=== PATIENT | female | born 1965 | race Caucasian/White ===

== ENCOUNTER 2023-02-14 07:53 | Outpatient (OUT) | payer OTHER, SELFPAY ==
[2023-02-14 08:39] LABS: Calcium 9.4 mg/dL (8.5-10.1); Carbon Dioxide 30.8 mmol/L (21.0-32.0); Chloride 102 mmol/L (98-107); Estimated GFR (African America >60 (>=60); Estimated GFR (Non-African Ame >60 (>=60); Potassium 4.2 mmol/L (3.5-5.1); Sodium 140 mmol/L (136-145)
[2023-02-14 09:51] LABS: Calcium Urine Random 11.7 mg/dL (5.1-21.0); Creatinine Urine Random 46.43 mg/dL (20.00-300.00); Sodium Urine Random 47 mmol/L (30-90)
[2023-02-14 09:53] LABS: Calcium 24 Hour Urine 137.5 mg/24hr (100.0-300.0); Sodium 24 Hour Urine 55 mmol/24h (40-220); Total Volume 24 Hour Urine 1175 mL/24hr
[2023-02-15 10:09] LABS: Magnesium, U 5.5 mg/dL (Not Estab.); Magnesium,Urine 24hr 64.6 mg/24 hr (12.0-293.0); Phosphorus, Urine 66.3 mg/dL (Not Estab.); Phosphorus,Urine 24h 779 mg/24 hr (261-1078)
[2023-02-15 11:09] LABS: PTH, Intact 36 pg/mL (15-65); Uric Acid, Urine 16.1 mg/dL (Not Estab.); Uric Acid,Urine 24hr 189.2 mg/24 hr (173.7-902.1)
[2023-02-16 15:10] LABS: Citric Acid, U, 24hr 274 mg/24 hr (320-1240); Citric Acid, Urine 233 mg/L (Undefined); Oxalates, Urine 8 mg/L (Undefined); Oxalates, Urine 24hr 9 mg/24 hr (4-31)
== END 2023-02-14 07:54 | disposition home or self-care (01) ==
LOC: LAB 07:53
PROVIDERS: PCP Family Medicine; Visit Provider Urology
DX: N20.0 Calculus of kidney (principal)
CPT/HCPCS: 36415; 82310; 82340; 82374; 82435; 82507; 82565; 82570; 83735; 83945; 83970; 84105; 84132; 84295; 84300; 84520; 84550; 84560

== ENCOUNTER 2023-03-01 08:54 | Outpatient (OUT) | payer OTHER, SELFPAY ==
--- NOTE | 2023-03-01 08:58 | XR_ITS ---
The [address] [address] Patient Name: JOSE LUIS BARNEY MRN: [id number] date: 1965 Sex: F Assigned Patient Location: RAD Current Patient Location: [facility] Accession/Order Number: [id number] Exam Date: 03/01/2023 09:04 Report Date: 03/01/2023 13:56 At the request of: BETITO QUIROZ Procedure: XR abdomen 1V EXAMINATION: XR abdomen 1V HISTORY: Kidney Stone N20.0 COMPARISON: XR KUB 07/07/2022 FINDINGS: KIDNEY/URETER - RIGHT: No visible renal or ureteral calcifications. KIDNEY/URETER - LEFT: No visible renal or ureteral calcifications. PELVIS: No visible ureteral stones. BOWEL: No abnormal dilation or deviation. BONES: No acute abnormality. OTHER: Negative. No abnormal gaseous collections. XR/XR abdomen 1V IMPRESSION: 1. No visible urinary tract calculi. Previously seen right kidney stone is not present/not visible. Electronically authenticated by: PARISA DUBON Date: 03/01/2023 13:56
== END 2023-03-01 08:55 | disposition home or self-care (01) ==
LOC: RAD 08:54
PROVIDERS: PCP Family Medicine; Visit Provider Urology
DX: N20.0 Calculus of kidney (principal)
CPT/HCPCS: 74018

== ENCOUNTER 2023-06-29 10:54 | Outpatient (OUT) | payer OTHER, SELFPAY ==
--- NOTE | 2023-06-29 10:57 | MM_ITS ---
Patient Name: JOSE LUIS BARNEY MR#: [id number] : 1965 Exam Date: 06/29/2023 Ordering Doctor: DR LEANDER ARGUETA . RADIOLOGY REPORT PROCEDURE: MM TOMOSYNTHESIS SCREENING BI COMPARISON: MG MAMM SCREEN 3D [place] CAD, 06/28/2022. MG MAMM SCREEN 3D [place] CAD, 07/09/2021. MG MAMM SCREEN [place] W CAD, 07/07/2020. MG MAMM [place] SCRN W CAD DIG, 05/14/2013. INDICATIONS: screening Calculator Name NCI Breast Cancer Risk Assessment Tool 5 Year Breast Cancer Risk 1.00% Lifetime Breast Cancer Risk 6.20% Personal Breast Cancer No Personal Ovarian Cancer No Treatments None Family Cancers Brother with throat cancer at age ~60. LOCATION: [facility] BREAST COMPOSITION: Heterogeneously dense,which may obscure small masses. FINDINGS: DIAGNOSTIC CATEGORY 2--BENIGN FINDING: RIGHT BREAST: No significant suspicious finding. This exam includes additional mammographic views for implant evaluation and shows no visible implant abnormality. No significant change has occurred. LEFT BREAST: No significant suspicious finding. This exam includes additional mammographic views for implant evaluation and shows no visible implant abnormality. No significant change has occurred. RECOMMENDATIONS: ROUTINE MAMMOGRAM AND CLINICAL EVALUATION IN 12 MONTHS. PLEASE NOTE: A NORMAL MAMMOGRAM DOES NOT EXCLUDE THE POSSIBILITY OF BREAST CANCER. A CLINICALLY SUSPICIOUS PALPABLE LUMP SHOULD BE BIOPSIED. Dictated by: Chad Johnson M.D. on 06/29/2023 at 12:17 Approved by: Chad Johnson M.D. on 06/29/2023 at 12:21
== END 2023-06-29 10:55 | disposition home or self-care (01) ==
LOC: MAMMO 10:54
PROVIDERS: PCP Family Medicine; Visit Provider Family Medicine
DX: Z12.31 Encounter for screening mammogram for malignant neoplasm of breast (principal); Z80.8 Family history of malignant neoplasm of other organs or systems
CPT/HCPCS: 77063; 77067

== ENCOUNTER 2024-03-05 08:01 | Outpatient (OUT) | payer OTHER, SELFPAY ==
--- NOTE | 2024-03-05 08:09 | XR_ITS ---
The [address] [address] Patient Name: JOSE LUIS BARNEY MRN: [id number] date: 1965 Sex: F Assigned Patient Location: [facility] Current Patient Location: Accession/Order Number: [id number] Exam Date: 03/05/2024 08:15 Report Date: 03/06/2024 04:45 At the request of: BETITO QUIROZ Procedure: XR abdomen 1V EXAMINATION: XR abdomen 1V HISTORY: Kidney Stone COMPARISON: XR abdomen 03/01/2023 FINDINGS: KIDNEY/URETER - RIGHT: No visible renal or ureteral calcifications. KIDNEY/URETER - LEFT: No visible renal or ureteral calcifications. PELVIS: No visible ureteral calcifications. Any visible calcifications favor phleboliths. BOWEL: No abnormal dilation or deviation. BONES: No acute abnormality. OTHER: Negative. No abnormal gaseous collections. XR/XR abdomen 1V IMPRESSION: 1. No appreciable urinary tract calculi. Electronically authenticated by: PARISA DUBON Date: 03/06/2024 04:45
--- OUTSIDE RECORDS SUMMARY | 2024-03-05 08:09 | XMS_ITS | CCD ---
Author Organization [facility] CliniSyms Care Team Providers Care Printing Plate Setter Name Role Phone ANKIT JEAN Primary Care Physician TONY ARGUETA Primary Care Physician Unavail able JEAN ., DR ANKIT Gautam Primary Care Unavailable DIPAK BRADY Attending Unavailable JOSE ANTONIO, DIPAK Admitting Unavailable DIPAK BRADY Consulting Unavailable WALLY RIOS Consulting Unavailable JEAN ., DR ANKIT Gautam Primary Care Unavailable KEZIA ., JOSEPHINE Admitting Unavailable KEZIA ., JOSEPHINE Consulting Unavailable KEZIA ., JOSEPHINE Attending Unavailable MADRIGAL ., DR CISSE Consulting Unavailable MADRIGAL ., DR CISSE Attending Unavailable MADRIGAL ., DR CISSE Admitting Unavailable JEAN ., DR ANKIT Gautam Primary Care Unavailable JEAN ., DR ANKIT Gautam Primary Care Unavailable MADRIGAL ., DR CISSE Consulting Unavailable MADRIGAL ., DR CISSE Attending Unavailable MADRIGAL ., DR CISSE Admitting Unavailable JEAN ., DR ANKIT Gautam Primary Care Unavailable MADRIGAL ., DR CISSE Consulting Unavailable MADRIGAL ., DR CISSE Attending Unavailable MADRIGAL ., DR CISSE Admpascale Unavailable BOLIVAR, DR PATRICIO Mondragon Consulting Unavailable CHARLTON, LAWRENCE Consulting Unavailable GEMBUS, LUIS M Consulting Unavailable JEAN ., DR ANKIT Gautam Primary Care Unavailable JEAN ., DR ANKIT Gautma Consulting Unavailable JEAN ., DR ANKIT Gautam Attending Unavailable JEAN ., DR ANKIT Gautam Admitting Unavailable JEAN ., DR ANKIT Gautam Consulting Unavailable JEAN ., DR ANKIT Gautam Primary Care Unavailable JEAN ., DR ANKIT Gautam Attending Unavailable JEAN ., DR ANKIT Gautam Admitting Unavailable JEAN ., DR ANKIT Gautam Attending Unavailable JEAN ., DR ANKIT Gautam Admitting Unavailable JEAN ., DR ANKIT Gautam Consulting Unavailable JEAN ., DR ANKIT Gautam Primary Care Unavailable MADRIGAL ., DR CISSE Attending Unavailable MADRIGAL ., DR CISSE Admitting Unavailable MADRIGAL ., DR CISSE Consulting Unavailable JEAN ., DR ANKIT Gautam Primary Care Unavailable JAGDISH, DR CHAD Guzman Consulting Unavailable JEAN ., DR ANKIT Gautam Consulting Unavailable MIRANDA ., DR ANKIT Gautam Attending Unavailable MIRANDA ., DR ANKIT Gautam Admitting Unavailable MIRANDA ., DR ANKIT Gautam Primary Care Unavailable JAGDISH, DR CHAD Guzman Consulting Unavailable Tex MADRIGAL Attending Unavailable Tex MADRIGAL Attending Unavailable Betzy Donis Attending Unavailable TONY ARGUETA Referring Unavailable Tex MADRIGAL Attending Karolina Portillo Attending Unavailable Karolina DILLARD Referring Unavailable Tex MADRIGAL Attending Unavailable TONY ARGUETA Attending Unavailable Tony Argueta MD Primary Care Provider [phone] Allergies Allergy Classification Reported Allergen(s) Allergy Type Date of Onset Reaction(s) Facility (8 sources) Amoxicillin; Translations: [amoxicillin] Drug Allergy 4 Unknown (qualifier value), Rash [facility] (1 source) Amoxicillin Drug Allergy 6 [facility] Repository Medications Current Medications Medication Drug Class(es) Dates Sig (Normalized) Sig (Original) potassium bicarbonate 25 meq effervescent oral tablet (3 sources) Start: 03-06-2023 take 1 tablet by mouth in the morning Klor-Con/EF 25 MEQ effervescent tablet Take 25 mEq by mouth in the morning and 25 mEq before bedtime. 0 03/06/2023 Active SUMAtriptan 50 mg oral tablet (6 sources) Serotonin-1b and Serotonin-1d Receptor Agonist Start: 06-13-2022 SUMAtriptan 50 mg Tab Refills(s) 0 Start Date: 06/13/22 Status: Ordered take 5 tablets by mouth every we ek SUMAtriptan (Imitrex) 50 MG tablet Take 50 mg by mouth See administration instructions TAKE 1 TABLET BY MOUTH NEEDED FOR HEADACHE, may repeat in 2 HOURS if needed (max 2 per 24 HOURS, 5 per week) 0 Active Completed/Discontinued Medications Medication Drug Class(es) Dates Sig (Normalized) Sig (Original) K-Effervescent 25 mEq oral tablet, effervescent (1 source) Start: 03-06-2023 End: 02-29-2024 take 1 tablet by mouth twice daily K-Effervescent 25 mEq oral tablet, effervescent 25 mEq = 1 tab(s), Oral, BID, X 30 day(s), # 60 tab(s), Refills(s) 11, Pharmacy: [id number], 165, cm, 03/06/23 15:46:00 EDT, Height/Length Dosing, 70.9, kg, 03/06/23 15:46:00 EDT, Weight Dosing Start Date: 03/06/23 Stop Date: 02/29/24 Status: Ordered magnesium sulfate 225 MG / potassium chloride 188 MG / sodium sulfate 1479 MG Oral Tablet [Sutab] (2 sources) Start: 09-06-2022 take 1 tablet by mouth once Sutab oral tablet See Instructions, 1 EA, Refill(s) 0, Please follow instructions per packaging and physician's handout, [id number], 165, cm, 09/06/22 8:50:00 EST, Height/Length Dosing, 76.6, kg, 09/06/22 8:50:00 EST, Weight Dosing Start Date: 09/06/22 Status: Ordered Sutab 6386-529-281 MG tablet (3 sources) Start: 09-06-2022 End: 08-16-2023 Sutab 0886-651-267 MG tablet USE DIRECTED per physicians handout 0 09/06/2022 08/16/2023 Discontinued (Therapy completed) Start: 09-06-2022 Sutab 1479-225 -188 MG tablet USE DIRECTED per physicians handout 0 09/06/2022 Active Problems Active Problems Problem Classification Problem Date Documented Date Episodic/Chronic Administrative/socia l admission (2 sources) Advance directive discussed with patient; Translations: [Other specified counseling] 08-09-2023 Episodic Calculus of urinary tract (11 sources) Kidney stone; Translations: [Calculus of kidney] Onset: 05-31-20 Episodic Headache; including migraine (2 sources) Migraine without aura, not refractory ; Translations: [Migraine without aura, not intractable, without status migrainosus] Onset: 08-16-1908-16-2023 Chronic Headache; including migraine (3 sources) Headache 06-13-2022 Episodic Headache; including migraine (1 source) Headache; including migraine; Translations: [HEADACHE UNSPECIFIED] Onset: 07-07-20 Other and unspecified benign neoplasm (5 sources) History of polyp of colon; Translations: [Personal history of colonic polyps] Onset: 09-06-19 23 Episodic Other bone disease and musculoskeletal deformities (2 sources) Osteopenia; Translations: [Other specified disorders of bone density and structure, other site] Onset: 08-16-19 24 08-16-2023 Episodic Other diseases of kidney and ureters (1 source) Urinary tract obstruction; Translations: [Hydronephrosis with renal and ureteral calculous obstruction] Onset: 06-13-20 Episodic Other diseases of kidney and ureters (3 sources) Hydronephrosis 06-13-2022 Episodic Other diseases of kidney and ureters (3 sources) Hydroureteronephrosis 06-13-2022 Episodic Other diseases of kidney and ureters (1 source) Hydronephrosis with renal and ureteral calculous obstruction; Translations: [HYDRONPHROS RENL AND URETRL CALCUL OBST] Onset: 06-18-20 Episodic Other nutritional; endocrine; and metabolic disorders (6 sources) Body mass index 25-29 - overweight; Translations: [Overweight] Onset: 08-09-19 24 08-09-2023 Episodic Other screening for suspected conditions (not mental disorders or infectious disease) (8 sources) Encounter for screening mammogram for malignant neoplasm of breast; Translations: [Encounter for screening for malignant neoplasm of cervix] Onset: 06-06-20 Episodic Residual codes; unclassified (1 source) Family history of malignant neoplasm of digestive organs; Translations: [FAM HX MALIG NEOPLASM DIGESTIV ORGN] Onset: 07-06-20 Episodic Residual codes; unclassified (2 sources) Menopause present; Translations: [Asymptomatic menopausal state] Onset: 08-16-19 24 08-16-2023 Episodic Unclassified (1 source) CONTACT W/AND (SUSP) EXPOS COVID-19; Translations: [CONTACT W/AND (SUSP) EXPOS COVID-19] Onset: 07-07-20 Past or Other Problems Problem Classification Problem Date Documented Da te Episodic/Chronic Abdominal pain (3 sources) Unspecified abdominal pain; Translations: [UNSPECIFIED ABDOMINAL PAIN] Onset: 05-27-2022 Episodic Nausea and vomiting (1 source) Nausea with vomiting, unspecified; Translations: [NAUSEA WITH VOMITING UNSPECIFIED] Onset: 05-31-2022 Episodic Results Test Name Value Interpretation Reference Range Facility Lab Reportson 03-07-2023 Lab Reports [id number]:12 7 [facility] Patient Educationon 03-06-20 Patient Education Nephrology Dietary Guidelines to Help Prevent Kidney Stones Kidney stones are deposits of minerals and salts that form inside your kidneys. Your risk of developing kidney stones may be greater depending on your diet, your lifestyle, the medicines you take, and whether you have certain medical conditions. Most people can lower their chances of developing kidney stones by following the instructions below. Your dietitian may give you more specific instructions depending on your overall health and the type of kidney stones you tend to develop. What are tips for following this plan? Reading food labels ? Choose foods with no salt added or low-salt labels. Limit your salt (sodium) intake to less than 1,500 mg a day. ? Choose foods with calcium for each meal and snack. Try to eat about 300 mg of calcium at each meal. Foods that contain 200?500 mg of calcium a serving include: ? 8 oz (237 mL) of milk, zqosbep-hmaertvnfzan-ozuo y milk, and calcium-fortifiedfruit juice. Calcium-fortified means that calcium has been added to these drinks. ? 8 oz (237 mL) of kefir, yogurt, and soy yogurt. ? 4 oz (114 g) of tofu. ? 1 oz (28 g) of cheese. ? 1 cup (150 g) of dried figs. ? 1 cup (91 g) of cooked broccoli. ? One 3 oz (85 g) can of sardines or mackerel. Most people need 1,000?1,500 mg of calcium a day. Talk to your dietitian about how much calcium is recommended for you. Shopping ? Buy plenty of fresh fruits and vegetables. Most people do not need to avoid fruits and vegetables, even if these foods contain nutrients that may contribute to kidney stones. ? When shopping for convenience foods, choose: ? Whole pieces of fruit. ? Pre-made salads with dressing on the side. ? Low-fat fruit and yogurt smoothies. ? Avoid buying frozen meals or prepared deli foods. These can be high in sodium. ? Look for foods with live cultures, such as yogurt and kefir. ? Choose high-fiber grains, such as whole-wheat breads, oat bran, and wheat cereals. Cooking ? Do not add salt to food when cooking. Place a salt shaker on the table and allow each person to add his or her own salt to taste. ? Use vegetable protein, such as beans, textured vegetable protein (TVP), or tofu, instead of meat in pasta, casseroles, and soups. Meal planning ? Eat less salt, if told by your dietitian. To do this: ? Avoid eating processed or pre-made food. ? Avoid eating fast food. ? Eat less animal protein, including cheese, meat, poultry, or fish, if told by your dietitian. To do this: ? Limit the number of times you have meat, poultry, fish, or cheese each week. Eat a diet free of meat at least 2 days a week. ? Eat only one serving each day of meat, poultry, fish, or seafood. ? When you prepare animal protein, cut pieces into small portion sizes. For most meat and fish, one serving is about the size of the palm of your hand. ? Eat at least five servings of fresh fruits and vegetables each day. To do this: ? Keep fruits and vegetables on hand for snacks. ? Eat one piece of fruit or a handful of berries with breakfast. ? Have a salad and fruit at lunch. ? Have two kinds of vegetables at dinner. ? Limit foods that are high in a substance called oxalate. These include: ? Spinach (cooked), rhubarb, beets, sweet potatoes, and [place] chard. ? Peanuts. ? Potato chips, japanese fries, and baked potatoes with skin on. ? Nuts and nut products. ? Chocolate. ? If you regularly take a diuretic medicine, make sure to eat at least 1 or 2 servings of fruits or vegetables that are high in potassium each day. These include: ? Avocado. ? Banana. ? [place], prune, carrot, or tomato juice. ? Baked potato. ? Cabbage. ? Beans and split peas. Lifestyle ? Drink enough fluid to keep your urine pale yellow. This is the most important thing you can do. Spread your fluid intake throughout the day. ? If you drink alcohol: ? Limit how much you use to: ? 0?1 drink a day for women who are not . ? 0?2 drinks a day for men. ? Be aware of how much alcohol is in your drink. In the [place] one drink equals one 12 oz bottle of beer (355 mL), one 5 oz glass of wine (148 mL), or one 1? oz glass of hard liquor (44 mL). ? Lose weight if told by your health care provider. Work with your dietitian to find an eating plan and weight loss strategies that work best for you. General information ? Talk to your health care provider and dietitian about taking daily supplements. You may be told the following depending on your health and the cause of your kidney stones: ? Not to take supplements with vitamin C. ? To take a calcium supplement. ? To take a daily probiotic supplement. ? To take other supplements such as magnesium, fish oil, or vitamin B6. ? Take ecey-iog-xdcpbxc and prescription medicines only as told by your health care provider. These include supplements. What foods should I limit? Limit your in (more content not included)... [facility] Urology Office/Clinic Noteon 03-06-2023 Urology Office/Clinic Note Chief Complaint kidney and ureteral stone f/u HPI Staff 8 month f/u with metabolic work up and KUB. Previous dx of kidney stone and ureteral stone with hydronephrosis. Dysuria: no Incomplete bladder emptying: no Hematuria: no Frequency: no Urgency: no Nocturia: 0-1x Stream: no straining involved or intermittency Leaking: no Post void dripping: no Wearing pads/ Depends: no Urge incontinence: no Stress incontinence: no Incontinence without Sensory Awareness: no Abdominal pain: no Flank pain: no Sexual complaints: no History of Present Illness Tests reviewed: reviewed UA, KUB I have reviewed the previous health record information and history for this patient from Dr. Madrigal. I have reviewed and verified the staff HPI to be accurate for this encounter. There have been no associated fever, chills, flank pain, or blood in the urine. Denies any urinary infections since last encounter. Review of Systems PHQ Score Initial Depression Screen Score: 0 ROS - Provider Constitutional: denies weight loss, denies hot flashes. Eyes: denies eye problems. Gastrointestinal: denies nausea, denies vomiting. Cardiovascular: denies chest pain or angina. Integumentary: no dryness Musculoskeletal: denies musculoskeletal symptoms. ENMT: denies otolaryngeal symptoms. Respiratory: no shortness of breath. Heme/Lymph: denies easy bleeding tendency, denies easy bruising tendency. Psychiatric: no confusion, no anxiety. Genitourinary: See HPI. Physical Exam Vitals & Measurements HR: 71(Peripheral) RR: 16 BP: 126/83 HT: 65 in HT: 165 cm WT: 70.9 kg WT: 155.98 lb BMI: 26.04 General Appearance: alert , no acute distress, well nourished, well developed female. Genitourinary: bladder nonpalpable, no flank pain. Assessment/Plan 1. Kidney stone (N20.0: Calculus of kidney) S/p R ESWL 07/07/22 24hr urine 02/14/23 - low Cr 545.55 (800 - 1800), low volume, low citric acid 275 (320 - 1240) KUB 03/01/23 - negative for stones Recommended pt to increase fluid intake to ten to twelve 16oz bottles a day; preferably water, clear pop, and sugar free lemonade. Pt to begin Effer-K 25 mEq BID. Discussed the medication side effects, and the patient will monitor closely for these, as well as for symptom improvement. If severe side effects occur, the medication should be stopped and the office notified. Scipt sent to in [place]. Follow up with KUB in 1 year or sooner if needed. All questions/concerns were discussed. Pt to call the office if she encounters any issues prior. Pt acknowledges understanding. Follow-up With When Contact Information RICHIE YANEZ, Tex Guzman, URL [facility] [address], [place] [address]- [phone] Additional Instructions: 1 yr w/ KUB Patient Education Dietary Guidelines to Help Prevent Kidney Stones Beryl Newman, personally scribed for Dr. Madrigal on 03/06/2023 17:03:30. . Documentation recorded by the scribe, Beryl Griffin, accurately reflects the services(s) I performed and decisions made by me. Authenticated by Dr. Madrigal on 03/06/2023 17:05:37. Problem List/Past Medical History Ongoing Headache History of colon polyps Hydroureteronephrosis Kidney stone Ureteral stone with hydronephrosis Historical No qualifying data Procedure/Surgical History Breast augmentation, Colonoscopy. Medications K-Effervescent 25 mEq oral tablet, effervescent, 25 mEq= 1 tab(s), Oral, BID, 11 refills SUMAtriptan 50 mg Tab Sutab oral tablet, See Instructions Allergies amoxicillin (Unknown) Social History Tobacco Never (less than 100 in lifetime) Tobacco Use:. Never Smokeless Tobacco Use:., 09/06/2022 Family History Heart disease: Mother. Hypertension: Mother. Stroke: Mother. Immunizations Vaccine Date Status influenza virus vaccine, inactivated 04/26/2022 Recorded SARS-CoV-2 (COVID-19) mRNA BNT-162b2 vax 10/29/2020 Recorded SARS-CoV-2 (COVID-19) mRNA BNT-162b2 vax 10/09/2020 Recorded Lab Results Ambulatory Point of Care Results Bilirubin Urine Dipstick: Negative (03/06/23 15:42:00) Blood Urine Dipstick: Negative (03/06/23 15:42:00) Glucose Urine Dipstick: Negative (03/06/23 15:42:00) Ketones Urine Dipstick: Negative (03/06/23 15:42:00) Leukocytes Urine Dipstick: Negative (03/06/23 15:42:00) Nitrite Urine Dipstick: Negative (03/06/23 15:42:00) Protein Urine Dipstick: Negative (03/06/23 15:42:00) Specific [place] Urine Dipstick: 1.015 (03/06/23 15:42:00) Urine Appearance Urine Dipstick: Clear (03/06/23 15:42:00) Urine Color Urine Dipstick: Yellow (03/06/23 15:42:00) Urobilinogen Urine Dipstick: Normal 0.2-1 EU/dl (03/06/23 15:42:00) pH Urine Dipstick: 5.5 (03/06/23 15:42:00) [facility] Comment on above: Result Comment: Elec tronically Signed By: Tex MADRIGAL MD\.chantel\Date and Time Signed: 03/06/23 17:05 EDT\.br\Electronically Co-Signed By: Beryl Griffin.br\Date and Time Co-Signed: 03/06/23 17:04 EDT RAD - MISCon 03-02-2023 RAD - MISC [id number]:12 7 [facility] RAD - MISC [id number]#1.00CD:12 7 [facility] Lab Reportson 02-15-2023 Lab Reports [id number]:12 7 [facility] Lab Reports [id number]#1.00CD:12 7 [facility] Reminderson 10-17-2022 Reminders - From: Durga Monterroso To: CHRIS - Reminders/Recalls; Sent: 10/17/2022 11:02:42 EDT Show up: 09/08/2027 11:02:00 EST Subject: Ambulatory Reminder Due Date/Time: 10/05/2027 11:02:00 EDT Reminder/Recall Repeat colonoscopy in 5 years(2027) due to personal history of colon polyps. [facility] Result Letter Officeon 10-17 Result Letter Office (Inserted Image. Un able to display) October 17, 2022 [address] [place] [phone] KIARA MOYA 1965 Below is a summary of the results of your recent colonoscopy. Your results have been sent to your primary care provider along with recommendations on when the procedure should be repeated. COLONOSCOPY Normal colonoscopy No polyps identified Based on your results we are recommending you repeat the procedure in 5 years due to personal history of colon polyps. You will be placed in our reminder system and will receive a reminder letter prior to your next due date. [facility] [phone] [facility] Outside Colonoscopyon 2022 Outside Colonoscopy [id number]:1 27 [facility] Auth for Release of Medical Recordson 09-07-2022 Auth for Release of Medical Records [id number]#1.00CD:12 7 [facility] Ambulatory Visit Summaryon 0 09-06-2022 Ambulatory Visit Summary KIARA MOYA :1965 Visit Date:09/06/2022 Ambulatory Visit Instructions Your Diagnosis History of colon polyps Your Care Team Attending Physician - Betzy Donis CNP Primary Care Physician - TONY ARGUETA MD Referring Physician - TONY ARGUETA MD This Is Your Medications List magnesium sulfate/potass Cl/sodium sulf (Sutab oral tablet) Contact prescribing physician if questions or concerns sumatriptan (SUMAtriptan 50 mg Tab) Procedures Performed Breast augmentation, Colonoscopy. Discharge Vitals Temperature (Temporal Artery) 36 ?C Heart Rate (Peripheral) 85 Blood Pressure 117/82 Height 165 cm Height 65 in Weight 76.6 kg Weight 168.52 lb BMI 28.14 What to do next You Need to Schedule the Following Appointments Follow Up with Betzy Donis CNP When: Within 1 to 2 weeks Comments: Following colonoscopy. Where: Medications What How Much When Instructions New magnesium sulfate/ potass Cl/ sodium sulf (Sutab oral tablet) See instructions Please follow instructions per packaging and physician's handout Pickup at [facility] Unchanged sumatriptan (SUMAtriptan 50 mg Tab) Contact prescribing physician if questions or concerns Pharmacy Information [facility]: [address] [place], [place] [phone] Allergies amoxicillin (Unknown) Problems Ongoing - Any problem that you are currently receiving treatment for. Headache History of colon polyps Hydroureteronephrosis Kidney stone Ureteral stone with hydronephrosis Education Materials Colonoscopy, Adult A colonoscopy is an exam to look at the entire large intestine. During the exam, a lubricated, flexible tube that has a camera on the end of it is inserted into the anus and then passed into the rectum, colon, and other parts of the large intestine. You may have a colonoscopy as a part of normal colorectal screening or if you have certain symptoms, such as: ? Lack of red blood cells (anemia). ? Diarrhea that does not go away. ? Abdominal pain. ? Blood in your stool (feces). A colonoscopy can help screen for and diagnose medical problems, including: ? Tumors. ? Polyps. ? Inflammation. ? Areas of bleeding. Tell a health care provider about: ? Any allergies you have. ? All medicines you are taking, including vitamins, herbs, eye drops, creams, and ieoz-odz-ubtxtzw medicines. ? Any problems you or family members have had with anesthetic medicines. ? Any blood disorders you have. ? Any surgeries you have had. ? Any medical conditions you have. ? Any problems you have had passing stool. What are the risks? Generally, this is a safe procedure. However, problems may occur, including: ? Bleeding. ? A tear in the intestine. ? A reaction to medicines given during the exam. ? Infection (rare). What happens before the procedure? Eating and drinking restrictions Follow instructions from your health care provider about eating and drinking, which may include: ? A few days before the procedure ? follow a low-fiber diet. Avoid nuts, seeds, dried fruit, raw fruits, and vegetables. ? 1?3 days before the procedure ? follow a clear liquid diet. Drink only clear liquids, such as clear broth or bouillon, black coffee or tea, clear juice, clear soft drinks or sports drinks, gelatin dessert, and popsicles. Avoid any liquids that contain red or purple dye. ? On the day of the procedure ? do not eat or drink anything starting 2 hours before the procedure, or within the time period that your health care provider recommends. Up to 2 hours before the procedure, you may continue to drink clear liquids, such as water or clear fruit juice. Bowel prep If you were prescribed an oral bowel prep to clean out your colon: ? Take it as told by your health care provider. Starting the day before your procedure, you will need to drink a large amount of medicated liquid. The liquid will cause you to have multiple loose stools until your stool is almost clear or light green. ? If your skin or anus gets irritated from diarrhea, you may use these to relieve the irritation: ? Medicated wipes, such as adult wet wipes with aloe and vitamin E. ? A skin-soothing product like petroleum jelly. ? If you vomit while drinking the bowel prep, take a break for up to 60 minutes and then begin the bowel prep again. If vomiting continues and you cannot take the bowel prep without vomiting, call your health care provider. ? To clean out your colon, you may also be given: ? Laxative medicines. ? Instructions about how to use an enema. General instructions ? Ask your health care provider about: ? Changing or stopping your regular medicines or supplements. This is especially important if you are taking iron supplements, diabetes medicines, or blood thinners. ? Taking medici (more content not included)... Normal [facility] Consent for Procedure/Surger yon 09-06-2022 Consent for Procedure/Surgery [id number]#1.00CD:1 27 Normal [facility] Gastroenterology Office/Clin ic Noteon 09-06-2022 Gastroenterology Office/Clinic Note Chief Complaint Colonoscopy recheck. HPI Staff This is a 57 year old female who presents today to schedule a colonoscopy. Patient was referred by Dr Argueta and her last colonoscopy was 04/03/2019. History of Present Illness Patient is a 57-year-old female who presents for referral from her PCP?Dr. Argueta for colonoscopy. Family history of colon cancer: Denies. Family history of colon polyps: Denies. Personal history of colon cancer: Denies. Personal history of colon polyps: Yes, per patient. Anticoagulation therapy: Denies. Antiplatelet therapy: Denies. During today's visit, patient reports having previous colonoscopy in 2019 and had colon polyps- she reports she was told to repeat in 3 years. No record of previous colonoscopy available to review during today's encounter. Denies change in bowel habits, black/bloody stools, nausea/vomiting, fevers/chills, and denies unintentional weight loss. Denies having any GI complaints. Review of Systems PHQ Score Initial Depression Screen Score: 0 ROS - Provider Constitutional: no fever, no chills. Skin: no Jaundice. ENMT: Denies dysphagia and heartburn. Respiratory: no shortness of breath. Cardiovascular: no chest pain. Gastrointestinal: no nausea, no vomiting, no diarrhea, no GI bleeding. Physical Exam Vitals & Measurements T: 36 ?C(Temporal Artery) HR: 85(Peripheral) BP: 117/82 HT: 65 in HT: 165 cm WT: 76.6 kg WT: 168.52 lb BMI: 28.14 General: Well developed, well nourished, in no acute distress Head: Normocephalic/atraumatic Lungs: Normal respiratory effort and clear to auscultation Cardio: Regular rate and rhythm, normal S1 and S2, no murmur, no rub Abdomen: Soft, non-distended, non-tender. Normoactive bowel sounds present in all 4 abdominal quadrants, bilaterally. Mental Status: Alert and oriented x3. Normal mood and affect Assessment/Plan 1. History of colon polyps (Z86.010: Personal history of colonic polyps) Previous colonoscopy in 2019 and had colon polyps- reportedly was told to repeat in 3 years. No record of previous colonoscopy available to review during today's encounter. Ordered Colonoscopy. Denies anticoagulation therapy. Ordered: Colonoscopy (Hospital Procedure) Orders: magnesium sulfate/potass Cl/sodium sulf, See Instructions, 1 EA, Refill(s) 0, Please follow instructions per packaging and physician's handout, [employer] #72, 165, cm, 09/06/22 8:50:00 EST, Height/Length Dosing, 76.6, kg, 09/06/22 8:50:00 EST, Weight Dosing Follow-up With When Contact Information Betzy Donis CNP Within 1 to 2 weeks Additional Instructions: Following colonoscopy. Patient Education Colonoscopy, Adult Problem List/Past Medical History Ongoing Headache History of colon polyps Hydroureteronephrosis Kidney stone Ureteral stone with hydronephrosis Historical No qualifying data Procedure/Surgical History Breast augmentation, Colonoscopy. Medications SUMAtriptan 50 mg Tab Sutab oral tablet, See Instructions Allergies amoxicillin (Unknown) Social History Tobacco Never (less than 100 in lifetime) Tobacco Use:. Never Smokeless Tobacco Use:., 09/06/2022 Family History Heart disease: Mother. Hypertension: Mother. Stroke: Mother. Immunizations Vaccine Date Status influenza virus vaccine, inactivated 04/26/2022 Recorded SARS-CoV-2 (COVID-19) mRNA BNT-162b2 vax 10/29/2020 Recorded SARS-CoV-2 (COVID-19) mRNA BNT-162b2 vax 10/09/2020 Recorded New information obtained: Outside records reviewed and indicated patient had previous colonoscopy 03/[address] Torres that revealed large adenomatous polyp. Normal [facility] Comment on above: Result Comment: Elec aprylally Signed By: Betzy Donis CNP\.chantel\Date and Time Signed: 09/06/22 10:32 EST Patient Educationon 09-06-19 Patient Education Radiology Colonoscopy, Adult A colonoscopy is an exam to look at the entire large intestine. During the exam, a lubricated, flexible tube that has a camera on the end of it is inserted into the anus and then passed into the rectum, colon, and other parts of the large intestine. You may have a colonoscopy as a part of normal colorectal screening or if you have certain symptoms, such as: ? Lack of red blood cells (anemia). ? Diarrhea that does not go away. ? Abdominal pain. ? Blood in your stool (feces). A colonoscopy can help screen for and diagnose medical problems, including: ? Tumors. ? Polyps. ? Inflammation. ? Areas of bleeding. Tell a health care provider about: ? Any allergies you have. ? All medicines you are taking, including vitamins, herbs, eye drops, creams, and azma-jvv-wuzajnw medicines. ? Any problems you or family members have had with anesthetic medicines. ? Any blood disorders you have. ? Any surgeries you have had. ? Any medical conditions you have. ? Any problems you have had passing stool. What are the risks? Generally, this is a safe procedure. However, problems may occur, including: ? Bleeding. ? A tear in the intestine. ? A reaction to medicines given during the exam. ? Infection (rare). What happens before the procedure? Eating and drinking restrictions Follow instructions from your health care provider about eating and drinking, which may include: ? A few days before the procedure ? follow a low-fiber diet. Avoid nuts, seeds, dried fruit, raw fruits, and vegetables. ? 1?3 days before the procedure ? follow a clear liquid diet. Drink only clear liquids, such as clear broth or bouillon, black coffee or tea, clear juice, clear soft drinks or sports drinks, gelatin dessert, and popsicles. Avoid any liquids that contain red or purple dye. ? On the day of the procedure ? do not eat or drink anything starting 2 hours before the procedure, or within the time period that your health care provider recommends. Up to 2 hours before the procedure, you may continue to drink clear liquids, such as water or clear fruit juice. Bowel prep If you were prescribed an oral bowel prep to clean out your colon: ? Take it as told by your health care provider. Starting the day before your procedure, you will need to drink a large amount of medicated liquid. The liquid will cause you to have multiple loose stools until your stool is almost clear or light green. ? If your skin or anus gets irritated from diarrhea, you may use these to relieve the irritation: ? Medicated wipes, such as adult wet wipes with aloe and vitamin E. ? A skin-soothing product like petroleum jelly. ? If you vomit while drinking the bowel prep, take a break for up to 60 minutes and then begin the bowel prep again. If vomiting continues and you cannot take the bowel prep without vomiting, call your health care provider. ? To clean out your colon, you may also be given: ? Laxative medicines. ? Instructions about how to use an enema. General instructions ? Ask your health care provider about: ? Changing or stopping your regular medicines or supplements. This is especially important if you are taking iron supplements, diabetes medicines, or blood thinners. ? Taking medicines such as aspirin and ibuprofen. These medicines can thin your blood. Do not take these medicines before the procedure if your health care provider tells you not to. ? Plan to have someone take you home from the hospital or clinic. What happens during the procedure? ? An IV may be inserted into one of your veins. ? You will be given medicine to help you relax (sedative). ? To reduce your risk of infection: ? Your health care team will wash or sanitize their hands. ? Your anal area will be washed with soap. ? You will be asked to lie on your side with your knees bent. ? Your health care provider will lubricate a long, thin, flexible tube. The tube will have a camera and a light on the end. ? The tube will be inserted into your anus. ? The tube will be gently eased through your rectum and colon. ? Air will be delivered into your colon to keep it open. You may feel some pressure or cramping. ? The camera will be used to take images during the procedure. ? A small tissue sample may be removed to be examined under a microscope (biopsy). ? If small polyps are found, your health care provider may remove them and have them checked for cancer cells. ? When the exam is done, the tube will be removed. The procedure may vary among health care providers and hospitals. What happens after the procedure? ? Your blood pressure, heart rate, breathing rate, and blood oxygen level will be monitored until the medicines you were given have worn off. ? Do not drive for 24 hours after the exam. ? You may have a small amount of blood in your stool. ? You may pass gas and have mild abdominal cramping or bloating due to the air t (more content not included)... Normal [facility] Physician Referralon 023 Physician Referral [id number]#1.00CD:12 7 Normal [facility] RAD - MISCon 07-15-2022 RAD - MISC [id number]#1.00CD:12 7 Normal [facility] Operative Reporton Operative Report [id number]#1.00CD:12 7 Normal [facility] PREG QUANT HCGon 07-07-2022 HCG QUANT 2 mIU/mL Normal [facility] Comment on above: Performed By: #### P REGQNT #### [facility] [address] [place] [address] Dr. Merritt Agudelo HCG RANGE SEE BELOW Normal [facility] Comment on above: Result Comment: 5-50 0.2-1 WEEK 50-500 1-2 WEEKS 100-5,000 2-3 WEEKS 500-10,000 3-4 WEEKS 1,000-50,000 4-5 WEEKS 10,000-100,000 5-6 WEEKS 15,000-200,000 6-8 WEEKS 10,000-100,000 2-3 MONTHS Performed By: #### P REGQNT #### [facility] [address] [place] [address] Dr. Merritt Agudelo XR KUB 1 VIEWon 07-07-2022 XR KUB 1 VIEW EXAMINATION: XR KUB 1 VIEW HISTORY: Urolithiasis COMPARISON: No relevant comparison available. FINDINGS: KIDNEY/URETER - RIGHT: Stable 8 mm nephrolith KIDNEY/URETER - LEFT: No visible renal or ureteral calcifications. PELVIS: No visible ureteral calcifications. Any visible calcifications favor phleboliths. BOWEL: No abnormal dilation or deviation. BONES: No acute abnormality. OTHER: Negative. No abnormal gaseous collections. IMPRESSION: Stable right nephrolithiasis Electronically authenticated by: PATRICIO LUTZ Date: 2022-07-07 11:10 Normal [facility] ECG 12-Leadon 07-06-2022 ECG 12-Lead [id number]#1.00CD:12 7 Normal [facility] Lab Reportson 07-06-2022 Lab Reports [id number]#1.00CD:12 7 Normal [facility] Cov[facility]on 06-10 SARS-CoV-2 (COVID-19) RNA MICHAEL+probe Ql (Unsp spec) Not detected Normal NOT DETECTED [facility] Comment on above: Result Comment: This test is not yet approved or cleared by the [place] FDA. When there are no FDA-approved or cleared tests available, and other criteria are met, FDA can make tests available under an emergency access mechanism called an Emergency Use Authorization (EUA). The EUA for this test is supported by the Dred[place] of Health and Human Service's (HHS's) declaration that circumstances exist to justify the emergency use of in vitro diagnostics for the detection and/or diagnosis of the virus that causes COVID-19. This EUA will remain in effect (meaning this test can be used) for the duration of the COVID-19 declaration justifying emergency of IVDs, unless it is terminated or revoked by FDA (after which the test may no longer be used). When diagnostic testing is negative, the possibility of a false negative should be considered in the context of a patient's recent exposures and the presence of clinical signs and symptoms consistent with SARS-CoV-2. Performed By: #### C VDTB #### [facility] [address] [place] [address] Dr. Merritt Agudelo Lab Reportson 06-30-2022 Lab Reports [id number]#1.00CD:12 7 Normal [facility] CBC AUTO DIFFon 06-29-2022 BASO # 0.0 103/ul Normal 0.0-0.[address] [facility] Comment on above: Performed By: #### C BC #### [facility] [address] [address] [address] Merritt Agudelo Basophils/100 WBC (Bld) 0.5 % Normal 0.2-2.[address] [facility] Comment on above: Performed By: #### C BC #### [facility] [address] [address] [address] Merritt Agudelo EO # 0.1 103/ul Normal 0.0-0.[address] [facility] Comment on above: Performed By: #### C BC #### [facility] [address] [place] [address] Dr. Merritt Agudelo Eosinophils/100 WBC (Bld) 2.2 % Normal 0.9-7.[address] [facility] Comment on above: Performed By: #### C BC #### [facility] [address] [place] [address] Dr. Merritt Agudelo Erythrocyte distribution width (RBC) [Ratio] 12.5 % Normal 11.0-15.[address] [facility] Comment on above: Performed By: #### C BC #### [facility] [address] [place] [address] Dr. Merritt Agudelo Hematocrit (Bld) [Volume fraction] 37.2 % Normal 36.0-48.[address] [facility] Comment on above: Performed By: #### C BC #### [facility] [address] [address] [address] Merritt Agudelo Hemoglobin (Bld) [Mass/Vol] 12.1 g/dL Normal 12.0-16.[address] [facility] Comment on above: Performed By: #### C BC #### [facility] [address] [place] [address] Dr. Merritt Agudelo IG # 0.02 10e3/ul Normal 0.00-0.[address] [facility] Comment on above: Performed By: #### C BC #### [facility] [address] [place] [address] Dr. Merritt Agudelo IG % 0.3 % Normal 0.0-0.[address] [facility] Comment on above: Performed By: #### C BC #### [facility] [address] [place] [address] Dr. Merritt Agudelo LYMPH # 1.8 103/ul Normal 1.2-3.8 [facility] Comment on above: Performed By: #### C BC #### [facility] [address] [place] [address] Dr. Merritt Agudelo Lymphocytes/100 WBC (Bld) 28.5 % Normal 20.5-60.0 [facility] Comment on above: Performed By: #### C BC #### [facility] [address] [place] [address] Dr. Merritt Agudelo MANUAL DIFF REQ NO Normal [facility] Comment on above: Performed By: #### C BC #### [facility] [address] [place] [address] Dr. Merritt Agudelo MCH (RBC) [Entitic mass] 29.5 pg Normal 26.7-34.[address] [facility] Comment on above: Performed By: #### C BC #### [facility] [address] [place] [address] Dr. Merritt Agudelo MCHC (RBC) [Mass/Vol] 32.5 g/dL Normal 29.9-35.2 [facility] Comment on above: Performed By: #### C BC #### [facility] [address] [place] [address] Dr. Merritt Agudelo MCV (RBC) [Entitic vol] 90.7 fL Normal 81.0-99.0 [facility] Comment on above: Performed By: #### C BC #### [facility] [address] [place] [address] Dr. Merritt Agudelo MONO # 0.5 103/ul Normal 0.3-0.8 [facility] Comment on above: Performed By: #### C BC #### [facility] [address] [place] [address] Dr. Merritt Agudelo Monocytes/100 WBC (Bld) 8.5 % Normal 1.7-12.[address] [facility] Comment on above: Performed By: #### C BC #### [facility] [address] [place] [address] Dr. Merritt Agudelo NEUT # 3.8 103/ul Normal 1.4-6.[address] [facility] Comment on above: Performed By: #### C BC #### [facility] [address] [place] [address] Dr. Merritt Agudelo Neutrophils/100 WBC (Bld) 60.0 % Normal 43.0-75.0 [facility] Comment on above: Performed By: #### C BC #### [facility] [address] [place] [address] Dr. Merritt Agudelo Platelet mean volume (Bld) [Entitic vol] 9.4 fL Critically low 9.5-13.[address] [facility] Comment on above: Performed By: #### C BC #### [facility] [address] [place] [address] Dr. Merritt Agudelo PLT 224 103/ul Normal 150-450 [facility] Comment on above: Performed By: #### C BC #### [facility] [address] [place] [address] Dr. Merritt Agudelo RBC 4.10 106/ul Critically low 4.20-5.40 [facility] Comment on above: Performed By: #### C BC #### [facility] [address] [place] [address] Dr. Merritt Agudelo WBC 6.4 103/ul Normal 4.0-11.0 [facility] Comment on above: Performed By: #### C BC #### [facility] [address] [place] [address] Dr. Merritt Agudelo PROF CHEM 8 (BAS METB)on Anion gap [Moles/Vol] 8.6 mmol/L Normal [facility] Comment on above: Performed By: #### C BC #### [facility] [address] [place] [address] Dr. Merritt Agudelo Calcium [Mass/Vol] 9.0 mg/dL Normal 8.5-10.1 [facility] Comment on above: Performed By: #### C BC #### [facility] [address] [place] [address] Dr. Merritt Agudelo Chloride [Moles/Vol] 102 mmol/L Normal 98-107 [facility] Comment on above: Performed By: #### C BC #### [facility] [address] [place] [address] Dr. Merritt Agudelo CO2 [Moles/Vol] 31.4 mmol/L Normal 21.0-32.0 [facility] Comment on above: Performed By: #### C BC #### [facility] [address] [place] [address] Dr. Merritt Agudelo Creatinine [Mass/Vol] 0.72 mg/dL Normal 0.55-1.[address] [facility] Comment on above: Performed By: #### C BC #### [facility] [address] [place] [address] Dr. Merritt Agudelo EGFR-AF IRISH >60 Normal >=60 [facility] Comment on above: Performed By: #### C BC #### [facility] [address] [place] [address] Dr. Merritt Agudelo EGFR-NON AF IRISH >60 Normal >=60 [facility] Comment on above: Performed By: #### C BC #### [facility] [address] [place] [address] Dr. Merritt Agudelo Glucose [Mass/Vol] 86 mg/dL Normal 74-106 [facility] Comment on above: Performed By: #### C BC #### [facility] [address] [place] [address] Dr. Merritt Agudelo Potassium [Moles/Vol] 4.0 mmol/L Normal 3.5-5.1 [facility] Comment on above: Performed By: #### C BC #### [facility] [address] [place] [address] Dr. Merritt Agudelo Sodium [Moles/Vol] 138 mmol/L Normal 136-145 [facility] Comment on above: Performed By: #### C BC #### [facility] [address] [place] [address] Dr. Merritt Agudelo Urea nitrogen [Mass/Vol] 16.0 mg/dL Normal 7.0-18.[address] [facility] Comment on above: Performed By: #### C BC #### [facility] [address] [place] [address] Dr. Merritt Agudelo Urea nitrogen/Creatinine [Mass ratio] 22.2 mg/mg Normal [facility] Comment on above: Performed By: #### C BC #### [facility] [address] [place] [address] Dr. Merritt Agudelo PROTIMEon 06-29-2022 INR Coag (PPP) [Relative time] 0.94 {INR} Normal [facility] Comment on above: Performed By: #### C BC #### [facility] [address] [place] [address] Dr. Merritt Agudeol INR GUIDELINES SEE BELOW Normal [facility] Comment on above: Result Comment: SIMÓN RED INR: 2.0 - 3.0 CONDITIONS NOT LISTED BELOW 2.5 - 3.5 FOR PROSTHETIC HEART VALVE REPLACEMENT 2.5 - 3.5 RECURRENT THROMBOSIS Performed By: #### C BC #### [facility] [address] [place] [address] Dr. Merritt Agudelo PT Coag (PPP) [Time] 10.2 s Normal 9.0-11.[address] [facility] Comment on above: Performed By: #### C BC #### [facility] [address] [place] [address] Dr. Merritt Agudelo PTTon 06-29-2022 aPTT Coag (Bld) [Time] 26.4 s Normal 22.3-36.[address] [facility] Comment on above: Performed By: #### C BC #### [facility] [address] [place] [address] Dr. Merritt Agudelo Consent for Procedure/Surger yon 06-28-2022 Consent for Procedure/Surgery [id number]#1.00CD:12 7 Normal [facility] MG MAMM SCREEN 3D ODILON CADon 06-28-2022 MG MAMM SCREEN 3D ODILON CAD Patient: KIARA MOYA Exam Date: 06/28/2022 : 1965 Gender:F Ordering : DR ANKIT JEAN . Admission #: [id number] Family : Order #: [id number] CLICK HERE TO VIEW EXAM RADIOLOGY REPORT PROCEDURE: MAMMOGRAM SCREENING 3D BILATERAL CAD COMPARISON: MG MAMM SCREEN ODILON W CAD, 07/07/2020. MG MAMM SCREEN ODILON W CAD, 07/02/2019. DIGITIZED_MAMMO, 03/17/2009. MG MAMM SCREEN 3D ODILON CAD, 07/09/2021. INDICATIONS: Screening mammography Calculator Name NCI Breast Cancer Risk Assessment Tool 5 Year Breast Cancer Risk 1.00% Lifetime Breast Cancer Risk 6.30% Personal Breast Cancer No Personal Ovarian Cancer No Treatments None Family Cancers Brother with throat cancer at age 60. LOCATION: [facility] BREAST COMPOSITION: Heterogeneously dense,which may obscure small masses. FINDINGS: DIAGNOSTIC CATEGORY 2--BENIGN FINDING: RIGHT BREAST: No significant suspicious finding. This exam includes additional mammographic views for implant evaluation and shows no visible implant abnormality. No significant change has occurred. LEFT BREAST: No significant suspicious finding. This exam includes additional mammographic views for implant evaluation and shows no visible implant abnormality. No significant change has occurred. RECOMMENDATIONS: ROUTINE MAMMOGRAM AND CLINICAL EVALUATION IN 12 MONTHS. PLEASE NOTE: A NORMAL MAMMOGRAM DOES NOT EXCLUDE THE POSSIBILITY OF BREAST CANCER. A CLINICALLY SUSPICIOUS PALPABLE LUMP SHOULD BE BIOPSIED. Dictated by: Chad Johnson M.D. on 06/29/2022 at 09:57 Approved by: Chad Johnson M.D. on 06/29/2022 at 10:[address] [facility] ED Note-Physicianon 06-19-20 ED Note-Physician [id number]#1.00CD:12 7 Normal [facility] Lab Reportson 06-19-2022 Lab Reports [id number]#1.00CD:1 27 Normal [facility] RAD - CT Reporton 06-19-2022 RAD - CT Report [id number]#1.00CD:12 7 [facility] RAD - MISCon 06-15-2022 RAD - MISC [id number]#1.00CD:12 7 [facility] Formson 06-14-2022 Forms [id number]#1.00CD:12 7 [facility] Physician Referralon 022 Physician Referral [id number]#1.00CD:12 7 [facility] Ambulatory Visit Summaryon 1 08-14-2021 Ambulatory Visit Summary KIARA MOYA :1965 Visit Date:06/13/2022 Ambulatory Visit Instructions Your Diagnosis Kidney stone Ureteral stone with hydronephrosis Tests Performed Urnls Dip Stick Auto w/o Microscopy POC 99266 XR Abdomen 1 View -- Results Pending -- Please visit your patient portal for your results or contact your primary care physician. Your Care Team Attending Physician - Tex MADRIGAL MD Primary Care Physician - ANKIT JEAN MD This Is Your Medications List Contact prescribing physician if questions or concerns sumatriptan (SUMAtriptan 50 mg Tab) Procedures Performed Breast augmentation, Colonoscopy. Discharge Vitals Heart Rate (Peripheral) 75 Respiratory Rate 16 Blood Pressure 129/83 Height 165 cm Height 65 in Weight 70 kg Weight 154 lb BMI 25.71 What to do next You Need to Schedule the Following Appointments Follow Up with RICHIE YANEZ, GRABIEL Carreno When: Where: [facility] [address] [place] [address]- Medications What When Instructions Unchanged sumatriptan (SUMAtriptan 50 mg Tab) Contact prescribing physician if questions or concerns Test Results Urnls Dip Stick Auto w/o Microscopy POC 01138 (06/13/2022) Bilirubin Urine Dipstick - Negative Blood Urine Dipstick - Negative Glucose Urine Dipstick - Negative Ketones Urine Dipstick - Negative Leukocytes Urine Dipstick - Negative Nitrite Urine Dipstick - Negative Protein Urine Dipstick - Negative Specific [place] Urine Dipstick - 1.025 Urine Appearance Urine Dipstick - Clear Urine Color Urine Dipstick - Yellow Urobilinogen Urine Dipstick - Normal 0.2-1 EU/dl pH Urine Dipstick - 5.5 Allergies amoxicillin (Unknown) Problems Ongoing - Any problem that you are currently receiving treatment for. Headache Hydroureteronephrosis Kidney stone Ureteral stone with hydronephrosis Education Materials Dietary Guidelines to Help Prevent Kidney Stones Kidney stones are deposits of minerals and salts that form inside your kidneys. Your risk of developing kidney stones may be greater depending on your diet, your lifestyle, the medicines you take, and whether you have certain medical conditions. Most people can reduce their chances of developing kidney stones by following the instructions below. Depending on your overall health and the type of kidney stones you tend to develop, your dietitian may give you more specific instructions. What are tips for following this plan? Reading food labels ? Choose foods with no salt added or low-salt labels. Limit your sodium intake to less than 1500 mg per day. ? Choose foods with calcium for each meal and snack. Try to eat about 300 mg of calcium at each meal. Foods that contain 200?500 mg of calcium per serving include: ? 8 oz (237 ml) of milk, fortified nondairy milk, and fortified fruit juice. ? 8 oz (237 ml) of kefir, yogurt, and soy yogurt. ? 4 oz (118 ml) of tofu. ? 1 oz of cheese. ? 1 cup (300 g) of dried figs. ? 1 cup (91 g) of cooked broccoli. ? 1?3 oz can of sardines or mackerel. ? Most people need 1000 to 1500 mg of calcium each day. Talk to your dietitian about how much calcium is recommended for you. Shopping ? Buy plenty of fresh fruits and vegetables. Most people do not need to avoid fruits and vegetables, even if they contain nutrients that may contribute to kidney stones. ? When shopping for convenience foods, choose: ? Whole pieces of fruit. ? Premade salads with dressing on the side. ? Low-fat fruit and yogurt smoothies. ? Avoid buying frozen meals or prepared deli foods. ? Look for foods with live cultures, such as yogurt and kefir. Cooking ? Do not add salt to food when cooking. Place a salt shaker on the table and allow each person to add his or her own salt to taste. ? Use vegetable protein, such as beans, textured vegetable protein (TVP), or tofu instead of meat in pasta, casseroles, and soups. Meal planning ? Eat less salt, if told by your dietitian. To do this: ? Avoid eating processed or premade food. ? Avoid eating fast food. ? Eat less animal protein, including cheese, meat, poultry, or fish, if told by your dietitian. To do this: ? Limit the number of times you have meat, poultry, fish, or cheese each week. Eat a diet free of meat at least 2 days a week. ? Eat only one serving each day of meat, poultry, fish, or seafood. ? When you prepare animal protein, cut pieces into small portion sizes. For most meat and fish, one serving is about the size of one deck of cards. ? Eat at least 5 servings of fresh fruits and vegetables each day. To do this: ? Keep fruits and vegetables on hand for snacks. ? Eat 1 piece of fruit or a handful of berries with breakfast. ? Have a salad and fruit at lunch. ? Have two kinds of vegetables at dinner. ? Limit foods that are high in a (more content not included)... Normal [facility] Patient Educationon 06-13-20 Patient Education Urology Dietary Guidelines to Help Prevent Kidney Stones Kidney stones are deposits of minerals and salts that form inside your kidneys. Your risk of developing kidney stones may be greater depending on your diet, your lifestyle, the medicines you take, and whether you have certain medical conditions. Most people can reduce their chances of developing kidney stones by following the instructions below. Depending on your overall health and the type of kidney stones you tend to develop, your dietitian may give you more specific instructions. What are tips for following this plan? Reading food labels ? Choose foods with no salt added or low-salt labels. Limit your sodium intake to less than 1500 mg per day. ? Choose foods with calcium for each meal and snack. Try to eat about 300 mg of calcium at each meal. Foods that contain 200?500 mg of calcium per serving include: ? 8 oz (237 ml) of milk, fortified nondairy milk, and fortified fruit juice. ? 8 oz (237 ml) of kefir, yogurt, and soy yogurt. ? 4 oz (118 ml) of tofu. ? 1 oz of cheese. ? 1 cup (300 g) of dried figs. ? 1 cup (91 g) of cooked broccoli. ? 1?3 oz can of sardines or mackerel. ? Most people need 1000 to 1500 mg of calcium each day. Talk to your dietitian about how much calcium is recommended for you. Shopping ? Buy plenty of fresh fruits and vegetables. Most people do not need to avoid fruits and vegetables, even if they contain nutrients that may contribute to kidney stones. ? When shopping for convenience foods, choose: ? Whole pieces of fruit. ? Premade salads with dressing on the side. ? Low-fat fruit and yogurt smoothies. ? Avoid buying frozen meals or prepared deli foods. ? Look for foods with live cultures, such as yogurt and kefir. Cooking ? Do not add salt to food when cooking. Place a salt shaker on the table and allow each person to add his or her own salt to taste. ? Use vegetable protein, such as beans, textured vegetable protein (TVP), or tofu instead of meat in pasta, casseroles, and soups. Meal planning ? Eat less salt, if told by your dietitian. To do this: ? Avoid eating processed or premade food. ? Avoid eating fast food. ? Eat less animal protein, including cheese, meat, poultry, or fish, if told by your dietitian. To do this: ? Limit the number of times you have meat, poultry, fish, or cheese each week. Eat a diet free of meat at least 2 days a week. ? Eat only one serving each day of meat, poultry, fish, or seafood. ? When you prepare animal protein, cut pieces into small portion sizes. For most meat and fish, one serving is about the size of one deck of cards. ? Eat at least 5 servings of fresh fruits and vegetables each day. To do this: ? Keep fruits and vegetables on hand for snacks. ? Eat 1 piece of fruit or a handful of berries with breakfast. ? Have a salad and fruit at lunch. ? Have two kinds of vegetables at dinner. ? Limit foods that are high in a substance called oxalate. These include: ? Spinach. ? Rhubarb. ? Beets. ? Potato chips and japanese fries. ? Nuts. ? If you regularly take a diuretic medicine, make sure to eat at least 1?2 fruits or vegetables high in potassium each day. These include: ? Avocado. ? Banana. ? [place], prune, carrot, or tomato juice. ? Baked potato. ? Cabbage. ? Beans and split peas. General instructions ? Drink enough fluid to keep your urine clear or pale yellow. This is the most important thing you can do. ? Talk to your health care provider and dietitian about taking daily supplements. Depending on your health and the cause of your kidney stones, you may be advised: ? Not to take supplements with vitamin C. ? To take a calcium supplement. ? To take a daily probiotic supplement. ? To take other supplements such as magnesium, fish oil, or vitamin B6. ? Take all medicines and supplements as told by your health care provider. ? Limit alcohol intake to no more than 1 drink a day for non women and 2 drinks a day for men. One drink equals 12 oz of beer, 5 oz of wine, or 1? oz of hard liquor. ? Lose weight if told by your health care provider. Work with your dietitian to find strategies and an eating plan that works best for you. What foods are not recommended? Limit your intake of the following foods, or as told by your dietitian. Talk to your dietitian about specific foods you should avoid based on the type of kidney stones and your overall health. Grains Breads. Bagels. Rolls. Baked goods. Salted crackers. Cereal. Pasta. Vegetables Spinach. Rhubarb. Beets. Canned vegetables. Pickles. Olives. Meats and other protein foods Nuts. Nut butters. Large portions of meat, poultry, or fish. Salted or cured meats. Deli meats. Hot dogs. Sausages. Dairy Cheese. Beverages Regular soft drinks. Regular vegetable juice. Seasonings and other foods Seasoning blends with salt. Nu medina (more content not included)... Normal [facility] Urology Office/Clinic Noteon 06-13-2022 Urology Office/Clinic Note Chief Complaint kidney stones HPI Staff Referral for right sided kidney stones. She was seen at [facility] ED on 05/27/22 for right sided abdominal and flank pain with nausea and vomiting. CT done shows several calculi in the lower pole of the right kidney, the largest 8mm. Moderate hydronephrosis with a 6mm calculus seen in the distal ureter close to the UVJ. Pt has passed one of of the stones and states that her symptoms are completely gone. Theses are the first kidney stones she has ever had. Dysuria: no Incomplete bladder emptying: no Hematuria: no Frequency: no Urgency: no Nocturia: 0-1 Stream: good steady no straining Leaking: no Post void dripping: no Wearing pads/ Depends: no Urge incontinence: no Stress incontinence: no Incontinence without Sensory Awareness: no Abdominal pain: no Flank pain: no Sexual complaints: no History of Present Illness Tests reviewed: reviewed UA I have reviewed the previous health record information and history for this patient from . I have reviewed and verified the staff HPI to be accurate for this encounter. There have been no associated fever, chills, flank pain, or blood in the urine. Denies any urinary infections since last encounter. Review of Systems PHQ Score Initial Depression Screen Score: 0 ROS - Provider Constitutional: denies weight loss, denies hot flashes. Eyes: denies eye problems. Gastrointestinal: denies nausea, denies vomiting. Cardiovascular: denies chest pain or angina. Integumentary: no dryness Musculoskeletal: denies musculoskeletal symptoms. ENMT: denies otolaryngeal symptoms. Respiratory: no shortness of breath. Heme/Lymph: denies easy bleeding tendency, denies easy bruising tendency. Psychiatric: no confusion, no anxiety. Genitourinary: denies vaginal discharge, denies incontinence, denies dysuria, denies hematuria, denies urinary frequency, denies amenorrhea, denies menorrhagia, denies abnormal bleeding, denies pelvic pain, denies genital sores, and denies decreased libido. Physical Exam Vitals & Measurements HR: 75(Peripheral) RR: 16 BP: 129/83 HT: 65 in HT: 165 cm WT: 70 kg WT: 154 lb BMI: 25.71 General Appearance: alert , no acute distress, well nourished, well developed female. Head: normocephalic . Eyes: normal orbit and globe. ENMT: normal examination of external ears. Chest: Lungs CTA, respirations non labored . Cardiovascular: regular rate and rhythm. Abdomen: soft, non distended, no tenderness, no mass or organomegaly, no hernia. Genitourinary: bladder nonpalpable, no flank tenderness. Lymph Nodes: unremarkable palpation of the cervical area. Skin: warm, dry, no bruising. Psychiatric: cooperative, affect appropriate for age, normal judgement, euthymic mood. Assessment/Plan 1. Kidney stone (N20.0: Calculus of kidney) New patient referred for right sided kidney stones. Pt visited [facility] ED on 05/27/22 for right sided abdominal and flank pain with nausea and vomiting. CT AP wo con done 05/27/22 shows several calculi in the lower pole of the right kidney, the largest 8mm. Bladder is mostly decompressed. UA today negative for blood and infection. Stone analysis done 06/01/22 shows Ca Ox 70% mono and 30% di. Pt passed one of the stones and states that her symptoms are completely gone. Pt's first stone event, denies family hx of stones. PE today: no pain or tenderness upon palpation. Discussed x-ray and met workup (for stone prevention). Discussed ESWL for remaining stones if visible on x-ray. All questions/concerns were discussed. Pt. to call the office if sheencounters any issues prior. Pt. acknowledges understanding and agrees with plan. Will schedule ESWL. The procedure risks, benefits, details and treatment alternatives have been discussed with the patient. These include blood in the urine, infection, bleeding around the kidney, kidney bruising, inability to break up the stone, need for blood transfusion, blockage from stone fragments, and need for additional procedures, among others. Full informed consent has been obtained. Will order General anesthesia. 2. Ureteral stone with hydronephrosis (N13.2: Hydronephrosis with renal and ureteral calculous obstruction) CT AP wo con done 05/27/22 shows moderate right hydroureteronephrosis with a 6mm calculus seen in the distal ureter close to the UVJ. See #1 she passed this stone last week. Follow-up With When Contact Information RICHIE YANEZ, Tex Guzman, URL [facility] [address], [place] [address]- Additional Instructions: schedule KUB, ESWL Patient Education Dietary Guidelines to Help Prevent Kidney Stones I, Naty Olmedo, personally scribed for Dr. Madrigal on 06/13/2022 12:28:53. . Documentation recorded by the scribe, Naty Olmedo, accurately reflects the services(s) I performed and decisions made by me. Authenticated by Dr. Madrigal on 06/13/2022 12:30:35. Problem List/Past Medic (more content not included)... Normal [facility] Comment on above: Result Comment: Elec tronically Signed By: Tex MADRIGAL MD R\.br\Date and Time Signed: 06/13/22 12:30 EST\.br\Electronically Co-Signed By: Naty Olmedo\.br\Date and Time Co-Signed: 06/13/22 12:29 EST XR KUB 1 VIEWon 06-13-2022 XR KUB 1 VIEW EXAMINATION: XR KUB 1 VIEW HISTORY: Kidney stone COMPARISON: CT abdomen pelvis 05/27/2022 FINDINGS: KIDNEY/URETER - RIGHT: 8 mm stone projecting over inferior pole of right kidney. KIDNEY/URETER - LEFT: No visible renal or ureteral calcifications. PELVIS: Clearing of previously seen stone within distal right ureter. BOWEL: No abnormal dilation or deviation. BONES: No acute abnormality. OTHER: Negative. No abnormal gaseous collections. IMPRESSION: 1. Right nephrolithiasis. 2. Clearing of previously seen distal right ureterolith. Electronically authenticated by: CHAD JOHNSON Date: 2022-06-13 13:[address] [facility] PAP ACOG PANEL 2: 30 to 65on 06-10-2022 . . Normal [facility] Comment on above: Result Comment: Perf ormed at: WB Performed By: #### C BC #### [facility] [address] [address] [address] Merritt Agudelo Age Gdln ACOG Testing 30-[address] [facility] Comment on above: Performed By: #### C BC #### [facility] [address] [place], [place] [address] Dr. Merritt Agudelo DIAGNOSIS: Comment Normal [facility] Comment on above: Result Comment: NEGA TIVE FOR INTRAEPITHELIAL LESION OR MALIGNANCY. CELLULAR CHANGES ASSOCIATED WITH ATROPHY ARE PRESENT. Performed at: WB Performed By: #### C BC #### [facility] [address] [address] [address] Merritt Agudelo HPV Aptima Negative Normal Negative [facility] Comment on above: Result Comment: This nucleic acid amplification test detects fourteen high-risk HPV types (16,18,31,33,35,39,45,51,52,56,58,59,66,68) without differentiation. Performed at: =G Performed By: #### C BC #### [facility] [address] [address] [address] Merritt Agudelo HPV Genotype Reflex Comment Normal [facility] Comment on above: Result Comment: Crit eria not met, HPV Genotype not performed. Performed at: WB Performed By: #### C BC #### [facility] [address] [address] [address] Merritt Agudelo Methodology: Comment Normal [facility] Comment on above: Result Comment: This liquid based ThinPrep(R) pap test was screened with the use of an image guided system. Performed at: WB Performed By: #### C BC #### [facility] [address] [address] [address] Merritt Agudelo Note: Comment Normal [facility] Comment on above: Result Comment: The Pap smear is a screening test designed to aid in the detection of premalignant and malignant conditions of the uterine cervix. It is not a diagnostic procedure and should not be used as the sole means of detecting cervical cancer. Both false-positive and false-negative reports do occur. . Performed at: WB Performed By: #### C BC #### [facility] [address] [address] [address] Merritt Agudelo Performed by: Comment Normal [facility] Comment on above: Result Comment: Stanley Cortes, Instrumentation Specialist (ASCP) Performed at: WB Performed By: #### C BC #### [facility] [address] [address] [address] Merritt Agudelo Specimen adequacy: Comment Normal [facility] Comment on above: Result Comment: Sati sfactory for evaluation. Endocervical component may not be distinguished in cases of atrophy. Performed at: WB Performed By: #### C BC #### [facility] [address] [address] [address] Merritt Agudelo CALCAURORA, URINARYon 2 2,[address] [facility] Comment on above: Performed By: #### C ALCULI #### [facility] [address] [place] [address] Dr. Merritt Agudelo Ammonium Acid Urate Normal [facility] Comment on above: Performed By: #### C ALCULI #### [facility] [address] [address] [address] Merritt Agudelo Bilirubin Ql (U) [facility] Comment on above: Performed By: #### C ALCULI #### [facility] [address] [place] [address] Dr. Merritt Agudelo Ca Oxalate Dihydrate 30 % [facility] Comment on above: Performed By: #### C ALCULI #### [facility] [address] [place] [address] Dr. Merritt Agudelo CaHPO4 (Brushite) [facility] Comment on above: Performed By: #### C ALCULI #### [facility] [address] [place] [address] Dr. Merritt Agudelo Calcium Bilirubinate [facility] Comment on above: Performed By: #### C ALCULI #### [facility] [address] [place] [address] Dr. Merritt Agudelo Calcium Carbonate [facility] Comment on above: Performed By: #### C ALCULI #### [facility] [address] [place] [address] Dr. Merritt Agudelo Calcium Oxalate Monohydrate 70 % [facility] Comment on above: Performed By: #### C ALCULI #### [facility] [address] [place] [address] Dr. Merritt Agudelo Calcium Palmitate [facility] Comment on above: Performed By: #### C ALCULI #### [facility] [address] [place] [address] Dr. Merritt Agudelo Calcium Phosphate Normal [facility] Comment on above: Performed By: #### C ALCULI #### [facility] [address] [address] [address] Merritt Agudelo Calcium Stearate Normal [facility] Comment on above: Performed By: #### C ALCULI #### [facility] [address] [address] [address] Merritt Agudelo Carbonate Apatite Normal [facility] Comment on above: Performed By: #### C ALCULI #### [facility] [address] [address] [address] Merritt Agudelo Cellular Material [facility] Comment on above: Performed By: #### C ALCULI #### [facility] [address] [address] [address] Merritt Agudelo Cholesterol [facility] Comment on above: Performed By: #### C ALCULI #### [facility] [address] [address] [address] Merritt Agudelo Color (U) Brown Normal [facility] Comment on above: Performed By: #### C ALCULI #### [facility] [address] [address] [address] Merritt Agudelo Comment [facility] Comment on above: Performed By: #### C ALCULI #### [facility] [address] [place] [address] Dr. Merritt Agudelo Comment: Comment Normal [facility] Comment on above: Result Comment: Phys shruthi questions regarding Calculi Analysis contact [facility] at: [phone]. Performed By: #### C ALCULI #### [facility] [address] [address] [address] Merritt Agudelo Composition Comment [facility] Comment on above: Result Comment: Perc entage (Represents the % composition) Performed By: #### C ALCULI #### [facility] [address] [address] [address] Merritt Agudelo Cystine [facility] Comment on above: Performed By: #### C ALCULI #### [facility] [address] [address] [address] Merritt Agudelo Disclaimer: Comment Normal [facility] Comment on above: Result Comment: This test was developed and its performance characteristics determined by [facility]. It has not been cleared or approved by the Food and Drug Administration. Performed By: #### C ALCULI #### [facility] [address] [address] [address] Merritt Agudelo Dried Blood Normal [facility] Comment on above: Performed By: #### C ALCULI #### [facility] [address] [address] [address] Merritt Agudelo Drug or Metabolite Normal [facility] Comment on above: Performed By: #### C ALCULI #### [facility] [address] [place] [address] Dr. Merritt Agudelo Hydroxyapatite Normal [facility] Comment on above: Performed By: #### C ALCULI #### [facility] [address] [place] [address] Dr. Merritt Agudelo Mg NH4 PO4 (Struvite) [facility] Comment on above: Performed By: #### C ALCULI #### [facility] [address] [place] [address] Dr. Merritt Agudelo MgHPO4 (New[place]ite) Normal [facility] Comment on above: Performed By: #### C ALCULI #### [facility] [address] [place] [address] Dr. Merritt Agudelo Other component(s) Normal [facility] Comment on above: Performed By: #### C ALCULI #### [facility] [address] [address] [address] Merritt Agudelo PDF . Normal [facility] Comment on above: Performed By: #### C ALCULI #### [facility] [address] [place] [address] Dr. Merritt Agudelo Photo Comment Normal [facility] Comment on above: Result Comment: Phot ograph will follow under a separate cover Performed By: #### C ALCULI #### [facility] [address] [place] [address] Dr. Merritt Agudelo Please note: Comment Normal [facility] Comment on above: Result Comment: Calc aurora report will follow via computer, mail or rapier insertion loom fixer delivery. Performed By: #### C ALCULI #### [facility] [address] [address] [address] Merritt Agudelo Size 7x[address] [facility] Comment on above: Result Comment: Sing le piece received. Performed By: #### C ALCULI #### [facility] [address] [address] [address] Merritt Agudelo Sodium Acid Urate [facility] Comment on above: Performed By: #### C ALCULI #### [facility] [address] [address] [address] Merritt Agudelo Source Comment [facility] Comment on above: Result Comment: Not provided Performed By: #### C ALCULI #### [facility] [address] [address] [address] Merritt Agudelo Triamterene [facility] Comment on above: Performed By: #### C ALCULI #### [facility] [address] [address] [address] Merritt Agudelo Uric Acid [facility] Comment on above: Performed By: #### C ALCULI #### [facility] [address] [address] [address] Merritt Agudelo Uric Acid Dihydrate Normal [facility] Comment on above: Performed By: #### C ALCULI #### [facility] [address] [address] [address] Merritt Agudelo Weight 92 mg [facility] Comment on above: Performed By: #### C ALCULI #### [facility] [address] [address] [address] Merritt Agudelo Xanthine [facility] Comment on above: Performed By: #### C ALCULI #### [facility] [address] [address] [address] Merritt Agudelo CBC AUTO DIFFon 05-27-2022 BASO # 0.0 103/ul Normal 0.0-0.[address] [facility] Comment on above: Performed By: #### C BC #### [facility] [address] [address] [address] Merritt Agudelo Basophils/100 WBC (Bld) 0.4 % Normal 0.2-2.[address] [facility] Comment on above: Performed By: #### C BC #### [facility] [address] [address] [address] Merritt Agudelo EO # 0.2 103/ul Normal 0.0-0.[address] [facility] Comment on above: Performed By: #### C BC #### [facility] [address] [address] [address] Merritt Agudelo Eosinophils/100 WBC (Bld) 1.5 % Normal 0.9-7.[address] [facility] Comment on above: Performed By: #### C BC #### [facility] [address] [place] [address] Dr. Merritt Agudelo Erythrocyte distribution width (RBC) [Ratio] 12.4 % Normal 11.0-15.[address] [facility] Comment on above: Performed By: #### C BC #### [facility] [address] [place] [address] Dr. Merritt Agudelo Hematocrit (Bld) [Volume fraction] 38.9 % Normal 36.0-48.[address] [facility] Comment on above: Performed By: #### C BC #### [facility] [address] [address] [address] Merritt Agudelo Hemoglobin (Bld) [Mass/Vol] 12.9 g/dL Normal 12.0-16.[address] [facility] Comment on above: Performed By: #### C BC #### [facility] [address] [address] [address] Merritt Agudelo IG # 0.04 10e3/ul Critically high 0.00-0.03 [facility] Comment on above: Performed By: #### C BC #### [facility] [address] [address] [address] Merritt Agudelo IG % 0.4 % Normal 0.0-0.[address] [facility] Comment on above: Performed By: #### C BC #### [facility] [address] [place] [address] Dr. Merritt Agudelo LYMPH # 3.0 103/ul Normal 1.2-3.[address] [facility] Comment on above: Performed By: #### C BC #### [facility] [address] [place] [address] Dr. Merritt Agudelo Lymphocytes/100 WBC (Bld) 27.1 % Normal 20.5-60.[address] [facility] Comment on above: Performed By: #### C BC #### [facility] [address] [place] [address] Dr. Merritt Agudelo MANUAL DIFF REQ NO Normal [facility] Comment on above: Performed By: #### C BC #### [facility] [address] [place] [address] Dr. Merritt Agudelo MCH (RBC) [Entitic mass] 29.5 pg Normal 26.7-34.[address] [facility] Comment on above: Performed By: #### C BC #### [facility] [address] [place] [address] Dr. Merritt Agudelo MCHC (RBC) [Mass/Vol] 33.2 g/dL Normal 29.9-35.[address] [facility] Comment on above: Performed By: #### C BC #### [facility] [address] [place] [address] Dr. Merritt Agudelo MCV (RBC) [Entitic vol] 89.0 fL Normal 81.0-99.[address] [facility] Comment on above: Performed By: #### C BC #### [facility] [address] [place] [address] Dr. Merritt Agudelo MONO # 0.8 103/ul Normal 0.3-0.[address] [facility] Comment on above: Performed By: #### C BC #### [facility] [address] [place] [address] Dr. Merritt Agudelo Monocytes/100 WBC (Bld) 7.2 % Normal 1.7-12.[address] [facility] Comment on above: Performed By: #### C BC #### [facility] [address] [place] [address] Dr. Merritt Agudelo NEUT # 7.1 103/ul Critically high 1.4-6.5 [facility] Comment on above: Performed By: #### C BC #### [facility] [address] [address] [address] Merritt Agudelo Neutrophils/100 WBC (Bld) 63.4 % Normal 43.0-75.[address] [facility] Comment on above: Performed By: #### C BC #### [facility] [address] [place] [address] Dr. Merritt Agudelo Platelet mean volume (Bld) [Entitic vol] 9.3 fL Critically low 9.5-13.[address] [facility] Comment on above: Performed By: #### C BC #### [facility] [address] [place] [address] Dr. Merritt Agudelo PLT 270 103/ul Normal 150-450 [facility] Comment on above: Performed By: #### C BC #### [facility] [address] [place] [address] Dr. Merritt Agudelo RBC 4.37 106/ul Normal 4.20-5.40 [facility] Comment on above: Performed By: #### C BC #### [facility] [address] [place] [address] Dr. Merritt Agudelo WBC 11.2 103/ul Critically high 4.0-11.0 [facility] Comment on above: Performed By: #### C BC #### [facility] [address] [place] [address] ABD/PELVIS WO CONon 05-27 CT ABD/PELVIS WO CON EXAMINATION: CT ABD/PELVIS WO CON, 05/27/2022 12:38 AM EST HISTORY: CALCULUS OF KIDNEY , right abdomen and flank pain COMPARISON: None. TECHNIQUE: CT scan of the abdomen and pelvis was performed without IV contrast. Multiplanar reformats were generated. CT dose reduction technique was used, including Automated Exposure Control. FINDINGS: Exam is limited by lack of contrast. FINDINGS: Lower thorax: Partially seen bilateral breast implants. Heart size upper normal. Mild scarring or subsegmental atelectasis in the lung bases. Liver: Small hypodensities in the right hepatic lobe, not fully characterized but statistically likely benign. Biliary: The gallbladder is unremarkable. No abnormal biliary dilatation seen. Spleen: Unremarkable. Pancreas: Unremarkable. Adrenals: Unremarkable. Kidneys and bladder: No left renal/ureteral calculus or hydronephrosis. Several calculi in the lower pole of the right kidney, the largest 8 mm. There is moderate right hydroureteronephrosis with a 6 mm calculus seen in the distal ureter close to the UVJ. Bladder is mostly decompressed. GI Tract: No evidence of obstruction. Appendix is not identified with certainty, however there is no inflammatory process seen in the RLQ. Lymph Nodes: No lymphadenopathy. Mesentery/peritoneum: No free fluid or free air. Small fat-containing umbilical and supraumbilical hernia. Retroperitoneum: No mass or fluid collection. Vasculature: No visible abdominal aortic or iliac artery aneurysm. Pelvis: No mass visible. Uterus appears present and grossly unremarkable, however not well assessed by CT. Bones/Soft Tissues: Mild degenerative changes of the spine and SI joints. No clear evidence of an acute osseous abnormality or destructive lesion. No significant soft tissue abnormality visualized. IMPRESSION: Moderate right hydroureteronephrosis with a 6 mm calculus seen in the distal ureter close to the UVJ. Several calculi in the lower pole of the right kidney, the largest 8 mm. Other chronic and likely incidental findings, as described above. Electronically authenticated by: WALLY RIOS Date: 2022-05-27 02:16 Normal [facility] URINE PROFILEon 2 Bilirubin Ql (U) Negative Normal NEGATIVE [facility] Comment on above: Performed By: #### U MICRO, ERUR #### [facility] [address] [place], [place] [address] Dr. Merritt Agudelo Clarity (U) CLEAR Normal CLEAR [facility] Comment on above: Performed By: #### U MICRO, ERUR #### [facility] [address] [place], [place] [address] Dr. Merritt Agudelo Color (U) YELLOW Normal YELLOW [facility] Comment on above: Performed By: #### U MICRO, ERUR #### [facility] [address] [address] [address] Merritt FAY A micrscopic examina tion will be performed if indicated. Normal [facility] Comment on above: Performed By: #### U MICRO, ERUR #### [facility] [address] [address] [address] Merritt Agudelo Glucose Ql (U) Negative Normal NEGATIVE [facility] Comment on above: Performed By: #### U MICRO, ERUR #### [facility] [address] [address] [address] Merrtit Agudelo Hemoglobin Ql (U) LARGE Abnormal NEGATIVE [facility] Comment on above: Performed By: #### U MICRO, ERUR #### [facility] [address] [address] [address] Merritt Agudelo Ketones Ql (U) Negative Normal NEGATIVE [facility] Comment on above: Performed By: #### U MICRO, ERUR #### [facility] [address] [address] [address] Merritt Agudelo LEUKOCYTES Negative Normal NEGATIVE [facility] Comment on above: Performed By: #### U MICRO, ERUR #### [facility] [address] [address] [address] Merritt Agudelo Nitrite Ql (U) Negative Normal NEGATIVE [facility] Comment on above: Performed By: #### U MICRO, ERUR #### [facility] [address] [address] [address] Merritt Agudelo pH (U) 5.0 [pH] Normal 5-[address] [facility] Comment on above: Performed By: #### U MICRO, ERUR #### [facility] [address] [address] [address] Merritt Agudelo SPEC GRAVITY >=1.030 Abnormal 1.005-<=1.[address] [facility] Comment on above: Performed By: #### U MICRO, ERUR #### [facility] [address] [place] [address] Dr. Merritt Agudelo UA PROTEIN Negative Normal NEGATIVE/ TRACE [facility] Comment on above: Performed By: #### U MICRO, ERUR #### [facility] [address] [address] [address] Merritt Agudelo UR MICRO IND INDICATED Normal [facility] Comment on above: Performed By: #### U MICRO, ERUR #### [facility] [address] [address] [address] Merritt Agudelo Urobilinogen Qn (U) 0.2 {Rachid'U}/dL Normal 0.2 - 1. [address] [facility] Comment on above: Performed By: #### U MICRO, ERUR #### [facility] [address] [place] [address] Dr. Merritt Agudelo PROF CHEM 8 (BAS METB)on Anion gap [Moles/Vol] 10.8 mmol/L Normal [facility] Comment on above: Performed By: #### B MP #### [facility] [address] [place] [address] Dr. Merritt Agudelo Calcium [Mass/Vol] 9.3 mg/dL Normal 8.5-10.1 [facility] Comment on above: Performed By: #### B MP #### [facility] [address] [place] [address] Dr. Merritt Agudelo Chloride [Moles/Vol] 104 mmol/L Normal 98-[address] [facility] Comment on above: Performed By: #### B MP #### [facility] [address] [place] [address] Dr. Merritt Agudelo CO2 [Moles/Vol] 28.6 mmol/L Normal 21.0-32.0 [facility] Comment on above: Performed By: #### B MP #### [facility] [address] [place] [address] Dr. Merritt Agudelo Creatinine [Mass/Vol] 1.28 mg/dL Critically high 0.55-1.[address] [facility] Comment on above: Performed By: #### B MP #### [facility] [address] [place] [address] Dr. Merritt Agudelo EGFR-AF IRISH 52 mL/min/1.73m2 Critically low >=[address] [facility] Comment on above: Performed By: #### B MP #### [facility] [address] [address] [address] Merritt Agudelo EGFR-NON AF IRISH 43 mL/min/1.73m2 Critically low >=[address] [facility] Comment on above: Performed By: #### B MP #### [facility] [address] [address] [address] Merritt Agudelo Glucose [Mass/Vol] 127 mg/dL Critically high 74-106 [facility] Comment on above: Performed By: #### B MP #### [facility] [address] [address] [address] Merritt Agudelo Potassium [Moles/Vol] 3.4 mmol/L Critically low 3.5-5.[address] [facility] Comment on above: Performed By: #### B MP #### [facility] [address] [address] [address] Merritt Agudelo Sodium [Moles/Vol] 140 mmol/L Normal 136-145 [facility] Comment on above: Performed By: #### B MP #### [facility] [address] [address] [address] Merritt Agudelo Urea nitrogen [Mass/Vol] 19.0 mg/dL Critically high 7.0-18.[address] [facility] Comment on above: Performed By: #### B MP #### [facility] [address] [address] [address] Merritt Agudelo Urea nitrogen/Creatinine [Mass ratio] 14.8 mg/mg Normal [facility] Comment on above: Performed By: #### B MP #### [facility] [address] [address] [address] Merritt Agudelo URINE MICROSCOPIC ONLYon BACTERIA TRACE Abnormal NONE SEEN [facility] Comment on above: Performed By: #### U MICRO, ERUR #### [facility] [address] [address] [address] Merritt Agudelo Bacteria identified Cx Nom (U) NOT INDICATED Normal [facility] Comment on above: Performed By: #### U MICRO, ERUR #### [facility] [address] [place] [address] Dr. Merritt Agudelo CAST NONE SEEN Normal NONE SEEN [facility] Comment on above: Performed By: #### U MICRO, ERUR #### [facility] [address] [place] [address] Dr. Merritt Agudelo Crystals LM Nom (Urine sed) NONE SEEN Normal NONE SEEN [facility] Comment on above: Performed By: #### U MICRO, ERUR #### [facility] [address] [place] [address] Dr. Merritt Agudelo Epithelial cells LM Ql (Urine sed) RARE Normal NONE SEEN /RARE [facility] Comment on above: Performed By: #### U MICRO, ERUR #### [facility] [address] [place] [address] Dr. Merritt Agudelo MUCOUS NONE SEEN Normal NONE SEEN [facility] Comment on above: Performed By: #### U MICRO, ERUR #### [facility] [address] [place] [address] Dr. Merritt Agudelo RBC 20-50 Abnormal 0-[address] [facility] Comment on above: Performed By: #### U MICRO, ERUR #### [facility] [address] [place] [address] Dr. Merritt Agudelo WBC NONE SEEN Normal NONE SEEN [facility] Comment on above: Performed By: #### U MICRO, ERUR #### [facility] [address] [place] [address] Dr. Merritt Agudelo CBC AUTO DIFFon 05-26-2022 BASO # 0.0 103/ul Normal 0.0-0.[address] [facility] Comment on above: Performed By: #### C BC #### [facility] [address] [place] [address] Dr. Merritt Agudelo Basophils/100 WBC (Bld) 0.4 % Normal 0.2-2.0 [facility] Comment on above: Performed By: #### C BC #### [facility] [address] [place] [address] Dr. Merritt Agudelo EO # 0.1 103/ul Normal 0.0-0.[address] [facility] Comment on above: Performed By: #### C BC #### [facility] [address] [place] [address] Dr. Merritt Agudelo Eosinophils/100 WBC (Bld) 1.9 % Normal 0.9-7.[address] [facility] Comment on above: Performed By: #### C BC #### [facility] [address] [place] [address] Dr. Merritt Agudelo Erythrocyte distribution width (RBC) [Ratio] 12.5 % Normal 11.0-15.[address] [facility] Comment on above: Performed By: #### C BC #### [facility] [address] [place] [address] Dr. Merritt Agudelo Hematocrit (Bld) [Volume fraction] 37.7 % Normal 36.0-48.[address] [facility] Comment on above: Performed By: #### C BC #### [facility] [address] [place] [address] Dr. Merritt Agudelo Hemoglobin (Bld) [Mass/Vol] 12.5 g/dL Normal 12.0-16.[address] [facility] Comment on above: Performed By: #### C BC #### [facility] [address] [place] [address] Dr. Merritt Agudelo IG # 0.01 10e3/ul Normal 0.00-0.[address] [facility] Comment on above: Performed By: #### C BC #### [facility] [address] [place] [address] Dr. Merritt Agudelo IG % 0.2 % Normal 0.0-0.5 [facility] Comment on above: Performed By: #### C BC #### [facility] [address] [place] [address] Dr. Merritt Agudelo LYMPH # 1.3 103/ul Normal 1.2-3.8 [facility] Comment on above: Performed By: #### C BC #### [facility] [address] [place] [address] Dr. Merritt Agudelo Lymphocytes/100 WBC (Bld) 24.2 % Normal 20.5-60.[address] [facility] Comment on above: Performed By: #### C BC #### [facility] [address] [place] [address] Dr. Merritt Agudelo MANUAL DIFF REQ NO Normal [facility] Comment on above: Performed By: #### C BC #### [facility] [address] [place] [address] Dr. Merritt Agudelo MCH (RBC) [Entitic mass] 29.3 pg Normal 26.7-34.[address] [facility] Comment on above: Performed By: #### C BC #### [facility] [address] [place] [address] Dr. Merritt Agudelo MCHC (RBC) [Mass/Vol] 33.2 g/dL Normal 29.9-35.[address] [facility] Comment on above: Performed By: #### C BC #### [facility] [address] [place] [address] Dr. Merritt Agudelo MCV (RBC) [Entitic vol] 88.3 fL Normal 81.0-99.[address] [facility] Comment on above: Performed By: #### C BC #### [facility] [address] [place] [address] Dr. Merritt Agudelo MONO # 0.4 103/ul Normal 0.3-0.[address] [facility] Comment on above: Performed By: #### C BC #### [facility] [address] [place] [address] Dr. Merritt Agudelo Monocytes/100 WBC (Bld) 7.9 % Normal 1.7-12.[address] [facility] Comment on above: Performed By: #### C BC #### [facility] [address] [place] [address] Dr. Merritt Agudelo NEUT # 3.4 103/ul Normal 1.4-6.5 [facility] Comment on above: Performed By: #### C BC #### [facility] [address] [place] [address] Dr. Merritt Agudelo Neutrophils/100 WBC (Bld) 65.4 % Normal 43.0-75.0 [facility] Comment on above: Performed By: #### C BC #### [facility] [address] [address] [address] Merritt Agudelo Platelet mean volume (Bld) [Entitic vol] 9.3 fL Critically low 9.5-13.[address] [facility] Comment on above: Performed By: #### C BC #### [facility] [address] [place] [address] Dr. Merritt Agudelo PLT 209 103/ul Normal 150-450 [facility] Comment on above: Performed By: #### C BC #### [facility] [address] [address] [address] Merritt Agudelo RBC 4.27 106/ul Normal 4.20-5.[address] [facility] Comment on above: Performed By: #### C BC #### [facility] [address] [place] [address] Dr. Merritt Agudelo WBC 5.2 103/ul Normal 4.0-11.[address] [facility] Comment on above: Performed By: #### C BC #### [facility] [address] [place] [address] Dr. Merritt Agudelo LIPID PROFILEon 05-26-2022 CHOL-HDL RATIO NORM SEE BELOW Normal [facility] Comment on above: Result Comment: 3.3 - 4.4 LOW RISK 4.4 - 7.1 AVERAGE RISK 7.1 - 11.0 MODERATE RISK >11.0 HIGH RISK Performed By: #### C MP, LIPID #### [facility] [address] [place] [address] Dr. Merritt Agudelo Cholesterol [Mass/Vol] 166 mg/dL Normal <=200 [facility] Comment on above: Performed By: #### C MP, LIPID #### [facility] [address] [place] [address] Dr. Merritt Agudelo Cholesterol in HDL [Mass/Vol] 71 mg/dL Critically high 40-[address] [facility] Comment on above: Performed By: #### C MP, LIPID #### [facility] [address] [place] [address] Dr. Merritt Agudelo Cholesterol in LDL [Mass/Vol] 84.2 mg/dL Normal [facility] Comment on above: Performed By: #### C MP, LIPID #### [facility] [address] [address] [address] Merritt Agudelo Cholesterol.total/Ch olesterol in HDL [Mass ratio] 2.3 {ratio} Normal [facility] Comment on above: Performed By: #### C MP, LIPID #### [facility] [address] [address] [address] Merritt Agudelo HDL NORMAL > or = 60 mg/dl - LO W CARDIOVASCULAR RISK <40 mg/dl - HIGH CARDIOVASCULAR RISK Normal [facility] Comment on above: Performed By: #### C MP, LIPID #### [facility] [address] [place] [address] Dr. Merritt Agudelo LDL CALC NORMAL SEE BELOW Normal [facility] Comment on above: Result Comment: <100 mg/dl OPTIMAL 100 - 129 mg/dl NEAR OR ABOVE OPTIMAL 130 - 159 mg/dl BORDERLINE HIGH 160 - 189 mg/dl HIGH >190 mg/dl VERY HIGH Performed By: #### C MP, LIPID #### [facility] [address] [address] [address] Merritt Agudelo Triglyceride [Mass/Vol] 54 mg/dL Normal <=[address] [facility] Comment on above: Performed By: #### C MP, LIPID #### [facility] [address] [place] [address] Dr. Merritt Agudelo VLDL CALC 10.8 mg/dL Normal [facility] Comment on above: Performed By: #### C MP, LIPID #### [facility] [address] [place] [address] Dr. Merritt Agudelo PROF 14(COMP METB)on 022 Albumin [Mass/Vol] 4.0 g/dL Normal 3.4-5.0 [facility] Comment on above: Performed By: #### C MP, LIPID #### [facility] [address] [place] [address] Dr. Merritt Agudelo Albumin/Globulin [Mass ratio] 1.1 {ratio} Normal [facility] Comment on above: Performed By: #### C MP, LIPID #### [facility] [address] [address] [address] Merritt Agudelo ALP [Catalytic activity/Vol] 68 U/L Normal 46-[address] [facility] Comment on above: Performed By: #### C MP, LIPID #### [facility] [address] [address] [address] Merritt Agudelo ALT [Catalytic activity/Vol] 22 U/L Normal 14-[address] [facility] Comment on above: Performed By: #### C MP, LIPID #### [facility] [address] [address] [address] Merritt Agudelo Anion gap [Moles/Vol] 9.9 mmol/L Normal [facility] Comment on above: Performed By: #### C MP, LIPID #### [facility] [address] [address] [address] Merritt Agudelo AST [Catalytic activity/Vol] 21 U/L Normal 15-[address] [facility] Comment on above: Performed By: #### C MP, LIPID #### [facility] [address] [address] [address] Merritt Agudelo Bilirubin [Mass/Vol] 0.3 mg/dL Normal 0.2-1.[address] [facility] Comment on above: Performed By: #### C MP, LIPID #### [facility] [address] [address] [address] Merritt Agudelo Calcium [Mass/Vol] 9.2 mg/dL Normal 8.5-10.1 [facility] Comment on above: Performed By: #### C MP, LIPID #### [facility] [facility] [address] [address] [address] Merritt Agudelo Chloride [Moles/Vol] 105 mmol/L Normal 98-[address] [facility] Comment on above: Performed By: #### C MP, LIPID #### [facility] [address] [address] [address] Merritt Agudelo CO2 [Moles/Vol] 27.2 mmol/L Normal 21.0-32.0 [facility] Comment on above: Performed By: #### C MP, LIPID #### [facility] [address] [address] [address] Merritt Agudelo Creatinine [Mass/Vol] 0.68 mg/dL Normal 0.55-1.02 [facility] Comment on above: Performed By: #### C MP, LIPID #### [facility] [address] [address] [address] Merritt Agudelo EGFR-AF IRISH >60 Normal >=60 [facility] Comment on above: Performed By: #### C MP, LIPID #### [facility] [address] [address] [address] Merritt Agudelo EGFR-NON AF IRISH >60 Normal >=[address] [facility] Comment on above: Performed By: #### C MP, LIPID #### [facility] [address] [place] [address] Dr. Merritt Agudelo Globulin (S) [Mass/Vol] 3.6 g/dL Normal [facility] Comment on above: Performed By: #### C MP, LIPID #### [facility] [address] [place] [address] Dr. Merritt Agudelo Glucose [Mass/Vol] 96 mg/dL Normal 74-106 [facility] Comment on above: Performed By: #### C MP, LIPID #### [facility] [address] [place] [address] Dr. Merritt Agudelo Potassium [Moles/Vol] 4.1 mmol/L Normal 3.5-5.1 [facility] Comment on above: Performed By: #### C MP, LIPID #### [facility] [address] [place] [address] Dr. Merritt Agudelo Protein [Mass/Vol] 7.6 g/dL Normal 6.4-8.2 [facility] Comment on above: Performed By: #### C MP, LIPID #### [facility] [address] [place] [address] Dr. Merritt Agudelo Sodium [Moles/Vol] 138 mmol/L Normal 136-145 [facility] Comment on above: Performed By: #### C MP, LIPID #### [facility] [address] [place], [place] [id number] Dr. Merritt Agudelo Urea nitrogen [Mass/Vol] 16.0 mg/dL Normal 7.0-18.[address] [facility] Comment on above: Performed By: #### C MP, LIPID #### [facility] [address] [address] [address] Merritt Agudelo Urea nitrogen/Creatinine [Mass ratio] 23.5 mg/mg Normal [facility] Comment on above: Performed By: #### C MP, LIPID #### [facility] [address] [address] [address] Merritt Agudelo CYTOLOGYon 03-14-2017 CYTOLOGY Specimen #: [id number] Physician: ANKIT BURNETT SUBMITTEDA: CERVICAL, SCREENING, FLUID FINAL DIAGNOSISA. CERVICAL, SCREENING, FLUIDSatisfactory for interpretation.Negative for intraepithelial lesion or malignancy.Atrophic specimen.This specimen has been analyzed by the ThinPrep Imaging System, anautKuratured imaging and review system, which assists the laboratory inevaluating cells on ThinPrep Pap tests. Following automated imaging,selected adan from every slide are reviewed by a swahili teacher.TYLOR Mcdonald(ASCP) (Electronic Signature) CLINICAL DATA PAP Source: Cervical-PFCERSMenstrual History:Post-Menopausal: 2013Clinical History:ROUTINEAdditional Testing:Reflex HPV testing for ASCUSSTAINSA: CERVICAL, SCREENING, FLUID THIN PREP Jamal Hagen M.D., Laboratory DirectorPatient ID #: [id number] of Report: 03/17/2017Date of Procedure: 03/14/2017Date of Receipt: 03/15/2017Submitted by: ANKIT JEANLocation: Diagnostic interpretation performed at [facility], [address] [place] [address].The Pap Smear is a screening test for cervical cancer. False negativeresults occur with all screening tests, emphasizing the need forrescreening at recommended intervals, and clinical correlation. Normal [facility] Comment on above: Performed By: #### C ####See report for performing lab information. Vital Signs Date Time Vital Sign Value Performing Clinician Facility 08-16-2023 08:09-0500 Body height 165.1 cm Tony Argueta MD Work Phone: [facility] 08-16-2023 08:09-0500 Body mass index (BMI) [Ratio] 29.29 kg/m2 Tony Argueta MD Work Phone: [facility] 08-16-2023 08:09-0500 Body weight 79.83 kg Tony Argueta MD Work Phone: [facility] 08-16-2023 08:09-0500 Diastolic blood pressure 78 mm[Hg] Tony Argueta MD Work Phone: [facility] 08-16-2023 08:09-0500 Heart rate 72 /min Tony Argueta MD Work Phone: [facility] 08-16-2023 08:09-0500 SaO2% (BldA) [Mass fraction] 95 % Tony Argueta MD Work Phone: [facility] 08-16-2023 08:09-0500 Systolic blood pressure 126 mm[Hg] Tony Argueta MD Work Phone: [facility] 03-06-2023 15:36-0400 Blood Pressure Location Tex MADRIGAL [facility] 03-06-2023 15:36-0400 Diastolic blood pressure 83 mm[Hg] Tex MADRIGAL [facility] 03-06-2023 15:36-0400 Heart rate 71 /min Tex MADRIG[facility] 03-06-2023 15:36-0400 Respiratory rate 16 /min Tex MADRIGAL [facility] 03-06-2023 15:36-0400 Systolic blood pressure 126 mm[Hg] Tex MADRIGAL [facility] 09-06-2022 08:47-0500 Blood Pressure Location Betzy Donis [facility] 09-06-2022 08:47-0500 Body temperature 96.8 [degF] Betzy Oreillymetz [facility] 09-06-2022 08:47-0500 Diastolic blood pressure 82 mm[Hg] Betzy Donis [facility] 09-06-2022 08:47-0500 Heart rate 85 /min Betzy Donis [facility] 09-06-2022 08:47-0500 Systolic blood pressure 117 mm[Hg] Betzy Oreillymetz [facility] 06-13-2022 11:38-0500 Blood Pressure Location Tex MADRIGAL [facility] 06-13-2022 11:38-0500 Diastolic blood pressure 83 mm[Hg] Tex MADRIGAL [facility] 06-13-2022 11:38-0500 Heart rate 75 /min Tex MADRIGAL [facility] 06-13-2022 11:38-0500 Respiratory rate 16 /min Tex MADRIGAL [facility] 06-13-2022 11:38-0500 Systolic blood pressure 129 mm[Hg] Tex MADRIGAL [facility] Encounters Encounter Date Encounter Type Care Provider Facility Start: 03-18-2024 ambulatory Tex MADRIGAL Facili ty:[facility] Start: 08-16-2023 Bamboo flowsheet Tony blackburn MD Work Phone: [facility] Start: 08-16-2023 Bamboo flowsheet Tony blackburn MD Work Phone: [facility] Start: 08-16-2023 End: 08-16-2023 ambulatory TONY ARGUETA Not Available Start: 08-16-2023 End: 08-16-2023 Patient encounter status Tony Argueta MD Work Phone: [facility] Start: 08-16-2023 End: 08-16-2023 Periodic preventive med est patient 40-64yrs Tony Argueta MD Work Phone: [facility] Comment on above: Encounter for wellne ss examination in adult; Advance directive discussed with patient; Overweight (BMI 25.0-29.9) Start: 08-15-2023 Chart abstracting Tony perez MD Work Phone: [facility] Start: 03-06-2023 End: 03-07-2023 ambulatory Tex MADRIGAL Facility:[facility] Start: 03-06-2023 End: 03-06-2023 Patient encounter procedure Tex MADRIGAL [facility] Start: 10-04-2022 End: 10-05-2022 ambulatory Karolina DILLARD Facility:CD:[id number] Start: 09-06-2022 End: 09-07-2022 ambulatory Betzy Donis Facility:[facility] Start: 09-06-2022 End: 09-06-2022 Patient encounter procedure Betzy Donis [facility] Start: 08-15-2022 ambulatory Tex MADRIGAL Facility :[facility] Start: 07-07-2022 Encounter for preprocedural laboratory examination DR TEX MADRIGAL . [facility] Start: 07-07-2022 Encounter for preprocedural cardiovascular examination DR TEX MADRIGAL . [facility] Start: 07-07-2022 End: 07-08-[address] ANKIT JEAN . Facility:[facility] Start: 07-04-2022 End: 07-05-[address] ANKIT JEAN . Facility:[facility] Start: 07-04-2022 End: 07-05-2022 Encounter for preprocedural laboratory examination DR ANKIT JEAN . Facility:[facility] Start: 06-29-2022 End: 06-30-[address] TEX MADRIGAL . Facility:[facility] Start: 06-28-2022 End: 06-29-[address] ANKIT JEAN . Facility:[facility] Start: 06-13-2022 End: 06-14-[address] TEX MADRIGAL . Facility:[facility] Start: 06-13-2022 End: 06-14-2022 ambulatory Tex MADRIGAL Facility:[facility] Start: 06-13-2022 End: 06-13-2022 Patient encounter procedure Tex MADRIGAL [facility] Start: 06-07-2022 ambulatory Tex MADRIGAL Facility :[facility] Start: 06-06-2022 End: 06-06-[address] ANKIT JEAN . Facility:[facility] Start: 06-06-2022 End: 06-06-[address] ANKIT JEAN . Facility:[facility] Start: 05-30-2022 Encounter for genera l adult medical examination without abnormal findings DR ANKIT JEAN . [facility] Start: 05-27-2022 End: 05-27-[address] ANKIT JEAN . Facility:[facility] Start: 05-26-2022 End: 05-27-[address] ANKIT JEAN . Facility: Start: 05-26-2022 End: 05-27-2022 Encounter for general adult medical examination without abnormal findings DR ANKIT JEAN . Facility: Procedures Date Procedure Procedure Detail Performing Clinician Start: 06-29-2023 Mammography Tony perez MD Work Phone: Start: 04-03-2019 Colonoscopy Tony perez MD Work Phone: Augmentation mammoplasty Bethany [facility] Colonoscopy Tex MADRIGAL Plan of Treatment Date Care Activity Detail Author Start: 04-03-2029 Screening for malign ant neoplasm of colon [facility] Start: 06-29-2024 Screening for malign ant neoplasm of breast Mammogram [facility] Start: 08-16-2023 End: 08-16-2023 Patient encounter procedure 08/16/2023 8:00 AM EST Office Visit [facility] [address] [place] [address] Tony Argueta MD [address] [place] [address] (Fax) [facility] Start: 03-10-2023 Influenza vaccination Influenza Vacc ine (#1) [facility] Start: 1996 Screening for malign ant neoplasm of cervix [facility] Start: 1987 Screening for malign ant neoplasm of cervix Pap Smear [facility] Start: 1966 Screening for malign ant neoplasm of colon [facility] Immunizations Immunization Date Immunization Notes Care Provider Fa cility 04-26-2022 influenza virus vaccine, unspecified formulation Betzy Donis [facility] 04-26-2022 influenza, seasonal, injectable Tony Agrueta MD Work Phone: [facility] 10-29-2020 SARS-CoV-2 (COVID-19 ) mRNA BNT-162b2 vax Betzy Donis [facility] 10-09-2020 SARS-CoV-2 (COVID-19 ) mRNA BNT-162b2 [place] Donis [facility] Payers Date Payer Category Payer Unknown STEFFANIENATALIO BALDWIN Keri VALIENTEMADELINEMegan [employer] [id number] 2023-Present [phone] [address] [place] [address] [id number] 2022 Unknown [id number] 1966 Unknown [id number] [id number] 3 1966 Unknown [id number] [id number] 3 1966 Unknown [id number] 2.16.840.1.971800.3.579.2.59 3 1966 Unknown [id number] 2.16.840.1.404011.3.579.2.59 3 1966 Unknown [id number] 2.16.840.1.966106.3.579.2.59 3 1966 Unknown [id number] 2.16.840.1.827318.3.579.2.59 3 1966 Unknown [id number] 2.16.840.1.492997.3.579.2.59 3 1966 Unknown [id number] 2.16.840.1.344505.3.579.2.59 3 1966 Unknown [id number] 2.16.840.1.162098.3.579.2.59 3 1966 Unknown [id number] 2.16.840.1.919208.3.579.2.59 3 1966 Unknown [id number] 2.16.840.1.960269.3.579.2.72 7 1966 Unknown [id number] 2.16.840.1.671876.3.579.2.72 7 1966 Unknown [id number] 2.16.840.1.190321.3.579.2.72 7 1966 Unknown [id number] 2.16.840.1.953335.3.579.2.72 7 1966 Unknown [id number] 2.16.840.1.562313.3.579.2.72 7 1966 Unknown [id number] 2.16.840.1.520590.3.579.2.72 7 1966 Unknown [id number] 2.16.840.1.694311.3.579.2.12 59 1959 Unknown [id number] Social History Date Type Detail Facility Start: 06-13-2022 End: 08-15-2023 Tobacco smoking status Never smoked tobacco (finding) [facility] Start: 08-15-2023 End: 08-16-[address] Female [facility] Tobacco smoking status Never [facility] Start: 08-15-2023 Tobacco use and exposure Smokeless tobacco non-user [facility] Start: 08-15-2023 End: 08-16-2023 Alcohol intake Current drinker of alcohol (finding) [facility] Start: 1965 Sex Assigned At Not on file [facility] Start: 08-15-2023 End: 08-16-2023 History of Social function [facility] Functional Status Date Assessment Result Facility 03-06-2023 Functional Status N/A [facility] 09-06-2022 Functional Status N/A [facility] 06-13-2022 Functional Status N/A [facility] History of Present illness Narrative 08-16-2023 Tony Argueta MD - 08/16/2023 8:00 AM EST Note Date & Type Note Facility 08-16-2023 History of Presen t illness Narrative Patient ID: Kiara Moya is a 58 y.o. female who presents for: See Scanned Wellness packet Advance Directive/Living Will: No Health Care Power of Swimming Pool Cleaner: No Review of Systems Constitutional: Negative for appetite change, chills, fever and unexpected weight change. Breasts: Negative for breast mass and breast discharge. Respiratory: Negative for cough, shortness of breath and wheezing. Cardiovascular: Negative for chest pain, palpitations and leg swelling. Gastrointestinal: Negative for abdominal pain, constipation and diarrhea. Genitourinary: Negative for frequency, urgency, vaginal bleeding, vaginal discharge and vaginal pain. Neurological: Negative for light-headedness and headaches. Psychiatric/Behavioral: Negative for behavioral problems and sleep disturbance. The patient is not nervous/anxious. Objective The patient is pleasant and in no acute distress. The head is normocephalic and atraumatic. Both eyes appear grossly normal without obvious lid pathology or icterus. Both ears hearing is grossly intact. The neck is supple and trachea is midline. No masses are appreciated. The anterior cervical lymphatics demonstrates shoddy bilateral nontender lymphadenopathy. There is no supraclavicular lymphadenopathy. The heart is regular rate and rhythm without S3, S4. No murmur. The patient has normal respiratory pattern. The breath sounds are symmetrical without evidence of wheezing, rhonchi, or rales. The chest is normal shape. The skin is warm and dry. The lower extremities have trace edema. Neurologic screening exam is nonfocal. The patient is alert. There is no overt gross evidence of cognitive impairment The patient has good eye contact and speech is clear. Telephone on 05/09/2023 Component Date Value Ref Range Status CHOLESTEROL, TOTAL 08/09/2023 186 <200 mg/dL Final HDL CHOLESTEROL 08/09/2023 64 > OR = 50 mg/dL Final TRIGLYCERIDES 08/09/2023 105 <150 mg/dL Final LDL-CHOLESTEROL 08/09/2023 102 (H) mg/dL (calc) Final Comment: Reference range: <100 Desirable range <100 mg/dL for primary prevention; <70 mg/dL for patients with CHD or diabetic patients with > or = 2 CHD risk factors. LDL-C is now calculated using the Ryan-Kemi calculation, which is a validated novel method providing better accuracy than the Friedewald equation in the estimation of LDL-C. Ryan ROSS et al. JOSEPH. 2013;310(19): 1719-5313 (http://education.[employer]ss.co m/faq/LBH961) CHOL/HDLC RATIO 08/09/2023 2.9 <5.0 (calc) Final NON HDL CHOLESTEROL 08/09/2023 122 <130 mg/dL (calc) Final Comment: For patients with diabetes plus 1 major ASCVD risk factor, treating to a non-HDL-C goal of <100 mg/dL (LDL-C of <70 mg/dL) is considered a therapeutic option. Glucose 08/09/2023 98 65 - 99 mg/dL Final Comment: Fasting reference interval BUN 08/09/2023 17 7 - 25 mg/dL Final Creatinine 08/09/2023 0.72 0.50 - 1.03 mg/dL Final EGFR 08/09/2023 97 > OR = 60 mL/min/1.73m2 Final BUN/CREATININE RATIO 08/09/2023 SEE NOTE: 6 - 22 (calc) Final Comment: Not Reported: BUN and Creatinine are within reference range. Sodium 08/09/2023 140 135 - 146 mmol/L Final Potassium, Bld 08/09/2023 4.2 3.5 - 5.3 mmol/L Final Chloride 08/09/2023 105 98 - 110 mmol/L Final Carbon Dioxide 08/09/2023 27 20 - 32 mmol/L Final Calcium 08/09/2023 9.3 8.6 - 10.4 mg/dL Final PROTEIN, TOTAL 08/09/2023 7.1 6.1 - 8.1 g/dL Final ALBUMIN 08/09/2023 4.6 3.6 - 5.1 g/dL Final GLOBULIN 08/09/2023 2.5 1.9 - 3.7 g/dL (calc) Final ALBUMIN/GLOBULIN RATIO 08/09/2023 1.8 1.0 - 2.5 (calc) Final BILIRUBIN, TOTAL 08/09/2023 0.4 0.2 - 1.2 mg/dL Final ALKALINE PHOSPHATASE 08/09/2023 63 37 - 153 U/L Final AST 08/09/2023 17 10 - 35 U/L Final ALT 08/09/2023 18 6 - 29 U/L Final Visit Vitals BP 126/78 Pulse 72 Ht 5' 5 Wt 176 lb SpO2 95% BMI 29.29 kg/m OB Status Postmenopausal Smoking Status Never BSA 1.91 m Allergies Allergen Reactions Amoxicillin Rash Current Outpatient Medications Medication Instructions Klor-Con/EF 25 MEQ effervescent tablet 25 mEq, Oral, 2 times daily SUMAtriptan (IMITREX) 50 mg, Oral, See admin instructions, TAKE 1 TABLET BY MOUTH NEEDED FOR HEADACHE, may repeat in 2 HOURS if needed (max 2 per 24 HOURS, 5 per week) Assessment/Plan Diagnoses and all orders for this visit: Encounter for wellness examination in adult I have reviewed the patients PMShx, medications, and reconciled the problem list. Health maintenance was discussed. I also reviewed and discussed as appropriate; immunizations, colon cancer screening, breast and cervical cancer screening, recommended and current lab evaluation. All items were brought up to date unless declined by the patient. She will contact her gynecologic provider to schedule for Pap smear and mammogram. Advance directive discussed with patient Patient voluntarily agreed to discuss advance care planning at today's wellness visit. We discussed that an advance directive is a legal document that only goes into effect if the patient is incapacitated and unable to speak for themselves. This would help us to decide what care the patient would want. We discussed emergency treatments to keep the patient alive such as CPR, ventilator use, artificial nutrition (tube feedings and IV nutrition) and comfort care, which is often done through hospice. We discussed the importance of providing a patient with the best possible quality of life. Various scenarios were discussed as examples of how patients would choose options. We discussed how patients could make their wishes known through a living will and durable power of toddler lead teacher for healthcare. We discussed telling varela people about their advance directives such as close family members and a copy will be kept in the EHR. I discussed that they should also make me an emergency contact in their cell phone, and/or notify their POA that I have a copy of the advanced directives. Overweight (BMI 25.0-29.9) documented in this encounter [facility] Discharge instructions 03-06-2023 Note Date & Type Note Facility 03-06-2023 Hospital Discharg e instructions Patient Education 03/06/2023 17:03:08 Dietary Guidelines to Help Prevent Kidney Stones Dietary Guidelines to Help Prevent Kidney Stones Kidney stones are deposits of minerals and salts that form inside your kidneys. Your risk of developing kidney stones may be greater depending on your diet, your lifestyle, the medicines you take, and whether you have certain medical conditions. Most people can lower their chances of developing kidney stones by following the instructions below. Your dietitian may give you more specific instructions depending on your overall health and the type of kidney stones you tend to develop. What are tips for following this plan? Reading food labels Choose foods with no salt added or low-salt labels. Limit your salt (sodium) intake to less than 1,500 mg a day. Choose foods with calcium for each meal and snack. Try to eat about 300 mg of calcium at each meal. Foods that contain 200 500 mg of calcium a serving include: ?8 oz (237 mL) of milk, jwgguil-fpoocfgciems-zdwhz milk, and calcium-fortifiedfruit juice. Calcium-fortified means that calcium has been added to these drinks. ?8 oz (237 mL) of kefir, yogurt, and soy yogurt. ?4 oz (114 g) of tofu. ?1 oz (28 g) of cheese. ?1 cup (150 g) of dried figs. ?1 cup (91 g) of cooked broccoli. ?One 3 oz (85 g) can of sardines or mackerel. Most people need 1,000 1,500 mg of calcium a day. Talk to your dietitian about how much calcium is recommended for you. Shopping Buy plenty of fresh fruits and vegetables. Most people do not need to avoid fruits and vegetables, even if these foods contain nutrients that may contribute to kidney stones. When shopping for convenience foods, choose: ?Whole pieces of fruit. ?Pre-made salads with dressing on the side. ?Low-fat fruit and yogurt smoothies. Avoid buying frozen meals or prepared deli foods. These can be high in sodium. Look for foods with live cultures, such as yogurt and kefir. Choose high-fiber grains, such as whole-wheat breads, oat bran, and wheat cereals. Cooking Do not add salt to food when cooking. Place a salt shaker on the table and allow each person to add his or her own salt to taste. Use vegetable protein, such as beans, textured vegetable protein (TVP), or tofu, instead of meat in pasta, casseroles, and soups. Meal planning Eat less salt, if told by your dietitian. To do this: ?Avoid eating processed or pre-made food. ?Avoid eating fast food. Eat less animal protein, including cheese, meat, poultry, or fish, if told by your dietitian. To do this: ?Limit the number of times you have meat, poultry, fish, or cheese each week. Eat a diet free of meat at least 2 days a week. ?Eat only one serving each day of meat, poultry, fish, or seafood. ?When you prepare animal protein, cut pieces into small portion sizes. For most meat and fish, one serving is about the size of the palm of your hand. Eat at least five servings of fresh fruits and vegetables each day. To do this: ?Keep fruits and vegetables on hand for snacks. ?Eat one piece of fruit or a handful of berries with breakfast. ?Have a salad and fruit at lunch. ?Have two kinds of vegetables at dinner. Limit foods that are high in a substance called oxalate. These include: ?Spinach (cooked), rhubarb, beets, sweet potatoes, and Grenadian chard. ?Peanuts. ?Potato chips, japanese fries, and baked potatoes with skin on. ?Nuts and nut products. ?Chocolate. If you regularly take a diuretic medicine, make sure to eat at least 1 or 2 servings of fruits or vegetables that are high in potassium each day. These include: ?Avocado. ?Banana. ?[place], prune, carrot, or tomato juice. ?Baked potato. ?Cabbage. ?Beans and split peas. Lifestyle Drink enough fluid to keep your urine pale yellow. This is the most important thing you can do. Spread your fluid intake throughout the day. If you drink alcohol: ?Limit how much you use to: ?0 1 drink a day for women who are not . ?0 2 drinks a day for men. ?Be aware of how much alcohol is in your drink. In the [place] one drink equals one 12 oz bottle of beer (355 mL), one 5 oz glass of wine (148 mL), or one 1 oz glass of hard liquor (44 mL). Lose weight if told by your health care provider. Work with your dietitian to find an eating plan and weight loss strategies that work best for you. General information Talk to your health care provider and dietitian about taking daily supplements. You may be told the following depending on your health and the cause of your kidney stones: ?Not to take supplements with vitamin C. ?To take a calcium supplement. ?To take a daily probiotic supplement. ?To take other supplements such as magnesium, fish oil, or vitamin B6. Take dkbc-sdz-lauowkm and prescription medicines only as told by your health care provider. These include supplements. What foods should I limit? Limit your intake of the following foods, or eat them as told by your dietitian. Vegetables Spinach. Rhubarb. Beets. Canned vegetables. Pickles. Olives. Baked potatoes with skin. Grains Wheat bran. Baked goods. Salted crackers. Cereals high in sugar. Meats and other proteins Nuts. Nut butters. Large portions of meat, poultry, or fish. Salted, precooked, or cured meats, such as sausages, meat loaves, and hot dogs. Dairy Cheese. Beverages Regular soft drinks. Regular vegetable juice. Seasonings and condiments Seasoning blends with salt. Salad dressings. Soy sauce. Ketchup. Barbecue sauce. Other foods Canned soups. Canned pasta sauce. Casseroles. Pizza. Lasagna. Frozen meals. Potato chips. Danish fries. The items listed above may not be a complete list of foods and beverages you should limit. Contact a dietitian for more information. What foods should I avoid? Talk to your dietitian about specific foods you should avoid based on the type of kidney stones you have and your overall health. Fruits Grapefruit. The item listed above may not be a complete list of foods and beverages you should avoid. Contact a dietitian for more information. Summary Kidney stones are deposits of minerals and salts that form inside your kidneys. You can lower your risk of kidney stones by making changes to your diet. The most important thing you can do is drink enough fluid. Drink enough fluid to keep your urine pale yellow. Talk to your dietitian about how much calcium you should have each day, and eat less salt and animal protein as told by your dietitian. This information is not intended to replace advice given to you by your health care provider. Make sure you discuss any questions you have with your health care provider. Document Revised: 03/07/2022 Document Reviewed: 03/07/2022 [employer] Patient Education 2022 [employer]. Follow Up Care 10/20/2022 10:19:07 With:RICHIE YANEZ, Tex Guzman, URL Address: [facility] [address] [place] [address]- [phone] When: Unknown Comments:2 yr w/ MUSA [facility] Discharge instructions 09-06-2022 Note Date & Type Note Facility 09-06-2022 Hospital Discharg e instructions Patient Education 09/06/2022 08:57:28 Colonoscopy, Adult Colonoscopy, Adult A colonoscopy is an exam to look at the entire large intestine. During the exam, a lubricated, flexible tube that has a camera on the end of it is inserted into the anus and then passed into the rectum, colon, and other parts of the large intestine. You may have a colonoscopy as a part of normal colorectal screening or if you have certain symptoms, such as: Lack of red blood cells (anemia). Diarrhea that does not go away. Abdominal pain. Blood in your stool (feces). A colonoscopy can help screen for and diagnose medical problems, including: Tumors. Polyps. Inflammation. Areas of bleeding. Tell a health care provider about: Any allergies you have. All medicines you are taking, including vitamins, herbs, eye drops, creams, and iust-trk-umdhzge medicines. Any problems you or family members have had with anesthetic medicines. Any blood disorders you have. Any surgeries you have had. Any medical conditions you have. Any problems you have had passing stool. What are the risks? Generally, this is a safe procedure. However, problems may occur, including: Bleeding. A tear in the intestine. A reaction to medicines given during the exam. Infection (rare). What happens before the procedure? Eating and drinking restrictions Follow instructions from your health care provider about eating and drinking, which may include: A few days before the procedure follow a low-fiber diet. Avoid nuts, seeds, dried fruit, raw fruits, and vegetables. 1 3 days before the procedure follow a clear liquid diet. Drink only clear liquids, such as clear broth or bouillon, black coffee or tea, clear juice, clear soft drinks or sports drinks, gelatin dessert, and popsicles. Avoid any liquids that contain red or purple dye. On the day of the procedure do not eat or drink anything starting 2 hours before the procedure, or within the time period that your health care provider recommends. Up to 2 hours before the procedure, you may continue to drink clear liquids, such as water or clear fruit juice. Bowel prep If you were prescribed an oral bowel prep to clean out your colon: Take it as told by your health care provider. Starting the day before your procedure, you will need to drink a large amount of medicated liquid. The liquid will cause you to have multiple loose stools until your stool is almost clear or light green. If your skin or anus gets irritated from diarrhea, you may use these to relieve the irritation: ?Medicated wipes, such as adult wet wipes with aloe and vitamin E. ?A skin-soothing product like petroleum jelly. If you vomit while drinking the bowel prep, take a break for up to 60 minutes and then begin the bowel prep again. If vomiting continues and you cannot take the bowel prep without vomiting, call your health care provider. To clean out your colon, you may also be given: ?Laxative medicines. ?Instructions about how to use an enema. General instructions Ask your health care provider about: ?Changing or stopping your regular medicines or supplements. This is especially important if you are taking iron supplements, diabetes medicines, or blood thinners. ?Taking medicines such as aspirin and ibuprofen. These medicines can thin your blood. Do not take these medicines before the procedure if your health care provider tells you not to. Plan to have someone take you home from the hospital or clinic. What happens during the procedure? An IV may be inserted into one of your veins. You will be given medicine to help you relax (sedative). To reduce your risk of infection: ?Your health care team will wash or sanitize their hands. ?Your anal area will be washed with soap. You will be asked to lie on your side with your knees bent. Your health care provider will lubricate a long, thin, flexible tube. The tube will have a camera and a light on the end. The tube will be inserted into your anus. The tube will be gently eased through your rectum and colon. Air will be delivered into your colon to keep it open. You may feel some pressure or cramping. The camera will be used to take images during the procedure. A small tissue sample may be removed to be examined under a microscope (biopsy). If small polyps are found, your health care provider may remove them and have them checked for cancer cells. When the exam is done, the tube will be removed. The procedure may vary among health care providers and hospitals. What happens after the procedure? Your blood pressure, heart rate, breathing rate, and blood oxygen level will be monitored until the medicines you were given have worn off. Do not drive for 24 hours after the exam. You may have a small amount of blood in your stool. You may pass gas and have mild abdominal cramping or bloating due to the air that was used to inflate your colon during the exam. It is up to you to get the results of your procedure. Ask your health care provider, or the department performing the procedure, when your results will be ready. Summary A colonoscopy is an exam to look at the entire large intestine. During a colonoscopy, a lubricated, flexible tube with a camera on the end of it is inserted into the anus and then passed into the colon and other parts of the large intestine. Follow instructions from your health care provider about eating and drinking before the procedure. If you were prescribed an oral bowel prep to clean out your colon, take it as told by your health care provider. After your procedure, your blood pressure, heart rate, breathing rate, and blood oxygen level will be monitored until the medicines you were given have worn off. This information is not intended to replace advice given to you by your health care provider. Make sure you discuss any questions you have with your health care provider. Document Released: 06/23/2001 Document Revised: 04/18/2018 Document Reviewed: 09/06/2016 [employer] Patient Education 2020 [employer]. Follow Up Care 08/15/2022 14:12:55 With:Betzy Donis CNP Address: When:1 to 2 weeks Comments:Following colonoscopy. [facility] Discharge instructions 06-13-2022 Note Date & Type Note Facility 06-13-2022 Hospital Discharg e instructions Patient Education 06/13/2022 08:23:04 Dietary Guidelines to Help Prevent Kidney Stones Dietary Guidelines to Help Prevent Kidney Stones Kidney stones are deposits of minerals and salts that form inside your kidneys. Your risk of developing kidney stones may be greater depending on your diet, your lifestyle, the medicines you take, and whether you have certain medical conditions. Most people can reduce their chances of developing kidney stones by following the instructions below. Depending on your overall health and the type of kidney stones you tend to develop, your dietitian may give you more specific instructions. What are tips for following this plan? Reading food labels Choose foods with no salt added or low-salt labels. Limit your sodium intake to less than 1500 mg per day. Choose foods with calcium for each meal and snack. Try to eat about 300 mg of calcium at each meal. Foods that contain 200 500 mg of calcium per serving include: ?8 oz (237 ml) of milk, fortified nondairy milk, and fortified fruit juice. ?8 oz (237 ml) of kefir, yogurt, and soy yogurt. ?4 oz (118 ml) of tofu. ?1 oz of cheese. ?1 cup (300 g) of dried figs. ?1 cup (91 g) of cooked broccoli. ?1 3 oz can of sardines or mackerel. Most people need 1000 to 1500 mg of calcium each day. Talk to your dietitian about how much calcium is recommended for you. Shopping Buy plenty of fresh fruits and vegetables. Most people do not need to avoid fruits and vegetables, even if they contain nutrients that may contribute to kidney stones. When shopping for convenience foods, choose: ?Whole pieces of fruit. ?Premade salads with dressing on the side. ?Low-fat fruit and yogurt smoothies. Avoid buying frozen meals or prepared deli foods. Look for foods with live cultures, such as yogurt and kefir. Cooking Do not add salt to food when cooking. Place a salt shaker on the table and allow each person to add his or her own salt to taste. Use vegetable protein, such as beans, textured vegetable protein (TVP), or tofu instead of meat in pasta, casseroles, and soups. Meal planning Eat less salt, if told by your dietitian. To do this: ?Avoid eating processed or premade food. ?Avoid eating fast food. Eat less animal protein, including cheese, meat, poultry, or fish, if told by your dietitian. To do this: ?Limit the number of times you have meat, poultry, fish, or cheese each week. Eat a diet free of meat at least 2 days a week. ?Eat only one serving each day of meat, poultry, fish, or seafood. ?When you prepare animal protein, cut pieces into small portion sizes. For most meat and fish, one serving is about the size of one deck of cards. Eat at least 5 servings of fresh fruits and vegetables each day. To do this: ?Keep fruits and vegetables on hand for snacks. ?Eat 1 piece of fruit or a handful of berries with breakfast. ?Have a salad and fruit at lunch. ?Have two kinds of vegetables at dinner. Limit foods that are high in a substance called oxalate. These include: ?Spinach. ?Rhubarb. ?Beets. ?Potato chips and japanese fries. ?Nuts. If you regularly take a diuretic medicine, make sure to eat at least 1 2 fruits or vegetables high in potassium each day. These include: ?Avocado. ?Banana. ?[place], prune, carrot, or tomato juice. ?Baked potato. ?Cabbage. ?Beans and split peas. General instructions Drink enough fluid to keep your urine clear or pale yellow. This is the most important thing you can do. Talk to your health care provider and dietitian about taking daily supplements. Depending on your health and the cause of your kidney stones, you may be advised: ?Not to take supplements with vitamin C. ?To take a calcium supplement. ?To take a daily probiotic supplement. ?To take other supplements such as magnesium, fish oil, or vitamin B6. Take all medicines and supplements as told by your health care provider. Limit alcohol intake to no more than 1 drink a day for non women and 2 drinks a day for men. One drink equals 12 oz of beer, 5 oz of wine, or 1 oz of hard liquor. Lose weight if told by your health care provider. Work with your dietitian to find strategies and an eating plan that works best for you. What foods are not recommended? Limit your intake of the following foods, or as told by your dietitian. Talk to your dietitian about specific foods you should avoid based on the type of kidney stones and your overall health. Grains Breads. Bagels. Rolls. Baked goods. Salted crackers. Cereal. Pasta. Vegetables Spinach. Rhubarb. Beets. Canned vegetables. Pickles. Olives. Meats and other protein foods Nuts. Nut butters. Large portions of meat, poultry, or fish. Salted or cured meats. Deli meats. Hot dogs. Sausages. Dairy Cheese. Beverages Regular soft drinks. Regular vegetable juice. Seasonings and other foods Seasoning blends with salt. Salad dressings. Canned soups. Soy sauce. Ketchup. Barbecue sauce. Canned pasta sauce. Casseroles. Pizza. Lasagna. Frozen meals. Potato chips. Danish fries. Summary You can reduce your risk of kidney stones by making changes to your diet. The most important thing you can do is drink enough fluid. You should drink enough fluid to keep your urine clear or pale yellow. Ask your health care provider or dietitian how much protein from animal sources you should eat each day, and also how much salt and calcium you should have each day. This information is not intended to replace advice given to you by your health care provider. Make sure you discuss any questions you have with your health care provider. Document Released: 10/21/2011 Document Revised: 10/16/2019 Document Reviewed: 06/06/2017 [employer] Patient Education 2020 [employer]. Follow Up Care 06/06/2022 15:28:19 With:Tex MADRIGAL MD, URL Address: [facility] [address] , [place] [address]- When: Unknown [facility] Evaluation + Plan note Note Date & Type Note Facility Evaluation + Plan note No data available for this section [facility] Evaluation + Plan note Radiology Note Date & Type Note Facility Evaluation + Plan note Future Appointments Appointment Date:03/18/2024 08:45:00 AM Scheduled Provider:Tex MADRIGAL MD Location:[facility] Appointment Type:URO Office Visit Future Scheduled TestsXR Abdomen 1 View 10/20/22 [facility] Evaluation note Note Date & Type Note Facility Evaluation note Diagnosis Encounter for wellness examination in adult Advance directive discussed with patient Overweight (BMI 25.0-29.9) Overweight documented in this encounter [facility] Progress note Note Date & Type Note Facility Progress note No data available for this section [facility] Summary Purpose Family History No Family History Records FoundNo Family History Records FoundNo Family History Records FoundNo Family History Records Found Advance Directives Documents on File Type Date Recorded Patient Research Phlebotomist Expl anation Advance Directives and Living Will 09/12/2022 2022-08-23 Power Of Swimming Pool Cleaner Additional Source Comments INFORMATION SOURCE (unrecogn ized section and content) DATE CREATED AUTHOR 01/03/2018 [facility] DATE CREATED AUTHOR AUTHOR'S ORGANIZ ATION 09/09/2022 [facility] DATE CREATED AUTHOR AUTHOR'S ORGANIZ ATION 03/07/2023 [facility] DATE CREATED AUTHOR AUTHOR'S ORGANIZ ATION 08/17/2023 [facility] EPIC Patient Care team informatio n (unrecognized section and content) 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 Start Date End Date Tony Argueta MD [address] [place] [address] PCP - General Family Medicine 11/15/22 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 This clinical summary was aggregated from multiple sources. Caution should be exercised in using it in the provision of clinical care. This summary normalizes information from multiple sources, and as a consequence, information in this document may materially change the coding, format and clinical context of patient data. In addition, data may be omitted in some cases. CLINICAL DECISIONS SHOULD BE BASED ON THE PRIMARY CLINICAL RECORDS. [facility] [employer] [facility]. provides no warranty or guarantee of the accuracy or completeness of information in this document.
== END 2024-03-05 08:02 | disposition home or self-care (01) ==
LOC: RAD 08:05
PROVIDERS: PCP Family Medicine; Visit Provider Urology
DX: N20.0 Calculus of kidney (principal)
CPT/HCPCS: 74018

== ENCOUNTER 2024-07-05 06:59 | Outpatient (OUT) | payer OTHER, SELFPAY ==
--- NOTE | 2024-07-05 07:02 | MM_ITS ---
Patient Name: JOSE LUIS BARNEY MR#: [id number] : 1965 Exam Date: 07/05/2024 Ordering Doctor: DR LEANDER ARGUETA . RADIOLOGY REPORT PROCEDURE: MM TOMOSYNTHESIS SCREENING BI COMPARISON: MM TOMOSYNTHESIS SCREENING BI, 06/29/2023. MG MAMM SCREEN 3D ODILON CAD, 06/28/2022. MG MAMM SCREEN 3D [place]ILON CAD, 07/09/2021. MG MAMM SCREEN ODILON W CAD, 07/07/2020. INDICATIONS: Screening Calculator Name NCI Breast Cancer Risk Assessment Tool 5 Year Breast Cancer Risk 1.00% Lifetime Breast Cancer Risk 6.00% Personal Breast Cancer No Personal Ovarian Cancer No Treatments None Family Cancers Brother with throat cancer at age ~60. LOCATION: [facility] BREAST COMPOSITION: The breasts are heterogeneously dense,which may obscure small masses. FINDINGS: DIAGNOSTIC CATEGORY 2--BENIGN FINDING: RIGHT BREAST: No significant suspicious finding. This exam includes additional mammographic views for implant evaluation and shows no visible implant abnormality. No significant change has occurred. LEFT BREAST: No significant suspicious finding. This exam includes additional mammographic views for implant evaluation and shows no visible implant abnormality. No significant change has occurred. RECOMMENDATIONS: ROUTINE MAMMOGRAM AND CLINICAL EVALUATION IN 12 MONTHS. PLEASE NOTE: A NORMAL MAMMOGRAM DOES NOT EXCLUDE THE POSSIBILITY OF BREAST CANCER. A CLINICALLY SUSPICIOUS PALPABLE LUMP SHOULD BE BIOPSIED. Dictated by: Chad Johnson M.D. on 07/05/2024 at 15:37 Approved by: Chad Johnson M.D. on 07/05/2024 at 15:40
--- OUTSIDE RECORDS SUMMARY | 2024-07-05 07:02 | XMS_ITS | CCD ---
Author Organization [facility] Care Team Providers Care Pearl Glue Operator Name Role Phone ANKIT JEAN Primary Care Physician [phone] TONY ARGUETA Primary Care Physician Unavail able JEAN ., DR ANKIT Gautam Primary Care Unavailable DIPAK BRADY Attending Unavailable JOSE ANTONIO, DIPAK Admitting Unavailable JOSE ANTONIO, DIPAK Consulting Unavailable WALLY RIOS Consulting Unavailable JEAN ., DR ANKIT Gautam Primary Care Unavailable KEZIA ., JOSEPHINE Admitting Unavailable KEZIA ., JOSEPHINE Consulting Unavailable KEZIA ., JOSEPHINE Attending Unavailable QUIROZ ., DR CISSE Consulting Unavailable QUIROZ ., DR CISSE Attending Unavailable QUIROZ ., DR CISSE Admitting Unavailable JEAN ., DR ANKIT Gautam Primary Care Unavailable JEAN ., DR ANKIT Gautam Primary Care Unavailable QUIROZ ., DR CISSE Consulting Unavailable QUIROZ ., DR CISSE Attending Unavailable QUIROZ ., DR CISSE Admitting Unavailable JEAN ., DR ANKIT Gautam Primary Care Unavailable QUIROZ ., DR CISSE Consulting Unavailable QUIROZ ., DR CISSE Attending Unavailable QUIROZ ., DR CISSE Admitting Unavailable LAGRANGE, DR PATRICIO Mondragon Consulting Unavailable CHARLTON, LAWRENCE Consulting Unavailable GEMBUS, LUIS M Consulting Unavailable JEAN ., DR ANKIT Gautam Primary Care Unavailable JEAN ., DR ANKIT Gautam Consulting Unavailable JEAN ., DR ANKIT Gautam Attending Unavailable JEAN ., DR ANKIT Gautam Admitting Unavailable JEAN ., DR NAKIT Gautam Consulting Unavailable JEAN ., DR ANKIT Gautam Primary Care Unavailable JEAN ., DR ANKIT Gautam Attending Unavailable JEAN ., DR ANKIT Gautam Admitting Unavailable JEAN ., DR ANKIT Gautam Attending Unavailable JEAN ., DR ANKIT Gautam Admitting Unavailable JEAN ., DR ANKIT Gautam Consulting Unavailable JEAN ., DR ANKIT Gautam Primary Care Unavailable QUIROZ ., DR CISSE Attending Unavailable QUIROZ ., DR CISSE Admitting Unavailable QUIROZ ., DR CISSE Consulting Unavailable JEAN ., DR ANKIT Gautam Primary Care Unavailable JAGDISH, DR CHAD Guzman Consulting Unavailable JEAN ., DR ANKIT Gautam Consulting Unavailable JEAN ., DR ANKIT Gautam Attending Unavailable MIRANDA ., DR ANKIT Gautam Admitting Unavailable MIRANDA ., DR ANKIT Gautam Primary Care Unavailable DR CHAD JOHNSON Consulting Unavailable TONY ARGUETA Attending Unavailable Tony Argueta MD Primary Care Provider Leslie Lucio Attending Unavailable Allergies Allergy Classification Reported Allergen(s) Allergy Type Date of Onset Reaction(s) Facility (9 sources) Amoxicillin; Translations: [amoxicillin] Drug Allergy 4 Unknown (qualifier value), Rash [facility] (1 source) Amoxicillin Drug Allergy 6 [facility] Medications Current Medications Medication Drug Class(es) Dates Sig (Normalized) Sig (Original) potassium bicarbonate 25 meq effervescent oral tablet (3 sources) Start: 03-06-2023 take 1 tablet by mouth in the morning Klor-Con/EF 25 MEQ effervescent tablet Take 25 mEq by mouth in the morning and 25 mEq before bedtime. 0 03/06/2023 Active SUMAtriptan 50 mg oral tablet (7 sources) Serotonin-1b and Serotonin-1d Receptor Agonist Start: [...] day(s), # 60 tab(s), Refills(s) 11, Pharmacy: [facility], 165, cm, 03/06/23 15:46:00 EDT, Height/Length Dosing, 70.9, kg, 03/06/23 15:46:00 EDT, Weight Dosing Start Date: 03/06/23 Stop Date: 02/29/24 Status: Ordered magnesium sulfate 225 MG / potassium chloride 188 MG / sodium sulfate 1479 MG Oral Tablet [Sutab] (3 sources) Start: 09-06-2022 take 1 tablet by mouth once Sutab oral tablet See Instructions, 1 EA, Refill(s) 0, Please follow instructions per packaging and physician's handout, [facility], 165, cm, 09/06/22 8:50:00 EST, Height/Length Dosing, 76.6, kg, 09/06/22 8:50:00 EST, Weight Dosing Start Date: 09/06/22 Status: Ordered Sutab 6097-449-174 MG tablet (3 sources) Start: 09-06-2022 End: 08-16-2023 Sutab 6913-928-263 MG tablet USE DIRECTED per physicians handout 0 09/06/2022 08/16/2023 Discontinued (Therapy completed) Start: 09-06-2022 Sutab 1479-225 -188 MG tablet USE DIRECTED per physicians handout 0 09/06/2022 Active Problems Active Problems Problem Classification Problem Date Documented Date Episodic/Chronic Administrative/socia l admission (2 sources) Advance directive discussed with patient; Translations: [Other specified counseling] 08-09-2023 Episodic Calculus of urinary tract (13 sources) Kidney stone; Translations: [Calculus of kidney] Onset: 05-31-20 Episodic Genitourinary symptoms and ill-defined conditions (1 source) Abnormal urinary product; Translations: [Hypocitraturia] Onset: 03-12-20 Episodic Headache; including migraine (2 sources) Migraine without aura, not refractory ; Translations: [Migraine without aura, not intractable, without status migrainosus] Onset: 08-16-1908-16-2023 Chronic Headache; including migraine (4 sources) Headache 06-13-2022 Episodic Headache; including migraine (1 source) Headache; including migraine; Translations: [HEADACHE UNSPECIFIED] Onset: 07-07-20 Other and unspecified benign neoplasm (6 sources) History of polyp of colon; Translations: [Personal history of colonic polyps] Onset: 09-06-19 Episodic Other bone disease and musculoskeletal deformities (2 sources) Osteopenia; Translations: [Other specified disorders of bone density and structure, other site] Onset: 08-16-19 24 08-16-2023 Episodic Other diseases of kidney and ureters (1 source) Urinary tract obstruction; Translations: [Hydronephrosis with renal and ureteral calculous obstruction] Onset: 06-13-20 Episodic Other diseases of kidney and ureters (4 sources) Hydronephrosis 06-13-2022 Episodic Other diseases of kidney and ureters (4 sources) Hydroureteronephrosis 06-13-2022 Episodic Other diseases of [...] Test Name Value Interpretation Reference Range Facility Ambulatory Visit Summaryon 0 03-12-2024 Ambulatory Visit Summary Ambulatory Visit Summary KIARA MOYA:1965 Visit Date:03/12/2024 Ambulatory Visit Instructions Your Diagnosis Kidney stone Hypocitraturia Tests Performed XR Abdomen 1 View -- Results Pending -- Please visit your patient portal for your results or contact your primary care physician. Your Care Team Attending Physician - AMARILIS Lucio APRN, Leslie Garcia Primary Care Physician - ELLIE YANEZ, TONY Negron This Is Your Medications List Contact prescribing physician if questions or concerns magnesium sulfate/potass Cl/sodium sulf (Sutab oral tablet) sumatriptan (SUMAtriptan 50 mg Tab) Procedures Performed Breast augmentation, Colonoscopy. Discharge Vitals Heart Rate (Peripheral) 76 Blood Pressure 136/84 Height 165 cm Height 65 in Weight 70.6 kg Weight 155.32 lb BMI 25.93 What to do next You Need to Schedule the Following Appointments Follow Up with AMARILIS Lucio APRN, Leslie Garcia, HEAVENLY, URL When: Comments: 1 year with KUB Where: Medications What How Much When Instructions Unchanged magnesium sulfate/ potass Cl/ sodium sulf (Sutab oral tablet) See instructions Please follow instructions per packaging and physician's handout Contact prescribing physician if questions or concerns Unchanged sumatriptan (SUMAtriptan 50 mg Tab) Contact prescribing physician if questions or concerns Allergies amoxicillin (Unknown) Problems Ongoing - Any problem that you are currently receiving treatment for. Headache History of colon polyps Hydroureteronephrosis Kidney stone Ureteral stone with hydronephrosis Patient Survey You may receive a survey via text or e-mail asking about your office visit. Please share your experience with us by completing your survey. We appreciate your feedback and thank you for choosing us for your care. Education Materials Kidney Stones Kidney stones are rock-like masses that form inside of the kidneys. Kidneys are organs that make pee (urine). A kidney stone may move into other parts of the urinary tract, including: ? The tubes that connect the kidneys to the bladder (ureters). ? The bladder. ? The tube that carries urine out of the body (urethra). Kidney stones can cause very bad pain and can block the flow of pee. The stone usually leaves your body through your pee. A doctor may need to take out the stone. What are the causes? Kidney stones may be caused by: ? Too much calcium in the body. This may be caused by too much parathyroid hormone in the blood. ? Uric acid crystals in the bladder. The body makes uric acid when you eat certain foods. ? Narrowing of one or both of the ureters. ? A kidney blockage that you were born with. ? Past surgery on the kidney or the ureters. What increases the risk? You are more likely to develop this condition if: ? You have had a kidney stone in the past. ? Other people in your family have had kidney stones. ? You do not drink enough water. ? You eat a diet that is high in protein, salt (sodium), or sugar. ? You are very overweight (obese). What are the signs or symptoms? Symptoms of a kidney stone may include: ? Pain in the side of the belly, right below the ribs. Pain usually spreads to the groin. ? Needing to pee often or right away. ? Pain when peeing. ? Blood in your pee. ? Feeling like you may vomit (nauseous). ? Vomiting. ? Fever and chills. How is this treated? Treatment depends on the size, location, and makeup of the kidney stones. The stones will often pass out of the body when you pee. You may need to: ? Drink more fluid to help pass the stone. ? In some cases, you may be given fluids through an IV tube at the hospital. ? Take medicine for pain. ? Change your diet to help keep kidney stones from coming back. Sometimes, you may need: ? A procedure to break up kidney stones using a beam of light (laser) or shock waves. ? Surgery to remove the kidney stones. Follow these instructions at home: Medicines ? Take eqio-cxs-ekungbe and prescription medicines only as told by your doctor. ? Ask your doctor if the medicine prescribed to you requires you to avoid driving or using machinery. Eating and drinking ? Drink enough fluid to keep your pee pale yellow. ? You may be told to drink at least 8?10 glasses of water each day. This will help you pass the stone. ? If told by your doctor, change your diet. You may be told to: ? Limit how much salt you eat. ? Eat more fruits and vegetables. ? Limit how much meat, poultry, fish, and eggs you eat. ? Follow instructions from your doctor about what you may eat and drink. General instructions ? Collect pee samples as told by your doctor. You may need to collect a pee sample: ? 24 hours after a stone comes out. ? 8?12 weeks after a stone comes out, and every 6?12 months after that. ? Str (more content not included)... Normal [facility] Reminderson 03-12-2024 Reminders Reminders From: Jessa Fairchild To: EU - Administrative; Sent: 03/12/2024 08:30:51 EDT Show up: 09/07/2024 08:30:00 EST Subject: 1 year f/u Due Date/Time: 03/10/2025 08:30:00 EDT Reminder/Recall Please call and schedule patient with AO for a 1 yr f/u with KUB, due back beginning of March 2025. Would like first appointment of the day [facility] Urology Office/Clinic Noteon 03-12-2024 Urology Office/Clinic Note Urology Office/Clinic Note Chief Complaint 1 yr f/u w/ KUB HPI Staff PRW pt here for 1 yr w/ KUB. Dx: kidney stone. *Started on Effer-K 25 mEq BID at prior OV. Dysuria: no Incomplete bladder emptying: no Hematuria: no Frequency: 2-3x daily Urgency: no Nocturia: no Stream: normal Leaking: no Post void dripping: no Wearing pads/ Depends: no Urge incontinence: no Stress incontinence: no Incontinence without Sensory Awareness: no Abdominal pain: no Flank pain: no Sexual complaints: History of Present Illness I have reviewed and verified the staff HPI to be accurate for this encounter. Portions of this record may have been created with voice recognition artificial intelligence software, specifically [employer], [employer] and or [employer]. Substitutions may have occurred due to the inherent limitations of voice recognition and artificial intelligence software. Review of Systems PHQ Score Initial Depression Screen Score: 0 SCORE Physical Exam Vitals & Measurements HR: 76(Peripheral) BP: 136/84 HT: 65 in HT: 165 cm WT: 70.6 kg WT: 155.32 lb BMI: 25.93 General: Well developed, well nourished, in no acute distress. Genitourinary: Flank Pain: none Assessment/Plan PRW pt BBS 10 1. Kidney stone (N20.0: Calculus of kidney) S/p R ESWL 07/07/22 [1] patient's first stone episode. KUB 03/01/23 - negative for stones [2] KUB 03/05/24 - negative UA today with trace intact blood, no signs of infection. Patient denies any flank pain, stone episode, urinary infection since prior office visit. Discussed generalized stone prevention - pt encouraged to increase fluid intake so that he/she producing 2.5L of urine daily. Add 1/4 cup of lemon juice to water throughout the day or can also drink sugar free lemonade or clear soda. Avoid dark maite. Restrict sodium intake. Restrict animal protein. Patient states she is currently only drinking about 2-3 bottles of water daily, sometimes a clear soda. I reiterated the need for increased fluid intake and stone prevention. -Increase oral hydration -Follow-up 1 year with KUB, sooner if needed Ordered: Urnls Dip Stick Auto w/o Microscopy POC 81583 XR Abdomen 1 View 2. 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 Patient states she is tolerating this well without side effects. Does note that she often forgets a dose. I reiterated the purpose of Effer-K medication and stone prevention. Advised patient to continue medication as prescribed. She is to call office for refills. -Continue Effer-K Follow-up With When Contact Information AMARILIS Lucio APRN, Leslie X, FAM, URL Additional Instructions: 1 year with KUB Patient Education Kidney Stones, Yxgr-ek-[id number] Dietary Guidelines to Help Prevent Kidney Stones Problem List/Past Medical History Ongoing Headache History of colon polyps Hydroureteronephrosis Kidney stone Ureteral stone with hydronephrosis Historical No qualifying data Procedure/Surgical History Breast augmentation, Colonoscopy. Medications SUMAtriptan 50 mg Tab Sutab oral tablet, See Instructions Allergies amoxicillin (Unknown) Social History Tobacco Never (less than 100 in lifetime) Tobacco Use:. Never Smokeless Tobacco Use:., 03/12/2024 Family History Heart disease: Mother. Hypertension: Mother. Stroke: Mother. Immunizations Vaccine Date Status influenza virus vaccine, inactivated 04/26/2022 Recorded SARS-CoV-2 (COVID-19) mRNA BNT-162b2 vax 10/29/2020 Recorded SARS-CoV-2 (COVID-19) mRNA BNT-162b2 vax 10/09/2020 Recorded Lab Results Ambulatory Point of Care Results Bilirubin Urine Dipstick: Negative (03/12/24 08:08:00) Blood Urine Dipstick: Trace-intact (03/12/24 08:08:00) Glucose Urine Dipstick: Negative (03/12/24 08:08:00) Ketones Urine Dipstick: Negative (03/12/24 08:08:00) Leukocytes Urine Dipstick: Negative (03/12/24 08:08:00) Nitrite Urine Dipstick: Negative (03/12/24 08:08:00) Protein Urine Dipstick: Negative (03/12/24 08:08:00) Specific [place] Urine Dipstick: >=1.030 (03/12/24 08:08:00) Urine Appearance Urine Dipstick: Clear (03/12/24 08:08:00) Urine Color Urine Dipstick: Yellow (03/12/24 08:08:00) Urobilinogen Urine Dipstick: Normal 0.2-1 EU/dl (03/12/24 08:08:00) pH Urine Dipstick: 5 (03/12/24 08:08:00) [1] URO- s/p eswl, begin new med; [place] QUIROZ MD 03/06/2023 17:03 EDT [2] URO- s/p eswl, begin new med; Tex QUIROZ MD 03/06/2023 17:03 EDT [3] URO- s/p eswl, begin new med; [place] QUIROZ MD 03/06/2023 17:03 EDT Normal [facility] Comment on above: Result Comment: Elec tronically Signed By: AMARILIS Lucio APRN, [place] X\.br\Date and Time Signed: 03/12/24 08:30 EDT PREG QUANT HCGon 07-07-2022 HCG QUANT 2 mIU/mL Normal [facility] [place] [facility] Comment on above: Performed By: #### P REGQNT #### [facility] [address], [place] [address] Dr. Merritt Agudelo HCG RANGE SEE BELOW Normal [facility] Comment on above: Result Comment: 5-50 0.2-1 WEEK 50-500 1-2 WEEKS 100-5,000 2-3 WEEKS 500-10,000 3-4 WEEKS 1,000-50,000 4-5 WEEKS 10,000-100,000 5-6 WEEKS 15,000-200,000 6-8 WEEKS 10,000-100,000 2-3 MONTHS Performed By: #### P REGQNT #### [facility] [address], [place] [address] Dr. Merritt Agudelo XR KUB 1 VIEWon [...] PATRICIO LUTZ Date: 2022-07-07 11:10 Normal [facility] Covid-19 PCR (CVDTB)on 06-10 SARS-CoV-2 (COVID-19) RNA MICHAEL+probe Ql (Unsp spec) Not detected Normal NOT DETECTED [facility] Comment on above: Result Comment: This test is not yet approved or cleared by the [place] FDA. When there are no FDA-approved or cleared tests available, and other criteria are met, FDA can make tests available under an emergency access mechanism called an Emergency Use Authorization (EUA). The EUA for this test is supported by the Duct Cleaner of Health and Human Service's (HHS's) declaration [...] SARS-CoV-2. Performed By: #### C VDTB #### [facility] [address] [place] [address] Dr. Merritt Agudelo CBC AUTO DIFFon 06-29-2022 BASO # 0.0 103/ul Normal 0.0-0.1 [facility] [place] [facility] Comment on above: Performed By: #### C BC #### [facility] [address] [place] [address] Dr. Merritt Agudelo Basophils/100 WBC (Bld) 0.5 % Normal 0.2-2.0 [facility] [place] [facility] Comment on above: Performed By: #### C BC #### [facility] [address] [place] [address] Dr. Merritt Agudelo EO # 0.1 103/ul Normal 0.0-0.7 [facility] [place] [facility] Comment on above: Performed By: #### C BC #### [facility] [address] [place] [address] Dr. Merritt Agudelo Eosinophils/100 WBC (Bld) 2.2 % Normal 0.9-7.0 [facility] [place] [facility] Comment on above: Performed By: #### C BC #### [facility] [address] [place] [address] Dr. Merritt Agudelo Erythrocyte distribution width (RBC) [Ratio] 12.5 % Normal 11.0-15.0 [facility] Comment on above: Performed By: #### C BC #### [facility] [address] [place] [address] Dr. Merritt Agudelo Hematocrit (Bld) [Volume fraction] 37.2 % Normal 36.0-48.0 [facility] [place] [facility] Comment on above: Performed By: #### C BC #### [facility] [address] [place] [address] Dr. Merritt Agudelo Hemoglobin (Bld) [Mass/Vol] 12.1 g/dL Normal 12.0-16.0 [facility] [place] [facility] Comment on above: Performed By: #### C BC #### [facility] [address] [place] [address] Dr. Merritt Agudelo IG # 0.02 10e3/ul Normal 0.00-0.03 [facility] [place] [facility] Comment on above: Performed By: #### C BC #### [facility] [address] [place] [address] Dr. Merritt Agudelo IG % 0.3 % Normal 0.0-0.5 [facility] [place] [facility] Comment on above: Performed By: #### C BC #### [facility] [address] [place] [address] Dr. Merritt Agudelo LYMPH # 1.8 103/ul Normal 1.2-3.8 [facility] [place] [facility] Comment on above: Performed By: #### C BC #### [facility] [address] [place] [address] Dr. Merritt Agudelo Lymphocytes/100 WBC (Bld) 28.5 % Normal 20.5-60.0 [facility] [place] [facility] Comment on above: Performed By: #### C BC #### [facility] [address] [place] [address] Dr. Merritt Agudelo MANUAL DIFF REQ NO Normal [facility] Comment on above: Performed By: #### C BC #### [facility] [address] [place] [address] Dr. Merritt Agudelo MCH (RBC) [Entitic mass] 29.5 pg Normal 26.7-34.0 [facility] [place] [facility] Comment on above: Performed By: #### C BC #### [facility] [address] [place] [address] Dr. Merritt Agudelo MCHC (RBC) [Mass/Vol] 32.5 g/dL Normal 29.9-35.2 [facility] Comment on above: Performed By: #### C BC #### [facility] [address] [place] [address] Dr. Merritt Agudelo MCV (RBC) [Entitic vol] 90.7 fL Normal 81.0-99.0 [facility] [place] [facility] Comment on above: Performed By: #### C BC #### [facility] [address] [place] [address] [address] Merritt Agudelo MONO # 0.5 103/ul Normal 0.3-0.8 [facility] [place] [facility] Comment on above: Performed By: #### C BC #### [facility] [address] [place] [address] [address] Merritt Agudelo Monocytes/100 WBC (Bld) 8.5 % Normal 1.7-12.0 [facility] Comment on above: Performed By: #### C BC #### [facility] [address] [place] [address] Dr. Merritt Agudelo NEUT # 3.8 103/ul Normal 1.4-6.5 [facility] Comment on above: Performed By: #### C BC #### [facility] [address] [place] [address] Dr. Merritt Agudelo Neutrophils/100 WBC (Bld) 60.0 % Normal 43.0-75.0 [facility] [place] [facility] Comment on above: Performed By: #### C BC #### [facility] [address] [place] [address] Dr. Merritt Agudelo Platelet mean volume (Bld) [Entitic vol] 9.4 fL Critically low 9.5-13.5 [facility] [place] [facility] Comment on above: Performed By: #### C BC #### [facility] [address] [place] [address] Dr. Merritt Agudelo PLT 224 103/ul Normal 150-450 [facility] Comment on above: Performed By: #### C BC #### [facility] [address] [place] [address] Dr. Merritt Agudelo RBC 4.10 106/ul Critically low 4.20-5.40 [facility] Comment on above: Performed By: #### C BC #### [facility] [address] [place] [address] Dr. Merritt Agudelo WBC 6.4 103/ul Normal 4.0-11.0 [facility] Comment on above: Performed By: #### C BC #### [facility] [address] [place] [address] Dr. Merritt Agudelo PROF CHEM 8 (BAS METB)on Anion gap [Moles/Vol] 8.6 mmol/L Normal [facility] [place] [facility] Comment on above: Performed By: #### C BC #### [facility] [address] [place] [address] Dr. Merritt Agudelo Calcium [Mass/Vol] 9.0 mg/dL Normal 8.5-10.1 [facility] Comment on above: Performed By: #### C BC #### [facility] [address] [place] [address] Dr. Merritt Agudelo Chloride [Moles/Vol] 102 mmol/L Normal 98-107 [facility] Comment on above: Performed By: #### C BC #### [facility] [address] [place] [address] Dr. Merritt Agudelo CO2 [Moles/Vol] 31.4 mmol/L Normal 21.0-32.0 [facility] Comment on above: Performed By: #### C BC #### [facility] [address] [place] [address] Dr. Merritt Agudelo Creatinine [Mass/Vol] 0.72 mg/dL Normal 0.55-1.02 [facility] Comment on above: Performed By: #### C BC #### [facility] [address] [place] [address] Dr. Merritt Agudelo EGFR-AF SAUDI ARABIAN >60 Normal >=60 [facility] Comment on above: Performed By: #### C BC #### [facility] [address] [place] [address] [address] Merritt Agudelo EGFR-NON AF SAUDI ARABIAN >60 Normal >=60 [facility] Comment on above: Performed By: #### C BC #### [facility] [address] [place] [address] Dr. Merritt Agudelo Glucose [Mass/Vol] 86 mg/dL Normal 74-106 [facility] Comment on above: Performed By: #### C BC #### [facility] [address] [place] [address] Dr. Merritt Agudelo Potassium [Moles/Vol] 4.0 mmol/L Normal 3.5-5.1 [facility] [place] [facility] Comment on above: Performed By: #### C BC #### [facility] [address] [place] [address] Dr. Merritt Agudelo Sodium [Moles/Vol] 138 mmol/L Normal 136-145 [facility] [facility] Comment on above: Performed By: #### C BC #### [facility] [address] [place] [address] Dr. Merritt Agudelo Urea nitrogen [Mass/Vol] 16.0 mg/dL Normal 7.0-18.0 [facility] [place] [facility] Comment on above: Performed By: #### C BC #### [facility] [address] [place] [address] Dr. Merritt Agudelo Urea nitrogen/Creatinine [Mass ratio] 22.2 mg/mg Normal [facility] [place] [facility] Comment on above: Performed By: #### C BC #### [facility] [address] [place] [address] Dr. Merritt Agudelo PROTIMEon 06-29-2022 INR Coag (PPP) [Relative time] 0.94 {INR} Normal [facility] [place] [facility] Comment on above: Performed By: #### C BC #### [facility] [address] [place] [address] Dr. Merritt Agudelo INR GUIDELINES SEE BELOW Normal [facility] Comment on above: Result Comment: SIMÓN RED INR: 2.0 - 3.0 CONDITIONS NOT LISTED BELOW 2.5 - 3.5 FOR PROSTHETIC HEART VALVE REPLACEMENT 2.5 - 3.5 RECURRENT THROMBOSIS Performed By: #### C BC #### [facility] [address] [place] [address] Dr. Merritt Agudelo PT Coag (PPP) [Time] 10.2 s Normal 9.0-11.6 [facility] Comment on above: Performed By: #### C BC #### [facility] [address] [place] [address] Dr. Merritt Agudelo PTTon 06-29-2022 aPTT Coag (Bld) [Time] 26.4 s Normal 22.3-36.2 [facility] [place] [facility] Comment on above: Performed By: #### C BC #### [facility] [address] [address] [address] Merritt Agudelo MG MAMM SCREEN 3D ODILON CADon 06-28-2022 MG MAMM SCREEN 3D ODILON CAD Patient: KIARA MOYA Exam Date: 06/28/2022 : 1965 Gender:F Ordering : DR ANKIT JEAN . Admission #: [id number] Family : Order #: [id number] CLICK HERE TO VIEW EXAM RADIOLOGY REPORT [...] throat cancer at age 61. LOCATION: [facility] BREAST COMPOSITION: Heterogeneously dense,which may obscure small [...] Johnson M.D. on 06/29/2022 at 10:00 Normal [facility] XR KUB 1 VIEWon 06-13-2022 XR KUB [...] by: CHAD JOHNSON Date: 2022-06-13 13:37 Normal [facility] [place] [facility] PAP ACOG PANEL 2: 30 to 65on 06-10-2022 . . Normal [facility] [place] [facility] Comment on above: Result Comment: Perf ormed at: WB Performed By: #### C BC #### [facility] [address] [address] [address] Merritt Agudelo Age Gdln ACOG Testing 30-65 Normal [facility] [place] [facility] Comment on above: Performed By: #### C BC #### [facility] [address] [address] [address] Merritt Agudelo DIAGNOSIS: Comment Normal [facility] [place] [facility] Comment on above: Result Comment: NEGA TIVE FOR INTRAEPITHELIAL LESION OR MALIGNANCY. CELLULAR CHANGES ASSOCIATED WITH ATROPHY ARE PRESENT. Performed at: WB Performed By: #### C BC #### [facility] [address] [address] [address] Merritt Agudelo HPV Aptima Negative Normal Negative [facility] [place] [facility] Comment on above: Result Comment: This nucleic acid amplification test detects fourteen high-risk HPV types (16,18,31,33,35,39,45,51,52,56,58,59,66,68) without differentiation. Performed at: =G Performed By: #### C BC #### [facility] [address] [address] [address] Merritt Agudelo HPV Genotype Reflex Comment Normal [facility] Comment on above: Result Comment: Crit eria not met, HPV Genotype not performed. Performed at: WB Performed By: #### C BC #### [facility] [address] [address] [address] Merritt Agudelo Methodology: Comment Normal [facility] [place] [facility] Comment on above: Result Comment: This liquid based ThinPrep(R) pap test was screened with the use of an image guided system. Performed at: WB Performed By: #### C BC #### [facility] [address] [address] [address] Merritt Agudelo Note: Comment Normal [facility] [place] [facility] Comment on above: Result Comment: The Pap smear is a screening test designed to aid in the detection of premalignant and malignant conditions of the uterine cervix. It is not a diagnostic procedure and should not be used as the sole means of detecting cervical cancer. Both false-positive and false-negative reports do occur. . Performed at: WB Performed By: #### C BC #### [facility] [address] [place] [address] Dr. Merritt Agudelo Performed by: Comment Normal [facility] Comment on above: Result Comment: Stanley Cortes, Automobile Detailer (ASCP) Performed at: WB Performed By: #### C BC #### [facility] [address] [place] [address] Dr. Merritt Agudelo Specimen adequacy: Comment Normal [facility] Comment on above: Result Comment: Sati sfactory for evaluation. Endocervical component may not be distinguished in cases of atrophy. Performed at: WB Performed By: #### C BC #### [facility] [address] [place] [address] Dr. Merritt Agudelo CALCULI, URINARYon 2 2,8 Dihydroxyadenine Normal [facility] [place] [facility] Comment on above: Performed By: #### C ALCULI #### [facility] [address] [place] [address] Dr. Merritt Agudelo Ammonium Acid Urate Normal [facility] Comment on above: Performed By: #### C ALCULI #### [facility] [address] [place] [address] Dr. Merritt Agudelo Bilirubin Ql (U) Normal [facility] Comment on above: Performed By: #### C ALCULI #### [facility] [address] [place] [address] Dr. Merritt Agudelo Ca Oxalate Dihydrate 30 % [facility] Comment on above: Performed By: #### C ALCULI #### [facility] [address] [place] [address] Dr. Merritt Agudelo CaHPO4 (Brushite) Normal [facility] Comment on above: Performed By: #### C ALCULI #### [facility] [address] [address] [address] Merritt Agudelo Calcium Bilirubinate [facility] Comment on above: Performed By: #### C ALCULI #### [facility] [address] [address] [address] Merritt Agudelo Calcium Carbonate [facility] Comment on above: Performed By: #### C ALCULI #### [facility] [address] [address] [address] Merritt Agudelo Calcium Oxalate Monohydrate 70 % [facility] Comment on above: Performed By: #### C ALCULI #### [facility] [address] [address] [address] Merritt Agudelo Calcium Palmitate [facility] Comment on above: Performed By: #### C ALCULI #### [facility] [address] [address] [address] Merritt Agudelo Calcium Phosphate [facility] Comment on above: Performed By: #### C ALCULI #### [facility] [address] [address] [address] Merritt Agudelo Calcium Stearate [facility] Comment on above: Performed By: #### C ALCULI #### [facility] [address] [address] [address] Merritt Agudelo Carbonate Apatite [facility] Comment on above: Performed By: #### C ALCULI #### [facility] [address] [address] [address] Merritt Agudelo Cellular Material [facility] Comment on above: Performed By: #### C ALCULI #### [facility] [address] [address] [address] Merritt Agudelo Cholesterol [facility] Comment on above: Performed By: #### C ALCULI #### [facility] [address] [address] [address] Merritt Agudelo Color (U) Brown [facility] Comment on above: Performed By: #### C ALCULI #### [facility] [address] [place] [address] Dr. Merritt Agudelo Comment Normal [facility] [place] [facility] Comment on above: Performed By: #### C ALCULI #### [facility] [address] [place] [address] Dr. Merritt Agudelo Comment: Comment Normal [facility] [place] [facility] Comment on above: Result Comment: Amber hawkins questions regarding Calculi Analysis [facility] at: [phone]. Performed By: #### C ALCULI #### [facility] [address] [place] [address] Dr. Merritt Agudelo Composition Comment Normal [facility] [place] [facility] Comment on above: Result Comment: Perc entage (Represents the % composition) Performed By: #### C ALCULI #### [facility] [address] [place] [address] Dr. Merritt Agudelo Cystine Normal [facility] [place] [facility] Comment on above: Performed By: #### C ALCULI #### [facility] [address] [place] [address] Dr. Merritt Agudelo Disclaimer: Comment Normal [facility] [place] [facility] Comment on above: Result Comment: This test was developed and its performance characteristics determined by [facility]. It has not been cleared or approved by the Food and Drug Administration. Performed By: #### C ALCULI #### [facility] [address] [place] [address] Dr. Merritt Agudelo Dried Blood Normal [facility] [place] [facility] Comment on above: Performed By: #### C ALCULI #### [facility] [address] [place] [address] Dr. Merritt Agudelo Drug or Metabolite Normal [facility] Comment on above: Performed By: #### C ALCULI #### [facility] [address] [place] [address] Dr. Merritt Agudelo Hydroxyapatite Normal [facility] Comment on above: Performed By: #### C ALCULI #### [facility] [address] [place] [address] Dr. Merritt Agudelo Mg NH4 PO4 (Struvite) Normal [facility] [place] [facility] Comment on above: Performed By: #### C ALCULI #### [facility] [address] [address] [address] Merritt Agudelo MgHPO4 ([facility] Normal [facility] Comment on above: Performed By: #### C ALCULI #### [facility] [address] [address] [address] Merritt Agudelo Other component(s) Normal [facility] Comment on above: Performed By: #### C ALCULI #### [facility] [address] [address] [address] Merritt Agudelo PDF . Normal [facility] [place] [facility] Comment on above: Performed By: #### C ALCULI #### [facility] [address] [address] [address] Merritt Agudelo Photo Comment [facility] Comment on above: Result Comment: Phot ograph will follow under a separate cover Performed By: #### C ALCULI #### [facility] [address] [place] [address] Dr. Merritt Agudelo Please note: Comment [facility] Comment on above: Result Comment: Calc aurora report will follow via computer, mail or rn acute delivery. Performed By: #### C ALCULI #### [facility] [address] [address] [address] Merritt Agudelo Size 7x4 [facility] Comment on above: Result Comment: Sing le piece received. Performed By: #### C ALCULI #### [facility] [address] [address] [address] Merritt Agudelo Sodium Acid Urate Normal [facility] Comment on above: Performed By: #### C ALCULI #### [facility] [address] [address] [address] Merritt Agudelo Source Comment [facility] Comment on above: Result Comment: Not provided Performed By: #### C ALCULI #### [facility] [address] [address] [address] Merritt Agudelo Triamterene [facility] Comment on above: Performed By: #### C ALCULI #### [facility] [address] [place] [address] Dr. Merritt Agudelo Uric Acid Normal [facility] [place] [facility] Comment on above: Performed By: #### C ALCULI #### [facility] [address] [place] [address] Dr. Merritt Agudelo Uric Acid Dihydrate Normal [facility] Comment on above: Performed By: #### C ALCULI #### [facility] [address] [place] [address] Dr. Merritt Agudelo Weight 92 mg Normal [facility] [place] [facility] Comment on above: Performed By: #### C ALCULI #### [facility] [address] [place] [address] Dr. Merritt Agudelo Xanthine [facility] Comment on above: Performed By: #### C ALCULI #### [facility] [address] [place] [address] Dr. Merritt Agudelo CBC AUTO DIFFon 05-27-2022 BASO # 0.0 103/ul Normal 0.0-0.1 [facility] [place] [facility] Comment on above: Performed By: #### C BC #### [facility] [address] [place] [address] Dr. Merritt Agudelo Basophils/100 WBC (Bld) 0.4 % Normal 0.2-2.0 [facility] [place] [facility] Comment on above: Performed By: #### C BC #### [facility] [address] [place] [address] Dr. Merritt Agudelo EO # 0.2 103/ul Normal 0.0-0.7 [facility] [place] [facility] Comment on above: Performed By: #### C BC #### [facility] [address] [place] [address] Dr. Merritt Agudelo Eosinophils/100 WBC (Bld) 1.5 % Normal 0.9-7.0 [facility] [place] [facility] Comment on above: Performed By: #### C BC #### [facility] [address] [place] [address] Dr. Merritt Agudelo Erythrocyte distribution width (RBC) [Ratio] 12.4 % Normal 11.0-15.0 [facility] [place] [facility] Comment on above: Performed By: #### C BC #### [facility] [address] [place], [place] [id number] Dr. Merritt Agudelo Hematocrit (Bld) [Volume fraction] 38.9 % Normal 36.0-48.0 [facility] [place] [facility] Comment on above: Performed By: #### C BC #### [facility] [address] [place] [address] Dr. Merritt Agudelo Hemoglobin (Bld) [Mass/Vol] 12.9 g/dL Normal 12.0-16.0 [facility] [place] [facility] Comment on above: Performed By: #### C BC #### [facility] [address] [place] [address] Dr. Merritt Agudelo IG # 0.04 10e3/ul Critically high 0.00-0.03 [facility] Comment on above: Performed By: #### C BC #### [facility] [address] [place] [address] Dr. Merritt Agudelo IG % 0.4 % Normal 0.0-0.5 [facility] [place] [facility] Comment on above: Performed By: #### C BC #### [facility] [address] [place] [address] Dr. Merritt Agudelo LYMPH # 3.0 103/ul Normal 1.2-3.8 [facility] [place] [facility] Comment on above: Performed By: #### C BC #### [facility] [address] [place] [address] Dr. Merritt Agudelo Lymphocytes/100 WBC (Bld) 27.1 % Normal 20.5-60.0 [facility] [place] [facility] Comment on above: Performed By: #### C BC #### [facility] [address] [place] [address] Dr. Merritt Agudelo MANUAL DIFF REQ NO Normal [facility] Comment on above: Performed By: #### C BC #### [facility] [address] [place] [address] Dr. Merritt Agudelo MCH (RBC) [Entitic mass] 29.5 pg Normal 26.7-34.0 [facility] [place] [facility] Comment on above: Performed By: #### C BC #### [facility] [address] [place] [address] Dr. Merritt Agudelo MCHC (RBC) [Mass/Vol] 33.2 g/dL Normal 29.9-35.2 [facility] [place] [facility] Comment on above: Performed By: #### C BC #### [facility] [address] [address] [address] Merritt Agudelo MCV (RBC) [Entitic vol] 89.0 fL Normal 81.0-99.0 [facility] [place] [facility] Comment on above: Performed By: #### C BC #### [facility] [address] [address] [address] Merritt Agudelo MONO # 0.8 103/ul Normal 0.3-0.8 [facility] [place] [facility] Comment on above: Performed By: #### C BC #### [facility] [address] [place] [address] Dr. Merritt Agudelo Monocytes/100 WBC (Bld) 7.2 % Normal 1.7-12.0 [facility] [place] [facility] Comment on above: Performed By: #### C BC #### [facility] [address] [address] [address] Merritt Agudelo NEUT # 7.1 103/ul Critically high 1.4-6.5 [facility] Comment on above: Performed By: #### C BC #### [facility] [address] [place] [address] Dr. Merritt Agudelo Neutrophils/100 WBC (Bld) 63.4 % Normal 43.0-75.0 [facility] [place] [facility] Comment on above: Performed By: #### C BC #### [facility] [address] [address] [address] Merritt Agudelo Platelet mean volume (Bld) [Entitic vol] 9.3 fL Critically low 9.5-13.5 [facility] [place] [facility] Comment on above: Performed By: #### C BC #### [facility] [address] [place] [address] Dr. Merritt Agudelo PLT 270 103/ul Normal 150-450 [facility] Comment on above: Performed By: #### C BC #### [facility] [address] [place] [address] Dr. Merritt Agudelo RBC 4.37 106/ul Normal 4.20-5.40 [facility] [place] [facility] Comment on above: Performed By: #### C BC #### [facility] [address] [place], [place] [address] Dr. Merritt Agudelo WBC 11.2 103/ul Critically high 4.0-11.0 [facility] Comment on above: Performed By: #### C BC #### [facility] [address] [place], [place] [address] ABD/PELVIS WO CONon [...] WALLY RIOS Date: 2022-05-27 02:16 Normal [facility] ER URINE PROFILEon 2 Bilirubin Ql (U) Negative Normal NEGATIVE [facility] Comment on above: Performed By: #### U MICRO, ERUR #### [facility] [address] [address] [address] Merritt Agudelo Clarity (U) CLEAR Normal CLEAR [facility] Comment on above: Performed By: #### U MICRO, ERUR #### [facility] [address] [place] [address] Dr. Merritt Agudelo Color (U) YELLOW Normal YELLOW [facility] [place] [facility] Comment on above: Performed By: #### U MICRO, ERUR #### [facility] [address] [place] [address] Dr. Merritt Agudelo ERUAHD A micrscopic examina tion will be performed if indicated. Normal [facility] Comment on above: Performed By: #### U MICRO, ERUR #### [facility] [address] [address] [address] Merritt Agudelo Glucose Ql (U) Negative Normal NEGATIVE [facility] Comment on above: Performed By: #### U MICRO, ERUR #### [facility] [address] [address] [address] Merritt Agudelo Hemoglobin Ql (U) LARGE Abnormal NEGATIVE [facility] Comment on above: Performed By: #### U MICRO, ERUR #### [facility] [address] [address] [address] Merritt Agudelo Ketones Ql (U) Negative Normal NEGATIVE [facility] Comment on above: Performed By: #### U MICRO, ERUR #### [facility] [address] [place] [address] Dr. Merritt Agudelo LEUKOCYTES Negative Normal NEGATIVE [facility] [place] [facility] Comment on above: Performed By: #### U MICRO, ERUR #### [facility] [address] [place] [address] Dr. Merritt Agudelo Nitrite Ql (U) Negative Normal NEGATIVE [facility] Comment on above: Performed By: #### U MICRO, ERUR #### [facility] [address] [place] [address] Dr. Merritt Agudelo pH (U) 5.0 [pH] Normal 5-9 [facility] [place] [facility] Comment on above: Performed By: #### U MICRO, ERUR #### [facility] [address] [place] [address] Dr. Merritt Agudelo SPEC GRAVITY >=1.030 Abnormal 1.005-<=1.02 5 [facility] [place] [facility] Comment on above: Performed By: #### U MICRO, ERUR #### [facility] [address] [place] [address] Dr. Merritt Agudelo UA PROTEIN Negative Normal NEGATIVE/ TRACE [facility] [place] [facility] Comment on above: Performed By: #### U MICRO, ERUR #### [facility] [address] [place] [address] Dr. Merritt Agudelo UR MICRO IND INDICATED Normal [facility] [place] [facility] Comment on above: Performed By: #### U MICRO, ERUR #### [facility] [address] [place] [address] Dr. Merritt Agudelo Urobilinogen Qn (U) 0.2 {Rachid'U}/dL Normal 0.2 - 1. 0 [facility] [place] [facility] Comment on above: Performed By: #### U MICRO, ERUR #### [facility] [address] [place] [address] Dr. Merritt Agudelo PROF CHEM 8 (BAS METB)on Anion gap [Moles/Vol] 10.8 mmol/L Normal [facility] [place] [facility] Comment on above: Performed By: #### B MP #### [facility] [address] [place] [address] Dr. Merritt Agudelo Calcium [Mass/Vol] 9.3 mg/dL Normal 8.5-10.1 [facility] Comment on above: Performed By: #### B MP #### [facility] [address] [place] [address] Dr. Merritt Agudelo Chloride [Moles/Vol] 104 mmol/L Normal 98-107 [facility] [place] [facility] Comment on above: Performed By: #### B MP #### [facility] [address] [address] [address] Merritt Agudelo CO2 [Moles/Vol] 28.6 mmol/L Normal 21.0-32.0 [facility] Comment on above: Performed By: #### B MP #### [facility] [address] [address] [address] Merritt Agudelo Creatinine [Mass/Vol] 1.28 mg/dL Critically high 0.55-1.02 [facility] [place] [facility] Comment on above: Performed By: #### B MP #### [facility] [address] [place] [address] Dr. Merritt Agudelo EGFR-AF SAUDI ARABIAN 52 mL/min/1.73m2 Critically low >=60 [facility] [place] [facility] Comment on above: Performed By: #### B MP #### [facility] [address] [place] [address] Dr. Merritt Agudelo EGFR-NON AF SAUDI ARABIAN 43 mL/min/1.73m2 Critically low >=60 [facility] [place] [facility] Comment on above: Performed By: #### B MP #### [facility] [address] [place] [address] Dr. Merritt Agudelo Glucose [Mass/Vol] 127 mg/dL Critically high 74-106 [facility] Comment on above: Performed By: #### B MP #### [facility] [address] [address] [address] Merritt Agudelo Potassium [Moles/Vol] 3.4 mmol/L Critically low 3.5-5.1 [facility] [place] [facility] Comment on above: Performed By: #### B MP #### [facility] [address] [address] [address] Merritt Agudelo Sodium [Moles/Vol] 140 mmol/L Normal 136-145 [facility] Comment on above: Performed By: #### B MP #### [facility] [address] [place] [address] Dr. Merritt Agudelo Urea nitrogen [Mass/Vol] 19.0 mg/dL Critically high 7.0-18.0 [facility] Comment on above: Performed By: #### B MP #### [facility] [address] [address] [address] Merritt Agudelo Urea nitrogen/Creatinine [Mass ratio] 14.8 mg/mg Normal [facility] Comment on above: Performed By: #### B MP #### [facility] [address] [address] [address] Merritt Agudelo URINE MICROSCOPIC ONLYon BACTERIA TRACE Abnormal NONE SEEN [facility] Comment on above: Performed By: #### U MICRO, ERUR #### [facility] [address] [place] [address] Dr. Merritt Agudelo Bacteria identified Cx Nom (U) NOT INDICATED Normal [facility] [place] [facility] Comment on above: Performed By: #### U MICRO, ERUR #### [facility] [address] [place] [address] Dr. Merritt Agudelo CAST NONE SEEN Normal NONE SEEN [facility] [place] [facility] Comment on above: Performed By: #### U MICRO, ERUR #### [facility] Laboratory [address] [address] [address] Merritt Agudelo Crystals LM Nom (Urine sed) NONE SEEN Normal NONE SEEN [facility] Comment on above: Performed By: #### U MICRO, ERUR #### [facility] [address] [place] [address] Dr. Merritt Agudelo Epithelial cells LM Ql (Urine sed) RARE Normal NONE SEEN /RARE [facility] Comment on above: Performed By: #### U MICRO, ERUR #### [facility] [address] [place] [address] Dr. Merritt Agudelo MUCOUS NONE SEEN Normal NONE SEEN [facility] Comment on above: Performed By: #### U MICRO, ERUR #### [facility] [address] [place] [address] Dr. Merritt Agudelo RBC 20-50 Abnormal 0-2 [facility] Comment on above: Performed By: #### U MICRO, ERUR #### [facility] [address] [place] [address] Dr. Merritt Agudelo WBC NONE SEEN Normal NONE SEEN [facility] Comment on above: Performed By: #### U MICRO, ERUR #### [facility] [address] [place] [address] Dr. Merritt Agudelo CBC AUTO DIFFon 05-26-2022 BASO # 0.0 103/ul Normal 0.0-0.1 [facility] Comment on above: Performed By: #### C BC #### [facility] [address] [place] [address] Dr. Merritt Agudelo Basophils/100 WBC (Bld) 0.4 % Normal 0.2-2.0 [facility] Comment on above: Performed By: #### C BC #### [facility] [address] [place] [address] Dr. Merritt Agudelo EO # 0.1 103/ul Normal 0.0-0.7 [facility] Comment on above: Performed By: #### C BC #### [facility] [address] [place] [address] Dr. Merritt Agudelo Eosinophils/100 WBC (Bld) 1.9 % Normal 0.9-7.0 [facility] Comment on above: Performed By: #### C BC #### [facility] [address] [place] [address] Dr. Merritt Agudelo Erythrocyte distribution width (RBC) [Ratio] 12.5 % Normal 11.0-15.0 [facility] Comment on above: Performed By: #### C BC #### [facility] [address] [place] [address] Dr. Merritt Agudelo Hematocrit (Bld) [Volume fraction] 37.7 % Normal 36.0-48.0 [facility] Comment on above: Performed By: #### C BC #### [facility] [address] [place] [address] Dr. Merritt Agudelo Hemoglobin (Bld) [Mass/Vol] 12.5 g/dL Normal 12.0-16.0 [facility] Comment on above: Performed By: #### C BC #### [facility] [address] [place] [address] Dr. Merritt Agudelo IG # 0.01 10e3/ul Normal 0.00-0.03 [facility] Comment on above: Performed By: #### C BC #### [facility] [address] [place] [address] Dr. Merritt Agudelo IG % 0.2 % Normal 0.0-0.5 [facility] Comment on above: Performed By: #### C BC #### [facility] [address] [place] [address] Dr. Merritt Agudelo LYMPH # 1.3 103/ul Normal 1.2-3.8 [facility] Comment on above: Performed By: #### C BC #### [facility] [address] [place] [address] Dr. Merritt Agudelo Lymphocytes/100 WBC (Bld) 24.2 % Normal 20.5-60.0 [facility] Comment on above: Performed By: #### C BC #### [facility] [address] [place] [address] Dr. Merritt Agudelo MANUAL DIFF REQ NO Normal [facility] Comment on above: Performed By: #### C BC #### [facility] [address] [place] [address] Dr. Merritt Agudelo MCH (RBC) [Entitic mass] 29.3 pg Normal 26.7-34.0 [facility] Comment on above: Performed By: #### C BC #### [facility] [address] [place] [address] Dr. Merritt Agudelo MCHC (RBC) [Mass/Vol] 33.2 g/dL Normal 29.9-35.2 [facility] Comment on above: Performed By: #### C BC #### [facility] [address] [place] [address] Dr. Merritt Agudelo MCV (RBC) [Entitic vol] 88.3 fL Normal 81.0-99.0 [facility] Comment on above: Performed By: #### C BC #### [facility] [address] [place] [address] Dr. Merritt Agudelo MONO # 0.4 103/ul Normal 0.3-0.8 [facility] Comment on above: Performed By: #### C BC #### [facility] [address] [place] [address] Dr. Merritt Agudelo Monocytes/100 WBC (Bld) 7.9 % Normal 1.7-12.0 [facility] Comment on above: Performed By: #### C BC #### [facility] [address] [place] [address] Dr. Merritt Agudelo NEUT # 3.4 103/ul Normal 1.4-6.5 [facility] Comment on above: Performed By: #### C BC #### [facility] [address] [place] [address] Dr. Merritt Agudelo Neutrophils/100 WBC (Bld) 65.4 % Normal 43.0-75.0 [facility] Comment on above: Performed By: #### C BC #### [facility] [address] [place] [address] Dr. Merritt Agudelo Platelet mean volume (Bld) [Entitic vol] 9.3 fL Critically low 9.5-13.5 [facility] Comment on above: Performed By: #### C BC #### [facility] [address] [place] [address] Dr. Merritt Agudelo PLT 209 103/ul Normal 150-450 [facility] Comment on above: Performed By: #### C BC #### [facility] [address] [place] [address] Dr. Merritt Agudelo RBC 4.27 106/ul Normal 4.20-5.40 [facility] Comment on above: Performed By: #### C BC #### [facility] [address] [place] [address] Dr. Merritt Agudelo WBC 5.2 103/ul Normal 4.0-11.0 [facility] Comment on above: Performed By: #### C BC #### [facility] [address] [place] [address] Dr. Merritt Agudelo LIPID PROFILEon 05-26-2022 CHOL-HDL RATIO NORM SEE BELOW Normal [facility] Comment on above: Result Comment: 3.3 - 4.4 LOW RISK 4.4 - 7.1 AVERAGE RISK 7.1 - 11.0 MODERATE RISK >11.0 HIGH RISK Performed By: #### C MP, LIPID #### [facility] [address] [address] [address] Merritt Agudelo Cholesterol [Mass/Vol] 166 mg/dL Normal <=200 [facility] Comment on above: Performed By: #### C MP, LIPID #### [facility] [address] [address] [address] Merritt Agudelo Cholesterol in HDL [Mass/Vol] 71 mg/dL Critically high 40-60 [facility] Comment on above: Performed By: #### C MP, LIPID #### [facility] [address] [address] [address] Merritt Agudelo Cholesterol in LDL [Mass/Vol] 84.2 mg/dL Normal [facility] Comment on above: Performed By: #### C MP, LIPID #### [facility] [address] [address] [address] Merritt Agudelo Cholesterol.total/Ch olesterol in HDL [Mass ratio] 2.3 {ratio} Normal [facility] Comment on above: Performed By: #### C MP, LIPID #### [facility] [address] [address] [address] Merritt Agudelo HDL NORMAL > or = 60 mg/dl - LO W CARDIOVASCULAR RISK <40 mg/dl - HIGH CARDIOVASCULAR RISK Normal [facility] Comment on above: Performed By: #### C MP, LIPID #### [facility] [address] [address] [address] Merritt Agudelo LDL CALC NORMAL SEE BELOW Normal [facility] Comment on above: Result Comment: <100 mg/dl OPTIMAL 100 - 129 mg/dl NEAR OR ABOVE OPTIMAL 130 - 159 mg/dl BORDERLINE HIGH 160 - 189 mg/dl HIGH >190 mg/dl VERY HIGH Performed By: #### C MP, LIPID #### [facility] [address] [address] [address] Merritt Agudelo Triglyceride [Mass/Vol] 54 mg/dL Normal <=150 [facility] Comment on above: Performed By: #### C MP, LIPID #### [facility] [address] [address] [address] Merritt Agudelo VLDL CALC 10.8 mg/dL Normal [facility] Comment on above: Performed By: #### C MP, LIPID #### [facility] [address] [address] [address] Merritt Agudelo PROF 14(COMP METB)on 022 Albumin [Mass/Vol] 4.0 g/dL Normal 3.4-5.0 [facility] Comment on above: Performed By: #### C MP, LIPID #### [facility] [address] [place] [address] Dr. Merritt Agudelo Albumin/Globulin [Mass ratio] 1.1 {ratio} Normal [facility] Comment on above: Performed By: #### C MP, LIPID #### [facility] [address] [place] [address] Dr. Merritt Agudelo ALP [Catalytic activity/Vol] 68 U/L Normal 46-116 [facility] Comment on above: Performed By: #### C MP, LIPID #### [facility] [address] [place] [address] Dr. Merritt Agudelo ALT [Catalytic activity/Vol] 22 U/L Normal 14-59 [facility] Comment on above: Performed By: #### C MP, LIPID #### [facility] [address] [address] [address] Merritt Agudelo Anion gap [Moles/Vol] 9.9 mmol/L Normal [facility] Comment on above: Performed By: #### C MP, LIPID #### [facility] [address] [address] [address] Merritt Agudelo AST [Catalytic activity/Vol] 21 U/L Normal 15-37 [facility] Comment on above: Performed By: #### C MP, LIPID #### [facility] [address] [place] [address] Dr. Merritt Agudelo Bilirubin [Mass/Vol] 0.3 mg/dL Normal 0.2-1.0 [facility] Comment on above: Performed By: #### C MP, LIPID #### [facility] [address] [address] [address] Merritt Agudelo Calcium [Mass/Vol] 9.2 mg/dL Normal 8.5-10.1 [facility] Comment on above: Performed By: #### C MP, LIPID #### [facility] [address] [address] [address] Merritt Agudelo Chloride [Moles/Vol] 105 mmol/L Normal 98-107 [facility] Comment on above: Performed By: #### C MP, LIPID #### [facility] [address] [place] [address] Dr. Merritt Agudelo CO2 [Moles/Vol] 27.2 mmol/L Normal 21.0-32.0 [facility] Comment on above: Performed By: #### C MP, LIPID #### [facility] [address] [place] [address] Dr. Merritt Agudelo Creatinine [Mass/Vol] 0.68 mg/dL Normal 0.55-1.02 [facility] Comment on above: Performed By: #### C MP, LIPID #### [facility] [address] [place] [address] Dr. Merritt Agudelo EGFR-AF SAUDI ARABIAN >60 Normal >=60 [facility] Comment on above: Performed By: #### C MP, LIPID #### [facility] [address] [place] [address] Dr. Merritt Agudelo EGFR-NON AF SAUDI ARABIAN >60 Normal >=60 [facility] Comment on above: Performed By: #### C MP, LIPID #### [facility] [address] [place] [address] Dr. Merritt Agudelo Globulin (S) [Mass/Vol] 3.6 g/dL Normal [facility] Comment on above: Performed By: #### C MP, LIPID #### [facility] [address] [place] [address] Dr. Merritt Agudelo Glucose [Mass/Vol] 96 mg/dL Normal 74-106 [facility] Comment on above: Performed By: #### C MP, LIPID #### [facility] [address] [address] [address] Merritt Agudelo Potassium [Moles/Vol] 4.1 mmol/L Normal 3.5-5.1 [facility] Comment on above: Performed By: #### C MP, LIPID #### [facility] [address] [address] [address] Merritt Agudelo Protein [Mass/Vol] 7.6 g/dL Normal 6.4-8.2 [facility] Comment on above: Performed By: #### C MP, LIPID #### [facility] [address] [address] [address] Merritt Agudelo Sodium [Moles/Vol] 138 mmol/L Normal 136-145 [facility] Comment on above: Performed By: #### C MP, LIPID #### [facility] [address] [address] [address] Merritt Agudelo Urea nitrogen [Mass/Vol] 16.0 mg/dL Normal 7.0-18.0 [facility] Comment on above: Performed By: #### C MP, LIPID #### [facility] [address] [address] [address] Merritt Agudelo Urea nitrogen/Creatinine [Mass ratio] 23.5 mg/mg Normal [facility] Comment on above: Performed By: #### C MP, LIPID #### [facility] [address] [place] [address] Dr. Merritt Agudelo CYTOLOGYon 03-14-2017 CYTOLOGY Specimen #: [id number] Physician: ANKIT RICHARDSPECCOURTNEY SUBMITTEDA: CERVICAL, SCREENING, FLUID FINAL DIAGNOSISA. CERVICAL, SCREENING, FLUIDSatisfactory for interpretation.Negative for intraepithelial lesion or malignancy.Atrophic specimen.This specimen has been analyzed by the [employer] System, [employer] imaging and review system, which assists the laboratory inevaluating cells on ThinPrep Pap tests. Following automated imaging,selected adan from every slide are reviewed by a emergency operator.TYLOR Mcdonald(ASCP) (Electronic Signature) CLINICAL DATA PAP Source: Cervical-PFCERSMenstrual History:Post-Menopausal: 2013Clinical History:ROUTINEAdditional Testing:Reflex HPV testing for ASCUSSTAINSA: CERVICAL, SCREENING, FLUID THIN PREP GYNJennifer Palomo Hagen, Laboratory DirectorPatient ID #: [id number] [id number] Report: 03/17/2017Date of Procedure: 03/14/2017Date of Receipt: 03/15/2017Submitted by: ANKIT JEANLocation: Diagnostic interpretation performed at [facility], [address] [place] [address].The Pap Smear is a screening test for cervical cancer. False negativeresults occur with all screening tests, emphasizing the need forrescreening at recommended intervals, and clinical correlation. Normal [facility] Comment on above: Performed By: #### C ####See report for performing lab information. Vital Signs Date Time Vital Sign Value Performing Clinician Facility 03-12-2024 08:03-0400 Blood Pressure Location [facility] 03-12-2024 08:03-0400 Diastolic blood pressure 84 mm[Hg] [facility] 03-12-2024 08:03-0400 Heart rate 76 /min [facility] 03-12-2024 08:03-0400 Systolic blood pressure 136 mm[Hg] [facility] 08-16-2023 08:09-0500 Body height 165.1 cm Tony Argueta MD Work Phone: [facility] 08-16-2023 08:09-0500 Body mass index (BMI) [Ratio] 29.29 kg/m2 Tony Argueta MD Work Phone: [facility] 08-16-2023 08:09-0500 Body weight 79.83 kg Tony Argueta MD Work Phone: [facility] 08-16-2023 08:09-0500 Diastolic blood pressure 78 mm[Hg] Tony Argueta MD Work Phone: [facility] 08-16-2023 08:09-0500 Heart rate 72 /min Tony Argueta MD Work Phone: [facility] 08-16-2023 08:09-0500 SaO2% (BldA) [Mass fraction] 95 % Tony Argueta MD Work Phone: [facility] 08-16-2023 08:09-0500 Systolic blood pressure 126 mm[Hg] Tony Argueta MD Work Phone: [facility] 03-06-2023 15:36-0400 Blood Pressure Location Tex QUIR[facility] 03-06-2023 15:36-0400 Diastolic blood pressure 83 mm[Hg] Tex QUIROZ [facility] 03-06-2023 15:36-0400 Heart rate 71 /min Tex QUIRO[facility] 03-06-2023 15:36-0400 Respiratory rate 16 /min Tex QUIROZ [facility] 03-06-2023 15:36-0400 Systolic blood pressure 126 mm[Hg] Tex QUIRO[facility] 09-06-2022 08:47-0500 Blood Pressure Location Betzy Donis [facility] 09-06-2022 08:47-0500 Body temperature 96.8 [degF] Betzy Donis [facility] 09-06-2022 08:47-0500 Diastolic blood pressure 82 mm[Hg] Betzy Donis [facility] 09-06-2022 08:47-0500 Heart rate 85 /min Betzy Donis [facility] 09-06-2022 08:47-0500 Systolic blood pressure 117 mm[Hg] Betzy Donis [facility] 06-13-2022 11:38-0500 Blood Pressure Location Tex QUIRO[facility] 06-13-2022 11:38-0500 Diastolic blood pressure 83 mm[Hg] Tex QUIROZ [facility] 06-13-2022 11:38-0500 Heart rate 75 /min Tex QUIROZ [facility] 06-13-2022 11:38-0500 Respiratory rate 16 /min Tex QUIROZ [facility] 06-13-2022 11:38-0500 Systolic blood pressure 129 mm[Hg] Tex QUIRO[facility] Encounters Encounter Date Encounter Type Care Provider Facility Start: 03-12-2024 End: 03-12-[address] [facility] Facility:[facility] Start: 03-12-2024 End: 03-12-2024 Patient encounter procedure Leslie Lucio [facility] Start: 08-16-2023 Bamboo flowsheet Tony blackburn MD [...] [facility] Comment on above: Encounter for [facility] ss examination in adult; Advance directive discussed with patient; Overweight (BMI 25.0-29.9) Start: 08-15-2023 Chart abstracting Tony perez MD Work Phone: [facility] Start: 03-06-2023 End: 03-06-2023 Patient encounter procedure Tex QUIROZ [facility] Start: 09-06-2022 End: 09-06-2022 Patient encounter procedure Betzy Donis [facility] Start: 07-07-2022 Encounter for preprocedural laboratory examination DR TEX QUIROZ . [facility] Start: 07-07-2022 Encounter for preprocedural cardiovascular examination DR TEX QUIROZ . [facility] Start: 07-07-2022 End: 07-07-[address] ANKIT JEAN . Facility: Start: 07-04-2022 End: 07-05-[address] ANKIT JEAN . Facility:[facility] Start: 07-04-2022 End: 07-05-2022 Encounter for preprocedural laboratory examination DR ANKIT JEAN . Facility:[facility] Start: 06-29-2022 End: 06-30-[address] TEX QUIROZ . Facility:[facility] Start: 06-28-2022 End: 06-29-[address] ANKIT JEAN . Facility:[facility] Start: 06-13-2022 End: 06-14-[address] TEX QUIROZ . Facility:[facility] Start: 06-13-2022 End: 06-13-2022 Patient encounter procedure Tex QUIROZ [facility] Start: 06-06-2022 End: 06-06-[address] ANKIT JEAN . Facility:[facility] Start: 06-06-2022 End: 06-06-[address] ANKIT JEAN . Facility:[facility] Start: 05-30-2022 Encounter for genera l adult medical examination without abnormal findings DR ANKIT JEAN . [facility] Start: 05-27-2022 End: 05-27-[address] ANKIT JEAN . Facility:[facility] Start: 05-26-2022 End: 05-27-[address] ANKIT JEAN . Facility:[facility] Start: 05-26-2022 End: 05-27-2022 Encounter for general adult medical examination without abnormal findings DR ANKIT JEAN . Facility:[facility] Procedures Date Procedure Procedure Detail Performing Clinician Start: 06-29-2023 Mammography Tony perez MD Work Phone: Start: 04-03-2019 Colonoscopy Tony perez MD Work Phone: Augmentation mammoplasty Bethany [facility]IR[facility] Colonoscopy [place] QUIROZ Plan of Treatment Date Care Activity Detail Author Start: 04-03-2029 Screening for malign ant neoplasm of colon [facility] Start: 06-29-2024 Screening for malign ant neoplasm of breast Mammogram [facility] Start: 08-16-2023 End: 08-16-2023 Patient encounter procedure 08/16/2023 8:00 AM EST Office Visit [facility] [address] [place] [address] Tony Argueta MD [address] [place] [address] (Fax) [facility] Start: 03-10-2023 Influenza vaccination Influenza Vacc ine (#1) [facility] Start: 1996 Screening for malign ant neoplasm of cervix [facility] Start: 1987 Screening for malign ant neoplasm of cervix Pap Smear [facility] Start: 1966 Screening for malign ant neoplasm of colon [facility] Immunizations Immunization Date Immunization Notes Care Provider Fa cili 04-26-2022 influenza virus vaccine, unspecified formulation Betzy Donis [facility] 04-26-2022 influenza, seasonal, injectable Tony Argueta MD Work Phone: [facility] 10-29-2020 SARS-CoV-2 (COVID-19 ) mRNA BNT-162b2 vax Huddl[facility]etz [facility] 10-09-2020 SARS-CoV-2 (COVID-19 ) mRNA BNT-162b2 vax Betzy Jewels [facility] Payers Date Payer Category Payer Unknown [id number] 2023 Unknown RAMÍREZ ELMORE ANGELIKA [employer] [id number] 2023-Present [phone] [address] [place] [address] [id number] 1966 Unknown [id number] 3 1966 Unknown [id number] 3 1966 Unknown [id number] 3 1966 Unknown [id number] 3 1966 Unknown [id number] 3 1966 Unknown [id number] 3 1966 Unknown [id number] 3 1966 Unknown [id number] [id number] 3 1966 Unknown [id number] 3 1966 Unknown [id number] [id number] 3 1966 Unknown [id number] 59 1966 Unknown [id number] 7 1959 Unknown [id number] Social History Date Type Detail Facility Start: 06-13-2022 End: 03-12-2024 Tobacco smoking status Never smoked tobacco (finding) [facility] Start: 08-15-2023 End: 08-16-2023 Sex Assigned At Female [facility] Tobacco smoking status Never [facility] Start: 08-15-2023 Tobacco use and exposure Smokeless tobacco non-user [facility] Start: 08-15-2023 End: 08-16-2023 Alcohol intake Current drinker of alcohol (finding) [facility] Start: 1965 Sex Assigned At Not on file N [facility] Start: 08-15-2023 End: 08-16-2023 History of Social function [facility] Functional Status Date Assessment Result Facility 03-12-2024 Functional Status N/A [facility] 03-06-2023 Functional Status N/A [facility] 09-06-2022 Functional Status N/A [facility] 06-13-2022 Functional Status N/A [facility] Hospital Discharge instructions 03-12-2024 Note Date & Type Note Facility 03-12-2024 Hospital Discharg e instructions Patient Education 03/12/2024 08:30:37 Kidney Stones, [id number] Kidney Stones Kidney stones are rock-like masses that form inside of the kidneys. Kidneys are organs that make pee (urine). A kidney stone may move into other parts of the urinary tract, including: The tubes that connect the kidneys to the bladder (ureters). The bladder. The tube that carries urine out of the body (urethra). Kidney stones can cause very bad pain and can block the flow of pee. The stone usually leaves your body through your pee. A doctor may need to take out the stone. What are the causes? Kidney stones may be caused by: Too much calcium in the body. This may be caused by too much parathyroid hormone in the blood. Uric acid crystals in the bladder. The body makes uric acid when you eat certain foods. Narrowing of one or both of the ureters. A kidney blockage that you were born with. Past surgery on the kidney or the ureters. What increases the risk? You are more likely to develop this condition if: You have had a kidney stone in the past. Other people in your family have had kidney stones. You do not drink enough water. You eat a diet that is high in protein, salt (sodium), or sugar. You are very overweight (obese). What are the signs or symptoms? Symptoms of a kidney stone may include: Pain in the side of the belly, right below the ribs. Pain usually spreads to the groin. Needing to pee often or right away. Pain when peeing. Blood in your pee. Feeling like you may vomit (nauseous). Vomiting. Fever and chills. How is this treated? Treatment depends on the size, location, and makeup of the kidney stones. The stones will often pass out of the body when you pee. You may need to: Drink more fluid to help pass the stone. ?In some cases, you may be given fluids through an IV tube at the hospital. Take medicine for pain. Change your diet to help keep kidney stones from coming back. Sometimes, you may need: A procedure to break up kidney stones using a beam of light (laser) or shock waves. Surgery to remove the kidney stones. Follow these instructions at home: Medicines Take zvjp-aaz-ckoriwt and prescription medicines only as told by your doctor. Ask your doctor if the medicine prescribed to you requires you to avoid driving or using machinery. Eating and drinking Drink enough fluid to keep your pee pale yellow. ?You may be told to drink at least 8 10 glasses of water each day. This will help you pass the stone. If told by your doctor, change your diet. You may be told to: ?Limit how much salt you eat. ?Eat more fruits and vegetables. ?Limit how much meat, poultry, fish, and eggs you eat. Follow instructions from your doctor about what you may eat and drink. General instructions Collect pee samples as told by your doctor. You may need to collect a pee sample: ?24 hours after a stone comes out. ?8 12 weeks after a stone comes out, and every 6 12 months after that. Strain your pee every time you pee. Use the strainer that your doctor recommends. Do not throw out the stone. Keep it so that it can be tested by your doctor. Keep all follow-up visits. You may need X-rays and ultrasounds to make sure the stone has come out. How is this prevented? To prevent another kidney stone: Drink enough fluid to keep your pee pale yellow. This is the best way to prevent kidney stones. Eat healthy foods. Avoid certain foods as told by your doctor. You may be told to eat less protein. Stay at a healthy weight. Where to find more information National Kidney Foundation (NKF): kidney.org U[employer] (UCF): urologyhealth.org Contact a doctor if: You have pain that gets worse or does not get better with medicine. Get help right away if: You have a fever or chills. You get very bad pain. You get new pain in your belly. You faint. You cannot pee. This information is not intended to replace advice given to you by your health care provider. Make sure you discuss any questions you have with your health care provider. Document Revised: 02/17/2023 Document Reviewed: 02/17/2023 [employer] Patient Education 2023 [employer]. 03/12/2024 08:30:36 Dietary Guidelines to Help Prevent Kidney Stones Dietary Guidelines to Help Prevent Kidney Stones Kidney stones are deposits of minerals and salts that form inside your kidneys. Your risk of developing kidney stones may be greater depending on your diet, your lifestyle, the medicines you take, and whether you have certain medical conditions. Most people can lower their risks of developing kidney stones by following these dietary guidelines. Your dietitian may give you more specific [...] include: ?8 oz (237 mL) of milk, zwhkosy-hkgukimyerae-cyynv milk, and calcium-fortifiedfruit juice. Calcium-fortified means that [...] table and allow each person to add their own salt to taste. Use vegetable protein, [...] fish, or seafood. ?When you prepare animal proteins, cut pieces into small portion sizes. For [...] ?Have two kinds of vegetables at dinner. You may be told to limit foods that are high in a substance called oxalate. These include: ?Spinach (cooked), rhubarb, beets, sweet potatoes, and Citizen [place] chard. ?Peanuts. ?Potato chips, rwandan fries, and baked potatoes with skin on. ?Nuts and nut products. ?Chocolate. If you regularly take a diuretic medicine, make sure to eat at least 1 or 2 servings of fruits or vegetables that are high in potassium each day. These include: ?Avocado. ?Banana. ?Vernon, prune, carrot, or tomato juice. ?Baked potato. ?Cabbage. ?Beans and split peas. Lifestyle Drink enough fluid to keep your urine pale yellow. This is the most important thing you can do. Spread your fluid intake throughout the day. If you drink alcohol: ?Limit how much you have to: ?0 1 drink a day for women who are not . ?0 2 drinks a day for men. ?Know how much alcohol is in your drink. [...] of your kidney stones, you may be told: ?Do not take high-dose supplements of vitamin C (1,000 mg a day or more). ?To take a calcium supplement. ?To take a daily probiotic supplement. ?To take other supplements such as magnesium, fish oil, or vitamin B6. Take swwj-hox-llagqxe and prescription medicines only as told by [...] sausages, meat loaves, and hot dogs. Dairy Cheeses. Beverages Regular soft drinks. Regular vegetable juice. Seasonings and condiments Seasoning blends with salt. Salad dressings. Soy sauce. Ketchup. Barbecue sauce. Other foods Canned soups. Canned pasta sauce. Casseroles. Pizza. Lasagna. Frozen meals. Potato chips. Indian fries. The items listed above may not [...] with your health care provider. Document Revised: 10/06/2022 Document Reviewed: 10/06/2022 [employer] Patient Education 2023 [employer]. Follow Up Care 03/06/2023 17:08:55 With:AMARILIS Lucio APRN, HEAVENLY Sinha, URL Address: When: Unknown Comments:1 year with [facility] Clinical Note 03-12-2024 Note Date & Type Note Facility 03-12-2024 Note Patient Education Nephrology Dietary Guidelines to Help Prevent Kidney Stones Kidney stones are deposits of minerals and salts that form inside your kidneys. Your risk of developing kidney stones may be greater depending on your diet, your lifestyle, the medicines you take, and whether you have certain medical conditions. Most people can lower their risks of developing kidney stones by following these dietary guidelines. Your dietitian may give you more specific [...] ? 8 oz (237 mL) of milk, kscgcos-dzmshzgmlmyr-bobht milk, and calcium-fortifiedfruit juice. Calcium-fortified means that [...] table and allow each person to add their own salt to taste. ? Use vegetable [...] or seafood. ? When you prepare animal proteins, cut pieces into small portion sizes. For [...] two kinds of vegetables at dinner. ? You may be told to limit foods that are high in a substance called oxalate. These include: ? Spinach (cooked), rhubarb, beets, sweet potatoes, and Citizen [place] chard. ? Peanuts. ? Potato chips, rwandan fries, and baked potatoes with skin on. ? Nuts and nut products. ? Chocolate. ? If you regularly take a diuretic medicine, make sure to eat at least 1 or 2 servings of fruits or vegetables that are high in potassium each day. These include: ? Avocado. ? Banana. ? Vernon, prune, carrot, or tomato juice. ? Baked potato. ? Cabbage. ? Beans and split peas. Lifestyle ? Drink enough fluid to keep your urine pale yellow. This is the most important thing you can do. Spread your fluid intake throughout the day. ? If you drink alcohol: ? Limit how much you have to: ? 0?1 drink a day for women who are not . ? 0?2 drinks a day for men. ? Know how much alcohol is in your drink. [...] of your kidney stones, you may be told: ? Do not take high-dose supplements of vitamin C (1,000 mg a day or more). ? To take a calcium supplement. ? To take a daily probiotic supplement. ? To take other supplements such as magnesium, fish oil, or vitamin B6. ? Take sbyz-gml-rnqnmgv and prescription medicines only as told by your health care provider. These include suppleme (more content not included)... [facility] History of Present illness Narrative 08-16-2023 Tony Argueta MD - 08/16/2023 8:00 AM EST Note Date & Type Note Facility 08-16-2023 History of Presen t illness Narrative Patient ID: Kiara Moya is a 58 y.o. female who presents for: See Scanned Wellness packet Advance Directive/Living Will: No Health Care Power of Arch Support Technician: No Review of Systems Constitutional: Negative for [...] factors. LDL-C is now calculated using the Ryan-Mcmullen calculation, which is a validated novel method providing better accuracy than the Friedewald equation in the estimation of LDL-C. Ryan SS et al. JOSEPH. 2013;310(19): 9616-9494 (http://education.ClinicientDiagnostics.co m/faq/YII058) CHOL/HDLC RATIO 08/09/2023 2.9 <5.0 (calc) Final [...] a living will and durable power of sports attorney for healthcare. We discussed telling varela people about their advance directives such as close family members and a copy will be kept in the EHR. I discussed that they should also make me an emergency contact in their cell phone, and/or notify their POA that I have a copy of the advanced directives. Overweight (BMI 25.0-29.9) documented in this encounter [facility] Discharge instructions 03-06-2023 Note Date & [...] include: ?8 oz (237 mL) of milk, mqpfvsy-iopfpgziwieq-pfvqi milk, and calcium-fortifiedfruit juice. Calcium-fortified means that [...] ?Spinach (cooked), rhubarb, beets, sweet potatoes, and [place] chard. ?Peanuts. ?Potato chips, rwandan fries, and baked potatoes with skin on. ?Nuts and nut products. ?Chocolate. If you regularly take a diuretic medicine, make sure to eat at least 1 or 2 servings of fruits or vegetables that are high in potassium each day. These include: ?Avocado. ?Banana. ?Vernon, prune, carrot, or tomato juice. ?Baked potato. [...] magnesium, fish oil, or vitamin B6. Take mgmq-qpk-ferpwmm and prescription medicines only as told by [...] Casseroles. Pizza. Lasagna. Frozen meals. Potato chips. Indian fries. The items listed above may not [...] provider. Document Revised: 03/07/2022 Document Reviewed: 03/07/2022 [employer] Patient Education 2022 [employer]. Follow Up Care 10/20/2022 10:19:07 With:RICHIE YANEZ, Tex Guzman, URL Address: [facility] [address] , [place] [phone] When: Unknown Comments:1 yr w/ [facility] Discharge instructions 09-06-2022 Note Date & [...] including vitamins, herbs, eye drops, creams, and ooav-fml-xebaniz medicines. Any problems you or family members [...] 06/23/2001 Document Revised: 04/18/2018 Document Reviewed: 09/06/2016 [employer] Patient Education 2019 [employer] Follow Up Care 08/15/2022 14:12:55 With:Betzy Donis CNP Address: When:1 to 2 weeks Comments:Following colonoscopy. [facility] Discharge instructions 06-13-2022 [...] include: ?Spinach. ?Rhubarb. ?Beets. ?Potato chips and rwandan fries. ?Nuts. If you regularly take a diuretic medicine, make sure to eat at least 1 2 fruits or vegetables high in potassium each day. These include: ?Avocado. ?Banana. ?Vernon, prune, carrot, or tomato juice. ?Baked potato. [...] Casseroles. Pizza. Lasagna. Frozen meals. Potato chips. Indian fries. Summary You can reduce your risk [...] 10/21/2011 Document Revised: 10/16/2019 Document Reviewed: 06/06/2017 [employer] Patient Education 2020 [employer]. Follow Up Care 06/06/2022 15:28:19 With:Tex QUIROZ MD, URL Address: [facility] [address] , [place] [address]- When: Unknown [facility] Evaluation + Plan note Note Date & Type Note Facility Evaluation + Plan note No data available for this section [facility] Evaluation + Plan note Radiology Note Date & Type Note Facility Evaluation + Plan note Future Appointments Appointment Date:03/18/2024 08:45:00 AM Scheduled Provider:Tex QUIROZ MD Location:[facility] Appointment Type:URO Office Visit Future Scheduled TestsXR Abdomen 1 View 10/20/22 [facility] Evaluation note Note Date & Type Note Facility Evaluation note Diagnosis Encounter for wellness examination in adult Advance directive discussed with patient Overweight (BMI 25.0-29.9) Overweight documented in this encounter [facility] note Note Date & Type Note Facility [place] note No data available for this section [facility] Summary Purpose Family History No Family History Records FoundNo Family History Records FoundNo Family History Records Found No data available for this section No Family History Records Found Advance Directives No Advanced Directives Records FoundDocuments on File Type Date Recorded Patient Oncologist Expl anation Advance Directives and Living Will 09/12/2022 2022-08-23 Power Of Arch Support Technician Additional Source Comments INFORMATION SOURCE (unrecogn ized section and content) DATE CREATED AUTHOR 01/03/2018 [facility] DATE CREATED AUTHOR AUTHOR'S ORGANIZ ATION 09/09/2022 [facility]ital DATE CREATED AUTHOR AUTHOR'S ORGANIZ ATION 08/17/2023 [facility] EPIC DATE CREATED AUTHOR AUTHOR'S ORGANIZ ATION 03/14/2024 [facility] Patient Care team informatio n (unrecognized section and content) Pearl Glue Operator Relationship Specialty Start Date End Date Tony Argueta MD [address] [place] [address] (Fax) PCP - General Family Medicine 11/15/22 Pearl Glue Operator Relationship Specialty Start Date End Date Tony Argueta MD [address] [place] [address] (Fax) PCP - General Family Medicine 11/15/22 Pearl Glue Operator Relationship Specialty Start Date End Date Tony Argueta MD [address] [place] [address] (Fax) PCP - General Family Medicine 11/15/22 Reason [...] BE BASED ON THE PRIMARY CLINICAL RECORDS. [facility]. provides no warranty or guarantee of the accuracy or completeness of information in this document.
== END 2024-07-05 07:00 | disposition home or self-care (01) ==
LOC: MAMMO 06:59
PROVIDERS: PCP Family Medicine; Visit Provider Family Medicine
DX: Z12.31 Encounter for screening mammogram for malignant neoplasm of breast (principal); Z80.8 Family history of malignant neoplasm of other organs or systems
CPT/HCPCS: 77063; 77067

== ENCOUNTER 2025-03-20 08:37 | Outpatient (OUT) | payer BC, SELFPAY ==
--- OUTSIDE RECORDS SUMMARY | 2025-03-20 08:46 | XMS_ITS | Clinical Summary ---
Author Organization [facility] Address [address] [facility] [place] [address] Care Team Providers Care Cloth Presser Name Role Phone Tony Argueta MD Primary Care Provider [phone] Ashleigh Lawson MD Unavailable [phone] Tony Argueta MD Unavailable [phone] Allergies Active Allergy Reactions Criticality Noted Date Comments Amoxicillin Rash Low 08/09/2023 Medications Klor-Con/EF 25 MEQ effervescent tablet Take 25 mEq by mouth in the morning and 25 mEq before bedtime. 03/06/20 23 Active SUMAtriptan (Imitrex) 50 MG tablet Take 50 mg by mouth See administration instructions TAKE 1 TABLET BY MOUTH NEEDED FOR HEADACHE, may repeat in 2 HOURS if needed (max 2 per 24 HOURS, 5 per week) Active Active Problems Problem Noted Date Diagnosed Date History of colon polyps 08/16/2023 Migraine without aura and wi thout status migrainosus, not intractable 08/16/2023 Menopause 08/16/2023 Osteopenia of lumbar spine 08/16/2023 Overweight (BMI 25.0-29.9) 08/09/2023 Encounters Date Type Department Care Team Description 02/18/2025 2:00 PM EDT Office Visit [facility] [address] [place] [address] [address] [place] [address] Tony Argueta MD Encounter for wellness examination in adult; Advance directive in chart; Screening for diabetes mellitus (DM); Encounter for lipid screening for cardiovascular disease; Screening for osteoporosis; Menopause; Eye exam abnormal; Weight gain finding; Non morbid obesity due to excess calories 02/18/2025 Bamboo flowsheet [facility] [place] [facility] [place] [address] [place] [address] Tony Argueta MD 02/18/2025 Travel 02/11/2025 Travel 02/10/2025 Telephone [facility] [place] [place] [address] Roxy Travis, PRISCILLA Care Coordination from Last 3 Months Immunizations Immunization Administration Dates Next Due Influenza, seasonal, injectable 04/26/2022 Family History Medical History Relation Name Comments Hypertension Mother Alexa Tea Stroke Mother Alexa Tea Relation Name Status Comments Brother 6 brothers Daughter 1 daughter Father Mother Alexa Tea Sister 3 sisters Son 2 sons Social History Tobacco Use Types Packs/Day Years Used Date Smoking Tobacco: Never Smokeless Tobacco: Never Tobacco Cessation:Counseling Given: Yes Alcohol Use Standard Drinks/Week Comments Yes 4 (1 standard drink = 0.6 oz pur e alcohol) B1300 Health Literacy Answer Date Recor ded How often do you need to hav e someone help you when you read instructions, pamphlets, or other written material from your doctor or pharmacy? Never 11/27/2024 Humiliation, Afraid, Rape, and Kick questionnair e Answer Date Recorded Within the last year, have y ou been afraid of your partner or ex-partner? No 11/27/2024 Within the last year, have y ou been humiliated or emotionally abused in other ways by your partner or ex-partner? No Within the last year, have y ou been kicked, hit, slapped, or otherwise physically hurt by your partner or ex-partner? No 11/27/2024 Within the last year, have y ou been raped or forced to have any kind of sexual activity by your partner or ex-partner? No 11/27/2024 Social Connection and Isolat ion Panel [NHANES] Answer Date Recorded In a typical week, how many times do you talk on the phone with family, friends, or neighbors? More than three times a week 11/27/2024 How often do you get togethe r with friends or relatives? Twice a week 11/27/2024 How often do you attend [facility] or buddhist services? Patient declined 11/27/2024 Active Member of Clubs or Organizations Not on f ile 11/27/2024 How often do you attend meet ings of the clubs or organizations you belong to? 1 to 4 times per year 11/27/2024 Are you , , di vorced, , never , or living with a partner? 11/27/2024 AUDIT-C Answer Date Recorded Q1: How often do you have a drink containing alc ohol? 2-4 times a month 11/27/2024 Q2: How many drinks containi ng alcohol do you have on a typical day when you are drinking? 3 or 4 11/27/2024 Q3: How often do you have si x or more drinks on one occasion? Never 11/27/2024 Overall Financial Resource Strain (CARDIA) Answe r Date Recorded How hard is it for you to pa y for the very basics like food, housing, medical care, and heating? Not hard at all 11/27/2024 PHQ-2 Answer Date Recorded Patient Health Questionnaire-2 Score 0 02/18/2025 [facility] [place] Occupat ional Health - Occupational Stress Questionnaire Answer Date Recorded Do you feel stress - tense, restless, nervous, or anxious, or unable to sleep at night because your mind is troubled all the time - these days? Not at all 11/27/2024 Exercise Vital Sign Answer Date Recorde d On average, how many days pe r week do you engage in moderate to strenuous exercise (like a brisk walk)? 2 days 11/27/2024 On average, how many minutes do you engage in exercise at this level? 30 min 11/27/2024 Hunger Vital Sign Answer Date Recorded Within the past 12 months, y ou worried that your food would run out before you got the money to buy more. Never true 11/28/19 25 Within the past 12 months, t he food you bought just didn't last and you didn't have money to get more. Never true 11/27/2024 PRAPARE - Transportation Answer Date Re corded In the past 12 months, has l ack of transportation kept you from medical appointments or from getting medications? No 11/08 In the past 12 months, has l ack of transportation kept you from meetings, work, or from getting things needed for daily living? No 11/27/2024 Housing Stability Vital Sign Answer Luis Felipe e Recorded In the last 12 months, was t here a time when you were not able to pay the mortgage or rent on time? No 11/27/2024 Number of Times Moved in the Last Year Not on fi le 11/27/2024 At any time in the past 12 m [facility], were you homeless or living in a care home (including now)? No 11/27/2024 Comments No Sex and Gender Information Value Date Recorded Sex Assigned at Not on file Legal Sex Female 6:37 PM EDT Gender Identity Not on file Sexual Orientation Not on file Last Filed Vital Signs Vital Sign Reading Time Taken Comments Blood Pressure 122/74 02/18/2025 2:02 PM EDT Pulse 95 02/18/2025 2:02 PM EDT Temperature - - Respiratory Rate - - Oxygen Saturation 99% 02/18/2025 2:02 PM EDT Inhaled Oxygen Concentration - - Weight 82.1 kg (181 lb) 02/18/2025 2:02 PM EDT Height 165.1 cm (5' 5 ) 02/18/2025 2:02 PM EDT Body Mass Index 30.12 02/18/2025 2:02 PM EDT Plan of Treatment Health Maintenance Due Date Last Done Comments CT Colonography 1966 FIT-DNA 1966 FIT 1966 FOBT 1966 Sigmoidoscopy 1966 Pap Smear 1987 Influenza Vaccine (#1) 2025 04/26/2022 Postp oned from 03/10/2025 (Patient Refused) Mammogram 07/05/2025 07/05/2024, 06/10, 06/28/2022, Additional history exists Cervical Cancer Screening 06/06/2027 HPV/Cotest 06/06/2027 06/06/2022 Colonoscopy 10/04/2032 10/04/2022, 04/03/2019 Colorectal Cancer Screening 10/04/2032 Procedures Procedure Name Priority Date/Time Associated Diagnosis Comments MM TOMOSYNTHESIS SCREENING BI 07/05/2024 3:40 PM EST COLONOSCOPY Routine 04/03/2019 12:00 PM EDT from Last 3 Months or Most Recently Relevant to Health Maintenance Results * MM TOMOSYNTHESIS SCREENING BI (07/05/2024 3:40 PM EST) Anatomical Region Laterality Modality Other 07/05/2024 3:40 PM EST Narrative 07/05/2024 3:41 [place] [address] Mammography Report Signed Patient: KIARA MOYA MR#: [id number] : 1965 Acct:[id number] Age/Sex: 59 / F ADM Date: 07/05/24 Loc: MAMMO Attending Dr: TONY ARGUETA Ordering Physician: TONY ARGUETA Results: Date of Service: 07/05/24 Follow Up: Procedure(s): MM tomosynthesis screening BI Accession Number(s): [id number] cc: TONY ARGUETA Patient Name: KIARA MOYA MR#: [id number] : 1965 Exam Date: 07/05/2024 Ordering Doctor: DR TONY ARGUETA . RADIOLOGY REPORT PROCEDURE: MM TOMOSYNTHESIS SCREENING BI COMPARISON: MM TOMOSYNTHESIS SCREENING BI, 06/29/2023. MG MAMM SCREEN 3D ODILON CAD, 06/28/2022. MG MAMM SCREEN 3D ODILON CAD, 07/09/2021. MG MAMM SCREEN ODILON W CAD, 07/07/2020. INDICATIONS: Screening Calculator Name NCI Breast Cancer Risk Assessment Tool 5 Year Breast Cancer Risk 1.00% Lifetime Breast Cancer Risk 6.00% Personal Breast Cancer No Personal Ovarian Cancer No Treatments None Family Cancers Brother with throat cancer at age 60. LOCATION: The [facility] BREAST COMPOSITION: The breasts are heterogeneously dense,which may obscure small masses. FINDINGS: DIAGNOSTIC [...] BIOPSIED. Dictated by: Chad Johnson M.D. on 07/05/2024 at 15:37 Approved by: Chad Johnson M.D. on 07/05/2024 at 15:40 Dictated By: Chad Johnson M.D. Signed By: 07/05/24 1541 DD/ 1540 TD/TT: Power Plant Operators Supervisor: Procedure Note Radiology, Radiologist, MD - 07/05/2024 [place] [address] Mammography Report Signed Patient: KIARA MOYA AMR#: [id number] : 1965Acct:[id number] Age/Sex: 59 / FADM Date: 07/05/24 Loc: MAMMO Attending Dr: TONY ARGUETA Ordering Physician: TONY ARGUETAResults: Date of Service: 07/05/24Follow Up: Procedure(s): MM tomosynthesis screening BI Accession Number(s): [id number] cc: TONY ARGUETA Patient Name: KIARA MOYA MR#: [id number] : 1965 Exam Date: 07/05/2024 Ordering Doctor: DR TONY ARGUETA . RADIOLOGY REPORT PROCEDURE: MM TOMOSYNTHESIS SCREENING BI COMPARISON: MM TOMOSYNTHESIS SCREENING BI, 06/29/2023. MG MAMM [id number] ODILON CAD, 06/28/2022. MG MAMM SCREEN 3D ODILON CAD, 07/09/2021. MG MAMMSCREEN ODILON W CAD, 07/07/2020. INDICATIONS: Screening Calculator Name NCI Breast Cancer Risk Assessment Tool 5 Year Breast Cancer Risk 1.00% Lifetime Breast Cancer Risk 6.00% Personal Breast Cancer No Personal Ovarian Cancer No Treatments None Family Cancers Brother with throat cancer at age 60. LOCATION: The [facility] BREAST COMPOSITION: The breasts are heterogeneously dense,which may obscure small masses. FINDINGS: DIAGNOSTIC [...] NORMAL MAMMOGRAM DOES NOT EXCLUDE THE POSSIBILITY OFBREAST CANCER. A CLINICALLY SUSPICIOUS PALPABLE LUMP SHOULD BE BIOPSIED. Dictated by: Chad Johnson M.D. on 07/05/2024 at 15:37 Approved by: Chad Johnson M.D. on 07/05/2024 at 15:40 Dictated By: Chad Johnson M.D. Signed By:07/05/24 1541 DD/ 1540 TD/TT: Power Plant Operators Supervisor: us Tony Argueta MD [facility] Final Resu lt * Colonoscopy (04/03/2019 12:00 PM EDT) Anatomical Region Laterality Modality Endoscopy 04/03/2019 12:0 0 PM EDT Narrative 04/03/2019 12:00 PM EDT PERFORMED AT [facility] LOCATION:[id number] repeat in 3 years Procedure Note CONVERSION, GENERIC - 11/23/2022 PERFORMED AT [facility] LOCATION:[id number] repeat in 3 years us Tony Argueta MD ENDOSCOPY PROCEDURE ORDERABL ES Final Result from Last 3 Months or Most Recently Relevant to Health Maintenance Insurance [facility] Advance Directives Documents on File Type Date Recorded Patient Supervisor [employer] Expl anation Advance Directives and Living Will 09/12/2022 2022-08-23 Power Of Manager Asset Management Care Teams Cloth Presser Relationship Specialty Start Date End Date Tony Argueta MD [address] [place] [address] [address] PCP - General Family Medicine 11/15/22 Tony Argueta MD [address] [place] [address] [address] PCP - [place] [employer] 01/07/25 Ashleigh Lawson MD [address] [place] [address] [address] Referring Physician Optometry 02/10/25
--- OUTSIDE RECORDS SUMMARY | 2025-03-20 08:46 | XMS_ITS | Encounter Summary ---
Author Organization [facility] Address [address] [facility] [place] [address] Care Team Providers Care Script Writer Name Role Phone Tony Argueta MD Primary Care Provider Ashleigh Lawson MD Unavailable [phone] Tony Argueta MD Unavailable [phone] Encounter Details Date Type Department Care Team (Late st Contact Info) Description 03/06/2024 Clinisync Result Encounter [facility] External Department Unsolicited Provider, Generic External Data Social History Tobacco Use Types Packs/Day Years Used Date Smoking Tobacco: Never Smokeless Tobacco: Never Alcohol Use Standard Drinks/Week Comments Yes 1 (1 standard drink = 0.6 oz pur e alcohol) PHQ-2 Answer Date Recorded Patient Health Questionnaire-2 Score 0 08/16/2023 Comments No Sex and Gender Information Value Date Recorded Sex Assigned at Not on file Legal Sex Female 6:37 PM EDT Gender Identity Not on file Sexual Orientation Not on file documented as of this encounter Plan of Treatment Not on file documented as of this encounter Procedures Procedure Name Priority Date/Time Associated Diagnosis Comments XR ABDOMEN 1V 03/06/2024 4:45 AM EDT documented in this encounter Results * XR ABDOMEN 1V (03/06/2024 4:45 AM EDT) Anatomical Region Laterality Modality Other 03/06/2024 4:45 AM EDT Narrative 03/06/2024 4:48 AM EDT The [place] [id number] XRay Report Signed Patient: KIARA MOYA MR#: [id number] : 1965 Acct:[id number] Age/Sex: 58 / F ADM Date: 03/05/24 Loc: RAD Attending Dr: Betito Quiroz M.D. Ordering Physician: Betito Quiroz M.D. Date of Service: 03/05/24 Procedure(s): XR abdomen 1V Accession Number(s): [id number] cc: TONY ARGUETA ; Betito Quiroz M.D. The [place] [address] Patient Name: KIARA MOYA MRN: [id number] date: 1965 Sex: F Assigned Patient Location: [facility] Current Patient Location: Accession/Order Number: [id number] Exam Date: 03/05/2024 08:15 Report Date: 03/06/2024 04:45 At the request of: BETITO QUIROZ Procedure: XR abdomen 1V EXAMINATION: XR abdomen 1V HISTORY: Kidney Stone COMPARISON: XR abdomen 03/01/2023 FINDINGS: KIDNEY/URETER - RIGHT: No visible renal or ureteral calcifications. KIDNEY/URETER - LEFT: No visible renal or ureteral calcifications. PELVIS: No visible ureteral calcifications. Any visible calcifications favor phleboliths. BOWEL: No abnormal dilation or deviation. BONES: No acute abnormality. OTHER: Negative. No abnormal gaseous collections. XR/XR abdomen 1V IMPRESSION: 1. No appreciable urinary tract calculi. Electronically authenticated by: CHAD JOHNSON Date: 03/06/2024 04:45 Dictated By: hCad Johnson M.D. Signed By: 03/06/248 DD/ 4 TD/TT: Area Development Manager: Procedure Note Radiology, Radiologist, - 03/06/[address] [address] XRay Report Signed Patient: KIARA MOYA AMR#: [id number] : 1965Acct:[id number] Age/Sex: 58 / FADM Date: 03/05/24 Loc: RAD Attending Dr: Betito Quiroz M.D. Ordering Physician: Betito Quiroz M.D. Date of Service: 03/05/24 Procedure(s): XR abdomen 1V Accession Number(s): [id number] cc: TONY ARGUETA ; Betito Quiroz M.D. [place] [address] Patient Name: KIARA MOYA MRN: [facility]:[id number] date: 1965 Sex: F Assigned Patient Location: RAD Current Patient Location: Accession/Order Number: [id number] Exam Date: 03/05/2024 08:15 Report Date: 03/06/2024 04:45 At the request of: BETITO QUIROZ Procedure: XR abdomen 1V EXAMINATION: XR abdomen 1V HISTORY: Kidney Stone COMPARISON: XR abdomen 03/01/2023 FINDINGS: KIDNEY/URETER - RIGHT: No visible renal or ureteral calcifications. KIDNEY/URETER - LEFT: No visible renal or ureteral calcifications. PELVIS: No visible ureteral calcifications. Any visible calcificationsfavor phleboliths. BOWEL: No abnormal dilation or deviation. BONES: No acute abnormality. OTHER: Negative. No abnormal gaseous collections. XR/XR abdomen 1V IMPRESSION: 1. No appreciable urinary tract calculi. Electronically authenticated by: CHAD JOHNSON Date: 03/06/2024 04:45 Dictated By: Chad Johnson M.D. Signed By:03/06/248 DD/ 4 TD/TT: Area Development Manager: Generic External Data Provider [facility] Final Result documented in this encounter Visit Diagnoses Not on filedocumented in this encounter Care Teams Script Writer Relationship Specialty Start Date End Date Tony Argueta MD [address] [address] (Fax) PCP - General Family Medicine 11/15/22 Tony Argueta MD [address] [place] [address] [address] PCP - [employer] 01/07/25 Ashleigh Lawson MD [address] [place] [address] Referring Physician Optometry 02/10/25 documented as of this encounter
--- OUTSIDE RECORDS SUMMARY | 2025-03-20 08:46 | XMS_ITS | Encounter Summary ---
Author Organization [facility] Address [address] [facility] [place] [address] Care Team Providers Care Log Operations Coordinator Name Role Phone Tony Argueta MD Primary Care Provider Ashleigh Laswon MD Unavailable [phone] Tony Argueta MD Unavailable [phone] Encounter Details Date Type Department Care Team (Late st Contact Info) Description 06/29/2023 Clinisync Result Encounter [facility] External Department Unsolicited Tony Argueta MD [address] [facility] [address] [place] [address] Social History Tobacco Use Types Packs/Day Years Used Date Smoking Tobacco: Never Assessed Comments Unknown Sex and Gender Information Value Date Recorded Sex Assigned at Not on file Legal Sex Female 6:37 PM EDT Gender Identity Not on file Sexual Orientation Not on file documented as of this encounter Plan of Treatment Not on file documented as of this encounter Procedures Procedure Name Priority Date/Time Associated Diagnosis Comments MM TOMOSYNTHESIS SCREENING BI 06/29/2023 12:21 PM EST documented in this encounter Results * MM TOMOSYNTHESIS SCREENING BI (06/29/2023 12:21 PM EST) Anatomical Region Laterality Modality Other 06/29/2023 12:2 1 PM EST Narrative 06/29/2023 12:22 PM EST The [address] [place] [address] Mammography Report Signed Patient: KIARA MOYA MR#: [id number] : 1965 Acct:[id number] Age/Sex: 58 / F ADM Date: 06/29/23 Loc: MAMMO Attending Dr: TONY ARGUETA Ordering Physician: TONY ARGUETA Results: Date of Service: 06/29/23 Follow Up: Procedure(s): MM tomosynthesis screening BI Accession Number(s): [id number] cc: TONY ARGUETA Patient Name: KIARA MOYA MR#: [id number] : 1965 Exam Date: 06/29/2023 Ordering Doctor: DR TONY ARGUETA . RADIOLOGY REPORT PROCEDURE: MM TOMOSYNTHESIS SCREENING BI COMPARISON: MG MAMM SCREEN 3D ODILON CAD, 06/28/2022. MG MAMM SCREEN 3D ODILON CAD, 07/09/2021. MG MAMM SCREEN ODILON W CAD, 07/07/2020. MG MAMM ODILON SCRN W CAD DIG, 05/14/2013. INDICATIONS: screening Calculator Name NCI Breast Cancer Risk Assessment Tool 5 Year Breast Cancer Risk 1.00% Lifetime Breast Cancer Risk 6.20% Personal Breast Cancer No Personal Ovarian Cancer No Treatments None Family Cancers Brother with throat cancer at age 60. LOCATION: The [facility] BREAST COMPOSITION: Heterogeneously dense,which may obscure [...] BIOPSIED. Dictated by: Chad Johnson M.D. on 06/29/2023 at 12:17 Approved by: Chad Johnson M.D. on 06/29/2023 at 12:21 Dictated By: Chad Johnson M.D. Signed By: 06/29/23 1222 DD/ 1221 TD/TT: Php Wordpress Developer: Procedure Note Radiology, Radiologist, MD - 06/29/2023 [place] [address] Mammography Report Signed Patient: KIARA MOYA AMR#: [id number] : 1965Acct:[id number] Age/Sex: 58 / FADM Date: 06/29/23 Loc: MAMMO Attending Dr: TONY ARGUETA Ordering Physician: TONY ARGUETAResults: Date of Service: 06/29/23Follow Up: Procedure(s): MM tomosynthesis screening BI Accession Number(s): [id number] cc: TONY ARGUETA Patient Name: KIARA MOYA MR#: [id number] : 1965 Exam Date: 06/29/2023 Ordering Doctor: DR TONY ARGUETA . RADIOLOGY REPORT PROCEDURE: MM TOMOSYNTHESIS SCREENING BI COMPARISON: MG MAMM SCREEN 3D ODILON CAD, 06/28/2022. MG MAMM SCREEN 3DBIL CAD, 07/09/2021. MG MAMM SCREEN ODILON W CAD, 07/07/2020. MG MAMM ODILON SCRNW CAD DIG, 05/14/2013. INDICATIONS: screening Calculator Name NCI Breast Cancer Risk Assessment Tool 5 Year Breast Cancer Risk 1.00% Lifetime Breast Cancer Risk 6.20% Personal Breast Cancer No Personal Ovarian Cancer No Treatments None Family Cancers Brother with throat cancer at age 60. LOCATION: The [facility] BREAST COMPOSITION: Heterogeneously dense,which may obscure smallmasses. FINDINGS: DIAGNOSTIC CATEGORY 2--BENIGN FINDING: RIGHT BREAST: [...] BIOPSIED. Dictated by: Chad Johnson M.D. on 06/29/2023 at 12:17 Approved by: Chad Johnson M.D. on 06/29/2023 at 12:21 Dictated By: Chad Johnson M.D. Signed By:06/29/23 1222 DD/ 1221 TD/TT: Php Wordpress Developer: Tony Argueta MD [facility] Final Resu lt documented in this encounter Visit Diagnoses Not on filedocumented in this encounter Care Teams Log Operations Coordinator Relationship Specialty Start Date End Date Tony Argueta MD [address] [place] [address] [address] PCP - General Family Medicine 11/15/22 Tony Argueta MD [address] [place] [address] [address] PCP - [place] [employer] 01/07/25 Ashleigh Lawson MD [address] [place] [address] [address] Referring Physician Optometry 02/10/25 documented as of this encounter
--- OUTSIDE RECORDS SUMMARY | 2025-03-20 08:46 | XMS_ITS | Clinical Summary ---
Author Organization [facility] Address [address] [place], [place] [address] Care Team Providers Care Resident Inspector Name Role Phone Claire Gant MD Primary Care Provider Social History Tobacco Use Types Packs/Day Years Used Date Smoking Tobacco: Never Assessed Comments Unknown Sex and Gender Information Value Date Recorded Sex Assigned at Not on file Legal Sex Female 10:37 AM EDT Gender Identity Not on file Sexual Orientation Not on file Plan of Treatment Upcoming Encounters Date Type Department Care Team (Latest Contact Info) Description 05/27/2025 9:30 AM EST Office Visit [facility] Ophthalmology [address] [place] [address] Sasha Wills MD [address] [place] [address] Diagnostics[facility] [address] [place] [address] Cat aeval (referral scanned) Health Maintenance Due Date Last Done Comments Anxiety Screening 1984 Depression Screening 1984 HIV Screening 1984 Hepatitis C Screening 1984 DTaP,Tdap,Td Vaccine (1 - Tdap) 1985 Hepatitis B Vaccine (1 of 3 - 19+ 3-dose series) 04/20 Cervical Cancer Screening [address] Colonography 2011 Cologuard (FIT-DNA) 2011 Colonoscopy 2011 Colorectal Cancer Screening 2011 Diabetes Screening 2011 Fecal Occult Blood 2011 Lipid Screening 2011 Sigmoidoscopy 2011 Pneumococcal Vaccine: 50+ (1 of 1 - PCV) 2016 Shingrix Vaccine (1 of 2) 2016 Influenza Vaccine (#1) 2025 Insurance [employer] Care Teams Resident Inspector Relationship Specialty Start Date End Date Claire Gant MD [address] [place] [address] PCP - General Family Medicine 03/25/15
--- OUTSIDE RECORDS SUMMARY | 2025-03-20 08:46 | XMS_ITS | Encounter Summary ---
Author Organization [facility] Address [address] [facility] [place] [address] Care Team Providers Care Polishing Wheel Setter Name Role Phone Tony Argueta MD Primary Care Provider Ashleigh Lawson MD Unavailable [phone] Tony Argueta MD Unavailable [phone] Encounter Details Date Type Department Care Team (Late st Contact Info) Description 07/05/2024 Clinisync Result Encounter [facility] Department Unsolicited Tony Argueta MD [address] [facility] [address] [place] [address] Social History Tobacco Use Types Packs/Day Years [...] TOMOSYNTHESIS SCREENING BI 07/05/2024 3:40 PM EST documented in this encounter Results * MM TOMOSYNTHESIS SCREENING BI (07/05/2024 3:40 PM EST) Anatomical Region Laterality Modality Other 07/05/2024 3:40 PM EST Narrative 07/05/2024 3:41 [place] [address] Mammography Report Signed Patient: KIARA MOYA MR#: [id number] : 1965 Acct:[id number] Age/Sex: 59 / F ADM Date: 07/05/24 Loc: MAMMO Attending Dr: TONY ARGUETA Ordering Physician: TONY ARGUETA Results: Date of Service: 07/05/24 Follow Up: Procedure(s): MM tomosynthesis screening BI Accession Number(s): [id number] cc: TONY ARGUETA Patient Name: KIARA MOYA MR#: [id number] : 1965 Exam Date: 07/05/2024 Ordering Doctor: [...] throat cancer at age 61. LOCATION: [facility] BREAST COMPOSITION: The breasts are heterogeneously [...] Signed By: 07/05/24 1541 DD/ 1540 TD/TT: Audiovisual Production Specialist: Procedure Note Radiology, Radiologist, MD - 07/05/2024 [place] [address] Mammography Report Signed Patient: KIARA MOYA [facility]#: [id number] : 1965Acct:[id number] Age/Sex: 59 / FADM Date: 07/05/24 Loc: MAMMO Attending Dr: TONY ARGUETA Ordering Physician: TOYN ARGUETAResults: Date of Service: 07/05/24Follow Up: Procedure(s): MM tomosynthesis screening BI Accession Number(s): [id number] cc: TONY ARGUETA Patient Name: KIARA MOYA MR#: [id number] : 1965 Exam Date: 07/05/2024 Ordering Doctor: DR TONY ARGUETA . RADIOLOGY REPORT PROCEDURE: MM TOMOSYNTHESIS SCREENING BI COMPARISON: MM TOMOSYNTHESIS SCREENING BI, 06/29/2023. MG MAMM [id number] [place] CAD, 06/28/2022. MG MAMM SCREEN 3D [facility] CAD, 07/09/2021. MG MAMMSCREEN [place] W CAD, 07/07/2020. INDICATIONS: Screening Calculator Name NCI Breast Cancer Risk Assessment Tool 5 Year Breast Cancer Risk 1.00% Lifetime Breast Cancer Risk 6.00% Personal Breast Cancer No Personal Ovarian Cancer No Treatments None Family Cancers Brother with throat cancer at age 60. LOCATION: [facility] BREAST COMPOSITION: The breasts are heterogeneously [...] M.D. Signed By:07/05/24 1541 DD/ 1540 TD/TT: Audiovisual Production Specialist: Tony Argueta MD [facility] Final Resu lt documented in this encounter Visit Diagnoses Not on filedocumented in this encounter Care Teams Polishing Wheel Setter Relationship Specialty Start Date End Date Tony Argueta MD [address] [address] PCP - General Family Medicine 11/15/22 Tony Argueta MD [address] [address] PCP - [facility] 01/07/25 Ashleigh Lawson MD [address] [address] Referring Physician Optometry 02/10/25 documented as of this encounter
--- NOTE | 2025-03-20 08:47 | XR_ITS ---
The [address] [address] Patient Name: JOSE LUIS BARNEY MRN: [id number] date: 1965 Sex: F Assigned Patient Location: [facility] Current Patient Location: [facility] Accession/Order Number: [id number] Exam Date: 03/20/2025 08:50 Report Date: 03/20/2025 10:34 At the request of: PREET COLEMAN NP Procedure: XR abdomen 1V SINGLE VIEW ABDOMEN COMPARISON: 04/05/[address] 05/27/2022 CLINICAL DATA: Follow-up in patient with history of kidney stones. Supine views of the abdomen and pelvis were obtained. There is some air within the stomach. There is a small amount of air and stool within the colon. There is also small bowel air, without disproportionate distention. No soft tissue masses are identified. There are calcifications at the upper quadrant bilaterally, greater on the left measuring up to approximately 6 mm in size. It is uncertain if these are upper pole renal stones. There is no suspect ureteral or bladder calculi. There is mild degenerative change at the spine. XR/XR abdomen 1V IMPRESSION: POSSIBLE BILATERAL NEPHROLITHIASIS. Impression dictated by: Riri Marie M.D. 03/20/2025 10:34 AM Dictation Location: [place] [address] Electronically authenticated by: [id number] Y Date: 03/20/2025 10:34
--- OUTSIDE RECORDS SUMMARY | 2025-03-20 08:50 | XMS_ITS | CCD ---
Author Organization [facility] Care Team Providers Care Credit And Collection Manager Name Role Phone ANKIT JEAN Primary Care [...] CISSE Attending Unavailable QUIROZ ., DR CISSE Admpascale Unavailable BOLIVAR, DR [...] Unavailable QUIROZ ., DR CISSE Consulting Unavailable JAEN ., DR ANKIT Gautam Primary Care Unavailable JAGDISH, DR CHAD Guzman Consulting Unavailable JEAN ., DR ANKIT Gautam Consulting Unavailable MIRANDA ., DR ANKIT Gautam Attending Unavailable MIRANDA ., DR ANKIT Gautam Admitting Unavailable MIRANDA ., DR ANKIT Gautam Primary Care Unavailable DR CHAD JOHNSON Consulting Unavailable Tony Argueta MD Primary Care Provider [phone] JOSE AC Attending Unavailable Leslie Lucio Attending Unavailable Tony Argueta MD Primary Care Provider [phone] Ashleigh Lawson MD Unavailable Tony Argueta MD Unavailable [phone] TONY ARGUETA Attending Unavailable TONY ARGUETA Attending Unavailable Allergies Allergy Classification Reported Allergen(s) Allergy Type Date of Onset Reaction(s) Facility (15 sources) Amoxicillin; Translations: [amoxicillin] Drug Allergy 4 Unknown (qualifier value), Rash [facility] (1 source) Amoxicillin Drug Allergy 6 [facility] Repository Medications Current Medications Medication Drug Class(es) Dates Sig (Normalized) Sig (Original) potassium bicarbonate 25 meq effervescent oral tablet (9 sources) Start: 03-06-2023 take 1 tablet by mouth in the morning Klor-Con/EF 25 MEQ effervescent tablet Take 25 mEq by mouth in the morning and 25 mEq before bedtime. 03/06/2023 Active SUMAtriptan 50 mg oral tablet (13 sources) Serotonin-1b and Serotonin-1d Receptor Agonist Start: [...] per 24 HOURS, 5 per week) Active Completed/Discontinued Medications Medication Drug Class(es) Dates Sig (Normalized) Sig (Original) dextromethorphan hydrobromide 30 mg / pyrilamine maleate 30 mg oral tablet (5 sources) Uncompetitive A-rfwqae-Q-aspartat e Receptor Antagonist, Sigma-1 Agonist Start: 11-24-2024 End: 02-18-2025 Kennedy DMT 30-30 MG tablet Take 1 tablet by mouth 11/24/2024 02/18/2025 Discontinued (Med list cleanup) homatropine methylbromide 0.3 mg/ml / HYDROcodone bitartrate 1 mg/ml oral solution (2 sources) Opioid Agonist, Cholinergic Muscarinic Agonist Start: 11-27-2024 End: 12-04-2024 HYDROcodone Bit-Homatrop MBr (Hydromet) 5-1.5 MG/5ML solution Indications: Cough Take 5 mL by mouth at bedtime for 7 days 35 mL 11/27/2024 12/04/2024 K-Effervescent 25 mEq oral tablet, effervescent (1 source) Start: 03-06-2023 End: 02-29-2024 take 1 tablet by mouth twice daily K-Effervescent 25 mEq oral tablet, effervescent 25 mEq = 1 tab(s), Oral, BID, X 30 day(s), # 60 tab(s), Refills(s) 11, Pharmacy: [facility], 165, cm, 03/06/23 15:46:00 EDT, Height/Length Dosing, 70.9, kg, 03/06/23 15:46:00 EDT, Weight Dosing Start Date: 03/06/23 Stop Date: 02/29/24 Status: Ordered levoFLOXacin 750 mg oral tablet (2 sources) Quinolone Antimicrobial Start: 11-27-2024 End: 12-07-2024 take 1 tablet by mouth once daily levoFLOXacin (Levaquin) 750 MG tablet Indications: Pneumonia of right lower lobe due to infectious organism Take 1 tablet (750 mg) by mouth Daily for 10 days 7 tablet 11/27/2024 12/07/2024 magnesium sulfate 225 MG / potassium chloride 188 MG / sodium sulfate 1479 MG Oral Tablet [Sutab] (3 sources) Start: 09-06-2022 take 1 tablet by mouth once Sutab oral tablet See Instructions, 1 EA, Refill(s) 0, Please follow instructions per packaging and physician's handout, [facility], 165, cm, 09/06/22 8:50:00 EST, Height/Length Dosing, 76.6, kg, 09/06/22 8:50:00 EST, Weight Dosing Start Date: 09/06/22 Status: Ordered Sutab 7348-725-452 MG tablet (3 sources) Start: 09-06-2022 End: 08-16-2023 Sutab 7500-729-326 MG tablet USE DIRECTED per physicians handout 0 09/06/2022 08/16/2023 Discontinued (Therapy completed) Start: 09-06-2022 Sutab 1479-225 -188 MG tablet USE DIRECTED per physicians handout 0 09/06/2022 Active Problems Active Problems Problem Classification Problem Date Documented Date Episodic/Chronic Administrative/soci al admission (2 sources) Advance directive discussed with patient; Translations: [Other specified counseling] 08-09-2023 Episodic Calculus of urinary tract (13 sources) Kidney stone; Translations: [Calculus of kidney] Onset: 2 Episodic Genitourinary symptoms and ill-defined conditions (1 source) Abnormal urinary product; Translations: [Hypocitraturia] Onset: 4 Episodic Headache; including migraine (8 sources) Migraine without aura, not refractory ; Translations: [Migraine without aura, not intractable, without status migrainosus] Onset: 4 08-16-2023 Chronic Headache; including migraine (4 sources) Headache 06-13-2022 Episodic Headache; including migraine (1 source) Headache; including migraine; Translations: [HEADACHE UNSPECIFIED] Onset: 2 Other diseases of kidney and ureters (1 source) Urinary tract obstruction; Translations: [Hydronephrosis with renal and ureteral calculous obstruction] Onset: 2 Episodic Other diseases of kidney and ureters (4 sources) Hydronephrosis 06-13-2022 Episodic Other diseases of kidney and ureters (4 sources) Hydroureteronephrosis 06-13-2022 Episodic Other diseases of kidney and ureters (1 source) Hydronephrosis with renal and ureteral calculous obstruction; Translations: [HYDRONPHROS RENL AND URETRL CALCUL OBST] Onset: 2 Episodic Other eye disorders (2 sources) Fundoscopy abnormal; Translations: [Unspecified disorder of eye and adnexa] 02-18-2025 Episodic Other lower respiratory disease (2 sources) Cough; Translations: [Acute cough] 11-27-2024 Episodic Other nutritional; endocrine; and metabolic disorders (2 sources) Obesity caused by energy imbalance; Translations: [Other obesity due to excess calories] 02-18-2025 Chronic Other nutritional; endocrine; and metabolic disorders (2 sources) Weight increased; Translations: [Abnormal weight gain] 02-18-2025 Episodic Other screening for suspected conditions (not mental disorders or infectious disease) (14 sources) Encounter for screening mammogram for malignant neoplasm of breast; Translations: [Encounter for screening for malignant neoplasm of cervix] Onset: 2 Episodic Pneumonia (except that caused by tuberculosis or sexually transmitted disease) (2 sources) Right lower zone pneumonia; Translations: [Pneumonia, unspecified organism] 11-27-2024 Episodic Residual codes; unclassified (1 source) Family history of malignant neoplasm of digestive organs; Translations: [FAM HX MALIG NEOPLASM DIGESTIV ORGN] Onset: 2 Episodic Residual codes; unclassified (10 sources) Menopause present; Translations: [Asymptomatic menopausal state] Onset: 4 08-16-2023 Episodic Residual codes; unclassified (2 sources) Active advance directive (copy within chart) ; Translations: [Other specified health status] 02-13-2025 Episodic Unclassified (1 source) CONTACT W/AND (SUSP) EXPOS COVID-19; Translations: [CONTACT W/AND (SUSP) EXPOS COVID-19] Onset: 2 Past or Other Problems Problem Classification Problem Date Documented Da te Episodic/Chronic Abdominal pain (3 sources) Unspecified abdominal pain; Translations: [UNSPECIFIED ABDOMINAL PAIN] Onset: 05-27-2022 Episodic Nausea and vomiting (1 source) Nausea with vomiting, unspecified; Translations: [NAUSEA WITH VOMITING UNSPECIFIED] Onset: 05-31-2022 Episodic Other and unspecified benign neoplasm (12 sources) History of polyp of colon; Translations: [Personal history of colonic polyps] Onset: 09-06-2022 Episodic Other bone disease and musculoskeletal deformities (8 sources) Osteopenia; Translations: [Other specified disorders of bone density and structure, other site] Onset: 08-16-2023 08-16-2023 Episodic Other nutritional; endocrine; and metabolic disorders (12 sources) Body mass index 25-29 - overweight; Translations: [Overweight] Onset: 08-09-2023 4 Episodic Results Test Name Value Interpretation Reference Range Facility Reminderson 10-01-2024 Reminders Reminders From: Jessa Fairchild To: [facility] - Administrative; Sent: 03/12/2024 08:30:51 EDT Show up: 09/07/2024 08:30:00 EST Subject: 1 year f/u Due Date/Time: 03/10/2025 08:30:00 EDT Reminder/Recall Please call and schedule patient with AO for a 1 yr f/u with KUB, due back beginning of March 2025. Would like first appointment of the day Pt scheduled for Monday w/ ESTHER in [place] for 1 yr f/u w/ KUB. Pt wishes to get KUB done at [facility] From: Stacey Eden ([facility] - Administrative) To: [facility] - Clinical; Sent: 10/01/2024 12:56:37 EDT ! Show up: 10/01/2024 12:56:00 EDT Normal [facility] Ambulatory Visit Summaryon 0 03-12-2024 Ambulatory Visit Summary Ambulatory Visit Summary KIARA MOYA :1965 Visit Date:03/12/2024 Ambulatory Visit Instructions Your Diagnosis [...] Follow Up with AMARILIS Lucio APRN, Leslie X, FAM, URL When: Comments: 1 year with KUB [...] these instructions at home: Medicines ? Take waut-ulz-woxvmmp and prescription medicines only as told by [...] ? Str (more content not included)... Normal [facility] Urology Office/Clinic Noteon 03-12-2024 Urology Office/Clinic Note [...] with voice recognition artificial intelligence software, specifically [employer], [employer] and or [employer]. Substitutions may have occurred due to the [...] Urnls Dip Stick Auto w/o Microscopy POC 24540 XR Abdomen 1 View 2. Hypocitraturia (R82.991: [...] -Continue Effer-K Follow-up With When Contact Information Naveed RATLIFF, GILES-C, Leslie X, FAM, URL Additional Instructions: 1 year with KUB Patient Education Kidney Stones, Lftq-bb-[id number] Dietary Guidelines to Help Prevent Kidney Stones [...] Protein Urine Dipstick: Negative (03/12/24 08:08:00) Specific [place] Urine Dipstick: >=1.030 (03/12/24 08:08:00) Urine Appearance [...] Tex QUIROZ MD 03/06/2023 17:03 EDT Normal [facility] Comment on above: Result Comment: Elec tronically Signed By: AMARILIS Lucio APRN, Leslie Garcia\.br\Date and Time Signed: 03/12/24 08:30 EDT PREG QUANT HCGon 07-07-2022 HCG QUANT 2 mIU/mL Normal [facility] Comment on above: Performed By: #### P REGQNT #### [facility] [address] [place] [address] Dr. Merritt Agudelo HCG RANGE SEE BELOW Normal [facility] Comment on above: Result Comment: 5-50 0.2-1 WEEK 50-500 1-2 WEEKS 100-5,000 2-3 WEEKS 500-10,000 3-4 WEEKS 1,000-50,000 4-5 WEEKS 10,000-100,000 5-6 WEEKS 15,000-200,000 6-8 WEEKS 10,000-100,000 2-3 MONTHS Performed By: #### P REGQNT #### [facility] [address] [place] [address] Dr. Merritt Agudelo XR KUB 1 VIEWon [...] PATRICIO LUTZ Date: 2022-07-07 11:10 Normal [facility] Covid-19 PCR (CVDTB)on 06-10 SARS-CoV-2 (COVID-19) RNA MICHAEL+probe Ql (Unsp spec) Not detected Normal NOT DETECTED [facility] Comment on above: Result Comment: This test is not yet approved or cleared by the [place] FDA. When there are no FDA-approved or cleared tests available, and other criteria are met, FDA can make tests available under an emergency access mechanism called an Emergency Use Authorization (EUA). The EUA for this test is supported by the Happy of Health and Human Service's (HHS's) declaration [...] SARS-CoV-2. Performed By: #### C VDTB #### [facility] [address] [place] [address] Dr. Merritt Agudelo CBC AUTO DIFFon 06-29-2022 BASO # 0.0 103/ul Normal 0.0-0.1 [facility] Comment on above: Performed By: #### C BC #### [facility] [address] [place] [address] Dr. Merritt Agudelo Basophils/100 WBC (Bld) 0.5 % Normal 0.2-2.0 [facility] Comment on above: Performed By: #### C BC #### [facility] [address] [place] [address] Dr. Merritt Agudelo EO # 0.1 103/ul Normal 0.0-0.7 [facility] Comment on above: Performed By: #### C BC #### [facility] [address] [place] [address] Dr. Merritt Agudelo Eosinophils/100 WBC (Bld) 2.2 % Normal 0.9-7.0 [facility] Comment on above: Performed By: #### C BC #### [facility] [address] [place] [address] Dr. Merritt Agudelo Erythrocyte distribution width (RBC) [Ratio] 12.5 % Normal 11.0-15.0 [facility] Comment on above: Performed By: #### C BC #### [facility] [address] [place] [address] Dr. Merritt Agudelo Hematocrit (Bld) [Volume fraction] 37.2 % Normal 36.0-48.0 [facility] Comment on above: Performed By: #### C BC #### [facility] [address] [place] [address] Dr. Merritt Agudelo Hemoglobin (Bld) [Mass/Vol] 12.1 g/dL Normal 12.0-16.0 [facility] Comment on above: Performed By: #### C BC #### [facility] [address] [place] [address] Dr. Merritt Agudelo IG # 0.02 10e3/ul Normal 0.00-0.03 [facility] Comment on above: Performed By: #### C BC #### [facility] [address] [place] [address] Dr. Merritt Agudelo IG % 0.3 % Normal 0.0-0.5 [facility] Comment on above: Performed By: #### C BC #### [facility] [address] [place] [address] Dr. Merritt Agudelo LYMPH # 1.8 103/ul Normal 1.2-3.8 [facility] Comment on above: Performed By: #### C BC #### [facility] [address] [place] [address] Dr. Merritt Agudelo Lymphocytes/100 WBC (Bld) 28.5 % Normal 20.5-60.0 [facility] Comment on above: Performed By: #### C BC #### [facility] [address] [place] [address] Dr. Merritt Agudelo MANUAL DIFF REQ NO Normal [facility] Comment on above: Performed By: #### C BC #### [facility] [address] [place] [address] Dr. Merritt Agudelo MCH (RBC) [Entitic mass] 29.5 pg Normal 26.7-34.0 [facility] Comment on above: Performed By: #### C BC #### [facility] [address] [place] [address] Dr. Merritt Agudelo MCHC (RBC) [Mass/Vol] 32.5 g/dL Normal 29.9-35.2 [facility] Comment on above: Performed By: #### C BC #### [facility] [address] [place] [address] Dr. Merritt Agudelo MCV (RBC) [Entitic vol] 90.7 fL Normal 81.0-99.0 [facility] Comment on above: Performed By: #### C BC #### [facility] [address] [place] [address] Dr. Merritt Agudelo MONO # 0.5 103/ul Normal 0.3-0.8 [facility] Comment on above: Performed By: #### C BC #### [facility] [address] [place] [address] Dr. Merritt Agudelo Monocytes/100 WBC (Bld) 8.5 % Normal 1.7-12.0 [facility] Comment on above: Performed By: #### C BC #### [facility] [address] [place] [address] Dr. Merritt Agudelo NEUT # 3.8 103/ul Normal 1.4-6.5 [facility] Comment on above: Performed By: #### C BC #### [facility] [address] [place] [address] Dr. Merritt Agudelo Neutrophils/100 WBC (Bld) 60.0 % Normal 43.0-75.0 [facility] Comment on above: Performed By: #### C BC #### [facility] [address] [place] [address] Dr. Merritt Agudelo Platelet mean volume (Bld) [Entitic vol] 9.4 fL Critically low 9.5-13.5 [facility] Comment on above: Performed By: #### C BC #### [facility] [address] [place] [address] Dr. Merritt Agudelo PLT 224 103/ul Normal 150-450 [facility] Comment on above: Performed By: #### C BC #### [facility] [address] [address] [address] Merritt Agudelo RBC 4.10 106/ul Critically low 4.20-5.40 [facility] Comment on above: Performed By: #### C BC #### [facility] [address] [address] [address] Merritt Agudelo WBC 6.4 103/ul Normal 4.0-11.0 [facility] Comment on above: Performed By: #### C BC #### [facility] [address] [address] [address] Merritt Agudelo PROF CHEM 8 (BAS METB)on Anion gap [Moles/Vol] 8.6 mmol/L Normal [facility] Comment on above: Performed By: #### C BC #### [facility] [address] [place] [address] Dr. Merritt Agudelo Calcium [Mass/Vol] 9.0 mg/dL Normal 8.5-10.1 [facility] Comment on above: Performed By: #### C BC #### [facility] [address] [address] [address] Merritt Agudelo Chloride [Moles/Vol] 102 mmol/L Normal 98-107 [facility] Comment on above: Performed By: #### C BC #### [facility] [address] [address] [address] Merritt Agudelo CO2 [Moles/Vol] 31.4 mmol/L Normal 21.0-32.0 [facility] Comment on above: Performed By: #### C BC #### [facility] [address] [place] [address] Dr. Merritt Agudelo Creatinine [Mass/Vol] 0.72 mg/dL Normal 0.55-1.02 [facility] Comment on above: Performed By: #### C BC #### [facility] [address] [place] [address] Dr. Merritt Agudelo EGFR-AF WELSH >60 Normal >=60 [facility] Comment on above: Performed By: #### C BC #### [facility] [address] [address] [address] Merritt Agudelo EGFR-NON AF WELSH >60 Normal >=60 [facility] Comment on above: Performed By: #### C BC #### [facility] [address] [address] [address] Merritt Agudelo Glucose [Mass/Vol] 86 mg/dL Normal 74-106 [facility] Comment on above: Performed By: #### C BC #### [facility] [address] [address] [address] Merritt Agudelo Potassium [Moles/Vol] 4.0 mmol/L Normal 3.5-5.1 [facility] Comment on above: Performed By: #### C BC #### [facility] [address] [address] [address] Merritt Agudelo Sodium [Moles/Vol] 138 mmol/L Normal 136-145 [facility] Comment on above: Performed By: #### C BC #### [facility] [address] [address] [address] Merritt Agudelo Urea nitrogen [Mass/Vol] 16.0 mg/dL Normal 7.0-18.0 [facility] Comment on above: Performed By: #### C BC #### [facility] [address] [address] [address] Merritt Agudelo Urea nitrogen/Creatinine [Mass ratio] 22.2 mg/mg Normal [facility] Comment on above: Performed By: #### C BC #### [facility] [address] [address] [address] Merritt Agudelo PROTIMEon 06-29-2022 INR Coag (PPP) [Relative time] 0.94 {INR} Normal [facility] Comment on above: Performed By: #### C BC #### [facility] [address] [address] [address] Merritt Agudelo INR GUIDELINES SEE BELOW Normal [facility] Comment on above: Result Comment: SIMÓN RED INR: 2.0 - 3.0 CONDITIONS NOT LISTED BELOW 2.5 - 3.5 FOR PROSTHETIC HEART VALVE REPLACEMENT 2.5 - 3.5 RECURRENT THROMBOSIS Performed By: #### C BC #### [facility] [address] [address] [address] Merritt Agudelo PT Coag (PPP) [Time] 10.2 s Normal 9.0-11.6 [facility] Comment on above: Performed By: #### C BC #### [facility] [address] [place] [address] Dr. Merritt Agudelo PTTon 06-29-2022 aPTT Coag (Bld) [Time] 26.4 s Normal 22.3-36.2 [facility] Comment on above: Performed By: #### C BC #### [facility] [address] [place] [address] Dr. Merritt Agudelo MG MAMM SCREEN 3D ODILON CADon 06-28-2022 MG MAMM SCREEN 3D ODILON CAD Patient: KIARA MOYA Exam Date: 06/28/2022 : 1965 Gender:F Ordering : DR ANKIT JEAN . Admission #: [id number] Family : Order #: [id number] CLICK HERE TO VIEW EXAM RADIOLOGY REPORT [...] at age 61. LOCATION: [facility] BREAST COMPOSITION: Heterogeneously dense,which may obscure small [...] Johnson M.D. on 06/29/2022 at 10:00 Normal [facility] XR KUB 1 VIEWon 06-13-2022 XR KUB [...] by: CHAD JOHNSON Date: 2022-06-13 13:37 Normal [facility] PAP ACOG PANEL 2: 30 to 65on 06-10-2022 . . Normal [facility] Comment on above: Result Comment: Perf ormed at: WB Performed By: #### C BC #### [facility] [address] [address] [address] Merritt Agudelo Age Gdln ACOG Testing 30-65 Normal [facility] Comment on above: Performed By: #### C BC #### [facility] [address] [address] [address] Merritt Agudelo DIAGNOSIS: Comment Normal [facility] Comment on above: Result Comment: NEGA TIVE FOR INTRAEPITHELIAL LESION OR MALIGNANCY. CELLULAR CHANGES ASSOCIATED WITH ATROPHY ARE PRESENT. Performed at: WB Performed By: #### C BC #### [facility] [address] [address] [address] Merritt Agudelo HPV Aptima Negative Normal Negative [facility] Comment on above: Result Comment: This nucleic acid amplification test detects fourteen high-risk HPV types (16,18,31,33,35,39,45,51,52,56,58,59,66,68) without differentiation. Performed at: =G Performed By: #### C BC #### [facility] [address] [address] [address] Merritt Agudelo HPV Genotype Reflex Comment Normal [facility] Comment on above: Result Comment: Crit eria not met, HPV Genotype not performed. Performed at: WB Performed By: #### C BC #### [facility] [address] [place] [address] Dr. Merritt Agudelo Methodology: Comment Normal [facility] Comment on above: Result Comment: This liquid based ThinPrep(R) pap test was screened with the use of an image guided system. Performed at: WB Performed By: #### C BC #### [facility] [address] [place] [address] Dr. Merritt Agudelo Note: Comment Normal [facility] Comment on above: Result Comment: The Pap smear is a screening test designed to aid in the detection of premalignant and malignant conditions of the uterine cervix. It is not a diagnostic procedure and should not be used as the sole means of detecting cervical cancer. Both false-positive and false-negative reports do occur. . Performed at: WB Performed By: #### C BC #### [facility] [address] [place] [address] Dr. Merritt Agudelo Performed by: Comment Normal [facility] Comment on above: Result Comment: Stanley Cortes, Contact Center Rep (ASCP) Performed at: WB Performed By: #### C BC #### [facility] [place] [facility] [address] [place] [address] Dr. Merritt Agudelo Specimen adequacy: Comment Normal [facility] Comment on above: Result Comment: Sati sfactory for evaluation. Endocervical component may not be distinguished in cases of atrophy. Performed at: WB Performed By: #### C BC #### [facility] [place] [facility] [address] [place] [address] Dr. Merritt Agudelo CALCAURORA, URINARYon 2 2,8 Dihydroxyadenine Normal [facility] Comment on above: Performed By: #### C ALCULI #### [facility] [place] [facility] [address] [place] [address] Dr. Merritt Agudelo Ammonium Acid Urate Normal [facility] Comment on above: Performed By: #### C ALCULI #### [facility] [place] [facility] [address] [address] [address] Merritt Agudelo Bilirubin Ql (U) [facility] Comment on above: Performed By: #### C ALCULI #### [facility] [place] [facility] [address] [address] [address] Merritt Agudelo Ca Oxalate Dihydrate 30 % [facility] Comment on above: Performed By: #### C ALCULI #### [facility] [place] [facility] [address] [address] [address] Merritt Agudelo CaHPO4 (Brushite) [facility] Comment on above: Performed By: #### C ALCULI #### [facility] [place] [facility] [address] [address] [address] Merritt Agudelo Calcium Bilirubinate [facility] Comment on above: Performed By: #### C ALCULI #### [facility] [place] [facility] [address] [address] [address] Merritt Agudelo Calcium Carbonate [facility] Comment on above: Performed By: #### C ALCULI #### [facility] [place] [facility] [address] [address] [address] Merritt Agudelo Calcium Oxalate Monohydrate 70 % [facility] Comment on above: Performed By: #### C ALCULI #### [facility] [place] [facility] [address] [address] [address] Merritt Agudelo Calcium Palmitate Riga [facility] Comment on above: Performed By: #### C ALCULI #### [facility] [place] [facility] [address] [address] [address] Merritt Agudelo Calcium Phosphate [facility] Comment on above: Performed By: #### C ALCULI #### [facility] [place] [facility] [address] [address] [address] Merritt Agudelo Calcium Stearate [facility] Comment on above: Performed By: #### C ALCULI #### [facility] [place] [facility] [address] [address] [address] Merritt Agudelo Carbonate Apatite [facility] Comment on above: Performed By: #### C ALCULI #### [facility] [place] [facility] [address] [address] [address] Merritt Agudelo Cellular Material [facility] Comment on above: Performed By: #### C ALCULI #### [facility] [place] [facility] [address] [address] [address] Merritt Agudelo Cholesterol [facility] Comment on above: Performed By: #### C ALCULI #### [facility] [place] [facility] [address] [address] [address] Merritt Agudelo Color (U) Brown Normal [facility] Comment on above: Performed By: #### C ALCULI #### [facility] [place] [facility] [address] [address] [address] Merritt Agudelo Comment [facility] Comment on above: Performed By: #### C ALCULI #### [facility] [place] [facility] [address] [place] [address] Dr. Merritt Agudelo Comment: Comment Normal [facility] Comment on above: Result Comment: Amber hawkins questions regarding Calculi Analysis contact [facility] at: [phone]. Performed By: #### C ALCULI #### [facility] [place] [facility] [address] [place] [address] Dr. Merritt Agudelo Composition Comment [facility] Comment on above: Result Comment: Perc entage (Represents the % composition) Performed By: #### C ALCULI #### [facility] [place] [facility] [address] [place] [address] Dr. Merritt Agudelo Cystine [facility] Comment on above: Performed By: #### C ALCULI #### [facility] [place] [facility] [address] [address] [address] Merritt Agudelo Disclaimer: Comment [facility] Comment on above: Result Comment: This test was developed and its performance characteristics determined by [facility]. It has not been cleared or approved by the Food and Drug Administration. Performed By: #### C ALCULI #### [facility] [place] [facility] [address] [place] [address] Dr. Merritt Agudelo Dried Blood [facility] Comment on above: Performed By: #### C ALCULI #### [facility] [place] [facility] [address] [address] [address] Merritt Agudelo Drug or Metabolite Normal [facility] Comment on above: Performed By: #### C ALCULI #### [facility] [place] [facility] [address] [address] [address] Merritt Agudelo Hydroxyapatite Normal [facility] Comment on above: Performed By: #### C ALCULI #### [facility] [place] [facility] [address] [address] [address] Merritt Agudelo Mg NH4 PO4 (Struvite) [facility] Comment on above: Performed By: #### C ALCULI #### [facility] [place] [facility] [address] [address] [address] Merritt Agudelo MgHPO4 (Newberyite) Normal [facility] Comment on above: Performed By: #### C ALCULI #### [facility] [place] [facility] [address] [address] [address] Merritt Agudelo Other component(s) Normal [facility] Comment on above: Performed By: #### C ALCULI #### [facility] [place] [facility] [address] [address] [address] Merritt Agudelo PDF . [facility] Comment on above: Performed By: #### C ALCULI #### [facility] [place] [facility] [address] [address] [address] Merritt Agudelo Photo Comment Normal [facility] Comment on above: Result Comment: Phot ograph will follow under a separate cover Performed By: #### C ALCULI #### [facility] [address] [address] [address] Merritt Agudelo Please note: Comment Normal [facility] Comment on above: Result Comment: Calc aurora report will follow via computer, mail or cable placer delivery. Performed By: #### C ALCULI #### [facility] [place] [facility] [address] [address] [address] Merritt Agudelo Size 7x4 Normal [facility] Comment on above: Result Comment: Sing le piece received. Performed By: #### C ALCULI #### [facility] [place] [facility] [address] [address] [address] Merritt Agudelo Sodium Acid Urate Normal [facility] Comment on above: Performed By: #### C ALCULI #### [facility] [place] [facility] [address] [address] [address] Merritt Agudelo Source Comment [facility] Comment on above: Result Comment: Not provided Performed By: #### C ALCULI #### [facility] [address] [address] [address] Merritt Agudelo [employer]amte[employer] [facility] Comment on above: Performed By: #### C ALCULI #### [facility] [address] [place] [address] Dr. Merritt Agudelo Uric Acid [facility] Comment on above: Performed By: #### C ALCULI #### [facility] [address] [place] [address] Dr. Merritt Agudelo Uric Acid Dihydrate Normal [facility] Comment on above: Performed By: #### C ALCULI #### [facility] [address] [place] [address] Dr. Merritt Agudelo Weight 92 mg [facility] Comment on above: Performed By: #### C ALCULI #### [facility] [place] [facility] [address] [place] [address] Dr. Merritt Agudelo Xanthine [facility] Comment on above: Performed By: #### C ALCULI #### [facility] [place] [facility] [address] [place] [address] Dr. Merritt Agudelo CBC AUTO DIFFon 05-27-2022 BASO # 0.0 103/ul Normal 0.0-0.1 [facility] Comment on above: Performed By: #### C BC #### [facility] [address] [place] [address] Dr. Merritt Agudelo Basophils/100 WBC (Bld) 0.4 % Normal 0.2-2.0 [facility] Comment on above: Performed By: #### C BC #### [facility] [address] [place] [address] Dr. Merritt Agudelo EO # 0.2 103/ul Normal 0.0-0.7 [facility] Comment on above: Performed By: #### C BC #### [facility] [address] [place] [address] Dr. Merritt Agudelo Eosinophils/100 WBC (Bld) 1.5 % Normal 0.9-7.0 [facility] Comment on above: Performed By: #### C BC #### [facility] [address] [place] [address] Dr. Merritt Agudelo Erythrocyte distribution width (RBC) [Ratio] 12.4 % Normal 11.0-15.0 [facility] Comment on above: Performed By: #### C BC #### [facility] [address] [place] [address] Dr. Merritt Agudelo Hematocrit (Bld) [Volume fraction] 38.9 % Normal 36.0-48.0 [facility] Comment on above: Performed By: #### C BC #### [facility] [address] [place] [address] Dr. Merritt Agudelo Hemoglobin (Bld) [Mass/Vol] 12.9 g/dL Normal 12.0-16.0 [facility] Comment on above: Performed By: #### C BC #### [facility] [address] [place] [address] Dr. Merritt Agudelo IG # 0.04 10e3/ul Critically high 0.00-0.03 [facility] Comment on above: Performed By: #### C BC #### [facility] [address] [place] [address] Dr. Merritt Agudelo IG % 0.4 % Normal 0.0-0.5 [facility] Comment on above: Performed By: #### C BC #### [facility] [address] [place] [address] Dr. Merritt Agudelo LYMPH # 3.0 103/ul Normal 1.2-3.8 [facility] Comment on above: Performed By: #### C BC #### [facility] [address] [place] [address] Dr. Merritt Agudelo Lymphocytes/100 WBC (Bld) 27.1 % Normal 20.5-60.0 [facility] Comment on above: Performed By: #### C BC #### [facility] [address] [place] [address] Dr. Merritt Agudelo MANUAL DIFF REQ NO Normal [facility] Comment on above: Performed By: #### C BC #### [facility] [address] [place] [address] Dr. Merritt Agudelo MCH (RBC) [Entitic mass] 29.5 pg Normal 26.7-34.0 [facility] Comment on above: Performed By: #### C BC #### [facility] [address] [place] [address] Dr. Merritt Agudelo MCHC (RBC) [Mass/Vol] 33.2 g/dL Normal 29.9-35.2 [facility] Comment on above: Performed By: #### C BC #### [facility] [address] [place] [address] Dr. Merritt Agudelo MCV (RBC) [Entitic vol] 89.0 fL Normal 81.0-99.0 [facility] Comment on above: Performed By: #### C BC #### [facility] [address] [place] [address] Dr. Merritt Agudelo MONO # 0.8 103/ul Normal 0.3-0.8 [facility] Comment on above: Performed By: #### C BC #### [facility] [address] [place] [address] Dr. Merritt Agudelo Monocytes/100 WBC (Bld) 7.2 % Normal 1.7-12.0 [facility] Comment on above: Performed By: #### C BC #### [facility] [address] [place] [address] Dr. Merritt Agudelo NEUT # 7.1 103/ul Critically high 1.4-6.5 [facility] Comment on above: Performed By: #### C BC #### [facility] [address] [place] [address] Dr. Merritt Agudelo Neutrophils/100 WBC (Bld) 63.4 % Normal 43.0-75.0 [facility] Comment on above: Performed By: #### C BC #### [facility] [place] [facility] [address] [place], [place] [address] Dr. Merritt Agudelo Platelet mean volume (Bld) [Entitic vol] 9.3 fL Critically low 9.5-13.5 [facility] Comment on above: Performed By: #### C BC #### [facility] [id number] Merritt Agudelo PLT 270 103/ul Normal 150-450 [facility] Comment on above: Performed By: #### C BC #### [facility] [address] [address] [address] Merritt Agudelo RBC 4.37 106/ul Normal 4.20-5.40 [facility] Comment on above: Performed By: #### C BC #### [facility] [address] [address] [address] Merritt Agudelo WBC 11.2 103/ul Critically high 4.0-11.0 [facility] Comment on above: Performed By: #### C BC #### [facility] [place] [facility] [address] [address] [address] ABD/PELVIS WO CONon [...] WALLY RIOS Date: 2022-05-27 02:16 Normal [facility] URINE PROFILEon 2 Bilirubin Ql (U) Negative Normal NEGATIVE [facility] Comment on above: Performed By: #### U MICRO, ERUR #### [facility] [address] [place] [address] Dr. Merritt Agudelo Clarity (U) CLEAR Normal CLEAR [facility] Comment on above: Performed By: #### U MICRO, ERUR #### [facility] [address] [address] [address] Merritt Agudelo Color (U) YELLOW Normal YELLOW [facility] Comment on above: Performed By: #### U MICRO, ERUR #### [facility] [address] [address] [address] Merritt Agudelo ERUAHD A micrscopic examina tion will be performed if indicated. Normal [facility] Comment on above: Performed By: #### U MICRO, ERUR #### [facility] [address] [place] [address] Dr. Merritt Agudelo Glucose Ql (U) Negative Normal NEGATIVE [facility] Comment on above: Performed By: #### U MICRO, ERUR #### [facility] [address] [address] [address] Merritt Agudelo Hemoglobin Ql (U) LARGE Abnormal NEGATIVE [facility] Comment on above: Performed By: #### U MICRO, ERUR #### [facility] [address] [address] [address] Merritt Agudelo Ketones Ql (U) Negative Normal NEGATIVE [facility] Comment on above: Performed By: #### U MICRO, ERUR #### [facility] [address] [address] [address] Merritt Agudelo LEUKOCYTES Negative Normal NEGATIVE [facility] Comment on above: Performed By: #### U MICRO, ERUR #### [facility] [address] [place] [address] Dr. Merritt Agudelo Nitrite Ql (U) Negative Normal NEGATIVE [facility] Comment on above: Performed By: #### U MICRO, ERUR #### [facility] [address] [place] [address] Dr. Merritt Agudelo pH (U) 5.0 [pH] Normal 5-9 [facility] Comment on above: Performed By: #### U MICRO, ERUR #### [facility] [address] [place] [address] Dr. Merritt Agudelo SPEC GRAVITY >=1.030 Abnormal 1.005-<=1.02 5 [facility] Comment on above: Performed By: #### U MICRO, ERUR #### [facility] [address] [place] [address] Dr. Merritt Agudelo UA PROTEIN Negative Normal NEGATIVE/ TRACE [facility] Comment on above: Performed By: #### U MICRO, ERUR #### [facility] [address] [place] [address] Dr. Merritt Agudeol UR MICRO IND INDICATED Normal [facility] Comment on above: Performed By: #### U MICRO, ERUR #### [facility] [address] [place] [address] Dr. Merritt Agudelo Urobilinogen Qn (U) 0.2 {Rachid'U}/dL Normal 0.2 - 1. 0 [facility] Comment on above: Performed By: #### U MICRO, ERUR #### [facility] [address] [address] [address] Merritt Agudelo PROF CHEM 8 (BAS METB)on Anion gap [Moles/Vol] 10.8 mmol/L Normal [facility] Comment on above: Performed By: #### B MP #### [facility] [address] [address] [address] Merritt Agudelo Calcium [Mass/Vol] 9.3 mg/dL Normal 8.5-10.1 [facility] Comment on above: Performed By: #### B MP #### [facility] [place] [facility] [address] [address] [address] Merritt Agudelo Chloride [Moles/Vol] 104 mmol/L Normal 98-107 [facility] Comment on above: Performed By: #### B MP #### [facility] [place] [facility] [address] [address] [address] Merritt Agudelo CO2 [Moles/Vol] 28.6 mmol/L Normal 21.0-32.0 [facility] Comment on above: Performed By: #### B MP #### [facility] [place] [facility] [address] [address] [address] Merritt Agudelo Creatinine [Mass/Vol] 1.28 mg/dL Critically high 0.55-1.02 [facility] Comment on above: Performed By: #### B MP #### [facility] [place] [facility] [address] [address] [address] Merritt Agudelo EGFR-AF WELSH 52 mL/min/1.73m2 Critically low >=60 [facility] Comment on above: Performed By: #### B MP #### [facility] [place] [facility] [address] [address] [address] Merritt Agudelo EGFR-NON AF WELSH 43 mL/min/1.73m2 Critically low >=60 [facility] Comment on above: Performed By: #### B MP #### [facility] [place] [facility] [address] [address] [address] Merritt Agudelo Glucose [Mass/Vol] 127 mg/dL Critically high 74-106 [facility] [place] [facility] Comment on above: Performed By: #### B MP #### [facility] [place] [facility] [address] [address] [address] Merritt Agudelo Potassium [Moles/Vol] 3.4 mmol/L Critically low 3.5-5.1 [facility] Comment on above: Performed By: #### B MP #### [facility] [place] [facility] [address] [address] [address] Merritt Agudelo Sodium [Moles/Vol] 140 mmol/L Normal 136-145 [facility] Comment on above: Performed By: #### B MP #### [facility] [place] [facility] [address] [address] [address] Merritt Agudelo Urea nitrogen [Mass/Vol] 19.0 mg/dL Critically high 7.0-18.0 [facility] Comment on above: Performed By: #### B MP #### [facility] [address] [address] [address] Merritt Agudelo Urea nitrogen/Creatinine [Mass ratio] 14.8 mg/mg Normal [facility] Comment on above: Performed By: #### B MP #### [facility] [address] [address] [address] Merritt Agudelo URINE MICROSCOPIC ONLYon BACTERIA TRACE Abnormal NONE SEEN [facility] Comment on above: Performed By: #### U MICRO, ERUR #### [facility] [place] [facility] [address] [place] [address] Dr. Merritt Agudelo Bacteria identified Cx Nom (U) NOT INDICATED Normal [facility] Comment on above: Performed By: #### U MICRO, ERUR #### [facility] [place] [facility] [address] [address] [address] Merritt Agudelo CAST NONE SEEN Normal NONE SEEN [facility] Comment on above: Performed By: #### U MICRO, ERUR #### [facility] [address] [place] [address] Dr. Merritt Agudelo Crystals LM Nom (Urine sed) NONE SEEN Normal NONE SEEN [facility] Comment on above: Performed By: #### U MICRO, ERUR #### [facility] [address] [place] [address] Dr. Merritt Agudelo Epithelial cells LM Ql (Urine sed) RARE Normal NONE SEEN /RARE [facility] Comment on above: Performed By: #### U MICRO, ERUR #### [facility] [address] [place] [address] Dr. Merritt Agudelo MUCOUS NONE SEEN Normal NONE SEEN [facility] Comment on above: Performed By: #### U MICRO, ERUR #### [facility] [address] [place] [address] Dr. Merritt Agudelo RBC 20-50 Abnormal 0-2 [facility] Comment on above: Performed By: #### U MICRO, ERUR #### [facility] [address] [place] [address] Dr. Merritt Agudelo WBC NONE SEEN Normal NONE SEEN [facility] Comment on above: Performed By: #### U MICRO, ERUR #### [facility] [address] [place] [address] Dr. Merritt Agudelo CBC AUTO DIFFon 05-26-2022 BASO # 0.0 103/ul Normal 0.0-0.1 [facility] Comment on above: Performed By: #### C BC #### [facility] [address] [place] [address] Dr. Merritt Agudelo Basophils/100 WBC (Bld) 0.4 % Normal 0.2-2.0 [facility] Comment on above: Performed By: #### C BC #### [facility] [address] [place] [address] Dr. Merritt Agudelo EO # 0.1 103/ul Normal 0.0-0.7 [facility] Comment on above: Performed By: #### C BC #### [facility] [address] [place] [address] Dr. Merritt Agudelo Eosinophils/100 WBC (Bld) 1.9 % Normal 0.9-7.0 [facility] Comment on above: Performed By: #### C BC #### [facility] [address] [place] [address] Dr. Merritt Agudelo Erythrocyte distribution width (RBC) [Ratio] 12.5 % Normal 11.0-15.0 [facility] Comment on above: Performed By: #### C BC #### [facility] [address] [place] [address] Dr. Merritt Agudelo Hematocrit (Bld) [Volume fraction] 37.7 % Normal 36.0-48.0 [facility] Comment on above: Performed By: #### C BC #### [facility] [address] [place] [address] Dr. Merritt Agudelo Hemoglobin (Bld) [Mass/Vol] 12.5 g/dL Normal 12.0-16.0 [facility] Comment on above: Performed By: #### C BC #### [facility] [address] [place] [address] Dr. Merritt Agudelo IG # 0.01 10e3/ul Normal 0.00-0.03 [facility] Comment on above: Performed By: #### C BC #### [facility] [address] [place] [address] Dr. Merritt Agudelo IG % 0.2 % Normal 0.0-0.5 [facility] Comment on above: Performed By: #### C BC #### [facility] [address] [place] [address] Dr. Merritt Agudelo LYMPH # 1.3 103/ul Normal 1.2-3.8 [facility] Comment on above: Performed By: #### C BC #### [facility] [address] [place] [address] Dr. Merritt Agudelo Lymphocytes/100 WBC (Bld) 24.2 % Normal 20.5-60.0 [facility] Comment on above: Performed By: #### C BC #### [facility] [address] [place] [address] Dr. Merritt Agudelo MANUAL DIFF REQ NO Normal [facility] Comment on above: Performed By: #### C BC #### [facility] [address] [place] [address] Dr. Merritt Agudelo MCH (RBC) [Entitic mass] 29.3 pg Normal 26.7-34.0 [facility] Comment on above: Performed By: #### C BC #### [facility] [address] [address] [address] Merritt Agudelo MCHC (RBC) [Mass/Vol] 33.2 g/dL Normal 29.9-35.2 [facility] Comment on above: Performed By: #### C BC #### [facility] [address] [address] [address] Merritt Agudelo MCV (RBC) [Entitic vol] 88.3 fL Normal 81.0-99.0 [facility] Comment on above: Performed By: #### C BC #### [facility] [address] [place] [address] Dr. Merritt Agudelo MONO # 0.4 103/ul Normal 0.3-0.8 [facility] Comment on above: Performed By: #### C BC #### [facility] [address] [place] [address] Dr. Merritt Agudelo Monocytes/100 WBC (Bld) 7.9 % Normal 1.7-12.0 [facility] Comment on above: Performed By: #### C BC #### [facility] [address] [address] [address] Merritt Agudelo NEUT # 3.4 103/ul Normal 1.4-6.5 [facility] Comment on above: Performed By: #### C BC #### [facility] [address] [place] [address] Dr. Merritt Agudelo Neutrophils/100 WBC (Bld) 65.4 % Normal 43.0-75.0 [facility] Comment on above: Performed By: #### C BC #### [facility] [address] [place] [address] Dr. Merritt Agudelo Platelet mean volume (Bld) [Entitic vol] 9.3 fL Critically low 9.5-13.5 [facility] Comment on above: Performed By: #### C BC #### [facility] [address] [place] [address] Dr. Merritt Agudelo PLT 209 103/ul Normal 150-450 [facility] Comment on above: Performed By: #### C BC #### [facility] [address] [place] [address] Dr. Merritt Agudelo RBC 4.27 106/ul Normal 4.20-5.40 [facility] Comment on above: Performed By: #### C BC #### [facility] [address] [address] [address] Merritt Agudelo WBC 5.2 103/ul Normal 4.0-11.0 [facility] Comment on above: Performed By: #### C BC #### [facility] [address] [place] [address] Dr. Merritt Agudelo LIPID PROFILEon 05-26-2022 CHOL-HDL RATIO NORM SEE BELOW Normal [facility] Comment on above: Result Comment: 3.3 - 4.4 LOW RISK 4.4 - 7.1 AVERAGE RISK 7.1 - 11.0 MODERATE RISK >11.0 HIGH RISK Performed By: #### C MP, LIPID #### [facility] [address] [place] [address] Dr. Merritt Agudelo Cholesterol [Mass/Vol] 166 mg/dL Normal <=200 [facility] Comment on above: Performed By: #### C MP, LIPID #### [facility] [address] [place] [address] Dr. Merritt Agudelo Cholesterol in HDL [Mass/Vol] 71 mg/dL Critically high 40-60 [facility] Comment on above: Performed By: #### C MP, LIPID #### [facility] [address] [place] [address] Dr. Merritt Agudelo Cholesterol in LDL [Mass/Vol] 84.2 mg/dL Normal [facility] Comment on above: Performed By: #### C MP, LIPID #### [facility] [address] [place] [address] Dr. Merritt Agudelo Cholesterol.total/Ch olesterol in HDL [Mass ratio] 2.3 {ratio} Normal [facility] Comment on above: Performed By: #### C MP, LIPID #### [facility] [address] [place] [address] Dr. Merritt Agudelo HDL NORMAL > or = 60 mg/dl - LO W CARDIOVASCULAR RISK <40 mg/dl - HIGH CARDIOVASCULAR RISK Normal [facility] Comment on above: Performed By: #### C MP, LIPID #### [facility] [address] [address] [address] Merritt Agudelo LDL CALC NORMAL SEE BELOW Normal [facility] Comment on above: Result Comment: <100 mg/dl OPTIMAL 100 - 129 mg/dl NEAR OR ABOVE OPTIMAL 130 - 159 mg/dl BORDERLINE HIGH 160 - 189 mg/dl HIGH >190 mg/dl VERY HIGH Performed By: #### C MP, LIPID #### [facility] [address] [address] [address] Merritt Agudelo Triglyceride [Mass/Vol] 54 mg/dL Normal <=150 [facility] Comment on above: Performed By: #### C MP, LIPID #### [facility] [address] [address] [address] Merritt Agudelo VLDL CALC 10.8 mg/dL Normal [facility] Comment on above: Performed By: #### C MP, LIPID #### [facility] [address] [place] [address] Dr. Merritt Agudelo PROF 14(COMP METB)on 05-26- 022 Albumin [Mass/Vol] 4.0 g/dL Normal 3.4-5.0 [facility] Comment on above: Performed By: #### C MP, LIPID #### [facility] [address] [place] [address] Dr. Merritt Agudelo Albumin/Globulin [Mass ratio] 1.1 {ratio} Normal [facility] Comment on above: Performed By: #### C MP, LIPID #### [facility] [address] [address] [address] Merritt Agudelo ALP [Catalytic activity/Vol] 68 U/L Normal 46-116 [facility] Comment on above: Performed By: #### C MP, LIPID #### [facility] [address] [address] [address] Merritt Agudelo ALT [Catalytic activity/Vol] 22 U/L Normal 14-59 [facility] Comment on above: Performed By: #### C MP, LIPID #### [facility] [address] [address] [address] Merritt Agudelo Anion gap [Moles/Vol] 9.9 mmol/L Normal [facility] Comment on above: Performed By: #### C MP, LIPID #### [facility] [address] [address] [address] Merritt Agudelo AST [Catalytic activity/Vol] 21 U/L Normal 15-37 [facility] Comment on above: Performed By: #### C MP, LIPID #### [facility] [address] [address] [address] Merritt Agudelo Bilirubin [Mass/Vol] 0.3 mg/dL Normal 0.2-1.0 [facility] Comment on above: Performed By: #### C MP, LIPID #### [facility] [address] [place] [address] Dr. Merritt Agudelo Calcium [Mass/Vol] 9.2 mg/dL Normal 8.5-10.1 [facility] Comment on above: Performed By: #### C MP, LIPID #### [facility] [address] [address] [address] Merritt Agudelo Chloride [Moles/Vol] 105 mmol/L Normal 98-107 [facility] Comment on above: Performed By: #### C MP, LIPID #### [facility] [address] [address] [address] Merritt Agudelo CO2 [Moles/Vol] 27.2 mmol/L Normal 21.0-32.0 [facility] Comment on above: Performed By: #### C MP, LIPID #### [facility] [address] [address] [address] Merritt Agudelo Creatinine [Mass/Vol] 0.68 mg/dL Normal 0.55-1.02 [facility] Comment on above: Performed By: #### C MP, LIPID #### [facility] [address] [address] [address] Merritt Agudelo EGFR-AF WELSH >60 Normal >=60 [facility] Comment on above: Performed By: #### C MP, LIPID #### [facility] [address] [address] [address] Merritt Agudelo EGFR-NON AF WELSH >60 Normal >=60 [facility] Comment on above: Performed By: #### C MP, LIPID #### [facility] [address] [address] [address] Merritt Agudelo Globulin (S) [Mass/Vol] 3.6 g/dL Normal [facility] Comment on above: Performed By: #### C MP, LIPID #### [facility] [address] [address] [address] Merritt Agudelo Glucose [Mass/Vol] 96 mg/dL Normal 74-106 [facility] Comment on above: Performed By: #### C MP, LIPID #### [facility] [address] [address] [address] Merritt Agudelo Potassium [Moles/Vol] 4.1 mmol/L Normal 3.5-5.1 [facility] Comment on above: Performed By: #### C MP, LIPID #### [facility] [address] [address] [address] Merritt Agudelo Protein [Mass/Vol] 7.6 g/dL Normal 6.4-8.2 [facility] Comment on above: Performed By: #### C MP, LIPID #### [facility] [address] [address] [address] Merritt Agudelo Sodium [Moles/Vol] 138 mmol/L Normal 136-145 [facility] Comment on above: Performed By: #### C MP, LIPID #### [facility] [address] [address] [address] Merritt Agudelo Urea nitrogen [Mass/Vol] 16.0 mg/dL Normal 7.0-18.0 [facility] Comment on above: Performed By: #### C MP, LIPID #### [facility] [address] [address] [address] Merritt Agudelo Urea nitrogen/Creatinine [Mass ratio] 23.5 mg/mg Normal [facility] Comment on above: Performed By: #### C MP, LIPID #### [facility] [address] [address] [address] Merritt Agudelo CYTOLOGYon 03-14-2017 CYTOLOGY Specimen #: [id number] Physician: ANKIT RICHARDSPECCOURTNEY SUBMITTEDA: CERVICAL, SCREENING, FLUID FINAL DIAGNOSISA. CERVICAL, SCREENING, FLUIDSatisfactory for interpretation.Negative for intraepithelial lesion or malignancy.Atrophic specimen.This specimen has been analyzed by the ThinPrep Imaging System, anautMatchfund imaging and review system, which assists the laboratory inevaluating cells on ThinPrep Pap tests. Following automated imaging,selected adan from every slide are reviewed by a newspaper editor.TYLOR Mcdonald(ASCP) (Electronic Signature) CLINICAL DATA PAP Source: Cervical-PFCERSMenstrual History:Post-Menopausal: 2014Clinical History:ROUTINEAdditional Testing:Reflex HPV testing for ASCUSSTAINSA: CERVICAL, SCREENING, FLUID THIN PREP Jamal Hagen M.D., Laboratory DirectorPatient ID #: [id number] [id number] Report: 03/17/2017Date of Procedure: 03/14/2017Date of Receipt: 03/15/2017Submitted by: ANKIT JEANLocation: Diagnostic interpretation performed at [facility], [address] [place] [address].The Pap Smear is a screening test for cervical cancer. False negativeresults occur with all screening tests, emphasizing the need forrescreening at recommended intervals, and clinical correlation. Normal [facility] Comment on above: Performed By: #### C ####See report for performing lab information. Vital Signs Date Time Vital Sign Value Performing Clinician Facility 02-18-2025 14:02-0400 Body height 165.1 cm Tony Argueta MD Work Phone: [facility] 02-18-2025 14:02-0400 Body mass index (BMI) [Ratio] 30.12 kg/m2 Tony Argueta MD Work Phone: [facility] 02-18-2025 14:02-0400 Body weight 82.1 kg Tony Argueta MD Work Phone: [facility] 02-18-2025 14:02-0400 Diastolic blood pressure 74 mm[Hg] Tony Argueta MD Work Phone: [facility] 02-18-2025 14:02-0400 Heart rate 95 /min Tony Argueta MD Work Phone: [facility] 02-18-2025 14:02-0400 SaO2% (BldA) [Mass fraction] 99 % Tony Argueta MD Work Phone: [facility] 02-18-2025 14:02-0400 Systolic blood pressure 122 mm[Hg] Tony Argueta MD Work Phone: [facility] 11-27-2024 13:49-0400 Body height 165.1 cm Tony Argueta MD Work Phone: [facility] 11-27-2024 13:49-0400 Body mass index (BMI) [Ratio] 29.29 kg/m2 Tony Argueta MD Work Phone: [facility] 11-27-2024 13:49-0400 Body weight 79.83 kg Tony Argueta MD Work Phone: [facility] 03-12-2024 08:03-0400 Blood Pressure Location Leslie Lucio [facility] 03-12-2024 08:03-0400 Diastolic blood pressure 84 mm[Hg] Leslie Lucio [facility] 03-12-2024 08:03-0400 Heart rate 76 /min Leslie Lucio [facility] 03-12-2024 08:03-0400 Systolic blood pressure 136 mm[Hg] Leslie Orzech [facility] 08-16-2023 08:09-0500 Body height 165.1 cm Tony Argueta MD Work Phone: [facility] 08-16-2023 08:09-0500 Body mass index (BMI) [Ratio] 29.29 kg/m2 Tony Argueta MD Work Phone: [facility] 08-16-2023 08:09-0500 Body weight 79.83 kg Tony Argueta MD Work Phone: [facility] 08-16-2023 08:09-0500 Diastolic blood pressure 78 mm[Hg] Tony Argueta MD Work Phone: [facility] 08-16-2023 08:09-0500 Heart rate 72 /min Tony Argueta MD Work Phone: [facility] 08-16-2023 08:09-0500 SaO2% (BldA) [Mass fraction] 95 % Tony Argueta MD Work Phone: [facility] 08-16-2023 08:09-0500 Systolic blood pressure 126 mm[Hg] Tony Argueta MD Work Phone: [facility] 03-06-2023 15:36-0400 Blood Pressure Location Tex QUIROZ [facility] 03-06-2023 15:36-0400 Diastolic blood pressure 83 mm[Hg] Tex QUIROZ [facility] 03-06-2023 15:36-0400 Heart rate 71 /min Tex QUIROZ [facility] 03-06-2023 15:36-0400 Respiratory rate 16 /min Tex QUIROZ [facility] 03-06-2023 15:36-0400 Systolic blood pressure 126 mm[Hg] Tex QUIROZ [facility] 09-06-2022 08:47-0500 Blood Pressure Location Betzy Donis [facility] 09-06-2022 08:47-0500 Body temperature 96.8 [degF] Betzyjovanna OreillyJewels [facility] 09-06-2022 08:47-0500 Diastolic blood pressure 82 mm[Hg] Betzy Oreillymetz [facility] 09-06-2022 08:47-0500 Heart rate 85 /min Betzy Oreillymetz [facility] 09-06-2022 08:47-0500 Systolic blood pressure 117 mm[Hg] Betzy Oreillymetz [facility] 06-13-2022 11:38-0500 Blood Pressure Location Tex QUIROZ [facility] 06-13-2022 11:38-0500 Diastolic blood pressure 83 mm[Hg] Tex QUIROZ [facility] 06-13-2022 11:38-0500 Heart rate 75 /min Tex QUIROZ [facility] 06-13-2022 11:38-0500 Respiratory rate 16 /min Tex QUIROZ [facility] 06-13-2022 11:38-0500 Systolic blood pressure 129 mm[Hg] Tex QUIROZ [facility] Encounters Encounter Date Encounter Type Care Provider Facility Start: 03-24-2025 ambulatory JOSEOLINDA AC Ousmane ty:LOIDA Gonzalez Start: 02-18-2025 End: 02-18-2025 Bamboo flowsheet Tony Argueta MD Work Phone: [place] [phone] [facility] Start: 02-18-2025 End: 02-18-2025 Bamboo flowsheet Tony Argueta MD Work Phone: [place] [phone] [facility] Start: 02-18-2025 End: 02-18-2025 Patient encounter status Tony Argueta MD Work Phone: [facility] Start: 02-18-2025 End: 02-18-2025 Periodic preventive med est patient 40-64yrs Tony Argueta MD Work Phone: [place] [phone] [facility] Comment on above: Encounter for wellne ss examination in adult; Advance directive in chart; Screening for diabetes mellitus (DM); Encounter for lipid screening for cardiovascular disease; Screening for osteoporosis; Menopause; Eye exam abnormal; Weight gain finding; Non morbid obesity due to excess calories Start: 02-18-2025 End: 02-18-2025 ambulatory TONY ARGUETA Not Available Start: 11-27-2024 End: 11-27-2024 Bamboo flowsheet Tony Argueta MD Work Phone: [facility] Start: 11-27-2024 End: 11-27-2024 Bamboo flowsheet Tony Argueta MD Work Phone: [facility] Start: 11-27-2024 End: 11-27-2024 ambulatory TONY ARGUETA Not Available Start: 11-27-2024 End: 11-27-2024 Office outpatient visit 15 minutes Tony Argueta MD Work Phone: [facility] Comment on above: Pneumonia of right l ower lobe due to infectious organism (Primary Dx); Acute cough Start: 03-12-2024 End: 03-12-2024 ambulatory Leslie Lucio Facility:[facility] Start: 03-12-2024 End: 03-12-2024 Patient encounter procedure Leslie Lucio [facility] Start: 08-16-2023 Bamboo flowsheet Tony blackburn MD Work Phone: [facility] Start: 08-16-2023 Bamboo flowsheet Tony blackburn MD Work Phone: [facility] Start: 08-16-2023 End: 08-16-2023 Patient encounter status [...] encounter procedure Tex QUIROZ [facility] Start: 09-06-2022 End: 09-06-2022 Patient encounter procedure Betzy Donis [facility] Start: 07-07-2022 Encounter for preprocedural laboratory examination DR TEX QUIROZ . [facility] Start: 07-07-2022 Encounter for preprocedural cardiovascular examination DR TEX QUIROZ . [facility] Start: 07-07-2022 End: 07-07-[address] ANKIT JEAN . Facility:[facility] Start: [...] encounter procedure Tex QUIROZ [facility] Start: 06-06-2022 End: 06-06-[address] ANKIT JEAN . Facility:[facility] Start: 06-06-2022 End: 06-06-[address] ANKIT JEAN . Facility:[facility] Start: 05-30-2022 Encounter for genera l adult medical examination without abnormal findings DR ANKIT JEAN . [facility] Start: 05-27-2022 End: 05-27-[address] ANKIT JEAN . Facility:[facility] Start: 05-26-2022 End: 05-27-[address] ANKIT JEAN . Facility:[facility] Start: 05-26-2022 End: 05-27-2022 Encounter for general adult medical examination without abnormal findings DR ANKIT JEAN . Facility:[facility] Procedures Date Procedure Procedure Detail Performing Clinician Start: 07-05-2024 Mammography Tony perez MD Work Phone: Start: 06-29-2023 Mammography Tony perez MD Work Phone: Start: 10-04-2022 Colonoscopy Tony perez MD Work Phone: Start: 04-03-2019 Colonoscopy Tony perez MD Work Phone: Augmentation mammoplasty Bethany QUIROZ Colonoscopy Tex QUIROZ Plan of Treatment Date Care Activity Detail Author Start: 10-04-2032 Screening for malign ant neoplasm of colon [facility] Start: 04-03-2029 Screening for malign ant neoplasm of colon [facility] Start: 06-06-2027 Screening for malign ant neoplasm of cervix [facility] Start: 07-05-2025 Screening for malign ant neoplasm of breast Mammogram [facility] Start: 05-09-2025 Influenza vaccination Influenza Vacc ine (#1) [facility] Comment on above: Postponed from 03/10 (Patient Refused) Start: 03-10-2025 Influenza vaccination N [facility] Start: 02-18-2025 End: 02-18-2026 Comprehensive metabolic 2000 panel - Serum or Plasma Comprehensive metabolic panel Lab Routine Encounter for wellness examination in adult Screening for diabetes mellitus (DM) Expected: 02/18/2025 (Approximate), Expires: 02/18/2026 [facility] Work Phone: Comment on above: Expected: 02/18/2025 (Approximate), Expires: 02/18/2026 Start: 02-18-2025 End: 02-18-2026 Lipid 1996 panel - Serum or Plasma Lipid panel Lab Routine Encounter for wellness examination in adult Encounter for lipid screening for cardiovascular disease Expected: 02/18/2025 (Approximate), Expires: 02/18/2026 [facility] Comment on above: Expected: 02/18/2025 (Approximate), Expires: 02/18/2026 Start: 02-18-2025 End: 02-18-2026 Measurement of glucose 2 hours after glucose challenge for glucose tolerance test Glucose tolerance, 2 hours Lab Routine Screening for diabetes mellitus (DM) Eye exam abnormal Weight gain finding Expected: 02/18/2025 (Approximate), Expires: 02/18/2026 [facility] Comment on above: Expected: 02/18/2025 (Approximate), Expires: 02/18/2026 Start: 02-18-2025 End: 02-18-2025 Patient encounter procedure 02/18/2025 2:00 PM EDT Office Visit [facility] [place] [address] [place] [id number] Tony Argueta MD [address] [place] [address] (Fax) Encounter for wellness examination in adult; Advance directive in chart; Screening for diabetes mellitus (DM); Encounter for lipid screening for cardiovascular disease; Screening for osteoporosis; Menopause; Overweight (BMI 25.0-29.9) [facility] Comment on above: Encounter for wellne ss examination in adult; Advance directive in chart; Screening for diabetes mellitus (DM); Encounter for lipid screening for cardiovascular disease; Screening for osteoporosis; Menopause; Overweight (BMI 25.0-29.9) Start: 06-29-2024 Screening for malign ant neoplasm of breast Mammogram [facility] Start: 08-16-2023 End: 08-16-2023 Patient encounter procedure 08/16/2023 8:00 AM EST Office Visit [facility] [address] [place] [address] Tony Argueta MD [address] [place] [address] (Fax) [facility] Start: 03-10-2023 Influenza vaccination Influenza Vacc ine (#1) [facility] Start: 1996 Screening for malign ant neoplasm of cervix [facility] Start: 1987 Screening for malign ant neoplasm of cervix Pap Smear [facility] Start: 1965 Screening for malign ant neoplasm of colon [facility] Immunizations Immunization Date Immunization Notes Care Provider [facility] 04-26-2022 influenza virus vaccine, unspecified formulation Betzy Donis [facility] 04-26-2022 influenza, seasonal, injectable Tony Argueta MD Work Phone: [facility] 10-29-2020 SARS-CoV-2 (COVID-19 ) mRNA BNT-162a5 vax Betzy Donis [facility] 10-09-2020 SARS-CoV-2 (COVID-19 ) mRNA BNT-162b2 vax Betzy Jewels [facility] Payers Date Payer Category Payer Blue Cross Blue Shield BCBS [id number] 2024 Unknown [id number] 2023 Unknown STEFFANIENATALIO Saavedra STEFFANIENATALIO AUBURN [employer] [id number] 2023-Present [phone] [address] [place] [address] [id number] 1966 Unknown [id number] 2.16.840.1.631839.3.579. 2.593 1966 Unknown [id number] 2.16.840.1.176871.3.579. 2.593 1966 Unknown [id number] 2.16.840.1.566991.3.579. 2.593 1966 Unknown [id number] 2.16.840.1.296592.3.579. 2.593 1966 Unknown [id number] 2.16.840.1.214697.3.579. 2.593 1966 Unknown [id number] 2.16.840.1.564536.3.579. 2.593 1966 Unknown [id number] 2.16.840.1.401795.3.579. 2.593 1966 Unknown [id number] 2.16.840.1.079855.3.579. 2.593 1966 Unknown [id number] 2.16.840.1.376564.3.579. 2.593 1966 Unknown [id number] 2.16.840.1.691104.3.579. 2.593 1966 Unknown [id number] 2.16.840.1.099014.3.579. 2.727 1966 Unknown [id number] 2.16.840.1.990062.3.579. 2.727 1966 Unknown [id number] 2.16.840.1.270740.3.579. 2.1259 1966 Unknown [id number] 2.16.840.1.991671.3.579. 2.1259 1959 Unknown [id number] Unknown [id number] Social History Date Type Detail Facility Start: 06-13-2022 End: 08-15-2023 Tobacco smoking status Never smoked tobacco (finding) [facility] Start: 08-15-2023 End: 11-27-2024 Sex Assigned At Female [facility] Start: 08-15-2023 Tobacco use and exposure Smokeless tobacco non-user [facility] Start: 08-15-2023 End: 03-14-2025 Alcohol intake Current drinker of alcohol (finding) [facility] Start: 1965 Sex Assigned At Not on file [facility] Start: 08-15-2023 End: 11-27-2024 History of Social function [facility] How often do you nee d to have someone help you when you read instructions, pamphlets, or other written material from your doctor or pharmacy [SILS] Never [facility] Within the last year , have you been afraid of your partner or ex-partner? No [facility] Are you now , , , , never or living with a partner? [facility] How often to you hav e a drink containing alcohol? 2-4 times a month [facility] How many standard drinks containing alcohol do you have on a typical day? 3 or 4 [facility] Do you feel stress - tense, restless, nervous, or anxious, or unable to sleep at night because your mind is troubled all the time - these days [OSQ] Not at all [facility] (I/We) worried whe er (my/our) food would run out before (I/we) got money to buy more. Never true [facility] Functional Status Date Assessment Result Facility 02-18-2025 Patient Health Quest ionnaire 2 item (PHQ-2) [Reported] [facility] 11-27-2024 Patient Health Quest ionnaire 2 item (PHQ-2) [Reported] [facility] 11-27-2024 Total score [AUDIT-C] 3 11/28/19 11:39 AM EDT Mychart, Generic [facility] 11-27-2024 How often to you hav e a drink containing alcohol? 2-4 times a month 11/27/2024 11:39 AM EDT Mychart, Generic 2-4 times a month [facility] 11-27-[address] inks containing alcohol do you have on a typical day? 3 or 4 11/27/2024 11:39 AM EDT Mychart, Generic 3 or 4 [facility] 11-27-2024 How often do you hav e 6 or more drinks on 1 occasion? Never 11/27/2024 11:39 AM EDT Mychart, Generic Never [facility] 03-12-2024 Functional Status N/A [facility] 03-06-2023 Functional Status N/A [facility] 09-06-2022 Functional Status N/A [facility] 06-13-2022 Functional Status N/A [facility] Clinical Notes 06-13-2022 to 02-18-2025 Tony Argueta MD - 02/18/2025 2:00 PM Brett Argueta MD - 11/27/2024 1:45 PM Brett Argueta MD - 08/16/2023 8:00 AM ESTRadiology Note Date & Type Note Facility 02-18-2025 History of Present illness Narrative Images from the original note were not included. Patient ID: Kiara Moya is a 59 y.o. female who presents for: Adult Wellness: See Scanned Wellness packet Advance Directive/Living Will: Yes Health Care Power of Forest Aide: Yes We got an eye exam from Dr Lawson and she wanted to have EH test her for DM. See scanned exam. Review of Systems Constitutional: Negative for appetite change, chills, fever and unexpected weight change. Eyes: Positive for visual disturbance. Negative for photophobia, pain, discharge, redness and itching. Breasts: Negative for breast mass and breast discharge. Respiratory: Negative for cough, shortness of breath and wheezing. Cardiovascular: Negative for chest pain, palpitations and leg swelling. Gastrointestinal: Negative for abdominal pain, constipation and diarrhea. Genitourinary: Negative for frequency and urgency. Neurological: Negative for light-headedness and headaches. Psychiatric/Behavioral: [...] breath sounds are symmetrical without evidence of rhonchi or rales. No wheezing. The skin is warm and dry. The lower extremities have trace edema. Neurologic screening exam is nonfocal. The patient is alert. There is no overt gross evidence of cognitive impairment The patient has good eye contact and speech is clear. Appropriate affect. 02/18/2025 2:02 PM 11/27/2024 1:49 PM 08/16/2023 8:09 AM 08/15/2022 12:00 PM Vitals BMI 30.12 kg/m2 29.29 kg/m2 29.29 kg/m2 26.79 kg/m2 BSA (m2) 1.94 m2 1.91 m2 1.91 m2 1.83 m2 Systolic 122 126 118 Diastolic 74 78 70 Heart Rate 95 72 SpO2 99 % 95 % Height (in) 5' 5 5' 5 5' 5 5' 5 Weight (lb) 181 176 176 161 Visit Report Report Report Report Allergies Allergen Reactions Amoxicillin Rash Current Outpatient Medications on File Prior to Visit Medication Sig Dispense Refill SUMAtriptan (Imitrex) 50 MG tablet Take 50 mg by mouth See administration instructions TAKE 1 TABLET BY MOUTH NEEDED FOR HEADACHE, may repeat in 2 HOURS if needed (max 2 per 24 HOURS, 5 per week) Klor-Con/EF 25 MEQ effervescent tablet Take 25 mEq by mouth in the morning and 25 mEq before bedtime. (Patient not taking: Reported on 02/18/2025) [DISCONTINUED] Kennedy DMT 30-30 MG tablet Take 1 tablet by mouth No current facility-administered medications on file prior to visit. 1. Encounter for wellness examination in adult I have reviewed the patients PMShx, medications, and reconciled the problem list. Health maintenance and risk was reviewed and discussed. I also reviewed and discussed as appropriate; immunizations, colon cancer screening, breast and cervical cancer screening, recommended and any current lab evaluation. All items were brought up to date unless declined by the patient. - Comprehensive metabolic panel; Future - Lipid panel; Future - Comprehensive metabolic panel - Lipid panel 2. Advance directive in chart No changes to advanced directives 3. Screening for diabetes mellitus (DM) - Comprehensive metabolic panel; Future - Glucose tolerance, 2 hours; Future - Comprehensive metabolic panel - Glucose tolerance, 2 hours 4. Encounter for lipid screening for cardiovascular disease - Lipid panel; Future - Lipid panel 5. Screening for osteoporosis While she is technically due for an osteoporosis screening, she is going to wait and get this linked up with her mammography to enhance future compliance. I do not see this delay as significant in long-term outcome. 6. Menopause 7. Eye exam abnormal We discussed if she truly wanted to know the diagnosis of diabetes or not then we should do the glucose tolerance test. - Glucose tolerance, 2 hours; Future - Glucose tolerance, 2 hours 8. Weight gain finding - Glucose tolerance, 2 hours; Future - Glucose tolerance, 2 hours 9. Non morbid obesity due to excess calories Encouraged lifestyle changes Please Note: Portions of this chart may have been created using voice recognition software. Occasionally a wrong-word or sound-like substitutions may have occurred due to inherent limitations of the voice recognition software. Please read the chart carefully and recognize, using context, where the substitutions may have occurred. documented in this encounter [facility] 11-27-2024 History of Present illness Narrative Images from the original note were not included. Patient ID: Kiara Moya is a 59 y.o. female who presents for: Upper Respiratory Infection Patient complains of symptoms of a URI, follow up on a URI. Symptoms include congestion, non productive cough, shortness of breath, and wheezing. Onset of symptoms was several days ago, and has been unchanged since that time. Treatment to date: capmist DM. Review of Systems Denies fever chills Denies nausea vomiting diarrhea Objective In general the patient is pleasant and in no acute distress. Bilateral ears, canals are within normal limits. Right TM is transparent and somewhat retracted. Left TM is transparent and somewhat retracted. No fluid layer. Bilateral nares demonstrate inflamed mucosa. Oropharynx has moist mucosa there is no specific evidence of thrush. There is mild erythema of the pharynx. Shoddy bilateral anterior cervical adenopathy. No signs of respiratory distress. Patient is speaking full sentences. There are asymmetrical breath sounds with a slight decrease in the right lower lung field. There is also a slight decrease in the percussion note, but enough the patient could tell. Some rales in the right lower lung field. No rhonchi are appreciated. No wheezes. Skin is warm and dry 08/15/2022 12:00 PM 08/16/2023 8:09 AM Vitals BMI 26.79 kg/m2 29.29 kg/m2 BSA (m2) 1.83 m2 1.91 m2 Systolic 118 126 Diastolic 70 78 Heart Rate 72 SpO2 95 % Height (in) 5' 5 5' 5 Weight (lb) 161 176 Visit Report Report Allergies Allergen Reactions Amoxicillin Rash Current Outpatient Medications on File Prior to Visit Medication Sig Dispense Refill Klor-Con/EF 25 MEQ effervescent tablet Take 25 mEq by mouth in the morning and 25 mEq before bedtime. SUMAtriptan (Imitrex) 50 MG tablet Take 50 mg by mouth See administration instructions TAKE 1 TABLET BY MOUTH NEEDED FOR HEADACHE, may repeat in 2 HOURS if needed (max 2 per 24 HOURS, 5 per week) No current facility-administered medications on file prior to visit. 1. Pneumonia of right lower lobe due to infectious organism (Primary) Acute problem. In prescribing a new medication consideration of the following encompasses moderate decision making: the current prescriptions and supplements, the current allergies and medication intolerances, the current medical conditions, and potential drug interactions. Risks, benefits, and reason for starting their medication were discussed. The patient was given a chance to ask questions today and all questions were answered. The patient is to contact us if any other questions arise or if any problems occur with the adjustment in their medication. - levoFLOXacin (Levaquin) 750 MG tablet; Take 1 tablet (750 mg) by mouth Daily for 10 days Dispense: 7 tablet; Refill: 0 2. Acute cough Acute problem and the patient is getting absolutely no sleep. She is starting to have musculoskeletal rib pain from all the coughing. She is extremely tired. We discussed several options. I specifically note the patient has one or more high risk medications that is a chronic problem that specifically increases complexity of decision making and complicates all prescribing including prescription renewal consistent with a moderate or complex degree of decision making. A high-risk medicine is one that may cause serious health problems if not taken the correct way, or taken with another drug or food item that it may interact with. If the high-risk medication includes a controlled or reportable substance, The OARRS and NARX scores were reviewed and seem to be consistent with their prescribing pattern. The Current Opioid Misuse Measure (COMM) is reviewed and there is no evidence of aberrant behavior or abuse. Treatment regimens are increasingly complex and potentially harmful, and people with high risk medications need regular review and prescribing optimization. PDMP reviewed, Tony Argueta MD on 11/27/2024 2:08 PM Appears as expected. - HYDROcodone Bit-Homatrop MBr (Hydromet) 5-1.5 MG/5ML solution; Take 5 mL by mouth at bedtime for 7 days Dispense: 35 mL; Refill: 0 documented in this encounter [facility] 03-12-2024 Hospital Discharge instructions Patient Education 03/12/2024 08:30:37 Kidney Stones, Njrg-dv-Dobe Kidney Stones Kidney stones are rock-like masses [...] Follow these instructions at home: Medicines Take mihu-jji-favbylx and prescription medicines only as told by [...] provider. Document Revised: 02/17/2023 Document Reviewed: 02/17/2023 [employer] Patient Education 2023 [employer] 03/12/2024 08:30:36 Dietary Guidelines to Help Prevent [...] include: ?8 oz (237 mL) of milk, jmyelee-parunejiwguf-uixxx milk, and calcium-fortifiedfruit juice. Calcium-fortified means that [...] ?Spinach (cooked), rhubarb, beets, sweet potatoes, and Greek chard. ?Peanuts. ?Potato chips, greek fries, and baked potatoes with skin on. ?Nuts and nut products. ?Chocolate. If you regularly take a diuretic medicine, make sure to eat at least 1 or 2 servings of fruits or vegetables that are high in potassium each day. These include: ?Avocado. ?Banana. ?[place], prune, carrot, or tomato juice. ?Baked potato. [...] magnesium, fish oil, or vitamin B6. Take ymgr-nhi-jaalbds and prescription medicines only as told by [...] Casseroles. Pizza. Lasagna. Frozen meals. Potato chips. Djiboutian fries. The items listed above may not [...] provider. Document Revised: 10/06/2022 Document Reviewed: 10/06/2022 [employer] Patient Education 2023 [employer]. Follow Up Care 03/06/2023 17:08:55 With:AMARILIS Lucio APRN, [place] [facility], FAM, URL Address: When: Unknown Comments:1 year with [facility] 03-12-2024 Note Patient Education Nephrology Dietary Guidelines [...] ? 8 oz (237 mL) of milk, sbfvrmg-wiqsynnrjtha-vgqkn milk, and calcium-fortifiedfruit juice. Calcium-fortified means that [...] Spinach (cooked), rhubarb, beets, sweet potatoes, and Greek chard. ? Peanuts. ? Potato chips, greek fries, and baked potatoes with skin on. ? Nuts and nut products. ? Chocolate. ? If you regularly take a diuretic medicine, make sure to eat at least 1 or 2 servings of fruits or vegetables that are high in potassium each day. These include: ? Avocado. ? Banana. ? [place], prune, carrot, or tomato juice. ? Baked [...] fish oil, or vitamin B6. ? Take rqkb-ral-qtelxkv and prescription medicines only as told by your health care provider. These include suppleme (more content not included)... [facility] 08-16-2023 History of Present illness Narrative Patient ID: Kiara Moya is a 58 y.o. female who presents for: See Scanned Wellness packet Advance Directive/Living Will: No Health Care Power of Forest Aide: No Review of Systems Constitutional: Negative for [...] LDL-C. Ryan ROSS et al. JOSEPH. 2013;310(19): 1619-2800 (http://education.[employer].com/faq/WOG756) CHOL/HDLC RATIO 08/09/2023 2.9 <5.0 (calc) Final [...] mL/min/1.73m2 Final BUN/CREATININE RATIO 08/09/2023 SEE NOTE: (calc) Final Comment: Not Reported: BUN and [...] a living will and durable power of real estate attorney for healthcare. We discussed telling varela people about their advance directives such as close family members and a copy will be kept in the EHR. I discussed that they should also make me an emergency contact in their cell phone, and/or notify their POA that I have a copy of the advanced directives. Overweight (BMI 25.0-29.9) documented in this encounter [facility] 03-06-2023 Hospital Discharge instructions Patient Education 03/06/2023 17:03:08 Dietary Guidelines [...] include: ?8 oz (237 mL) of milk, njqvoee-wwkayqqnizqy-pqfyy milk, and calcium-fortifiedfruit juice. Calcium-fortified means that [...] ?Spinach (cooked), rhubarb, beets, sweet potatoes, and Greek chard. ?Peanuts. ?Potato chips, greek fries, and baked potatoes with skin on. ?Nuts and nut products. ?Chocolate. If you regularly take a diuretic medicine, make sure to eat at least 1 or 2 servings of fruits or vegetables that are high in potassium each day. These include: ?Avocado. ?Banana. ?[place], prune, carrot, or tomato juice. ?Baked potato. [...] magnesium, fish oil, or vitamin B6. Take vbuk-qgp-xmqlwwp and prescription medicines only as told by [...] Casseroles. Pizza. Lasagna. Frozen meals. Potato chips. Djiboutian fries. The items listed above may not [...] provider. Document Revised: 03/07/2022 Document Reviewed: 03/07/2022 [employer] Patient Education 2022 [employer]. Follow Up Care 10/20/2022 10:19:07 With:RICHIE YANEZ, Tex Guzman, URL Address: [facility] [address] , [place] [address] [phone] When: Unknown Comments:1 yr w/ [facility] 09-06-2022 Hospital Discharge instructions Patient Education 09/06/2022 08:57:28 Colonoscopy, Adult [...] including vitamins, herbs, eye drops, creams, and xhif-bvt-padsemo medicines. Any problems you or family members [...] 06/23/2001 Document Revised: 04/18/2018 Document Reviewed: 09/06/2016 [employer] Patient Education 2020 [employer]. Follow Up Care 08/15/2022 14:12:55 With:Betzy Donis CNP Address: When:1 to 2 weeks Comments:Following colonoscopy. [facility] 06-13-2022 Hospital Discharge instructions Patient Education 06/13/2022 08:23:04 Dietary Guidelines [...] include: ?Spinach. ?Rhubarb. ?Beets. ?Potato chips and greek fries. ?Nuts. If you regularly take a diuretic medicine, make sure to eat at least 1 2 fruits or vegetables high in potassium each day. These include: ?Avocado. ?Banana. ?[place], prune, carrot, or tomato juice. ?Baked potato. [...] Casseroles. Pizza. Lasagna. Frozen meals. Potato chips. Djiboutian fries. Summary You can reduce your risk [...] 10/21/2011 Document Revised: 10/16/2019 Document Reviewed: 06/06/2017 [employer] Patient Education 2020 [employer]. Follow Up Care 06/06/2022 15:28:19 With:RICHIE YANEZ, Tex Guzman, URL Address: [facility] [address], [place] [address]- When: Unknown [facility] Evaluation + Plan note No data available for this section [facility] Evaluation + Plan note Future Appointments Appointment Date:03/18/2024 08:45:00 AM Scheduled Provider:Tex QUIROZ MD Location:[facility] Appointment Type:URO Office Visit Future Scheduled TestsXR Abdomen 1 View 10/20/22 [facility] Evaluation note Diagnosis Encounter for wellness examination in adult Advance directive discussed with patient Overweight (BMI 25.0-29.9) Overweight [facility] Diagnosis Pneumonia of right lower lobe due to infectious organism- Primary Acute cough [facility] Diagnosis Encounter for wellness examination in adult Advance directive in chart Screening for diabetes mellitus (DM) Screening for diabetes mellitus Encounter for lipid screening for cardiovascular disease Screening for osteoporosis Special screening for osteoporosis Menopause Symptomatic menopausal or female climacteric states Eye exam abnormal Other nonspecific (abnormal) findings on radiological and other examinations of body structure Weight gain finding Other symptoms concerning nutrition, metabolism, and development Non morbid obesity due to excess calories [facility] No data available for this section [facility] Summary Purpose Family History No Family History Records FoundNo Family History Records Found No data available for this section No Family History Records FoundNo Family History Records Found Advance Directives Documents on File Type Date Recorded 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 Collection Manager Relationship Specialty Start Date End Date Tony Argueta MD [address] [place] [address] (Fax) PCP - General Family Medicine 11/15/22 Credit And Collection Manager Relationship Specialty Start Date End Date Tony Argueta MD [address] [place] [address] (Fax) PCP - General Family Medicine 11/15/22 Credit And Collection Manager Relationship Specialty Start Date End Date Tony Argueta MD [address] [place] [address] (Fax) PCP - General Family Medicine 11/15/22 Credit And Collection Manager Relationship Specialty Start Date End Date Tony Argueta MD [address] [place] [address] (Fax) PCP - General Family Medicine 11/15/22 Credit And Collection Manager Relationship Specialty Start Date End Date Tony Argueta MD [address] [place] [address] (Fax) PCP - General Family Medicine 11/15/22 Credit And Collection Manager Relationship Specialty Start Date End Date Tony Argueta MD [address] [place] [address] PCP - General Family Medicine 11/15/22 Tony Argueta MD [address] [address] [place] [address] PCP - [place] [employer] 01/07/25 Ashleigh Lawson MD [address] [place] [phone] Referring Physician Optometry 02/10/25 Credit And Collection Manager Relationship Specialty Start Date End Date Tony Argueta MD [address] [facility] [address] [place] [address] PCP - General Family Medicine 11/15/22 Tony Argueta MD [address] [address] PCP - [facility] [employer] 01/07/25 Ashleigh Lawson MD [address] [place] [phone] Referring Physician Optometry 02/10/25 Reason for Visit (unrecogniz ed section and content) Reason Comments Annual Exam Reason Comments URI FOR RECORDS PERTAINING TO PATIENTS WHO ARE [...] BE BASED ON THE PRIMARY CLINICAL RECORDS. Anonymous You [facility]. provides no warranty or guarantee of the accuracy or completeness of information in this document.
== END 2025-03-20 08:38 | disposition home or self-care (01) ==
LOC: RAD 08:41
PROVIDERS: PCP Family Medicine; Visit Provider Nurse Practitioner Family
DX: N20.0 Calculus of kidney (principal)
CPT/HCPCS: 74018

== ENCOUNTER 2025-04-01 07:25 | Outpatient (OUT) | payer BC, SELFPAY ==
--- OUTSIDE RECORDS SUMMARY | 2025-04-01 07:27 | XMS_ITS | CCD ---
Author Organization [facility] Care Team Providers Care Poultry Inspector Name Role Phone ANKIT JEAN Primary Care [...] Unavailable QUIROZ ., DR CISSE Admpascale Unavailable COLFAX, DR PATRICIO Mondragon Consulting Unavailable CHARLTON, LAWRENCE [...] Unavailable Tony Argueta MD Primary Care Provider [phone] Tony Argueta MD Primary Care Provider Ashleigh Lawson MD Unavailable Tony Argueta MD Unavailable TONY ARGUETA Attending Unavailable TONY ARGUETA Attending Unavailable Ashleigh Lawson MD Unavailable Leslie Lucio Attending Unavailable Allergies Allergy Classification Reported Allergen(s) Allergy Type Date of Onset Reaction(s) Facility (17 sources) Amoxicillin; Translations: [amoxicillin] Drug Allergy 4 Unknown (qualifier value), Rash [facility] (1 source) Amoxicillin Drug Allergy 6 [facility] Repository Medications Current Medications Medication Drug Class(es) Dates Sig (Normalized) Sig (Original) potassium bicarbonate 25 meq effervescent oral tablet (10 sources) Start: 03-06-2023 take 1 tablet by mouth in the morning Klor-Con/EF 25 MEQ effervescent tablet Take 25 mEq by mouth in the morning and 25 mEq before bedtime. 03/06/2023 Active SUMAtriptan 50 mg oral tablet (15 sources) Serotonin-1b and Serotonin-1d Receptor Agonist Start: 06-13-2022 SUMAtriptan 50 mg Tab Refills(s) 0 Start Date: 06/13/22 Status: Ordered Repeat number: 1 take 5 tablets by mouth every we [...] 30 mg oral tablet (5 sources) Uncompetitive K-yiphtm-R-aspartat e Receptor Antagonist, Sigma-1 Agonist Start: 11-24-2024 End: 02-18-2025 [place] DMT 30-30 MG tablet Take 1 tablet [...] 12/04/2024 K-Effervescent 25 mEq oral tablet, effervescent (2 sources) Start: 03-27-2025 take 1 tablet by mouth twice daily K-Effervescent 25 mEq oral tablet, effervescent 25 mEq = 1 tab(s), Oral, BID, # 180 tab(s), Refills(s) 3, Pharmacy: [id number], 165, cm, 03/27/25 8:52:00 EDT, Height/Length Dosing, 81.5, kg, 03/27/25 8:52:00 EDT, Weight Dosing Start Date: 03/27/25 Status: Ordered Quantity: 180.0 Unit: tab(s) Repeat number: 4 Start: 03-06-2023 End: 02-29-2024 take 1 tablet by mouth twice daily K-Effervescent 25 mEq oral tablet, effervescent 25 mEq = 1 tab(s), Oral, BID, X 30 day(s), # 60 tab(s), Refills(s) 11, Pharmacy: [id number], 165, cm, 03/06/23 15:46:00 EDT, Height/Length [...] sodium sulfate 1479 MG Oral Tablet [Sutab] (4 sources) Start: 09-06-2022 take 1 tablet by mouth once Sutab oral tablet See Instructions, 1 EA, Refill(s) 0, Please follow instructions per packaging and physician's handout, [id number], 165, cm, 09/06/22 8:50:00 EST, Height/Length Dosing, 76.6, kg, 09/06/22 8:50:00 EST, Weight Dosing Start Date: 09/06/22 Status: Ordered Quantity: 1.0 Unit: EA Repeat number: 1 Start: 09-06-2022 take 1 tablet by mouth once Borges tab oral tablet See Instructions, 1 EA, Refill(s) 0, Please follow instructions per packaging and physician's handout, [id number], 165, cm, 09/06/22 8:50:00 EST, Height/Length Dosing, 76.6, kg, 09/06/22 8:50:00 EST, Weight Dosing Start Date: 09/06/22 Status: Ordered Sutab 2205-596-374 MG tablet (3 sources) Start: 09-06-2022 End: 08-16-2023 Sutab 6005-757-212 MG tablet USE DIRECTED per physicians handout 0 09/06/2022 08/16/2023 Discontinued (Therapy completed) Start: 09-06-2022 Sutab 1479-225 -188 MG tablet USE DIRECTED per physicians handout 0 09/06/2022 Active Problems Active Problems Problem Classification Problem Date Documented Date Episodic/Chronic Administrative/soci al admission (2 sources) Advance directive discussed with patient; Translations: [Other specified counseling] 08-09-2023 Episodic Calculus of urinary tract (15 sources) Kidney stone; Translations: [Calculus of kidney] Onset: 2 Episodic Genitourinary symptoms and ill-defined conditions (2 sources) Abnormal urinary product; Translations: [Hypocitraturia] Onset: 4 Episodic Headache; including migraine (9 sources) Migraine without aura, not refractory ; Translations: [Migraine without aura, not intractable, without status migrainosus] Onset: 4 08-16-2023 Chronic Headache; including migraine (5 sources) Headache 06-13-2022 Episodic Headache; including migraine (1 source) Headache; including migraine; Translations: [HEADACHE UNSPECIFIED] Onset: 2 Other and unspecified benign neoplasm (14 sources) History of polyp of colon; Translations: [Personal history of colonic polyps] Onset: 3 Episodic Other diseases of kidney and ureters (1 source) Urinary tract obstruction; Translations: [Hydronephrosis with renal and ureteral calculous obstruction] Onset: 2 Episodic Other diseases of kidney and ureters (5 sources) Hydronephrosis 06-13-2022 Episodic Other diseases of kidney and ureters (5 sources) Hydroureteronephrosis 06-13-2022 Episodic Other diseases of [...] ORGN] Onset: 2 Episodic Residual codes; unclassified (2 sources) Active advance directive (copy within chart) ; Translations: [Other specified health status] 02-13-2025 Episodic Unclassified (1 source) CONTACT W/AND (SUSP) EXPOS COVID-19; Translations: [CONTACT W/AND (SUSP) EXPOS COVID-19] Onset: 2 Unclassified (1 source) Urine finding 03-27-2025 Past or Other Problems Problem Classification Problem Date Documented Da te Episodic/Chronic Abdominal pain (3 sources) Unspecified abdominal pain; Translations: [UNSPECIFIED ABDOMINAL PAIN] Onset: 05-27-2022 Episodic Nausea and vomiting (1 source) Nausea with vomiting, unspecified; Translations: [NAUSEA WITH VOMITING UNSPECIFIED] Onset: 05-31-2022 Episodic Other bone disease and musculoskeletal deformities (9 sources) Osteopenia; Translations: [Other specified disorders of bone density and structure, other site] Onset: 08-16-2023 08-16-2023 Episodic Other nutritional; endocrine; and metabolic disorders (13 sources) Body mass index 25-29 - overweight; Translations: [Overweight] Onset: 08-09-2023 08-09-2023 Episodic Residual codes; unclassified (11 sources) Menopause present; Translations: [Asymptomatic menopausal state] Onset: 08-16-2023 08-16-2023 Episodic Results Test Name Value Interpretation Reference Range Facility Ambulatory Visit Summaryon 0 03-27-2025 Ambulatory Visit Summary Ambulatory Visit Summary KIARA MOYA :1965 Visit Date:03/27/2025 Ambulatory Visit Instructions Your Diagnosis Kidney stone Hypocitraturia Tests Performed US Renal -- Results Pending -- XR Abdomen 1 View -- Results Pending -- Please visit your patient portal for your results or contact your primary care physician. Your Care Team Attending Physician - Naveed RATLIFF, AMARILIS, Leslie Garcia Primary Care Physician - ELLIE YANEZ, TONY Negron This Is Your Medications List potassium bicarbonate (K-Effervescent 25 mEq oral tablet, effervescent) Contact prescribing physician if questions or concerns magnesium sulfate/potass Cl/sodium sulf (Sutab oral tablet) sumatriptan (SUMAtriptan 50 mg Tab) Procedures Performed Breast augmentation, Colonoscopy. Discharge Vitals Temperature (Tympanic) 36.7 ???C Heart Rate (Peripheral) 70 Respiratory Rate 16 Blood Pressure 130/78 Height 165 cm Height 65 in Weight 81.5 kg Weight 179.677 lb BMI 29.94 What to do next You Need to Schedule the Following Appointments Follow Up with AMARILIS Lucio APRN, Leslie Garcia, GRABIEL BURDICK When: Comments: pending NIKI Where: Medications What How Much When Instructions New potassium bicarbonate (K-Effervescent 25 mEq oral tablet, effervescent) 1 Tablets By Mouth 2 times a day Refills: 3 Pickup at [facility] Unchanged magnesium sulfate/ potass Cl/ sodium sulf (Sutab oral tablet) See instructions Please follow instructions per packaging and physician's handout Contact prescribing physician if questions or concerns Unchanged sumatriptan (SUMAtriptan 50 mg Tab) Contact prescribing physician if questions or concerns Pharmacy Information [id number]: [address] [place], [place] [id number] [phone] Allergies amoxicillin (Unknown) Problems Ongoing - Any problem that you are currently receiving treatment for. Headache History of colon polyps Hydroureteronephrosis Hypocitraturia Kidney stone Ureteral stone with hydronephrosis Patient [...] other parts of the urinary tract, including: ??? The tubes that connect the kidneys to the bladder (ureters). ??? The bladder. ??? The tube that carries urine out of the body (urethra). Kidney stones can cause very bad pain and can block the flow of pee. The stone usually leaves your body through your pee. A doctor may need to take out the stone. What are the causes? Kidney stones may be caused by: ??? Too much calcium in the body. This may be caused by too much parathyroid hormone in the blood. ??? Uric acid crystals in the bladder. The body makes uric acid when you eat certain foods. ??? Narrowing of one or both of the ureters. ??? A kidney blockage that you were born with. ??? Past surgery on the kidney or the ureters. What increases the risk? You are more likely to develop this condition if: ??? You have had a kidney stone in the past. ??? Other people in your family have had kidney stones. ??? You do not drink enough water. ??? You eat a diet that is high in protein, salt (sodium), or sugar. ??? You are very overweight (obese). What are the signs or symptoms? Symptoms of a kidney stone may include: ??? Pain in the side of the belly, right below the ribs. Pain usually spreads to the groin. ??? Needing to pee often or right away. ??? Pain when peeing. ??? Blood in your pee. ??? Feeling like you may vomit (nauseous). ??? Vomiting. ??? Fever and chills. How is this treated? Treatment depends on the size, location, and makeup of the kidney stones. The stones will often pass out of the body when you pee. You may need to: ??? Drink more fluid to help pass the stone. ? In some cases, you may be given fluids through an IV tube at the hospital. ??? Take medicine for pain. ??? Change your diet to help keep kidney stones from coming back. Sometimes, you may need: ??? A procedure to break up kidney stones using a beam of light (laser) or shock waves. ??? Surgery to remove the kidney stones. Follow these instructions at home: Medicines ??? Take nrla-smg-urknjuc and prescription medicines only as told by your doctor. ??? Ask your doctor if the medicine prescribed to you requires you to avoid driving or using machinery. Eating and drinking ??? Drink enough fluid to keep your pee pale yellow. ? You may be told to drink at least 8???10 glasses of water each day. This will help you pass the stone. ?? (more content not included)... Normal [facility] Urology Office/Clinic Noteon 03-27-2025 Urology Office/Clinic Note Urology Office/Clinic Note Chief Complaint Pt here for 1 year follow up with [facility] HPI Staff Pt is a 59 year old female here for a 1 year follow up with [facility] Dx: kidney stone. * Effer-K 25 mEq BID S/p R ESWL 12/29/22 [1] patient's first stone episode. KUB 03/01/23 - negative for stones [2] KUB 03/05/24 - negative Pt denies pain/burning denies visible blood denies flank pain BBSQ: 8 Pt reports no urinary issues at this time History of Present Illness I have reviewed and verified the staff HPI to be accurate for this encounter. Portions of this record may have been created with voice recognition artificial intelligence software, specifically [employer] and or [employer]. Substitutions may have occurred due to the inherent limitations of voice recognition and artificial intelligence software. Review of Systems PHQ Score Initial Depression Screen Score: 0 SCORE Physical Exam Vitals & Measurements T: 36.7 ???C(Tympanic) HR: 70(Peripheral) RR: 16 BP: 130/78 HT: 65 in HT: 165 cm WT: 81.5 kg WT: 179.677 lb BMI: 29.94 General: Well developed, well nourished, in no acute distress. Assessment/Plan PRW pt 1. Kidney stone (N20.0: Calculus of kidney) UA today w/ trace leuks. Asx. BBS8 S/p R ESWL 07/07/22 patient's first stone episode. KUB 03/01/23 - negative for stones KUB 03/05/24 - negative KUB 03/20/25 - calcifications at the upper quadrant bilaterally, greater on the left measuring up to approx 6 mm in size. Uncertain if hese are upper pole renal stones. Discussed imaging results w/ pt. Could continue annual monitoring vs additional imaging to confirm stone, ?move forward w/ procedure. Pt unsure if she would like procedure for this stone size. She opted for additional imaging at this time. Increase fluid intake, avoid bladder irritants ER for fever, NV, severe flank pain, inability to urinate -NIKI at [facility], will call pt w/ results. If no stones in kidney, will f/u 1 yr w/ KUB. If large stone confirmed, pt to consider f/u 1 yr w/ [facility] vs stone procedure discussion. Ordered: Urnls Dip Stick Auto w/o Microscopy POC 89359 US Renal XR Abdomen 1 View 2. 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 Tolerating w/o SEs, often forgets a dose. Reiterated purpose of Effer K in stone prevention, based on metabolic workup results. -cont Effer K, Rx sent to pharm Ordered: Urnls Dip Stick Auto w/o Microscopy POC 45563 Orders: potassium bicarbonate, 25 mEq = 1 tab(s), Oral, BID, # 180 tab(s), Refills(s) 3, Pharmacy: [facility], 165, cm, 03/27/25 8:52:00 EDT, Height/Length Dosing, 81.5, kg, 03/27/25 8:52:00 EDT, Weight Dosing Follow-up With When Contact Information Naveed RATLIFF, AMARILIS, Leslie X, FAM, URL Additional Instructions: pending [facility] Patient Education Kidney Stones, [id number] Dietary Guidelines to Help Prevent Kidney Stones Problem List/Past Medical History Ongoing Headache History of colon polyps Hydroureteronephrosis Hypocitraturia Kidney stone Ureteral stone with hydronephrosis Historical No qualifying data Procedure/Surgical History Breast augmentation, Colonoscopy. Medications K-Effervescent 25 mEq oral tablet, effervescent, 25 mEq= 1 tab(s), Oral, BID, 3 refills SUMAtriptan 50 mg Tab Sutab oral tablet, See Instructions Allergies amoxicillin (Unknown) Social History Alcohol Current. Beer, Wine. 1-2 times per month., 03/24/2025 Substance Abuse Never., 03/24/2025 Tobacco Never (less than 100 in lifetime) Tobacco Use:. Never Smokeless Tobacco Use:., 03/27/2025 Family History Heart disease: Mother. Hypertension: Mother. Stroke: Mother. Immunizations Vaccine Date Status influenza virus vaccine, inactivated 04/26/2022 Recorded SARS-CoV-2 (COVID-19) mRNA BNT-162b2 vax 10/29/2020 Recorded SARS-CoV-2 (COVID-19) mRNA BNT-162b2 vax 10/09/2020 Recorded Lab Results Ambulatory Point of Care Results Bilirubin Urine Dipstick: Negative (03/27/25 08:45:00) Blood Urine Dipstick: Negative (03/27/25 08:45:00) Glucose Urine Dipstick: Negative (03/27/25 08:45:00) Ketones Urine Dipstick: Negative (03/27/25 08:45:00) Leukocytes Urine Dipstick: Trace (03/27/25 08:45:00) Nitrite Urine Dipstick: Negative (03/27/25 08:45:00) Protein Urine Dipstick: Negative (03/27/25 08:45:00) Specific Hurley Urine Dipstick: 1.025 (03/27/25 08:45:00) Urine Appearance Urine Dipstick: Clear (03/27/25 08:45:00) Urine Color Urine Dipstick: Light yellow (03/27/25 08:45:00) Urobilinogen Urine Dipstick: Normal 0.2-1 EU/dl (03/27/25 08:45:00) pH Urine Dipstick: 5.5 (03/27/25 08:45:00) Normal [facility] Comment on above: Result Comment: Elec tronically Signed By: AMARILIS Lucio APRN, Leslie X\.br\Date and Time Signed: 03/27/25 09:38 EDT XR ABDOMEN 1Von 03-20-[address] [address] XRay Report Signed Patient: KIARA MOYA MR#: [id number] : 1965 Acct:[id number] Age/Sex: 59 / F ADM Date: 03/20/25 Loc: RAD Attending Dr: Leslie Lucio AUDIO VISUAL COLLECTIONS COORDINATOR Ordering Physician: Leslie Lucio NP Date of Service: 03/20/25 Procedure(s): XR abdomen 1V Accession Number(s): [id number] cc: TONY ARGUETA ; Leslie Lucio AUDIO VISUAL COLLECTIONS COORDINATOR [address] [address] Patient Name: KIARA MOYA MRN: [id number] date: 1965 Sex: F Assigned Patient Location: RAD Current Patient Location: RAD Accession/Order Number: [id number] Exam Date: 03/20/2025 08:50 Report Date: 03/20/2025 10:34 At the request of: LESLIE LUCIO NP Procedure: XR abdomen 1V SINGLE VIEW ABDOMEN COMPARISON: 04/05/[address] 05/27/2022 CLINICAL DATA: Follow-up in patient with history of kidney stones. Supine views of the abdomen and pelvis were obtained. There is some air within the stomach. There is a small amount of air and stool within the colon. There is also small bowel air, without disproportionate distention. No soft tissue masses are identified. There are calcifications at the upper quadrant bilaterally, greater on the left measuring up to approximately 6 mm in size. It is uncertain if these are upper pole renal stones. There is no suspect ureteral or bladder calculi. There is mild degenerative change at the spine. XR/XR abdomen 1V IMPRESSION: POSSIBLE BILATERAL NEPHROLITHIASIS. Impression dictated by: Riri Marie M.D. 03/20/2025 10:34 AM Dictation Location: [place] [address] Electronically authenticated by: [id number] Y Date: 03/20/2025 10:34 Dictated By: Riri Marie M.D. Signed By: 03/20/25 1037 DD/ 1034 TD/TT: Behavior Management Specialist: [facility] RadiologyJayaoglavinia aguilar MD - 03/20/2025 [place] [address] XRay Report Signed Patient: KIARA MOYA MR#: [id number] : 1965 Acct:[id number] Age/Sex: 59 / F ADM Date: 03/20/25 Loc: RAD Attending Dr: Leslie Lucio NP Ordering Physician: Leslie Lucio NP Date of Service: 03/20/25 Procedure(s): XR abdomen 1V Accession Number(s): [id number] cc: TONY ARGUETA ; Leslie Lucio NP [facility] [place] [id number] Patient Name: KIARA MOYA MRN: [facility]:[id number] date: 1965 Sex: F Assigned Patient Location: RAD Current Patient Location: RAD Accession/Order Number: [id number] Exam Date: 03/20/2025 08:50 Report Date: 03/20/2025 10:34 At the request of: LESLIE LUCIO NP Procedure: XR abdomen 1V SINGLE VIEW ABDOMEN COMPARISON: 04/05/[address] 05/27/2022 CLINICAL DATA: Follow-up in patient with history of kidney stones. Supine views of the abdomen and pelvis were obtained. There is some air within the stomach. There is a small amount of air and stool within the colon. There is also small bowel air, without disproportionate distention. No soft tissue masses are identified. There are calcifications at the upper quadrant bilaterally, greater on the left measuring up to approximately 6 mm in size. It is uncertain if these are upper pole renal stones. There is no suspect ureteral or bladder calculi. There is mild degenerative change at the spine. XR/XR abdomen 1V IMPRESSION: POSSIBLE BILATERAL NEPHROLITHIASIS. Impression dictated by: Riri Marie M.D. 03/20/2025 10:34 AM Dictation Location: [place] [address] Electronically authenticated by: [id number] Y Date: 03/20/2025 10:34 Dictated By: Riri Marie M.D. Signed By: 03/20/25 1037 DD/ 1034 TD/TT: Behavior Management Specialist: [facility] Radiology Study observation (narrative) [facility] XR ABDOMEN 1VOrdered By: Ellis iologrosa m Radiology on 03-20-2025 [facility] [employer] Work Phone: PREG QUANT HCGon 07-07-2022 HCG QUANT 2 mIU/mL Normal [facility] Comment on above: Performed By: #### P REGQNT #### [facility] [address] [place] [address] [address] Merritt Agudelo HCG RANGE SEE BELOW Normal [facility] Comment on above: Result Comment: 5-50 0.2-1 WEEK 50-500 1-2 WEEKS 100-5,000 2-3 WEEKS 500-10,000 3-4 WEEKS 1,000-50,000 4-5 WEEKS 10,000-100,000 5-6 WEEKS 15,000-200,000 6-8 WEEKS 10,000-100,000 2-3 MONTHS Performed By: #### P REGQNT #### [facility] [address] [place] [address] [address] Merritt Agudelo XR KUB 1 VIEWon [...] PATRICIO LUTZ Date: 2022-07-07 11:10 Normal [facility] Covid-19 PCR (CVDTB)on 06-10 SARS-CoV-2 (COVID-19) RNA MICHAEL+probe Ql (Unsp spec) Not detected Normal NOT DETECTED [facility] Comment on above: Result Comment: This test is not yet approved or cleared by the [place] FDA. When there are no FDA-approved or cleared tests available, and other criteria are met, FDA can make tests available under an emergency access mechanism called an Emergency Use Authorization (EUA). The EUA for this test is supported by the Microbiology Lab Technician of Health and Human Service's (HHS's) declaration [...] consistent with SARS-CoV-2. Performed By: #### C VDTBH #### [facility] [address], [place] [address] Dr. Merritt Agudelo CBC AUTO DIFFon 06-29-2022 BASO # 0.0 103/ul Normal 0.0-0.1 [facility] Comment on above: Performed By: #### C BC #### [facility] [address] [place] [address] [address] Merritt Agudelo Basophils/100 WBC (Bld) 0.5 % Normal 0.2-2.0 [facility] Comment on above: Performed By: #### C BC #### [facility] [address] [place] [address] [address] Merritt Agudelo EO # 0.1 103/ul Normal 0.0-0.7 [facility] Comment on above: Performed By: #### C BC #### [facility] [address] [place] [address] Dr. Merritt Agudelo Eosinophils/100 WBC (Bld) 2.2 % Normal 0.9-7.0 [facility] Comment on above: Performed By: #### C BC #### [facility] [address] [place] [address] Dr. Merritt Agudelo Erythrocyte distribution width (RBC) [Ratio] 12.5 % Normal 11.0-15.0 [facility] Comment on above: Performed By: #### C BC #### [facility] [address] [place] [address] Dr. Merritt Agudelo Hematocrit (Bld) [Volume fraction] 37.2 % Normal 36.0-48.0 [facility] Comment on above: Performed By: #### C BC #### [facility] [address] [place] [address] Dr. Merritt Agudelo Hemoglobin (Bld) [Mass/Vol] 12.1 g/dL Normal 12.0-16.0 [facility] Comment on above: Performed By: #### C BC #### [facility] [address] [place] [address] Dr. Merritt Agudelo IG # 0.02 10e3/ul Normal 0.00-0.03 [facility] Comment on above: Performed By: #### C BC #### [facility] [address] [place] [address] Dr. Merritt Agudelo IG % 0.3 % Normal 0.0-0.5 [facility] Comment on above: Performed By: #### C BC #### [facility] [address] [place] [address] Dr. Merritt Agudelo LYMPH # 1.8 103/ul Normal 1.2-3.8 [facility] Comment on above: Performed By: #### C BC #### [facility] [address] [place] [address] Dr. Merritt Agudelo Lymphocytes/100 WBC (Bld) 28.5 % Normal 20.5-60.0 [facility] Comment on above: Performed By: #### C BC #### [facility] [address] [place] [address] Dr. Merritt Agudelo MANUAL DIFF REQ NO Normal [facility] Comment on above: Performed By: #### C BC #### [facility] [address] [place] [address] Dr. Merritt Agudelo MCH (RBC) [Entitic mass] 29.5 pg Normal 26.7-34.0 [facility] Comment on above: Performed By: #### C BC #### [facility] [address] [place] [address] Dr. Merritt Agudelo MCHC (RBC) [Mass/Vol] 32.5 g/dL Normal 29.9-35.2 [facility] Comment on above: Performed By: #### C BC #### [facility] [address] [place] [address] Dr. Merritt Agudelo MCV (RBC) [Entitic vol] 90.7 fL Normal 81.0-99.0 [facility] Comment on above: Performed By: #### C BC #### [facility] [facility] [address] [place] [address] Dr. Merritt Agudelo MONO # 0.5 103/ul Normal 0.3-0.8 [facility] Comment on above: Performed By: #### C BC #### [facility] [address] [place] [address] Dr. Merritt Agudelo Monocytes/100 WBC (Bld) 8.5 % Normal 1.7-12.0 [facility] Comment on above: Performed By: #### C BC #### [facility] [address] [address] [address] Merritt Agudelo NEUT # 3.8 103/ul Normal 1.4-6.5 [facility] Comment on above: Performed By: #### C BC #### [facility] [address] [address] [address] Merritt Agudelo Neutrophils/100 WBC (Bld) 60.0 % Normal 43.0-75.0 [facility] Comment on above: Performed By: #### C BC #### [facility] [address] [address] [address] Merritt Agudelo Platelet mean volume (Bld) [Entitic vol] 9.4 fL Critically low 9.5-13.5 [facility] Comment on above: Performed By: #### C BC #### [facility] [address] [place] [address] Dr. Merritt Agudelo PLT 224 103/ul Normal 150-450 [facility] Comment on above: Performed By: #### C BC #### [facility] [address] [place] [address] Dr. Merritt Agudelo RBC 4.10 106/ul Critically low 4.20-5.40 [facility] Comment on above: Performed By: #### C BC #### [facility] [address] [address] [address] Merritt Agudelo WBC 6.4 103/ul Normal 4.0-11.0 [facility] Comment on above: Performed By: #### C BC #### [facility] [address] [place] [address] Dr. Merritt Agudelo PROF CHEM 8 (BAS METB)on Anion gap [Moles/Vol] 8.6 mmol/L Normal [facility] Comment on above: Performed By: #### C BC #### [facility] [address] [place] [address] Dr. Merritt Agudelo Calcium [Mass/Vol] 9.0 mg/dL Normal 8.5-10.1 [facility] Comment on above: Performed By: #### C BC #### [facility] [address] [address] [address] Merritt Agudelo Chloride [Moles/Vol] 102 mmol/L Normal 98-107 [facility] Comment on above: Performed By: #### C BC #### [facility] [address] [place] [address] Dr. Merritt Agudelo CO2 [Moles/Vol] 31.4 mmol/L Normal 21.0-32.0 [facility] Comment on above: Performed By: #### C BC #### [facility] [address] [address] [address] Merritt Agudelo Creatinine [Mass/Vol] 0.72 mg/dL Normal 0.55-1.02 [facility] Comment on above: Performed By: #### C BC #### [facility] [address] [place] [address] Dr. Merritt Agudelo EGFR-AF PORTUGUESE >60 Normal >=60 [facility] Comment on above: Performed By: #### C BC #### [facility] [address] [place] [address] Dr. Merritt Agudelo EGFR-NON AF PORTUGUESE >60 Normal >=60 [facility] Comment on above: Performed By: #### C BC #### [facility] [address] [address] [address] Merritt Agudelo Glucose [Mass/Vol] 86 mg/dL Normal 74-106 [facility] Comment on above: Performed By: #### C BC #### [facility] [address] [address] [address] Merritt Agudelo Potassium [Moles/Vol] 4.0 mmol/L Normal 3.5-5.1 [facility] Comment on above: Performed By: #### C BC #### [facility] [address] [place] [address] Dr. Merritt Agudelo Sodium [Moles/Vol] 138 mmol/L Normal 136-145 [facility] Comment on above: Performed By: #### C BC #### [facility] [address] [address] [address] Merritt Agudelo Urea nitrogen [Mass/Vol] 16.0 mg/dL Normal 7.0-18.0 [facility] Comment on above: Performed By: #### C BC #### [facility] [address] [place] [address] Dr. Merritt Agudelo Urea nitrogen/Creatinine [Mass ratio] 22.2 mg/mg Normal [facility] Comment on above: Performed By: #### C BC #### [facility] [address] [place] [address] Dr. Merritt Agudelo PROTIMEon 06-29-2022 INR Coag (PPP) [Relative time] 0.94 {INR} Normal [facility] Comment on above: Performed By: #### C BC #### [facility] [address] [place] [address] Dr. Merritt Agudelo INR GUIDELINES SEE BELOW Normal [facility] Comment on above: Result Comment: SIMÓN RED INR: 2.0 - 3.0 CONDITIONS NOT LISTED BELOW 2.5 - 3.5 FOR PROSTHETIC HEART VALVE REPLACEMENT 2.5 - 3.5 RECURRENT THROMBOSIS Performed By: #### C BC #### [facility] [address] [place] [address] Dr. Merritt Agudelo PT Coag (PPP) [Time] 10.2 s Normal 9.0-11.6 [facility] Comment on above: Performed By: #### C BC #### [facility] [address] [place] [address] Dr. Merritt Agudelo PTTon 06-29-2022 aPTT Coag (Bld) [Time] 26.4 s Normal 22.3-36.2 [facility] Comment on above: Performed By: #### C BC #### [facility] [address] [place] [address] Dr. Merritt Agudelo MG MAMM SCREEN 3D ODILON CADon 06-28-2022 MG MAMM SCREEN 3D ODILON CAD Patient: KIARA MOYA Exam Date: 06/28/2022 : 1965 Gender:F Ordering : DR ANKIT JEAN . Admission #: [id number] Family : Order #: [id number] CLICK HERE TO VIEW EXAM RADIOLOGY REPORT [...] throat cancer at age 61. LOCATION: [facility] BREAST COMPOSITION: Heterogeneously dense,which may obscure [...] Johnson M.D. on 06/29/2022 at 10:00 Normal [facility] XR KUB 1 VIEWon 06-13-2022 XR [...] by: CHAD JOHNSON Date: 2022-06-13 13:37 Normal [facility] PAP ACOG PANEL 2: 30 to 65on 06-10-2022 . . Normal [facility] Comment on above: Result Comment: Perf ormed at: WB Performed By: #### C BC #### [facility] [address] [address] [address] Merritt Agudelo Age Gdln ACOG Testing 30-65 Normal [facility] Comment on above: Performed By: #### C BC #### [facility] [address] [place] [address] Dr. Merritt Agudelo DIAGNOSIS: Comment Normal [facility] Comment on above: Result Comment: NEGA TIVE FOR INTRAEPITHELIAL LESION OR MALIGNANCY. CELLULAR CHANGES ASSOCIATED WITH ATROPHY ARE PRESENT. Performed at: WB Performed By: #### C BC #### [facility] [address] [place] [address] Dr. Merritt Agudelo HPV Aptima Negative Normal Negative [facility] Comment on above: Result Comment: This nucleic acid amplification test detects fourteen high-risk HPV types (16,18,31,33,35,39,45,51,52,56,58,59,66,68) without differentiation. Performed at: =G Performed By: #### C BC #### [facility] [address] [place] [address] Dr. Merritt Agudelo HPV Genotype Reflex Comment Normal [facility] Comment on above: Result Comment: Crit eria not met, HPV Genotype not performed. Performed at: WB Performed By: #### C BC #### [facility] [address] [place] [address] Dr. Merritt Agudelo Methodology: Comment Normal [facility] Comment on above: Result Comment: This liquid based ThinPrep(R) pap test was screened with the use of an image guided system. Performed at: WB Performed By: #### C BC #### [facility] [address] [place] [address] Dr. Merritt Agudelo Note: Comment Normal [facility] Comment on above: Result Comment: The [...] WB Performed By: #### C BC #### [facility] [address] [place] [address] Dr. Merritt Agudelo Performed by: Comment Normal [facility] Comment on above: Result Comment: Stanley Cortes, Waiter Waitress (ASCP) Performed at: WB Performed By: #### C BC #### [facility] [address] [address] [address] Merritt Agudelo Specimen adequacy: Comment Normal [facility] Comment on above: Result Comment: Sati sfactory for evaluation. Endocervical component may not be distinguished in cases of atrophy. Performed at: WB Performed By: #### C BC #### [facility] [address] [address] [address] Merritt Agudelo CALCULI, URINARYon 2 2,8 Dihydroxyadenine [facility] Comment on above: Performed By: #### C ALCULI #### [facility] [address] [place] [address] Dr. Merritt Agudelo Ammonium Acid Urate Normal [facility] Comment on above: Performed By: #### C ALCULI #### [facility] [address] [address] [address] Merritt Agudelo Bilirubin Ql (U) Normal [facility] Comment on above: Performed By: #### C ALCULI #### [facility] [address] [address] [address] Merritt Agudelo Ca Oxalate Dihydrate 30 % Normal [facility] Comment on above: Performed By: #### C ALCULI #### [facility] [address] [address] [address] Merritt Agudelo CaHPO4 (Brush[facility]) [facility] Comment on above: Performed By: #### C ALCULI #### [facility] [address] [address] [address] Merritt Agudelo Calcium Bilirubinate [facility] Comment on above: Performed By: #### C ALCULI #### [facility] [address] [address] [address] Merritt Agudelo Calcium Carbonate Normal [facility] Comment on above: Performed By: #### C ALCULI #### [facility] [address] [address] [address] Merritt Agudelo Calcium Oxalate Monohydrate 70 % [facility] Comment on above: Performed By: #### C ALCULI #### [facility] [address] [address] [address] Merritt Agudelo Calcium Palmitate [facility] Comment on above: Performed By: #### C ALCULI #### [facility] [address] [address] [address] Merritt Aguedlo Calcium Phosphate [facility] Comment on above: Performed By: #### C ALCULI #### [facility] [address] [address] [address] Merritt Agudelo Calcium Stearate [facility] Comment on above: Performed By: #### C ALCULI #### [facility] [address] [address] [address] Merritt Agudelo Carbonate Apatite [facility] Comment on above: Performed By: #### C ALCULI #### [facility] [address] [address] [address] Merritt Agudelo Cellular Material [facility] Comment on above: Performed By: #### C ALCULI #### [facility] [address] [address] [address] Merritt Agudelo Cholesterol [facility] Comment on above: Performed By: #### C ALCULI #### [facility] [address] [address] [address] Merritt Agudelo Color (U) Brown Normal [facility] Comment on above: Performed By: #### C ALCULI #### [facility] [address] [address] [address] Merritt Agudelo Comment [facility] Comment on above: Performed By: #### C ALCULI #### [facility] [address] [address] [address] Merritt Agudelo Comment: Comment Normal [facility] Comment on above: Result Comment: Amber hawkins questions regarding Calculi Analysis contact [facility] at: [phone]. Performed By: #### C ALCULI #### [facility] [address] [address] [address] Merritt Agudelo Composition Comment Normal [facility] Comment on above: Result Comment: Perc entage (Represents the % composition) Performed By: #### C ALCULI #### [facility] [address] [place] [address] Dr. Merritt Agudelo Cystine Normal [facility] Comment on above: Performed By: #### C ALCULI #### [facility] [address] [place] [address] Dr. Merritt Agudelo Disclaimer: Comment Normal [facility] Comment on above: Result Comment: This test was developed and its performance characteristics determined by [employer] It has not been cleared or approved by the Food and Drug Administration. Performed By: #### C ALCULI #### [facility] [address] [place] [address] Dr. Merritt Agudelo Dried Blood [facility] Comment on above: Performed By: #### C ALCULI #### [facility] [address] [place] [address] Dr. Merritt Agudelo Drug or Metabolite Normal [facility] Comment on above: Performed By: #### C ALCULI #### [facility] [address] [place] [address] Dr. Merritt Agudelo Hydroxyapatite Normal [facility] Comment on above: Performed By: #### C ALCULI #### [facility] [address] [place] [address] Dr. Merritt Agudelo Mg NH4 PO4 (Struvite) [facility] Comment on above: Performed By: #### C ALCULI #### [facility] [address] [place] [address] Dr. Merritt Agudelo MgHPO4 (Newberyite) Normal [facility] Comment on above: Performed By: #### C ALCULI #### [facility] [address] [place] [address] Dr. Merritt Agudelo Other component(s) Normal [facility] Comment on above: Performed By: #### C ALCULI #### [facility] [address] [place] [address] Dr. Merritt Agudelo PDF . Normal [facility] Comment on above: Performed By: #### C ALCULI #### [facility] [address] [address] [address] Merritt Agudelo Photo Comment [facility] Comment on above: Result Comment: Phot ogph will follow under a separate cover Performed By: #### C ALCULI #### [facility] [address] [address] [address] Merritt Agudelo Please note: Comment [facility] Comment on above: Result Comment: Calc aurora report will follow via computer, mail or programming engineer delivery. Performed By: #### C ALCULI #### [facility] [address] [address] [address] Merritt Agudelo Size 7x4 [facility] Comment on above: Result Comment: Sing le piece received. Performed By: #### C ALCULI #### [facility] [address] [address] [address] Merritt Agudelo Sodium Acid Urate Normal [facility] Comment on above: Performed By: #### C ALCULI #### [facility] [address] [address] [address] Merritt Agudelo Source Comment [facility] Comment on above: Result Comment: Not provided Performed By: #### C ALCULI #### [facility] [address] [address] [address] Merritt Agudelo Triamterene [facility] Comment on above: Performed By: #### C ALCULI #### [facility] [address] [address] [address] Merritt Agudelo Uric Acid [facility] Comment on above: Performed By: #### C ALCULI #### [facility] [address] [address] [address] Merritt Agudelo Uric Acid Dihydrate Normal [facility] Comment on above: Performed By: #### C ALCULI #### [facility] [address] [address] [address] Merritt Agudelo Weight 92 mg [facility] Comment on above: Performed By: #### C ALCULI #### [facility] [address] [place] [address] Dr. Merritt Agudelo Xanthine Normal [facility] Comment on above: Performed By: #### C ALCULI #### [facility] [address] [place] [address] Dr. Merritt Agudelo CBC AUTO DIFFon 05-27-2022 BASO # 0.0 103/ul Normal 0.0-0.1 [facility] Comment on above: Performed By: #### C BC #### [facility] [address] [place] [address] Dr. Merritt Agudelo Basophils/100 WBC (Bld) 0.4 % Normal 0.2-2.0 [facility] Comment on above: Performed By: #### C BC #### [facility] [address] [place] [address] Dr. Merritt Agudelo EO # 0.2 103/ul Normal 0.0-0.7 [facility] Comment on above: Performed By: #### C BC #### [facility] [address] [place] [address] Dr. Merritt Agudelo Eosinophils/100 WBC (Bld) 1.5 % Normal 0.9-7.0 [facility] Comment on above: Performed By: #### C BC #### [facility] [address] [place] [address] Dr. Merritt Agudelo Erythrocyte distribution width (RBC) [Ratio] 12.4 % Normal 11.0-15.0 [facility] Comment on above: Performed By: #### C BC #### [facility] [address] [place] [address] Dr. Merritt Agudelo Hematocrit (Bld) [Volume fraction] 38.9 % Normal 36.0-48.0 [facility] Comment on above: Performed By: #### C BC #### [facility] [address] [place] [address] Dr. Merritt Agudelo Hemoglobin (Bld) [Mass/Vol] 12.9 g/dL Normal 12.0-16.0 [facility] Comment on above: Performed By: #### C BC #### [facility] [address] [place] [address] Dr. Merritt Agudelo IG # 0.04 10e3/ul Critically high 0.00-0.03 [facility] Comment on above: Performed By: #### C BC #### [facility] [address] [place] [address] Dr. Merritt Agudelo IG % 0.4 % Normal 0.0-0.5 [facility] Comment on above: Performed By: #### C BC #### [facility] [address] [place] [address] Dr. Merritt Agudelo LYMPH # 3.0 103/ul Normal 1.2-3.8 [facility] Comment on above: Performed By: #### C BC #### [facility] [address] [place] [address] Dr. Merritt Agudelo Lymphocytes/100 WBC (Bld) 27.1 % Normal 20.5-60.0 [facility] Comment on above: Performed By: #### C BC #### [facility] [address] [place] [address] Dr. Merritt Agudelo MANUAL DIFF REQ NO Normal [facility] Comment on above: Performed By: #### C BC #### [facility] [address] [place] [address] Dr. Merritt Agudelo MCH (RBC) [Entitic mass] 29.5 pg Normal 26.7-34.0 [facility] Comment on above: Performed By: #### C BC #### [facility] [address] [place] [address] Dr. Merritt Agudelo MCHC (RBC) [Mass/Vol] 33.2 g/dL Normal 29.9-35.2 [facility] Comment on above: Performed By: #### C BC #### [facility] [address] [place] [address] Dr. Merritt Agudelo MCV (RBC) [Entitic vol] 89.0 fL Normal 81.0-99.0 [facility] Comment on above: Performed By: #### C BC #### [facility] [address] [place] [address] Dr. Merritt Agudelo MONO # 0.8 103/ul Normal 0.3-0.8 [facility] Comment on above: Performed By: #### C BC #### [facility] [address] [place] [address] Dr. Merritt Agudelo Monocytes/100 WBC (Bld) 7.2 % Normal 1.7-12.0 [facility] Comment on above: Performed By: #### C BC #### [facility] [address] [place] [address] Dr. Merritt Agudelo NEUT # 7.1 103/ul Critically high 1.4-6.5 [facility] Comment on above: Performed By: #### C BC #### [facility] [address] [place] [address] Dr. Merritt Agudelo Neutrophils/100 WBC (Bld) 63.4 % Normal 43.0-75.0 [facility] Comment on above: Performed By: #### C BC #### [facility] [address] [place] [address] Dr. Merritt Agudelo Platelet mean volume (Bld) [Entitic vol] 9.3 fL Critically low 9.5-13.5 [facility] Comment on above: Performed By: #### C BC #### [facility] [address] [place] [address] Dr. Merritt Agudelo PLT 270 103/ul Normal 150-450 [facility] Comment on above: Performed By: #### C BC #### [facility] [address] [place] [address] Dr. Merritt Agudelo RBC 4.37 106/ul Normal 4.20-5.40 [facility] Comment on above: Performed By: #### C BC #### [facility] [address] [place] [address] Dr. Merritt Agudelo WBC 11.2 103/ul Critically high 4.0-11.0 [facility] Comment on above: Performed By: #### C BC #### [facility] [address] [place] [address] ABD/PELVIS WO CONon [...] WALLY RIOS Date: 2022-05-27 02:16 Normal [facility] ER URINE PROFILEon 2 Bilirubin Ql (U) Negative Normal NEGATIVE [facility] Comment on above: Performed By: #### U MICRO, ERUR #### [facility] [address] [place] [address] Dr. Merritt Agudelo Clarity (U) CLEAR Normal CLEAR [facility] Comment on above: Performed By: #### U MICRO, ERUR #### [facility] [address] [address] [address] Merritt Agudelo Color (U) YELLOW Normal YELLOW [facility] Comment on above: Performed By: #### U MICRO, ERUR #### [facility] [address] [address] [address] Merritt Agudelo ERUAHD A micrscopic examina tion will be performed if indicated. Normal [facility] Comment on above: Performed By: #### U MICRO, ERUR #### [facility] [address] [place] [address] Dr. Merritt Agudelo Glucose Ql (U) Negative Normal NEGATIVE [facility] Comment on above: Performed By: #### U MICRO, ERUR #### [facility] [address] [place] [address] Dr. Merritt Agudelo Hemoglobin Ql (U) LARGE Abnormal NEGATIVE [facility] Comment on above: Performed By: #### U MICRO, ERUR #### [facility] [address] [place] [address] Dr. Merritt Agudelo Ketones Ql (U) Negative Normal NEGATIVE [facility] Comment on above: Performed By: #### U MICRO, ERUR #### [facility] [address] [place] [address] Dr. Merritt Agudelo LEUKOCYTES Negative Normal NEGATIVE [facility] Comment on above: Performed By: #### U MICRO, ERUR #### [facility] [address] [place] [address] Dr. Merritt Agudelo Nitrite Ql (U) Negative Normal NEGATIVE [facility] Comment on above: Performed By: #### U MICRO, ERUR #### [facility] [address] [address] [address] Merritt Agudelo pH (U) 5.0 [pH] Normal 5-9 [facility] Comment on above: Performed By: #### U MICRO, ERUR #### [facility] [address] [place] [address] Dr. Merritt Agudelo SPEC GRAVITY >=1.030 Abnormal 1.005-<=1.02 5 [facility] Comment on above: Performed By: #### U MICRO, ERUR #### [facility] [address] [place] [address] Dr. Merritt Agudelo UA PROTEIN Negative Normal NEGATIVE/ TRACE [facility] Comment on above: Performed By: #### U MICRO, ERUR #### [facility] [address] [place] [address] Dr. Merritt Agudelo UR MICRO IND INDICATED Normal [facility] Comment on above: Performed By: #### U MICRO, ERUR #### [facility] [address] [place] [address] Dr. Merritt Agudelo Urobilinogen Qn (U) 0.2 {Rachid'U}/dL Normal 0.2 - 1. 0 [facility] Comment on above: Performed By: #### U MICRO, ERUR #### [facility] [address] [place] [address] Dr. Merritt Agudelo PROF CHEM 8 (BAS METB)on Anion gap [Moles/Vol] 10.8 mmol/L Normal [facility] Comment on above: Performed By: #### B MP #### [facility] [address] [place] [address] Dr. Merritt Agudelo Calcium [Mass/Vol] 9.3 mg/dL Normal 8.5-10.1 [facility] Comment on above: Performed By: #### B MP #### [facility] [address] [place] [address] Dr. Merritt Agudelo Chloride [Moles/Vol] 104 mmol/L Normal 98-107 [facility] Comment on above: Performed By: #### B MP #### [facility] [address] [place] [address] Dr. Merritt Agudelo CO2 [Moles/Vol] 28.6 mmol/L Normal 21.0-32.0 [facility] Comment on above: Performed By: #### B MP #### [facility] [address] [place] [address] Dr. Merritt Agudelo Creatinine [Mass/Vol] 1.28 mg/dL Critically high 0.55-1.02 [facility] Comment on above: Performed By: #### B MP #### [facility] [address] [address] [address] Merritt Agudelo EGFR-AF PORTUGUESE 52 mL/min/1.73m2 Critically low >=60 [facility] Comment on above: Performed By: #### B MP #### [facility] [address] [address] [address] Merritt Agudelo EGFR-NON AF [place]UES[place] 43 mL/min/1.73m2 Critically low >=60 [facility] Comment on above: Performed By: #### B MP #### [facility] [address] [address] [address] Merritt Agudelo Glucose [Mass/Vol] 127 mg/dL Critically high 74-106 [facility] Comment on above: Performed By: #### B MP #### [facility] [address] [address] [address] Merritt Agudelo Potassium [Moles/Vol] 3.4 mmol/L Critically low 3.5-5.1 [facility] Comment on above: Performed By: #### B MP #### [facility] [address] [place] [address] Dr. Merritt Agudelo Sodium [Moles/Vol] 140 mmol/L Normal 136-145 [facility] Comment on above: Performed By: #### B MP #### [facility] [address] [address] [address] Merritt Agudelo Urea nitrogen [Mass/Vol] 19.0 mg/dL Critically high 7.0-18.0 [facility] Comment on above: Performed By: #### B MP #### [facility] [address] [address] [address] Merritt Agudelo Urea nitrogen/Creatinine [Mass ratio] 14.8 mg/mg Normal [facility] Comment on above: Performed By: #### B MP #### [facility] [address] [address] [address] Merritt Agudelo URINE MICROSCOPIC ONLYon BACTERIA TRACE Abnormal NONE SEEN [facility] Comment on above: Performed By: #### U MICRO, ERUR #### [facility] [address] [place] [address] Dr. Merritt Agudelo Bacteria identified Cx Nom (U) NOT INDICATED Normal [facility] Comment on above: Performed By: #### U MICRO, ERUR #### [facility] [address] [place] [address] Dr. Merritt Agudelo CAST NONE SEEN Normal NONE SEEN [facility] Comment on above: Performed By: #### U MICRO, ERUR #### [facility] [address] [place] [address] Dr. Merritt Agudelo Crystals LM Nom (Urine sed) NONE SEEN Normal NONE SEEN [facility] Comment on above: Performed By: #### U MICRO, ERUR #### [facility] [address] [place] [address] Dr. Merritt Agudelo Epithelial cells LM Ql (Urine sed) RARE Normal NONE SEEN /RARE [facility] Comment on above: Performed By: #### U MICRO, ERUR #### [facility] [address] [place] [address] Dr. Merritt Agudelo MUCOUS NONE SEEN Normal NONE SEEN [facility] Comment on above: Performed By: #### U MICRO, ERUR #### [facility] [address] [place] [address] Dr. Merritt Agudelo RBC 20-50 Abnormal 0-2 [facility] Comment on above: Performed By: #### U MICRO, ERUR #### [facility] [address] [place] [address] Dr. Merritt Agudelo WBC NONE SEEN Normal NONE SEEN [facility] Comment on above: Performed By: #### U MICRO, ERUR #### [facility] [address] [place] [address] Dr. Merritt Agudelo CBC AUTO DIFFon 05-26-2022 BASO # 0.0 103/ul Normal 0.0-0.1 [facility] Comment on above: Performed By: #### C BC #### [facility] [address] [place] [address] Dr. Merritt Agudelo Basophils/100 WBC (Bld) 0.4 % Normal 0.2-2.0 [facility] Comment on above: Performed By: #### C BC #### [facility] [address] [place] [address] Dr. Merritt Agudelo EO # 0.1 103/ul Normal 0.0-0.7 [facility] Comment on above: Performed By: #### C BC #### [facility] [address] [place] [address] Dr. Merritt Agudelo Eosinophils/100 WBC (Bld) 1.9 % Normal 0.9-7.0 [facility] Comment on above: Performed By: #### C BC #### [facility] [address] [place] [address] Dr. Merritt Agudelo Erythrocyte distribution width (RBC) [Ratio] 12.5 % Normal 11.0-15.0 [facility] Comment on above: Performed By: #### C BC #### [facility] [address] [place] [address] Dr. Merritt Agudelo Hematocrit (Bld) [Volume fraction] 37.7 % Normal 36.0-48.0 [facility] Comment on above: Performed By: #### C BC #### [facility] [address] [place] [address] Dr. Merritt Agudelo Hemoglobin (Bld) [Mass/Vol] 12.5 g/dL Normal 12.0-16.0 [facility] Comment on above: Performed By: #### C BC #### [facility] [address] [place] [address] Dr. Merritt Agudelo IG # 0.01 10e3/ul Normal 0.00-0.03 [facility] Comment on above: Performed By: #### C BC #### [facility] [address] [place] [address] Dr. Merritt Agudelo IG % 0.2 % Normal 0.0-0.5 [facility] Comment on above: Performed By: #### C BC #### [facility] [address] [place] [address] Dr. Merritt Agudelo LYMPH # 1.3 103/ul Normal 1.2-3.8 [facility] Comment on above: Performed By: #### C BC #### [facility] [address] [place] [address] Dr. Merritt Agudelo Lymphocytes/100 WBC (Bld) 24.2 % Normal 20.5-60.0 [facility] Comment on above: Performed By: #### C BC #### [facility] [address] [place] [address] Dr. Merritt Agudelo MANUAL DIFF REQ NO Normal [facility] Comment on above: Performed By: #### C BC #### [facility] [address] [place] [address] Dr. Merritt Agudelo MCH (RBC) [Entitic mass] 29.3 pg Normal 26.7-34.0 [facility] Comment on above: Performed By: #### C BC #### [facility] [address] [place] [address] Dr. Merritt Agudelo MCHC (RBC) [Mass/Vol] 33.2 g/dL Normal 29.9-35.2 [facility] Comment on above: Performed By: #### C BC #### [facility] [address] [place] [address] Dr. Merritt Agudelo MCV (RBC) [Entitic vol] 88.3 fL Normal 81.0-99.0 [facility] Comment on above: Performed By: #### C BC #### [facility] [address] [place] [address] Dr. Merritt Agudelo MONO # 0.4 103/ul Normal 0.3-0.8 [facility] Comment on above: Performed By: #### C BC #### [facility] [address] [place] [address] Dr. Merritt Agudelo Monocytes/100 WBC (Bld) 7.9 % Normal 1.7-12.0 [facility] Comment on above: Performed By: #### C BC #### [facility] [address] [place] [address] Dr. Merritt Agudelo NEUT # 3.4 103/ul Normal 1.4-6.5 [facility] Comment on above: Performed By: #### C BC #### [facility] [address] [place] [address] Dr. Merritt Agudelo Neutrophils/100 WBC (Bld) 65.4 % Normal 43.0-75.0 [facility] Comment on above: Performed By: #### C BC #### [facility] [address] [place] [address] Dr. Merritt Agudelo Platelet mean volume (Bld) [Entitic vol] 9.3 fL Critically low 9.5-13.5 [facility] Comment on above: Performed By: #### C BC #### [facility] [address] [place] [address] Dr. Merritt Agudelo PLT 209 103/ul Normal 150-450 [facility] Comment on above: Performed By: #### C BC #### [facility] [address] [place] [address] Dr. Merritt Agudelo RBC 4.27 106/ul Normal 4.20-5.40 [facility] Comment on above: Performed By: #### C BC #### [facility] [address] [place] [address] Dr. Merritt Agudelo WBC 5.2 103/ul Normal 4.0-11.0 [facility] Comment on above: Performed By: #### C BC #### [facility] [address] [place] [address] Dr. Merritt Agudelo LIPID PROFILEon 05-26-2022 CHOL-HDL RATIO NORM SEE BELOW Normal [facility] Comment on above: Result Comment: 3.3 - 4.4 LOW RISK 4.4 - 7.1 AVERAGE RISK 7.1 - 11.0 MODERATE RISK >11.0 HIGH RISK Performed By: #### C MP, LIPID #### [facility] [address] [place] [address] Dr. Merritt Agudelo Cholesterol [Mass/Vol] 166 mg/dL Normal <=200 [facility] Comment on above: Performed By: #### C MP, LIPID #### [facility] [address] [address] [address] Merritt Agudelo Cholesterol in HDL [Mass/Vol] 71 mg/dL Critically high 40-60 [facility] Comment on above: Performed By: #### C MP, LIPID #### [facility] [address] [address] [address] Merritt gAudelo Cholesterol in LDL [Mass/Vol] 84.2 mg/dL Normal [facility] Comment on above: Performed By: #### C MP, LIPID #### [facility] [address] [address] [address] Merritt gAudelo Cholesterol.total/Ch olesterol in HDL [Mass ratio] 2.3 {ratio} Normal [facility] Comment on above: Performed By: #### C MP, LIPID #### [facility] [address] [address] [address] Merritt Agudelo HDL NORMAL > or = 60 mg/dl - LO W CARDIOVASCULAR RISK <40 mg/dl - HIGH CARDIOVASCULAR RISK Normal [facility] Comment on above: Performed By: #### C MP, LIPID #### [facility] [address] [address] [address] Merritt Agudelo LDL CALC NORMAL SEE BELOW Normal [facility] Comment on above: Result Comment: <100 mg/dl OPTIMAL 100 - 129 mg/dl NEAR OR ABOVE OPTIMAL 130 - 159 mg/dl BORDERLINE HIGH 160 - 189 mg/dl HIGH >190 mg/dl VERY HIGH Performed By: #### C MP, LIPID #### [facility] [address] [address] [address] Merritt Agudelo Triglyceride [Mass/Vol] 54 mg/dL Normal <=150 [facility] Comment on above: Performed By: #### C MP, LIPID #### [facility] [address] [address] [address] Merritt Agudelo VLDL CALC 10.8 mg/dL Normal [facility] Comment on above: Performed By: #### C MP, LIPID #### [facility] [address] [address] [address] Merritt Agudelo PROF 14(COMP METB)on 11-17-2 022 Albumin [Mass/Vol] 4.0 g/dL Normal 3.4-5.0 [facility] Comment on above: Performed By: #### C MP, LIPID #### [facility] [address] [place] [address] Dr. Merritt Agudelo Albumin/Globulin [Mass ratio] 1.1 {ratio} Normal [facility] Comment on above: Performed By: #### C MP, LIPID #### [facility] [address] [address] [address] Merritt Agudelo ALP [Catalytic activity/Vol] 68 U/L Normal 46-116 [facility] Comment on above: Performed By: #### C MP, LIPID #### [facility] [address] [place] [address] Dr. Merritt Agudelo ALT [Catalytic activity/Vol] 22 U/L Normal 14-59 [facility] Comment on above: Performed By: #### C MP, LIPID #### [facility] [address] [place] [address] Dr. Merritt Agudelo Anion gap [Moles/Vol] 9.9 mmol/L Normal [facility] Comment on above: Performed By: #### C MP, LIPID #### [facility] [address] [place] [address] Dr. Merritt Agudelo AST [Catalytic activity/Vol] 21 U/L Normal 15-37 [facility] Comment on above: Performed By: #### C MP, LIPID #### [facility] [address] [place] [address] Dr. Merritt Agudelo Bilirubin [Mass/Vol] 0.3 mg/dL Normal 0.2-1.0 [facility] Comment on above: Performed By: #### C MP, LIPID #### [facility] [address] [address] [address] Merritt Agudelo Calcium [Mass/Vol] 9.2 mg/dL Normal 8.5-10.1 [facility] Comment on above: Performed By: #### C MP, LIPID #### [facility] [address] [place] [address] Dr. Merritt Agudelo Chloride [Moles/Vol] 105 mmol/L Normal 98-107 [facility] Comment on above: Performed By: #### C MP, LIPID #### [facility] [address] [place] [address] Dr. Merritt Agudelo CO2 [Moles/Vol] 27.2 mmol/L Normal 21.0-32.0 [facility] Comment on above: Performed By: #### C MP, LIPID #### [facility] [address] [address] [address] Merritt Agudelo Creatinine [Mass/Vol] 0.68 mg/dL Normal 0.55-1.02 [facility] Comment on above: Performed By: #### C MP, LIPID #### [facility] [address] [place] [address] Dr. Merritt Agudelo EGFR-AF PORTUGUESE >60 Normal >=60 [facility] Comment on above: Performed By: #### C MP, LIPID #### [facility] [address] [place] [address] Dr. Merritt Agudelo EGFR-NON AF [place]UGUESE >60 Normal >=60 [facility] Comment on above: Performed By: #### C MP, LIPID #### [facility] [address] [place] [address] Dr. Merritt Agudelo Globulin (S) [Mass/Vol] 3.6 g/dL Normal [facility] Comment on above: Performed By: #### C MP, LIPID #### [facility] [address] [place] [address] Dr. Merritt Agudelo Glucose [Mass/Vol] 96 mg/dL Normal 74-106 [facility] Comment on above: Performed By: #### C MP, LIPID #### [facility] [address] [place] [address] Dr. Merritt Agudelo Potassium [Moles/Vol] 4.1 mmol/L Normal 3.5-5.1 [facility] Comment on above: Performed By: #### C MP, LIPID #### [facility] [address] [place] [address] Dr. Merritt Agudelo Protein [Mass/Vol] 7.6 g/dL Normal 6.4-8.2 [facility] Comment on above: Performed By: #### C MP, LIPID #### [facility] [address] [address] [address] Merritt Agudelo Sodium [Moles/Vol] 138 mmol/L Normal 136-145 [facility] Comment on above: Performed By: #### C MP, LIPID #### [facility] [address] [address] [address] Merritt Agudelo Urea nitrogen [Mass/Vol] 16.0 mg/dL Normal 7.0-18.0 [facility] Comment on above: Performed By: #### C MP, LIPID #### [facility] [address] [address] [address] Merritt Agudelo Urea nitrogen/Creatinine [Mass ratio] 23.5 mg/mg Normal [facility] Comment on above: Performed By: #### C MP, LIPID #### [facility] [address] [address] [address] Merritt Agudelo CYTOLOGYon 03-14-2017 CYTOLOGY Specimen #: [id number] Physician: ANKIT BURNETT SUBMITTEDA: CERVICAL, SCREENING, FLUID FINAL DIAGNOSISA. CERVICAL, SCREENING, FLUIDSatisfactory for interpretation.Negative for intraepithelial lesion or malignancy.Atrophic specimen.This specimen has been analyzed by the ThinPrep Imaging System, anautRarelook imaging and review system, which assists the laboratory inevaluating cells on ThinPrep Pap tests. Following automated imaging,selected adan from every slide are reviewed by a core winder machine operator.TYLOR Mcdonald(ASCP) (Electronic Signature) [facility] DATA PAP Source: Cervical-PFCERSMenstrual History:Post-Menopausal: 2014Clinical History:ROUTINEAdditiona l Testing:Reflex HPV testing for ASCUSSTAINSA: CERVICAL, SCREENING, FLUID THIN PREP GYNJennifer Palomo Hagen, Laboratory DirectorPatient ID #: [id number] of Report: 03/17/2017Date of Procedure: 03/14/2017Date of Receipt: 03/15/2017Submitted by: ANKIT JEANLocation: Diagnostic interpretation performed at [facility], [address] [place] [address].The Pap Smear is a screening test for cervical cancer. False negativeresults occur with all screening tests, emphasizing the need forrescreening at recommended intervals, and clinical correlation. Normal [facility] Comment on above: Performed By: #### C ####See report for performing lab information. Vital Signs Date Time Vital Sign Value Performing Clinician Facility 02-18-2025 14:02-0400 Body height 165.1 cm Tony Argueta MD Work Phone: [facility] 02-18-2025 14:02-0400 Body mass index (BMI) [Ratio] 30.12 kg/m2 Tony Argueta MD Work Phone: [facility] 02-18-2025 14:02-0400 Body weight 82.1 kg Tony Argueta MD Work Phone: [facility] 02-18-2025 14:02-0400 Diastolic blood pressure 74 mm[Hg] Tony Argueta MD Work Phone: [facility] 02-18-2025 14:02-0400 Heart rate 95 /min Tony Argueta MD Work Phone: [facility] 02-18-2025 14:02-0400 SaO2% (BldA) [Mass fraction] 99 % Tony Argueta MD Work Phone: [facility] 02-18-2025 14:02-0400 Systolic blood pressure 122 mm[Hg] Tony Argueta MD Work Phone: [facility] 11-27-2024 13:49-0400 Body height 165.1 cm Tony Argueta MD Work Phone: [facility] 11-27-2024 13:49-0400 Body mass index (BMI) [Ratio] 29.29 kg/m2 Tony Argueta MD Work Phone: [facility] 11-27-2024 13:49-0400 Body weight 79.83 kg Tony Argueta MD Work Phone: [facility] 03-12-2024 08:03-0400 Blood Pressure Location Leslie Orzech [facility] 03-12-2024 08:03-0400 Diastolic blood pressure 84 mm[Hg] Leslie Orzech [facility] 03-12-2024 08:03-0400 Heart rate 76 /min Leslie Orzech [facility] 03-12-2024 08:03-0400 Systolic blood pressure 136 mm[Hg] Leslie Orzech [facility] 08-16-2023 08:09-0500 Body height 165.1 cm Tony Argueta MD Work Phone: [facility] 08-16-2023 08:09-0500 Body mass index (BMI) [Ratio] 29.29 kg/m2 Tony Argueta MD Work Phone: [facility] 08-16-2023 08:09-0500 Body weight 79.83 kg Tony Argueta MD Work Phone: [facility] 08-16-2023 08:09-0500 Diastolic blood pressure 78 mm[Hg] Tony Argueta MD Work Phone: [facility] 08-16-2023 08:09-0500 Heart rate 72 /min Tony Argueta MD Work Phone: [facility] 08-16-2023 08:09-0500 SaO2% (BldA) [Mass fraction] 95 % Tony Argueta MD Work Phone: [facility] 08-16-2023 08:09-0500 Systolic blood pressure 126 mm[Hg] Tony Argueta MD Work Phone: [facility] 03-06-2023 15:36-0400 Blood Pressure Location Tex QUIROZ [facility] 03-06-2023 15:36-0400 Diastolic blood pressure 83 mm[Hg] Tex QUIROZ [facility] 03-06-2023 15:36-0400 Heart rate 71 /min Tex QUIROZ [facility] 03-06-2023 15:36-0400 Respiratory rate 16 /min Tex QUIROZ [facility] 03-06-2023 15:36-0400 Systolic blood pressure 126 mm[Hg] Tex QUIROZ [facility] 09-06-2022 08:47-0500 Blood Pressure Location Betzy Donis [facility] 09-06-2022 08:47-0500 Body temperature 96.8 [degF] Betzy Donis [facility] 09-06-2022 08:47-0500 Diastolic blood pressure 82 mm[Hg] Betzy Donis [facility] 09-06-2022 08:47-0500 Heart rate 85 /min Betzy Donis [facility] 09-06-2022 08:47-0500 Systolic blood pressure 117 mm[Hg] Betzy Donis [facility] 06-13-2022 11:38-0500 Blood Pressure Location Tex QUIROZ [facility] 06-13-2022 11:38-0500 Diastolic blood pressure 83 mm[Hg] Tex QUIROZ [facility] 06-13-2022 11:38-0500 Heart rate 75 /min Tex QUIROZ [facility] 06-13-2022 11:38-0500 Respiratory rate 16 /min Tex QUIROZ [facility] 06-13-2022 11:38-0500 Systolic blood pressure 129 mm[Hg] Tex QUIROZ [facility] Encounters Encounter Date Encounter Type Care Provider Facility Start: 03-27-2025 End: 03-27-2025 ambulatory Leslie X Orjessicach Facility:[facility] Start: 03-27-2025 End: 03-27-2025 Patient encounter procedure Leslie X Orzech [facility] Start: 03-20-2025 End: 03-20-2025 Clinisync Result Encounter Generic External Data Provider [facility] Unsolicited Start: 03-20-2025 End: 03-20-2025 Clinisync Result Encounter Generic External Data Provider [facility] External [facility] Unsolicited Start: 02-18-2025 End: 02-18-2025 Jessee Argueta MD Work Phone: [facility] Start: 02-18-2025 End: 02-18-2025 Jessee Argueta MD Work Phone: [facility] Start: 02-18-2025 End: 02-18-2025 Patient encounter status Tony Argueta MD Work Phone: [facility] Start: 02-18-2025 End: 02-18-2025 Periodic preventive med est patient 40-64yrs Tony Argueta MD Work Phone: [facility] Comment on above: Encounter [...] Dx); Acute cough Start: 03-12-2024 End: 03-12-2024 Patient encounter procedure Leslie Lucio [facility] Start: 08-16-2023 Bamboo flowsheet Tony blackburn MD Work Phone: [facility] Start: 08-16-2023 Bamjewelo flowsallan blackburn MD Work Phone: [facility] Start: 08-16-2023 End: 08-16-2023 Patient encounter status Edward J Hemeyer MD Work Phone: [facility] Start: 08-16-2023 [...] encounter procedure Tex QUIROZ [facility] Start: 09-06-2022 End: 09-06-2022 Patient encounter procedure Betzy Donis [facility] Start: 07-07-2022 Encounter for preprocedural laboratory examination DR TEX QUIROZ . [facility] Start: 07-07-2022 Encounter for preprocedural cardiovascular examination DR TEX QUIROZ . [facility] Start: 07-07-2022 End: 07-07-[address] [...] encounter procedure Tex QUIROZ [facility] Start: 06-06-2022 End: 06-06-[address] ANKIT JEAN . Facility:[facility] Start: 06-06-2022 End: 06-06-[address] ANKIT JEAN . Facility:[facility] Start: 05-30-2022 Encounter for genera l adult medical examination without abnormal findings DR ANKIT JEAN . [facility] Start: 05-27-2022 End: 05-27-[address] ANKIT JEAN . Facility:[facility] Start: 05-26-2022 End: 05-27-[address] ANKIT JEAN . Facility:[facility] Start: 05-26-2022 End: 05-27-2022 Encounter for general adult medical examination without abnormal findings DR ANKIT JEAN . Facility: Procedures Date Procedure Procedure Detail Performing Clinician Start: 03-20-2025 XR ABDOMEN 1V Generic E xternal Data Provider Start: 07-05-2024 Mammography Tony perez MD Work Phone: Start: 06-29-2023 Mammography Tony perez MD Work Phone: Start: 10-04-2022 Colonoscopy Tony perez MD Work Phone: Start: 04-03-2019 Colonoscopy Tony perez MD Work Phone: Augmentation mammoplasty Bethany QUIROZ Colonoscopy Tex QUIROZ Plan of Treatment Date Care Activity Detail Author Start: 10-04-2032 Screening for malign ant neoplasm of colon [facility] Start: 04-03-2029 Screening for malign ant neoplasm of colon [facility] Start: 06-06-2027 Screening for malign ant neoplasm of cervix [facility] Start: 07-05-2025 Screening for malign ant neoplasm of breast Mammogram [facility] Start: 05-09-2025 Influenza vaccination Influenza Vacc ine (#1) [facility] Comment on above: Postponed from 03/10 (Patient Refused) Start: 03-10-2025 Influenza vaccination [facility] Start: 02-18-2025 End: 02-18-2026 Comprehensive metabolic 2000 panel - Serum or Plasma Comprehensive metabolic panel Lab Routine Encounter for wellness examination in adult Screening for diabetes mellitus (DM) Expected: 02/18/2025 (Approximate), Expires: 02/18/2026 [facility] Work Phone: Comment on above: Expected: 02/18/2025 (Approximate), Expires: 02/18/2026 Start: 02-18-2025 End: 02-18-2026 Lipid 1996 panel - Serum or Plasma Lipid panel Lab Routine Encounter for wellness examination in adult Encounter for lipid screening for cardiovascular disease Expected: 02/18/2025 (Approximate), Expires: 02/18/2026 [facility] Comment on above: Expected: 02/18/2025 (Approximate), Expires: 02/18/2026 Start: 02-18-2025 End: 02-18-2026 Measurement of glucose 2 hours after glucose challenge for glucose tolerance test Glucose tolerance, 2 hours Lab Routine Screening for diabetes mellitus (DM) Eye exam abnormal Weight gain finding Expected: 02/18/2025 (Approximate), Expires: 02/18/2026 [facility] Comment on above: Expected: 02/18/2025 (Approximate), Expires: 02/18/2026 Start: 02-18-2025 End: 02-18-2025 Patient encounter procedure 02/18/2025 2:00 PM EDT Office Visit [facility] [address] [place] [address] [address] [place] [address] Tony Argueta MD [address] [address] Encounter for wellness examination in adult; Advance directive in chart; Screening for diabetes mellitus (DM); Encounter for lipid screening for cardiovascular disease; Screening for osteoporosis; Menopause; Overweight (BMI 25.0-29.9) [place] [address] [facility] Comment on above: Encounter for wellne ss examination in adult; Advance directive in chart; Screening for diabetes mellitus (DM); Encounter for lipid screening for cardiovascular disease; Screening for osteoporosis; Menopause; Overweight (BMI 25.0-29.9) Start: 06-29-2024 Screening for malign ant neoplasm of breast Mammogram [facility] Start: 08-16-2023 End: 08-16-2023 Patient encounter procedure 08/16/2023 8:00 AM EST Office Visit [facility] [address] [place] [address] Tony Argueta MD [address] [place] [address] (Fax) [facility] Start: 03-10-2023 Influenza vaccination Influenza Vacc ine (#1) [facility] Start: 1996 Screening for malign ant neoplasm of cervix [facility] Start: 1987 Screening for malign ant neoplasm of cervix Pap Smear [facility] Start: 1966 Screening for malign ant neoplasm of colon [facility] Immunizations Immunization Date Immunization Notes Care Provider Fa [facility] 04-26-2022 influenza virus vaccine, unspecified formulation Betzy Donis [facility] 04-26-2022 influenza, seasonal, injectable Tony Argueta MD Work Phone: [facility] 10-29-2020 SARS-CoV-2 (COVID-19 ) mRNA BNT-162b2 vax Betzy Jewels [facility] 10-09-2020 SARS-CoV-2 (COVID-19 ) mRNA BNT-162b2 vax Betzy Donis [facility] Payers Date Payer Category [facility] [id number] 2024 Unknown [id number] 2023 Unknown [id number] 1966 Unknown [id number] .593 1966 Unknown [id number] [id number] .593 1966 Unknown [id number] 2.16.840.1.218884.3.579.2 .593 1966 Unknown [id number] 2.16.840.1.494201.3.579.2 .593 1966 Unknown [id number] 2.16.840.1.597835.3.579.2 .593 1966 Unknown [id number] 2.16.840.1.123774.3.579.2 .593 1966 Unknown [id number] 2.16.840.1.857624.3.579.2 .593 1966 Unknown [id number] 2.16.840.1.022919.3.579.2 .593 1966 Unknown [id number] 2.16.840.1.603579.3.579.2 .593 1966 Unknown [id number] 2.16.840.1.014696.3.579.2 .593 1966 Unknown [id number] 2.16.840.1.303879.3.579.2 .1259 1966 Unknown [id number] [id number] .1259 1966 Unknown [id number] [id number] .727 1959 Unknown [id number] Unknown [id number] Social History Date Type Detail Facility Start: 06-13-2022 End: 03-27-2025 Tobacco smoking status Never smoked tobacco (finding) [facility] Start: 08-15-2023 End: 11-27-2024 Sex Assigned At Female [facility] Tobacco smoking status Never [facility] Start: 08-15-2023 Tobacco use and exposure Smoke less tobacco non-user [facility] Start: 08-15-2023 End: [...] afraid of your partner or ex-partner? No [facility] Are you now , , , , never or living with a partner? [facility] How often to you hav e a drink containing alcohol? 2-4 times a month [facility] How many standard dr inks containing alcohol do you have on a typical day? 3 or 4 [facility] Do you feel stress - tense, restless, nervous, or anxious, or unable to sleep at night because your mind is troubled all the time - these days [OSQ] Not at all [facility] (I/We) worried wheth er (my/our) food would run out before (I/we) got money to buy more. Never true [facility] Sexual Orientation [facility] Sex Female (finding) [facility] Functional Status Date Assessment Result Facility 02-18-2025 Patient Health Quest ionnaire 2 item (PHQ-2) [Reported] [facility] 11-27-2024 Patient Health Quest ionnaire 2 item (PHQ-2) [Reported] [facility] 11-27-2024 Total score [AUDIT-C] 3 11/28/19 11:39 AM EDT Mychart, Generic [facility] 11-27-2024 How often to you hav e a drink containing alcohol? 2-4 times a month 11/27/2024 11:39 AM EDT Mychart, Generic 2-4 times a month [facility] 11-27-[address] inks containing alcohol do you have on a typical day? 3 or 4 11/27/2024 11:39 AM EDT Mychart, Generic 3 or 4 [facility] 11-27-2024 How often do you hav e 6 or more drinks on 1 occasion? Never 11/27/2024 11:39 AM EDT Mychart, Generic Never [facility] 03-12-2024 Functional Status N/A [facility] 03-06-2023 Functional Status N/A [facility] 09-06-2022 Functional Status N/A [facility] 06-13-2022 Functional Status N/A [facility] Clinical Notes 06-13-2022 to 03-27-2025 Tony Argueta MD - 02/18/2025 2:00 PM Brett Argueta MD - 11/27/2024 1:45 PM Brett Argueta MD - 08/16/2023 8:00 AM ESTRadiology Note Date & Type Note Facility 03-27-2025 Hospital Discharge instructions Patient Education 03/27/2025 09:38:26 Kidney Stones, Kdtk-lq-Uzqm Kidney Stones Kidney stones are rock-like masses [...] Follow these instructions at home: Medicines Take upac-vdw-unyeeam and prescription medicines only as told by [...] provider. Document Revised: 02/17/2023 Document Reviewed: 02/17/2023 [employer] Patient Education 2023 [employer] 03/27/2025 09:38:25 Dietary Guidelines to Help Prevent Kidney Stones [...] include: ?8 oz (237 mL) of milk, quotnqk-gxhszejtzzwv-sfjsz milk, and calcium-fortifiedfruit juice. Calcium-fortified means that [...] ?Spinach (cooked), rhubarb, beets, sweet potatoes, and Northern Irish chard. ?Peanuts. ?Potato chips, guatemalan fries, and baked potatoes with skin on. ?Nuts and nut products. ?Chocolate. If you regularly take a diuretic medicine, make sure to eat at least 1 or 2 servings of fruits or vegetables that are high in potassium each day. These include: ?Avocado. ?Banana. ?Sanders, prune, carrot, or tomato juice. ?Baked potato. [...] magnesium, fish oil, or vitamin B6. Take waho-vyl-hfqzrhz and prescription medicines only as told by [...] Casseroles. Pizza. Lasagna. Frozen meals. Potato chips. Cymro fries. The items listed above may not [...] provider. Document Revised: 10/06/2022 Document Reviewed: 10/06/2022 [employer] Patient Education 2023 [employer]. Follow Up Care 10/01/2024 12:56:50 With:AMARILIS Lucio APRN, HEAVENLY Sinha, URL Address: When: Unknown Comments:pending NIKI [facility] 03-27-2025 Note Patient Education Nephrology Dietary Guidelines to [...] for following this plan? Reading food labels ??? Choose foods with no salt added or low-salt labels. Limit your salt (sodium) intake to less than 1,500 mg a day. ??? Choose foods with calcium for each meal and snack. Try to eat about 300 mg of calcium at each meal. Foods that contain 200?500 mg of calcium a serving include: ? 8 oz (237 mL) of milk, fdfldxv-efumepwfzmbv-ngeeb milk, and calcium-fortifiedfruit juice. Calcium-fortified means that [...] much calcium is recommended for you. Shopping ??? Buy plenty of fresh fruits and vegetables. Most people do not need to avoid fruits and vegetables, even if these foods contain nutrients that may contribute to kidney stones. ??? When shopping for convenience foods, choose: ? Whole pieces of fruit. ? Pre-made salads with dressing on the side. ? Low-fat fruit and yogurt smoothies. ??? Avoid buying frozen meals or prepared deli foods. These can be high in sodium. ??? Look for foods with live cultures, such as yogurt and kefir. ??? Choose high-fiber grains, such as whole-wheat breads, oat bran, and wheat cereals. Cooking ??? Do not add salt to food when cooking. Place a salt shaker on the table and allow each person to add their own salt to taste. ??? Use vegetable protein, such as beans, textured vegetable protein (TVP), or tofu, instead of meat in pasta, casseroles, and soups. Meal planning ??? Eat less salt, if told by your dietitian. To do this: ? Avoid eating processed or pre-made food. ? Avoid eating fast food. ??? Eat less animal protein, including cheese, meat, [...] size of the palm of your hand. ??? Eat at least five servings of fresh fruits and vegetables each day. To do this: ? Keep fruits and vegetables on hand for snacks. ? Eat one piece of fruit or a handful of berries with breakfast. ? Have a salad and fruit at lunch. ? Have two kinds of vegetables at dinner. ??? You may be told to limit foods that are high in a substance called oxalate. These include: ? Spinach (cooked), rhubarb, beets, sweet potatoes, and Northern Irish chard. ? Peanuts. ? Potato chips, guatemalan fries, and baked potatoes with skin on. ? Nuts and nut products. ? Chocolate. ??? If you regularly take a diuretic medicine, make sure to eat at least 1 or 2 servings of fruits or vegetables that are high in potassium each day. These include: ? Avocado. ? Banana. ? Sanders, prune, carrot, or tomato juice. ? Baked potato. ? Cabbage. ? Beans and split peas. Lifestyle ??? Drink enough fluid to keep your urine pale yellow. This is the most important thing you can do. Spread your fluid intake throughout the day. ??? If you drink alcohol: ? Limit how [...] oz glass of hard liquor (44 mL). ??? Lose weight if told by your health care provider. Work with your dietitian to find an eating plan and weight loss strategies that work best for you. General information ??? Talk to your health care provider and [...] as magnesium, fish oil, or vitamin B6. ??? Take szkz-olt-lskpyhh and prescription medicines only as told by your health (more content not included)... [facility] 02-18-2025 History of Present illness Narrative Images from the original note were not included. Patient ID: Kiara Moya is a 59 y.o. female who presents for: Adult Wellness: See Scanned Wellness packet Advance Directive/Living Will: Yes Health Care Power of Nurse Emergency Room: Yes We got an eye exam from [...] (Patient not taking: Reported on 02/18/2025) [DISCONTINUED] [place] DMT 30-30 MG tablet Take 1 tablet [...] may have occurred. documented in this encounter [facility] 11-27-2024 History of Present illness Narrative Images [...] mL; Refill: 0 documented in this encounter [facility] 03-12-2024 Hospital Discharge instructions Patient Education 03/12/2024 08:30:37 Kidney Stones, Uhkp-kw-Riot Kidney Stones Kidney stones are rock-like masses [...] Follow these instructions at home: Medicines Take xyfa-taw-wmyubmp and prescription medicines only as told by [...] provider. Document Revised: 02/17/2023 Document Reviewed: 02/17/2023 [employer] Patient Education 2023 [employer]. 03/12/2024 08:30:36 Dietary Guidelines to Help Prevent [...] include: ?8 oz (237 mL) of milk, yaxmpop-firbwnqvwdia-ttkgu milk, and calcium-fortifiedfruit juice. Calcium-fortified means that [...] ?Spinach (cooked), rhubarb, beets, sweet potatoes, and Northern Irish chard. ?Peanuts. ?Potato chips, guatemalan fries, and baked potatoes with skin on. ?Nuts and nut products. ?Chocolate. If you regularly take a diuretic medicine, make sure to eat at least 1 or 2 servings of fruits or vegetables that are high in potassium each day. These include: ?Avocado. ?Banana. ?Sanders, prune, carrot, or tomato juice. ?Baked potato. [...] magnesium, fish oil, or vitamin B6. Take jhio-cfx-wmwenkb and prescription medicines only as told by [...] Casseroles. Pizza. Lasagna. Frozen meals. Potato chips. Cymro fries. The items listed above may not [...] provider. Document Revised: 10/06/2022 Document Reviewed: 10/06/2022 [employer] Patient Education 2023 [employer]. Follow Up Care 03/06/2023 17:08:55 With:AMARILIS Lucio APRN, HEAVENLY Sinha, URL Address: When: Unknown Comments:1 year with [facility] 08-16-2023 History of Present illness Narrative Patient ID: Kiara Moya is a 58 y.o. female who presents for: See Scanned Wellness packet Advance Directive/Living Will: No Health Care Power of Nurse Emergency Room: No Review of Systems Constitutional: Negative for [...] LDL-C. Ryan ROSS et al. JOSEPH. 2013;310(19): 7065-0298 (http://[email or web address]/[email or web address]) CHOL/HDLC RATIO 08/09/2023 2.9 <5.0 (calc) Final [...] a living will and durable power of traveling secretary for healthcare. We discussed telling varela people about their advance directives such as close family members and a copy will be kept in the EHR. I discussed that they should also make me an emergency contact in their cell phone, and/or notify their POA that I have a copy of the advanced directives. Overweight (BMI 25.0-29.9) documented in this encounter [facility] 03-06-2023 Hospital Discharge instructions Patient Education 03/06/2023 [...] include: ?8 oz (237 mL) of milk, hfddxya-sfvsasxwnhpl-zzroh milk, and calcium-fortifiedfruit juice. Calcium-fortified means that [...] ?Spinach (cooked), rhubarb, beets, sweet potatoes, and Northern Irish chard. ?Peanuts. ?Potato chips, guatemalan fries, and baked potatoes with skin on. ?Nuts and nut products. ?Chocolate. If you regularly take a diuretic medicine, make sure to eat at least 1 or 2 servings of fruits or vegetables that are high in potassium each day. These include: ?Avocado. ?Banana. ?Sanders, prune, carrot, or tomato juice. ?Baked potato. [...] magnesium, fish oil, or vitamin B6. Take avkh-ffi-ttiaghw and prescription medicines only as told by [...] Casseroles. Pizza. Lasagna. Frozen meals. Potato chips. Cymro fries. The items listed above may not [...] provider. Document Revised: 03/07/2022 Document Reviewed: 03/07/2022 [employer] Patient Education 2022 [employer] Reports. Follow Up Care 10/20/2022 10:19:07 With:RICHIE YANEZ, Tex Guzman, URL Address: [facility] [address] [place] [address]- [phone] When: Unknown Comments:1 yr w/ [facility] 09-06-2022 Hospital Discharge instructions Patient Education [...] including vitamins, herbs, eye drops, creams, and vxni-zsu-pdisgst medicines. Any problems you or family members [...] 06/23/2001 Document Revised: 04/18/2018 Document Reviewed: 09/06/2016 [employer] Patient Education 2020 Prescription Eyewear Follow Up Care 08/15/2022 14:12:55 With:Betzy Donis CNP Address: When:1 to 2 weeks Comments:Following colonoscopy. [facility] 06-13-2022 Hospital Discharge instructions [...] include: ?Spinach. ?Rhubarb. ?Beets. ?Potato chips and guatemalan fries. ?Nuts. If you regularly take a diuretic medicine, make sure to eat at least 1 2 fruits or vegetables high in potassium each day. These include: ?Avocado. ?Banana. ?Sanders, prune, carrot, or tomato juice. ?Baked potato. [...] Casseroles. Pizza. Lasagna. Frozen meals. Potato chips. Cymro fries. Summary You can reduce your risk [...] 10/21/2011 Document Revised: 10/16/2019 Document Reviewed: 06/06/2017 Elsevier Patient Education 2020 [employer]. Follow Up Care 06/06/2022 15:28:19 With:Tex QUIROZ MD, URL Address: [facility] [address], [place] [address]- When: Unknown [facility] Evaluation + Plan note No data available for this section [facility] Evaluation + Plan note Future Appointments Appointment Date:03/18/2024 08:45:00 AM Scheduled Provider:Tex QUIROZ MD Location:[facility] Appointment Type:URO Office Visit Future Scheduled TestsXR Abdomen 1 View 10/20/22 [facility] Evaluation note Diagnosis Encounter for wellness examination [...] data available for this section [facility] Summary Purpose Family History No Family History Records FoundNo Family History Records Found No data available for this section No Family History Records Found No data available for this section No Family History Records Found Advance Directives No Advanced Directives Records FoundDocuments on File Type Date Recorded Patient Illuminator Expl anation Advance Directives and Living Will 09/12/2022 2022-08-23 Power Of Nurse Emergency Room Additional Source Comments INFORMATION SOURCE (unrecogn ized section and content) DATE CREATED AUTHOR 01/03/2018 [facility] DATE CREATED AUTHOR AUTHOR'S DICK ATMARIA DEL CARMEN 09/09/2022 [facility] DATE CREATED AUTHOR AUTHOR'S ORGANIZ ATION 02/20/2025 [facility] EPIC DATE CREATED AUTHOR AUTHOR'S ORGANIZ ATION 03/29/[address] [facility] Patient Care team informatio n (unrecognized section and content) Poultry Inspector Relationship Specialty Start Date End Date Tony Argueta MD [address] [place] [address] (Fax) PCP - General Family Medicine 11/15/22 Poultry Inspector Relationship Specialty Start Date End Date Tony Argueta MD [address] [place] [address] (Fax) PCP - General Family Medicine 11/15/22 Poultry Inspector Relationship Specialty Start Date End Date Tony Argueta MD [address] [place] [address] (Fax) PCP - General Family Medicine 11/15/22 Poultry Inspector Relationship Specialty Start Date End Date Tony Argueta MD [address] [place] [address] (Fax) PCP - General Family Medicine 11/15/22 Poultry Inspector Relationship Specialty Start Date End Date Tony Argueta MD [address] [place] [address] (Fax) PCP - General Family Medicine 11/15/22 Poultry Inspector Relationship Specialty Start Date End Date Tony Argueta MD [address] [place] [address] (Fax) PCP - General Family Medicine 11/15/22 Tony Argueta MD [address] [place] [address] (Fax) PCP - [employer] 01/07/25 Ashleigh Lawson MD [address] [place] [phone] Referring Physician Optometry 02/10/25 Poultry Inspector Relationship Specialty Start Date End Date Tony Argueta MD [address] [address] (Fax) PCP - General Family Medicine 11/15/22 Tony Argueta MD [address] [address] (Fax) PCP - [employer] 01/07/25 Ashleigh Lawson MD [address] [place] [phone] Referring Physician Optometry 02/10/25 Poultry Inspector Relationship Specialty Start Date End Date Tony Argueta MD [address] [place] [address] (Fax) PCP - General Family Medicine 11/15/22 Tony Argueta MD [address] [phone] (Fax) PCP - [employer] 01/07/25 Ashleigh Lawson MD [address] [place] [address] Referring Physician Optometry 02/10/25 Reason for Visit [...] BE BASED ON THE PRIMARY CLINICAL RECORDS. [employer] [facility]. provides no warranty or guarantee of the accuracy or completeness of information in this document.
--- NOTE | 2025-04-01 07:29 | US_ITS ---
The [address] [address] Patient Name: JOSE LUIS BARNEY MRN: [id number] date: 1965 Sex: F Assigned Patient Location: US Current Patient Location: US Accession/Order Number: [id number] Exam Date: 04/01/2025 07:30 Report Date: 04/01/2025 09:15 At the request of: PREET COLEMAN NP Procedure: US renal BI BILATERAL RENAL AND BLADDER ULTRASOUND CLINICAL HISTORY: Kidney stones. Prior lithotripsy. COMPARISON: [facility] 03/20/[address] 05/27/2022 Estimation of renal size is approximately 9.7 cm on the right and 12.6 cm on the left. There is an echogenic focus with twinkle artifact at the mid to upper pole on the left measuring 4 - 5 mm in size which may be a stone. There is also a second suspected 3 mm stone at the midpole. No hydronephrosis is identified. No renal mass lesions were imaged. There is no perinephric fluid. Incidental note is made of a small 13 mm right hepatic cyst as well as cholelithiasis. The urinary bladder is partially distended with a volume of 211 mL. No contour or intraluminal abnormalities are seen. US/US renal BI IMPRESSION: LEFT NEPHROLITHIASIS. NO OBSTRUCTIVE UROPATHY. INCIDENTAL HEPATIC CYST AND CHOLELITHIASIS. Impression dictated by: Riri Marie M.D. 04/01/2025 9:15 AM Dictation Location: [place] [address] Electronically authenticated by: [id number] Y Date: 04/01/2025 09:15
== END 2025-04-01 07:26 | disposition home or self-care (01) ==
LOC: US 07:25
PROVIDERS: PCP Family Medicine; Visit Provider Nurse Practitioner Family
DX: N20.0 Calculus of kidney (principal); K76.89 Other specified diseases of liver; K80.20 Calculus of gallbladder without cholecystitis without obstruction
CPT/HCPCS: 76775